=== PATIENT | female | born 2005 | race Caucasian/White ===

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

== ENCOUNTER 2024-09-04 08:59 | Emergency (ER) | payer OTHER, SELFPAY ==
--- NOTE | ~2024-09-04 | XR_ITS ---
EXAMINATION: XR chest 2V DATE: 09/04/2024 09:48 INDICATION: One week of fever, cough and congestion TECHNIQUE: PA and lateral views of the chest were obtained. COMPARISON: Chest radiograph dated 04/04/2023 FINDINGS: The lungs remain clear with no focal airspace opacities, pulmonary edema, pleural effusion or pneumot horax. The cardiomediastinal silhouette is normal. Chronic mild anterior wedging of a couple mid and lower thoracic vertebral bodies. IMPRESSION: 1. No acute cardiopulmonary disease. Reviewed, dictated and finalized at location B. ERN LAYOUT WORKER
[2024-09-04 09:24] VITALS: BP 126/83; PULSE 126; RESP 16; TEMP 38; O2SAT 99
--- NOTE | 2024-09-04 09:25 | ED_ITS ---
HPI - URI/Sore Throat General Chief Complaint: Upper Respiratory Infection Stated Complaint: fever, bodyaches, congestion, sorethroat Time Seen by Provider: 09/04/24 09:35 Source: patient, RN notes reviewed and old records reviewed Mode of arrival: ambulatory Limitations: no limitations History of Present Illness HPI Narrative: 19-year-old female who presents to [facility] with complaints of fever, body aches,sore throat, and congestion for approximately 2 weeks with reported fever of 102F this morning with increased symptoms since yesterday.. Patient reports that she was seen at another urgent care 10 days ago and given Amoxicillin which she took for only 3 days because it made her nauseated. Patient reports that she has loose cough of yellowish drainage. Shehas been taking Sudafed, and Advil cold and sinus for her symptoms. MD elicited complaint: fever, cough, sore throat, nasal congestion and other (body aches) Onset (ago): week(s) (2 weeks inital symptoms with increase for 2 days) Pain scale (0-10): 2 Able to tolerate fluids by mouth: Yes Exacerbating factors: swallowing Treatments prior to arrival: other (Advil cold and sinus, Sudafed) Related Data Home Medications Medication Instructions Recorded Confirmed etonogestrel 68 mg subdermal 1 implant subdermal ONCE 08/05/20 09/04/24 implant (Nexplanon) pramipexole 0.5 mg tablet 0.5 mg PO DAILY 08/05/20 09/04/24 armodafinil See Rx Instructions .Route .COMPLEX 09/04/24 09/04/24 Allergies Allergy/AdvReac Type Severity Reaction Status Date / Time No Known Allergies Allergy Verified 09/04/24 09:22 Review of Systems Review of Systems: CONSTITUTIONAL: Reports malaise, chills, sweats, or fever. EYES: Denies visual changes, redness, or discharge. ENT: Reports rhinorrhea, congestion, sinus pain,no otalgia and positive for sore throat. CARDIOVASCULAR: Denies chest pain, palpitations, or edema. RESPIRATORY: Reports productive cough.? Denies dyspnea. GASTROINTESTINAL: Denies abdominal pain, nausea, vomiting, diarrhea SKIN: Denies rash or itching. MUSCULOSKELETAL: reports myalgia. NEUROLOGIC: Denies headache. All systems reviewed & are unremarkable except as noted in HPI and below PMFSH Past Medical History Medical History (Updated 09/06/24 @ 06:17 by Betsey Leggett NP) Anxiety and depression Back pain GERD (gastroesophageal reflux disease) Hypersomnia Iron deficiency Restless leg syndrome Surgical History Surgical History (Updated 09/06/24 @ 06:12 by Betsey Leggett NP) History of tonsillectomy Social History Social History (Updated 09/06/24 @ 06:13 by Betsey Leggett NP) Smoking status: Never smoker Alcohol intake: unknown Substance use: unknown Gender identity (if verbalized by the patient): Female Comments At time of signature, agree with nursing past medical, surgical, social and family history. There is no relevant family history pertinent to the presenting complaint Exam Narrative: GENERAL: Well-appearing, well-nourished, and in no acute distress. HEAD: Normocephalic EYES: PERRLA, conjunctivae clear ENT: Nares clear, turbinates edematous and erythematous, yellow discharge, sinus pressure. Mucous membranes moist. TM pearly navarro with dull light reflex bilaterally; no tragal tenderness. Oropharynx erythematous without lesions. Tonsils not present and throat without exudate, no drooling, no hoarseness, no trismus, uvula midline.post nasal drainage noted. NECK: Supple. No lymphadenopathy CHEST: Clear to auscultation, breath sounds equal. No wheezing, rhonchi, rales, or stridor. No respiratory distress, speaks in full sentences.productive cough DGA110% on room air HEART: Regular rate and rhythm. No murmur heard. SKIN: Warm, dry, no rash. NEURO: Alert and oriented x3. PSYCH: Normal mood and affect Course Course Emergency Course: Patient is aware of diagnosis, understands and agrees to treatment plan.? Antici patory guidance given.? Patient agrees to follow-up as directed and is aware of reasons to seek care at the emergency department. Portions of this record may have been created with voice recognition software Level of Care: Express Care Visit Vital Signs Vital signs: Vital Signs Temperature 38.0 C H 09/04/24 09:24 Pulse Rate 126 H 09/04/24 09:24 Respiratory Rate 16 09/04/24 09:24 Blood Pressure 126/83 09/04/24 09:24 Pulse Oximetry 99 11/21/24 09:24 Temperature 38.0 C H 09/04/24 09:24 Pulse Rate 126 H 09/04/24 09:24 Respiratory Rate 16 09/04/24 09:24 Blood Pressure 126/83 09/04/24 09:24 Pulse Oximetry 99 09/04/24 09:24 Reviewed MDM - URI/Sore Throat MDM Narrative Medical decision making narrative: Differential diagnosis considered: Burnett virus, strep pharyngitis, allergic rhinitis, upper respiratory tract infection, sinusitis, rhinosinusitis, nasopharyngitis. viral pharyngitis, otitis media, otitis externa, pneumonia, bronchitis, viral cough syndrome, viral syndrome, and influenza.? Exam findings show no acute concerns or changes; patient is non-toxic appearing and is in no distress.? Patient is appropriate for outpatient treatment and follow-up. Differential Diagnosis Differential diagnosis: Likely upper respiratory infection, sinusitis, viral infection, bronchitis, influenza, pharyngitis and other (strep pharyngitis, pneumonia) Medical Records Attestation: I reviewed the patient's medical records. Lab Data Attestation: I reviewed the patient's lab results. Lab results narrative: strep screen negative, culture seen, Influenza A negative, Influenza B negative, COVID negative Labs: Lab Results 09/04/24 Range/Units 09:20 POC Influenza A Ag Negative (Negative) POC Influenza B Ag Negative (Negative) POC SARS CoV-2 Ag Negative (Negative) POC Grp A Strep Screen Negative (Negative) Imaging Data Attestation: I personally reviewed and interpreted this imaging study as follows: My impression: no acute cardiopulmonary disease Radiologist's impression: [address] [place] [address] XRay Report Signed Patient: Lucita Valle : 2005 MR#: [id number] Age: 19 Acct:[id number] Loc: [facility] ADM Date: 09/04/24Attending Dr: Ordering Physician: Betsey Leggett APRN Date of Service: 09/04/24 Procedure(s): XR chest 2V Accession Number(s): [id number] cc: Betsey Leggett APRN; Hunter, Kelly Amanda APRN~ EXAMINATION: XR chest 2V DATE: 09/04/2024 09:48 INDICATION: One week of fever, cough and congestion TECHNIQUE: PA and lateral views of the chest were obtained. COMPARISON: Chest radiograph dated 04/04/2023 FINDINGS: The lungs remain clear with no focal airspace opacities, pulmonary edema, pleural effusion or pneumothorax. The cardiomediastinal silhouette is normal. Chronic mild anterior wedging of a couple mid and lower thoracic vertebral bodies. IMPRESSION: 1. No acute cardiopulmonary disease. Reviewed, dictated and finalized at location B. MENT PROCESSING SPECIALIST Dictated By: Biju Sandoval MD 09/04/24 1007 Signed By: <Electronically signed by Biju Sandoval MD in OV> Critical Care Time Critical Care Time Critical Care Time: No Discharge Plan Discharge Clinical Impression: Sinusitis, Acute cough Patient Disposition: Home, Self-Care Condition: Stable Instructions: Antibiotic Form Additional Instructions: Increase fluids especially juices and water [id number] cough and cold medicine of your choice for your symptoms Zyrtec Claritin or Elayne daily continue to take plain Sudafed 1 in a.m. and 1 in early p.m. Steroids as directed--take with food heat to the face 20-30 minutes 4-6 times a day for pain Salt water gargles, throat lozenges or throat sprays as desired Antibiotic as directed--finished the medication If your symptoms persist, change or worsen significantly before you can contact your personal physician then please, without delay, go to the emergency department for further evaluation. Follow-up with PCP in 7-10 days or sooner if needed Follow up with PCP soon in regards to your blood pressure which is elevated above threshold for referral. Blood pressure above 120/80 may indicate pre- hypertension. 126/83 minimal elevation Tylenol or ibuprofen for any fever pain Prescriptions: New prednisone 20 mg tablet 20 mg PO BID Qty: 10 0RF Rx Instructions: a.m. and early p.m. take with food azithromycin 250 mg tablet See Rx Instructions .ROUTE .COMPLEX Qty: 6 0RF Rx Instructions: For 250 mg dose pack: take 500 mg today (day 1), then 250 mg for 4 days (days 2-5) recommend take with food No Action pramipexole 0.5 mg Tablet 0.5 mg PO DAILY Nexplanon 68 mg Implant 1 implant SUBDERMAL ONCE armodafinil See Rx Instructions .ROUTE .COMPLEX Rx Instructions: see RX instructions Follow-up/Referrals: Hunter,Kelly Amanda, EARLY CHILDHOOD TEACHER [Primary Care Provider] - Stand Alone Forms: Work/School Release IP Time of Disposition: 10:22 Quality [place] Coma Scale Eyes: Open Verbal: Oriented and Alert Motor: Follows Commands [place] Coma Total Score: 15
[2024-09-04 09:40] LABS: EDCOVIDSCREEN Negative (Negative); EDINFLUASCREEN Negative (Negative); EDINFLUBSCREEN Negative (Negative); EDSTREPNEGPOS1 Negative (Negative)
== END 2024-09-04 10:28 | disposition home or self-care (01) ==
PROVIDERS: Emergency Provider Registered Nurse
DX: J32.9 Chronic sinusitis, unspecified (principal); R05.1 Acute cough; Z20.822 Contact with and (suspected) exposure to COVID-19; K21.9 Gastro-esophageal reflux disease without esophagitis; G25.81 Restless legs syndrome
CPT/HCPCS: 71046; 87081; 87426; 87804; 87880; 99213; G0463

== ENCOUNTER 2024-11-27 13:56 | Emergency (ER) | payer OTHER, SELFPAY ==
--- NOTE | ~2024-11-27 | XR_ITS ---
EXAMINATION: XR chest 2V DATE: 11/27/2024 14:22 INDICATION: Chest pain. TECHNIQUE: Frontal and lateral views of the chest were obtained. COMPARISON: Chest 2 views 09/04/2024 FINDINGS: There is no pneumonia, pleural effusion, or pneumothorax. The heart size is normal. IMPRESSION: 1. No acute cardiopulmonary disease. Reviewed, dictated and finalized at location A. [facility]
--- NOTE | 2024-11-27 14:01 | ECG_ITS ---
Test Date: 2024-11-27 14:08:08 Measurements Intervals [place] Rate: 117 P: 37 CO: 116 QRS: 17 QRSD: 81 T: 7 QT: 313 QTc: 438 Interpretive Statements SINUS TACHYCARDIA WITH SHORT CO INTERVAL CONSIDER INFERIOR INFARCT, AGE INDETERMINATE BASELINE ARTIFACT- I, III, AVR, AVL, AVF ABNORMAL ECG No previous ECG available for comparison Electronically Signed On 11-27-2024 14:47:59 FURNACE MECHANIC by Luis Miguel Rock D.O.
--- OUTSIDE RECORDS SUMMARY | 2024-11-27 14:03 | XMS_ITS | Encounter Summary ---
Author Organization [facility] Address [address] [place] [address] Care Team Providers Care Dry Box Operator Name Role Phone Kavitha Barker MD Primary Care Provider [phone] Irlanda Del Real TOPOGRAPHIC COMPUTATOR-SPECIAL NEEDS BABYSITTER Primary Care Provider Kelly Harrison Primary Care Provider [phone] Reason for Visit * Reason Onset Date Comments MEDICATION REFILL 03/07/2023 Encounter Details Date Type Department Care Team (Late st Contact Info) Description 03/07/2023 Refill [facility] - Sleep [address] [place] [address] María Elena Overton, TOPOGRAPHIC COMPUTATOR-SPECIAL NEEDS BABYSITTER [address] [place] [address] MEDICATION REFILL Social History Tobacco Use Types Packs/Day Years Used Date Smoking Tobacco: Never Smokeless Tobacco: Never Alcohol Use Standard Drinks/Week Comments Never 0 (1 standard drink = 0.6 oz pur e alcohol) Education Answer Date Recorded What is the highest level of school you have completed or the highest degree you have received? Some college, no degree 03/06/2023 Sex and Gender Information Value Date Recorded Sex Assigned at Not on file Gender Identity Female 05/27/2022 3:36 PM CDT Sexual Orientation Not on file COVID-19 Exposure Response Date Recorded In the last 10 days, have yo u been in contact with someone who was confirmed or suspected to have Coronavirus/COVID-19? No / Unsure 03/05/2023 8:16 AM CDT documented as of this encounter Plan of Treatment Upcoming Encounters Date Type Department Care Team (Late st Contact Info) Description 12/12/2024 8:40 AM CRITICAL CARE NURSE PRACTITIONER Office Visit [facility] Pending sale to [facility] [place] [phone] Lashell Boswell, APNP-SPECIAL NEEDS BABYSITTER [address] DIV OF PULMONARY/[place] [address] 01/20/2025 11:20 AM CDT Office Visit [facility] Services [address] [place] [phone] Lashell Boswell, APNP-SPECIAL NEEDS BABYSITTER [address] DIV OF PULMONARY/[place] [address] documented as of this encounter Goals Goal Patient Goal Type Associated Problems Recent Progress Patient-Stated? Author Use safety retraint in car Lifestyle On track( 021 3:12 PM CRITICAL CARE NURSE PRACTITIONER) No Betsey Sneed RN documented as of this encounter Visit Diagnoses Not on filedocumented in this encounter Care Teams Dry Box Operator Relationship Specialty Start Date End Date Kavitha Barker MD PCP - General 06/02/22 03/14/23 Irlanda Del Real APRN-SPECIAL NEEDS BABYSITTER [address] [place] [phone] PCP - General Nurse Practitioner Family 03/15/23 Kelly Harrison [address] [place] [phone] PCP - General 11/07/24 documented as of this encounter
--- OUTSIDE RECORDS SUMMARY | 2024-11-27 14:03 | XMS_ITS | Encounter Summary ---
Author Organization [facility] Address [address] [place] [address] Care Team Providers Care Customer Service Trainer Name Role Phone Kelly Harrison Primary Care Provider Reason for Visit * Reason Onset Date Comments General 11/07/2024 Encounter Details Date Type Department Care Team (Late st Contact Info) Description 11/07/2024 Telephone [facility] [address] [place] [phone] Lashell Boswell, APNP-PRESIDING STEWARD [address] [facility] [address] DIV OF PULMONARY/[place] [address] General Social History Tobacco Use Types Packs/Day Years Used Date Smoking Tobacco: Never Smokeless Tobacco: Never Alcohol Use Standard Drinks/Week Comments Yes 0 (1 standard drink = 0.6 oz pur e alcohol) occ Education Answer Date Recorded What is the highest level of school you have completed or the highest degree you have received? Some college, no degree 03/06/2023 Sex and Gender Information Value Date Recorded Sex Assigned at Not on file Gender Identity Female 05/27/2022 3:36 PM CDT Sexual Orientation Not on file documented as of this encounter Miscellaneous Notes * Telephone Encounter - Vicenta Stewart - 11/07/2024 11:31 AM CST Reason for call: Patient expressed urgency with receiving a call back from the office regarding herher recent mychart message and armodafinil treatment Patient Call Back number: [phone] Y EQUIPMENT DIESEL MECHANIC documented in this encounter Plan of Treatment Upcoming Encounters Date Type Department Care Team (Late st Contact Info) Description 12/12/2024 8:40 AM HEAVY EQUIPMENT DIESEL MECHANIC Office Visit [facility] - [facility] Services [facility], [id number] [place] [address] Lashell Boswell, APNP-PRESIDING STEWARD [address] DIV OF PULMONARY/[place] [address] 01/20/2025 11:20 AM CDT Office Visit [facility] - Sleep Services [address] [place] [phone] Lashell Boswell, APNP-PRESIDING STEWARD [address] DIV OF PULMONARY/[place] [address] documented as of this encounter Goals Goal Patient Goal Type Associated Problems Recent Progress Patient-Stated? Author Use safety retraint in car Lifestyle On track( 021 3:12 PM HEAVY EQUIPMENT DIESEL MECHANIC) No Betsey Sneed RN documented as of this encounter Visit Diagnoses Not on filedocumented in this encounter Care Teams Customer Service Trainer Relationship Specialty Start Date End Date Kelly Harrison [address] [place] [phone] PCP - General 11/07/24 documented as of this encounter
--- OUTSIDE RECORDS SUMMARY | 2024-11-27 14:03 | XMS_ITS | Patient Health Summary ---
Author Organization [facility] Address [address] [place] [address] Care Team Providers Care Lockstitch Tunnel Elastic Operator Name Role Phone Kelly Harrison Primary Care Provider [phone] Note from [facility],non-owned Affiliates and Associated Physician Practices is amultiple site organization consisting of ambulatory clinics and hospital sitesin [place], [place], [place] and [place]. This disclosure is being madepursuant to the Care Everywhere program and may not contain all information available regarding this patient. Last updated 18.[facility] Allergies * Bupropion(Itching) Medications * Be aware that medications may not be up to date on this document. Alwaysverify current medications with the patient. * etonogestrel (NEXPLANON) 68 MG implant(Started 10/16/2019) 1 device by Implant route once Inplanted in left arm * armodafinil (Nuvigil) 150 MG tablet(Started 06/02/2024) Take 1 (one) tablet by mouth once daily. Take one tablet daily upon waking up in the morning. 5 refills by 11/29/2024 * famotidine (Pepcid) 40 MG tablet(Started 06/24/2024) Take 1 (one) tablet by mouth once daily as needed * levothyroxine (Synthroid) 25 MCG tablet(Started 06/11/2024) Take 1 (one) tablet by mouth once daily * omeprazole (PriLOSEC) 20 MG capsule(Started 06/24/2024) Take 1 (one) capsule by mouth daily before breakfast * vitamin D, ergocalciferol, (Drisdol) 1.25 MG (50026 UT) capsule Take 1 (one) capsule by mouth every 7 days Active Problems Problem Noted Date Diagnosed Date Gastroesophageal reflux disease without esophagi tis 06/24/2024 Hypothyroidism 06/11/2024 Sexually transmitted infection 06/10/2024 Vaginal odor 06/10/2024 Labial cyst 04/29/2024 Iron deficiency 07/04/2023 Central sleep apnea 07/04/2023 04/23/2023 Overweight (BMI 25.0-29.9) 03/06/2023 Nightmares 03/06/2023 Confusional arousals 03/06/2023 Sleep related rhythmic movement disorder 023 Sleep drunkenness 03/06/2023 Sleep talking 03/06/2023 Sleep paralysis 03/06/2023 Excessive daytime sleepiness 03/06/2023 Restless legs syndrome (RLS) 03/06/2023 Inadequate sleep hygiene 03/06/2023 Non-restorative sleep 03/06/2023 Night sweats 03/06/2023 Weight gain 03/06/2023 Numbness and tingling in both hands 03/06/2023 SOB (shortness of breath) on exertion 03/06/2023 H/O iron deficiency 03/06/2023 Myalgia 03/06/2023 Excessive sleepiness while driving 03/06/2023 Chronic pelvic pain in female 02/15/2023 Herpes labialis 06/29/2022 03/06/2023 Herpes simplex 05/31/2022 03/06/2023 Antinuclear factor positive 04/12/202202/13 Fatigue 04/07/2022 03/06/2023 Mixed anxiety and depressive disorder 04/07/2022 03/06/2023 Pelvic floor dysfunction 10/28/2020 Periodic limb movements of sleep 10/09/2016 OCD (obsessive compulsive disorder) 10/06/2016 Major depressive disorder wi th single episode, in full remission 05/19/2016 Allergic rhinitis 11/27/2011 Acne 11/16/2011 Immunizations * Covid Pfizer primary monovalent 12+ yr 0.3mL Purple cap(Given 11/22/2020, 11/01/2020) * DTaP VACCINE IM (6wk-6yrs)(Given 03/03/2009, 08/07/2005, 2004, 2004, 2004) * FLU VACCINE QUAD IIV4 SPLIT 0.25 ML IM(Given 08/08/2019) * HEP A PEDS 2 DOSE(Given 05/16/2007, 04/24/2006) * HEP B VACCINE, PED/ADOL(Given 05/11/2005, 2004, 2004) * HIB BOOSTER(Given 05/11/2005, 2004, 2004) * Human Papilloma Virus Quadrivalent Vaccine(Given 11/19/2015, 08/05/2015, 05/25/2015) * INFLUENZA VACCINE(Given 09/20/2021, 08/09/2017, 08/24/2008, 07/24/2007, 07/19/2006, 08/07/2005, 2004) * INFLUENZA VACCINE, QUADR. (FLUZONE; FLULAVAL; FLUARIX; AFLURIA QUADRIVALENT; 6MO+), 0.5 ML (IIV4)(Given 08/08/2022, 07/06/2018, 07/21/2016) * Influenza Nasal(Given 07/18/2012, 07/18/2011, 07/22/2010, 07/28/2009) * SREEDHAR VACCINE QUAD LAIV4 PF NASAL(Given 08/05/2015, 08/06/2014, 08/07/2013) * MENINGOCOCCAL CONJUGATE (MCV4P)(Given 12/21/2020, 05/13/2015) * MMR(Given 03/03/2009, 05/11/2005) * PNEUMOCOCCAL CONJ, PEDS(Given 05/11/2005, 2004, 2004, 2004) * POLIO IPV(Given 03/03/2009, 2004, 2004, 2004) * TDAP (7yrs+)(Given 05/13/2015) * VARICELLA(Given 03/03/2009, 08/07/2005) Social History Tobacco Use Types Packs/Day Years Used Date Smoking Tobacco: Never Smokeless Tobacco: Never Tobacco Cessation:Counseling Given: Not Answered Alcohol Use Standard Drinks/Week Comments Yes 0 [...] PM CDT Sexual Orientation Not on file Last Filed Vital Signs Vital Sign Reading Time Taken Comments Blood Pressure 97/73 05/12/2024 2:34 PM CDT Pulse 92 05/12/2024 2:34 PM CDT Temperature 36.7 C (98.1 F) 08/09/2023 10:09 AM CDT Respiratory Rate 13 08/09/2023 12:40 PM CDT Oxygen Saturation 97% 08/09/2023 12:40 PM CDT Inhaled Oxygen Concentration - - Weight 72.6 kg (160 lb) 09/16/2024 2:01 PM RIGGER Height 157.5 cm (5' 2 ) 09/16/2024 2:01 PM RIGGER Body Mass Index 29.26 09/16/2024 2:01 PM RIGGER Procedures * VITAMIN D 25-HYDROXY(Performed 11/21/2024) Performed for Vitamin D deficiency * IRON + TIBC + FERRITIN(Performed 05/22/2024) Performed for Iron deficiency * IRON + TIBC + FERRITIN(Performed 12/06/2023) Performed for Iron deficiency * VITAMIN D 25-HYDROXY(Performed 12/06/2023) * DRUG ABUSE PANEL 10 URINE W CONF(Performed 10/26/2023) * HI POLYSOM 6/>YRS CPAP 4/> PARM(Performed 09/25/2023) Performed for Central sleep apnea, Chronic fatigue, Sleep related hypoxia, Overweight (BMI 25.0-29.9) * HI MULTIPLE SLEEP LATENCY TEST(Performed 09/24/2023) Performed for Central sleep apnea, Chronic fatigue, Sleep related hypoxia, Overweight (BMI 25.0-29.9) * HI GI TRACT CAPSULE ENDOSCOPY(Performed 08/31/2023) Performed for Anemia, unspecified type * RETIC COUNT(Performed 08/27/2023) Performed for Iron deficiency * ECHO COMPLETE(Performed 08/22/2023) Performed for Central sleep apnea, Chronic fatigue, Iron deficiency, Sleep related hypoxia, Overweight (BMI 25.0-29.9) * COMPLETE PFT W/WO BRONCHODILATOR(Performed 08/20/2023) Performed for Excessive daytime sleepiness, Chronic fatigue, SOB (shortness of breath) on exertion * PATHOLOGY TISSUE EXAM (STL)(Performed 08/09/2023) Performed for Iron deficiency anemia, unspecified iron deficiency anemia type * ENDOSCOPY, COLON, SCREENING(Performed 08/09/2023) Performed for Iron deficiency * EGD(Performed 08/09/2023) Performed for Iron deficiency * HCG URINE QUAL POCT NOTIFICATION(Performed 08/09/2023) Performed for Preoperative examination * HI EGD FLEX TRANSORAL W BX SNGL OR MULT(Performed 08/09/2023) Performed for Iron deficiency anemia, unspecified iron deficiency anemia type * HI COLONOSCOPY, DIAGNOSTIC(Performed 08/09/2023) Performed for Iron deficiency anemia, unspecified iron deficiency anemia type * HI ED EGD FLEX TRANSORAL DX(Performed 08/09/2023) Performed for Iron deficiency anemia, unspecified iron deficiency anemia type * HCG URINE QUALITATIVE - POCT (IP) INTERFACED(Performed 08/09/2023) * HI POLYSOM 6/>YRS CPAP 4/> PARM(Performed 04/23/2023) Performed for Nightmares, Confusional arousals, Sleep drunkenness, Sleep related rhythmic movement disorder, Sleep talking, Sleep paralysis, Excessive daytime sleepiness, Chronic fatigue, Restless legs syndrome (RLS), Periodic limb movement disorder (PLMD), Non-restorative sleep, Night sweats, Weight gain, Numbness and tingling in both hands, Myalgia, Anxiety and depression, Mixed obsessional thoughts and acts, Overweight (BMI 25.0-29.9) * LAB RESULTS ORDER(Performed 04/04/2023) * LAB RESULTS ORDER(Performed 04/04/2023) * LAB RESULTS ORDER(Performed 04/04/2023) * VITAMIN B12(Performed 03/06/2023) Performed for Excessive daytime sleepiness, Chronic fatigue, Numbness and tingling in both hands * METHYLMALONIC ACID BLOOD(Performed 03/06/2023) Performed for Excessive daytime sleepiness, Chronic fatigue, Numbness and tingling in both hands * FOLATE(Performed 03/06/2023) Performed for Excessive daytime sleepiness, Chronic fatigue, Numbness and tingling in both hands * VITAMIN D 25-HYDROXY(Performed 03/06/2023) Performed for Excessive daytime sleepiness, Chronic fatigue, Myalgia * TSH(Performed 03/06/2023) Performed for Excessive daytime sleepiness, Chronic fatigue, Weight gain, Overweight (BMI 25.0-29.9) * IRON + TIBC + FERRITIN(Performed 03/06/2023) Performed for Nightmares, Excessive daytime sleepiness, Chronic fatigue, Restless legs syndrome (RLS), Periodic limb movement disorder (PLMD), H/O iron deficiency * HERPES SIMPLEX 1+2 PCR LESION(Performed 05/27/2022) * CHLAMYDIA + GC AMPLIFIED PROBE(Performed 05/27/2022) * SYPHILIS ANTIBODY CASCADING REFLEX(Performed 05/27/2022) * HIV-1 HIV-2 ANTIBODY + HIV P24 AG PANEL(Performed 05/27/2022) * HCG URINE QUALITATIVE(Performed 05/27/2022) * URINALYSIS W/MICROSCOPIC NO CULTURE(Performed 05/27/2022) * CULTURE URINE(Performed 05/27/2022) * UROFLOWMETRY(Performed 11/16/2021) * VITAMIN D 1,25 DIHYDROXY(Performed 09/21/2021) Performed for Sleep disturbance * FERRITIN(Performed 09/21/2021) Performed for Sleep disturbance * CBC W/O DIFFERENTIAL(Performed 09/21/2021) Performed for Sleep disturbance * COMPREHENSIVE METABOLIC PANEL(Performed 09/21/2021) Performed for Sleep disturbance * EMG ACC(Performed 09/21/2021) Performed for Pelvic floor dysfunction in female, Dysuria * UROFLOWMETRY ACC(Performed 09/21/2021) Performed for Pelvic floor dysfunction in female, Dysuria * US BLADDER RESIDUAL ACC(Performed 09/21/2021) Performed for Pelvic floor dysfunction in female, Dysuria * SARS-COV-2 (COVID-19) AG (AMB) POCT(Performed 08/09/2021) Performed for Cough * CALCIUM/CREAT RATIO URINE RANDOM PANEL(Performed 10/28/2020) Performed for Pelvic floor dysfunction in female * URINALYSIS W/MICROSCOPIC NO CULTURE(Performed 10/28/2020) Performed for Pelvic floor dysfunction in female * CULTURE URINE(Performed 10/28/2020) Performed for Pelvic floor dysfunction in female * US KIDNEYS W BLADDER(Performed 10/28/2020) Performed for Dysuria * CULTURE STREP GROUP A(Performed 08/26/2020) Performed for Sore throat, Malaise * COVID-19 SARS-COV-2 PCR QUAL ([facility])(Performed 08/26/2020) Performed for Sore throat, Malaise, Nasal congestion * STREP A SCREEN - POINT OF CARE (AMB)(Performed 08/26/2020) Performed for Sore throat, Malaise * XR SPINE ENTIRE 2 OR 3VW(Performed 08/09/2020) Performed for Compression fracture of T7 vertebra, initial encounter (HCC) * IMAGING/RADIOLOGY/XRAY RESULTS ORDER(Performed 08/05/2020) * IMAGING/RADIOLOGY/XRAY RESULTS ORDER(Performed 08/05/2020) * VITAMIN D 25-HYDROXY(Performed 10/16/2019) Performed for Restless legs syndrome (RLS) * FERRITIN(Performed 10/16/2019) Performed for Restless legs syndrome (RLS) * VITAMIN D 25-HYDROXY(Performed 04/08/2019) Performed for Restless legs syndrome (RLS) * FERRITIN(Performed 04/08/2019) Performed for Restless legs syndrome (RLS) * CULTURE URINE(Performed 01/06/2019) Performed for Urine frequency * URINALYSIS - POINT OF CARE(Performed 01/06/2019) Performed for Urine frequency * PEDIATRIC DIAGNOSTIC POLYSOMNOGRAM(Performed 12/15/2018) Performed for KYLEIGH (obstructive sleep apnea) * C-REACTIVE PROTEIN(Performed 11/27/2018) Performed for Decreased iron stores * IRON + TIBC PANEL(Performed 11/27/2018) Performed for Periodic limb movements of sleep * FERRITIN(Performed 11/27/2018) Performed for Periodic limb movements of sleep * FERRITIN(Performed 10/28/2018) Performed for Periodic limb movements of sleep * VITAMIN D 25-HYDROXY(Performed 10/24/2018) Performed for RLS (restless legs syndrome) * FERRITIN(Performed 10/24/2018) Performed for RLS (restless legs syndrome) * IRON + TRANSFERRIN PANEL(Performed 08/01/2018) Performed for Excessive sleepiness * VITAMIN D 25-HYDROXY(Performed 08/01/2018) Performed for Excessive sleepiness * FERRITIN(Performed 08/01/2018) Performed for Excessive sleepiness * LIPID PROFILE+GLUCOSE - POINT OF CARE (AMB)(Performed 05/16/2018) Performed for Screening cholesterol level * FERRITIN(Performed 04/30/2018) Performed for Restless legs syndrome (RLS) * REDUCED MULTIPLE SLEEP LATENCY TEST(Performed 04/07/2018) Performed for Daytime sleepiness * CULTURE STREP GROUP A(Performed 03/04/2018) * CT SINUS WO CONTRAST(Performed 10/17/2017) Performed for Chronic maxillary sinusitis * VITAMIN D 25-HYDROXY(Performed 10/10/2017) Performed for Restless legs syndrome (RLS) * HGB HCT PANEL(Performed 10/10/2017) Performed for Restless legs syndrome (RLS) * FERRITIN(Performed 10/10/2017) Performed for Restless legs syndrome (RLS) * FERRITIN(Performed 06/25/2017) Performed for Periodic limb movements of sleep * HGB HCT PANEL(Performed 06/25/2017) Performed for Periodic limb movements of sleep * FERRITIN(Performed 03/30/2017) Performed for Periodic limb movements of sleep * HGB HCT PANEL(Performed 03/30/2017) Performed for Periodic limb movements of sleep * XR KNEE LEFT 2VW OR LESS(Performed 01/28/2017) Performed for Animal bite * XR FOREARM RIGHT 2VW OR MORE(Performed 01/28/2017) Performed for Animal bite * XR TIBIA FIBULA RIGHT 2VW(Performed 01/28/2017) Performed for Animal bite * CBC W AUTO DIFFERENTIAL(Performed 01/03/2017) Performed for Tired * FERRITIN(Performed 01/03/2017) Performed for Tired * CBC W AUTO DIFFERENTIAL(Performed 10/10/2016) Performed for Other fatigue * IRON + TIBC + FERRITIN(Performed 10/10/2016) Performed for Other fatigue * VITAMIN D 25-HYDROXY(Performed 10/10/2016) Performed for Other fatigue * T4 FREE(Performed 10/10/2016) Performed for Other fatigue * TSH(Performed 10/10/2016) Performed for Other fatigue * PEDIATRIC DIAGNOSTIC POLYSOMNOGRAM(Performed 09/30/2016) Performed for Sleep disturbance * URINALYSIS - POINT OF CARE(Performed 12/10/2015) Performed for Urinary hesitancy * URINE MICROSCOPIC ONLY(Performed 11/07/2015) * URINALYSIS REFLEX TO MICROSCOPIC NO CULTURE(Performed 11/07/2015) * COMPREHENSIVE METABOLIC PANEL(Performed 11/07/2015) * CBC W AUTO DIFFERENTIAL(Performed 11/07/2015) * MONONUCLEOSIS SCREEN(Performed 11/07/2015) * CULTURE STREP GROUP A(Performed 11/07/2015) * STREP A SCREEN DIRECT W RFLX STREP A CULTURE(Performed 11/07/2015) * CULTURE AEROBIC(Performed 12/07/2014) Performed for Pharyngitis, acute * STREP A SCREEN - POINT OF CARE (AMB)(Performed 12/07/2014) Performed for Pharyngitis, acute * CULTURE URINE(Performed 10/24/2014) Performed for Dysuria * URINALYSIS - POINT OF CARE(Performed 10/24/2014) Performed for Dysuria * BORDETELLA PERTUSSIS/PARAPERTUSSIS PCR(Performed 04/12/2012) Performed for Cough * VIRAL CULTURE RESPIRATORY(Performed 04/12/2012) Performed for Cough * PATHOLOGY/CYTOLOGY REPORT ORDER(Performed 04/04/2012) * ESOPHAGOGASTRODUODENOSCOPY (EGD) BIOPSY(Performed 04/02/2012) * EGD(Performed 04/02/2012) * PATHOLOGY TISSUE EXAM (STL)(Performed 04/02/2012) Performed for Vomiting alone * HELICOBACTER PYLORI UREASE(Performed 04/02/2012) * CBC W AUTO DIFFERENTIAL(Performed 04/01/2012) Performed for Vomiting alone, Precocious puberty, Acne, Allergic rhinitis * TISSUE TRANSGLUTAMINASE AB IGG(Performed 04/01/2012) Performed for Vomiting alone, Precocious puberty, Acne, Allergic rhinitis * TISSUE TRANSGLUTAMINASE AB IGA(Performed 04/01/2012) Performed for Vomiting alone, Precocious puberty, Acne, Allergic rhinitis * IGA BLOOD(Performed 04/01/2012) Performed for Emesis * XR ABD OBSTRUCTION SERIES 2VW(Performed 03/27/2012) Performed for Vomiting alone * COMPREHENSIVE METABOLIC PANEL(Performed 03/27/2012) Performed for Vomiting * CBC W AUTO DIFFERENTIAL(Performed 03/27/2012) Performed for Vomiting * XR ABDOMEN KUB(Performed 03/26/2012) Performed for Constipation * XR CHEST 2VW(Performed 03/25/2012) Performed for Cough * US ABDOMEN PRECOCIOUS PUBERTY(Performed 01/15/2012) Performed for Precocious sexual development and puberty, not elsewhere classified * XR BONE AGE STUDY(Performed 11/16/2011) Performed for Premature thelarche * HYDROXYPROGESTERONE 17-(Performed 11/09/2011) Performed for Premature thelarche * ESTRADIOL(Performed 11/09/2011) Performed for Premature thelarche * FSH + LH PANEL(Performed 11/09/2011) Performed for Premature thelarche * TSH+FREE T4(Performed 11/09/2011) Performed for Premature thelarche * TESTOSTERONE TOTAL(Performed 11/09/2011) Performed for Premature thelarche * GROSS EXAM PATHOLOGY(Performed 12/14/2008) * GROSS EXAM PATHOLOGY(Performed 12/14/2008) Results * VITAMIN D 25-HYDROXY (11/21/2024 2:17 PM RIGGER) Only the most recent of9 resultswithin the time period is included. Vitamin D, 25 Hydroxy 32.0 30.0 - 100.0 ng/mL [facility] INSURANCE BILL Comment: Vitamin D deficiency has been defined by the [place] of Medicine and an Endocrine Society practice guideline as a level of serum 25-OH vitamin D less than 20 ng/mL (1,2). The Endocrine Society went on to further define vitamin D insufficiency as a level between 21 and 29 ng/mL (2). 1. IOM ([place] of Medicine). 2010. Dietary reference intakes for calcium and D. [place]: The National Academies Press. 2. Kita MF, Paul KAISER, Raven APODACA, et al. Evaluation, treatment, and prevention of vitamin D deficiency: an Endocrine Society clinical practice guideline. JCEM. 2010; 96(7):1911-30. Blood BLOOD SPECIMEN / Unknown 11/21/2024 2:17 PM RIGGER 11/21/2024 Narrative [facility] INSURANCE BILL - 11/22/2024 7:08 AM RIGGER Performed at: [address] [id number] Physical Therapy Professor: Danyel Mcmillan PhD, Phone: [phone] [facility] - CH EMISTRY ORDERABLES [facility] INSURANCE BILL [address] [place] [address] * (ABNORMAL) IRON + TIBC + FERRITIN (05/22/2024 9:37 AM CDT) Only the most recent of4 resultswithin the time period is included. TIBC 255 250 - 450 ug/dL [facility] INSURANCE BILL UIBC 171 131 - 425 ug/dL [facility] INSURANCE BILL Iron 84 27 - 159 ug/dL [facility] INSURANCE BILL Iron Saturation 33 15 - 55 % [facility] INSURANCE BILL Ferritin 564(H) 15 - 150 ng/mL [facility] INSURANCE BILL Comment:FASTING Blood BLOOD SPECIMEN / Unknown 05/22/2024 9:37 AM CDT 05/22/2024 Narrative Resulting Agency Comment Lab Testing performed at: [facility] [place] [address] [facility] [id number] [facility] - CH EMISTRY ORDERABLES Performing Organization Address City/State/[facility] Co de Phone Number [facility] INSURANCE BILL [address] [place] [address] * DRUG ABUSE PANEL 10 URINE W CONF (10/26/2023 1:32 PM RIGGER) Amphetamines Screen Urine Negative Cutoff=10 00 ng/mL [facility] INSURANCE BILL Comment:Amphetamine test inc ludes Amphetamine and Methamphetamine. Barbituates Screen Urine Negative Cutoff=20 0 ng/mL [facility] INSURANCE BILL Benzodiazepines Screen Urine Negative Cutoff=20 0 ng/mL [facility] INSURANCE BILL Cannabinoids Screen Urine Negative Cutoff=50 ng/mL [facility] INSURANCE BILL Cocaine Screen Urine Negative Cutoff=30 0 ng/mL [facility] INSURANCE BILL Methaqualone Negative Cutoff=30 0 ng/mL [facility] INSURANCE BILL Opiates Urine Negative Cutoff=20 00 ng/mL [facility] INSURANCE BILL Comment:Opiate test includes Codeine and Morphine only. Phencyclidine Screen Urine Negative Cutoff=25 ng/mL [facility] INSURANCE BILL Methadone Screen Urine Negative Cutoff=30 0 ng/mL [facility] INSURANCE BILL Propoxyphene Screen Urine Negative Cutoff=30 0 ng/mL [facility] INSURANCE BILL 10/26/2023 1:32 PM RIGGER 10/26/2023 Narrative Resulting Agency Comment Lab Testing performed at: [facility] [address] [place] [id number] Gordy Streeter MD LAB - URINE [employer] RY ORDERABLES [facility] INSURANCE BILL [address] [place] [address] * HI POLYSOM 6/>YRS CPAP 4/> PARM (09/25/2023 1:15 PM RIGGER) Gordy Weaver MD - 09/25/2023 1:15 PM RIGGER Gordy Streeter MD 09/27/2023 12:22 PM [facility] Accredited by the [place] [employer] [facility], First Floor [address] [place] [address] Telephone : [phone] Medical Records Patient Name: Lucita Valle : 2005 Date of Study: 09/18/2023 Referring Physician: [facility] Boswell Type of Montage: Respiratory Scoring System: [facility] FULL NIGHT THERAPEUTIC POLYSOMNOGRAM INTERPRETATION (09/18/2023) Procedure: The polysomnogram was performed with a medical technologist chemistry in attendance. Frontal, central, and temporal EEG, EOG, submentalis EMG, oronasal thermistor airflow, nasal pressure transducer airflow, CPAP airflow, thoracic and abdominal respiratory effort by respiratory inductive plethysmography, anterior tibialis EMG, snore sensor, and pulse oximetry were monitored. Sleep stages, periodic limb movements, and EEG arousals were scored in 30-second epochs according to the AASM Scoring Manual. Apnea-hypopnea index was calculated using the recommended definition of hypopnea for scoring events. Data acquisition, collection, and scoring have been validated and clinically correlated. Sleep History: Mr. Lucita Valle, a 18 year [id number] female, was referred to the Sleep Disorders Clinic by [facility] Frias for the evaluation of obstructive sleep apnea (KYLEIGH). Current Outpatient Medications: ascorbic acid (Vitamin C) 500 MG tablet, Take 1 (one) tablet by mouth once daily, Disp: , Rfl: ergocalciferol (Drisdol) 1.25 MG (04292 UT) capsule, Take 1 (one) capsule by mouth every 7 days, Disp: 13 capsule, Rfl: 2 etonogestrel (NEXPLANON) 68 MG implant, 1 device by Implant route once Inplanted in left arm, Disp: , Rfl: THERAPEUTIC STUDY Sleep Architecture: During this therapeutic study, the patient slept the patient was monitored from 10:35 am to 6:07 am. The patient slept for 430.5 minutes and had increased sleep efficiency of 95%. The patient's initial sleep latency was reduced at 5 minutes. The initial REM latency was prolonged at 282.5 minutes. The sleep architecture was as follows: stage N1: 1.3%; stage N2: 67.2%; stage N3: 29%; stage REM: 2.4%. Respiratory Analysis, Oximetry Data, and Snoring Profile: Bilevel positive airway pressure autoServoventilation (BPAP AutoSV) was titrated from a minimum setting of EPAP of 7 cmH2O and PS range of 0-10 cmH2O to a maximum setting of EPAP of 7 cmH2O and PS range of 0-18 cmH2O. BPAP AutoSV at the maximal level of EPAP of 7 cmH2O and PS range of 0-18 cmH2O was associated with a sleep time of 393.5 minutes, a normal overall apnea-hypopnea index (AHI) of 0.3 per hour, and a mildly increased respiratory-related arousal index of 7.2 per hour. BPAP AutoSV at the minimal level of EPAP of 7 cmH2O and PS range of 0-10 cmH2O was associated with a sleep time of 37 minutes, a normal overall apnea-hypopnea index (AHI) of 0 per hour and an increased respiratory-related arousal index of 24.3 per hour. No snoring was detected on the higher BPAP AutoSV settings. The patient had a normal minimum oxygen saturation of 95% during REM sleep and a normal minimum oxygen saturation of 93% during non-REM sleep. The time spent with oxygen saturation less than 90% was 0 minute of the total therapeutic sleep time. Periodic Limb Movement Profile: The patient's periodic limb movement index was within normal limits at 1.8 per hour. EEG Profile: The patient's total arousal index at the maximal BPAP AutoSV setting of EPAP of 7 cmH2O and PS range of 0-18 cmH2O was within normal limits at 14.9 per hour. There was no evidence of epileptiform activity during sleep. Cardiac Profile: EKG showed normal sinus rhythm. No clinically significant arrhythmia was noted. Parasomnia Profile: No parasomnia was noted during this therapeutic study. IMPRESSION: BPAP AutoSV at the maximum setting of EPAP of 7 cmH2O and PS range of 0-18 cmH2O was effective in ameliorating apneas and hypopneas but was associated with persistence of a few respiratory effort-related arousals (RERA). Gordy Streeter MD, [facility], [place], [facility], [facility] Ct Scan Special Procedures Technologist, [facility] Sleep Disorders [place] Professor of Internal Medicine Adjunct Emt B of Neurology Division of Pulmonary, Critical Care, and Sleep Medicine [facility] This note was electronically signed on 09/25/2023. CC: [place] [facility] [address] [place] [address] TOM Perkins [facility] BARTHOLOMEW PROCEDUR E/MINOR SURGICAL ORDERABLES * HI MULTIPLE SLEEP LATENCY TEST (09/24/2023 1:09 PM RIGGER) Narrative Gordy Streeter MD - 09/24/2023 1:09 PM RIGGER Gordy Streeter MD 09/27/2023 12:21 PM [facility] [place] Accredited by the [employer] [employer] [facility], First Floor [address] [facility] [place] [address] Telephone : [phone] Medical Records Patient Name: Lucita Valle : 2005 Date of Study: 09/18/2023 Referring Physician: FLORIDA Barcenas [address] [place] [address] Type of Montage: MSLT MULTIPLE SLEEP LATENCY TEST (MSLT) INTERPRETATION (09/18/2023) The sleep diary from 09/04/2023-09/17/2023 showed bedtimes ranging from 10 pm - 6 am and wake times ranging from 9 am to 4 pm. Evening naps occurred during most days, lasting for 3-6 hours in duration. The patient underwent a urine drug screen prior to the first nap. The urine drug screen was not performed since patient was unable to urinate all day. The patient's initial sleep latencies for the naps were as follows: Nap 1: 17 minutes Nap 2: 1 minutes Nap 3: 2.5 minutes Nap 4: 4.5 minutes Nap 5: 8.5 minutes The patient's mean sleep latency was decreased at 6.7 minutes which is consistent with mild hypersomnolence. There was sleep-onset REM period (SOREMP) in any of the naps. IMPRESSION 1. Mild objective hypersomnolence with no sleep-onset REM period (SOREMP). 2. 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 3. Urine drug screen was not performed during this MSLT. RECOMMENDATIONS Evaluate for other causes of hypersomnolence (e.g., insufficient sleep, medication, substance, medical disorders, central disorders of hypersomnia, circadian rhythm disorder, etc.). Gordy Streeter MD, [facility], [place], [facility], [facility] Ct Scan Special Procedures Technologist, [facility] Professor of Internal Medicine Adjunct Emt B of Neurology Division of Pulmonary, Critical Care, and Sleep Medicine [facility] Lashell A Dettenmeier APNP-PROFESSIONAL FEE CODER PROCEDUR E/MINOR SURGICAL ORDERABLES * RETIC COUNT (08/27/2023 1:54 PM RIGGER) Pathologist [facility] Reticulocyte Count 1.3 0.6 - 2.6 % [facility] [place] INSURANCE BILL Blood BLOOD SPECIMEN / Unknown 08/27/2023 1:54 PM RIGGER 08/27/2023 Narrative Resulting Agency Comment Lab Testing performed at: [facility] [address] [facility] [id number] Lashell A Dettenmeier APNP-PROFESSIONAL FEE CODER LAB - HE MATOLOGY ORDERABLES [facility] INSURANCE BILL [address] [place] [address] * ECHO COMPLETE (08/22/2023 8:28 AM RIGGER) Pathologist [facility] BSA 1.1177000 [id number] m2 SSM CV FUJI PACS LVOT stroke vol 57.24 mL SSM CV FUJI PACS LVOT stroke vol index 32.24 mL/m2 [facility]SM CV FUJI PACS LV stroke vol 2D teich 61.094 ml SSM CV FUJI PACS LV Stroke Index 2D Teich 34.41 mL/m2 SSM CV FUJI PACS LVIDd 4.42 3.8 - 5.2 cm SSM CV FUJI PACS LVIDs 2.73 2.2 - 3.5 cm SSM CV FUJI PACS IVSd 2D 0.732 0.6 - 0.9 cm SSM CV FUJI PACS IVSs 1.14 cm SSM CV FUJ I PACS LVPWd 1.02 0.6 - 0.9 cm SSM CV FUJI PACS LVPWs 1.43 cm SSM CV FUJ I PACS Fractional Shortening 2D 38 28 - 44 % SSM CV FUJI PACS LV ESV 2D 27.664 14 - 42 mL SSM CV FUJI PACS LV ESV index 2D 15.58 8 - 24 mL/m2 SSM CV FUJI PACS LV EDV 2D 88.759 46 - 106 mL SSM CV FUJI PACS LV EDV index 2D 50.00 29 - 61 mL/m2 SSM CV FUJI PACS LVOT diam 1.8 cm SSM CV FUJ I PACS LVOT area 2.55 cm2 SSM CV FUJ I PACS LV RWT 0.461 SSM CV FUJ I PACS IVS/LVPW 0.718 SSM CV FUJ I PACS LV mass 2D 115.6646 66 - 150 g SSM CV FUJI PACS LV mass index 2D 65.15 44 - 88 g/m2 SSM CV FUJI PACS MV E pk harvey 107.377 cm/s SSM CV F UJI PACS MV avg E/e' ratio 6.73 SS M CV FUJI PACS MV A pk harvey 55.535 cm/s SSM CV F UJI PACS MV E A ratio 1.93 SSM CV FUJI PACS MV E' lateral harvey 18.457 cm/s SS M CV FUJI PACS MV E' septal harvey 14.057 cm/s SSM CV FUJI PACS MV E/e' septal 7.639 SSM C V FUJI PACS MV E/e' lateral 5.818 SSM CV FUJI PACS TR pk harvey 275.9 cm/s SSM CV FUJ I PACS P vein S/D ratio 0.88 SSM CV FUJI PACS LVOT pk harvey 1.15 m/s SSM CV F UJI PACS LVOT mn harvey 0.71 m/s SSM CV F UJI PACS LVOT mn grad 2.4 mmHg SSM CV FUJI PACS LVOT Cardiac Output 3.488 l/min SSM CV FUJI PACS LVOT Cardiac Index 1.96 l/min/m2 SSM CV FUJI PACS LA size 3.248 2.7 - 3.8 cm SSM CV FUJI PACS RVIDd 2.7 cm SSM CV [facility] I PACS RVOT VTI 20.375 cm SSM CV [facility] I PACS TV S' harvey 12.909 cm/s SSM CV [facility] I PACS RVOT pk harvey 0.96 m/s SSM CV F UJI PACS AV mn grad 4 mmHg SSM CV FU JI PACS AV pk grad 7 mmHg SSM CV FU JI PACS AV mn harvey 0.91 m/s SSM CV [facility] I PACS AV pk harvey 1.32 m/s SSM CV [facility] I PACS AV VTI 26.621 cm SSM CV [facility] I PACS LVOT pk grad 5.246 mmHg [facility] LVOT VTI 22.418 cm SSM CV [facility] I PACS AV area cont VTI 2.2 cm2 [facility] AV area pk harvey 2.2 cm2 SSM C V [facility] PACS AV Doppler harvey index pk harvey 0.87 [facility] Dimensionless Index 0.842 SSM CV FUJI PACS TR VTI 65.3 cm SSM CV [facility] I PACS TR pk grad 30 mmHg SSM CV FU JI PACS RVOT mn grad 2 mmHg SSM CV FUJI PACS RVOT pk grad 3 mmHg SSM CV FUJI PACS PV mn grad 2 mmHg SSM CV FU JI PACS PV pk harvey 109.534 cm/s SSM CV [facility] I PACS PV pk grad 3 mmHg SSM CV FU JI PACS PV VTI 23.004 cm SSM CV [facility] I PACS PV mn harevy 64.093 cm/s SSM CV [facility] I PACS LVIDs index 1.54 1.3 - 2.1 cm/m2 SSM CV FUJI PACS LV LVIDd index 2.49 2.3 - 3.1 cm/m2 SSM CV FUJI PACS LV est EF 65 % SSM CV FUJ I PACS Anatomical Region Laterality Modality Ultrasound Narrative 08/22/2023 8:47 AM RIGGER Left Ventricle: Left ventricle size is normal. Normal wall thickness. Ventricular mass is normal. Normal systolic function with a visually estimated EF of 65%. Normal wall motion. Normal diastolic function. Left Ventricle Left ventricle size is normal. Normal wall thickness. Ventricular mass is normal. Normal systolic function with a visually estimated EF of 65%. Normal wall motion. Normal diastolic function. Right Ventricle Right ventricle size is normal. Normal systolic function. Left Atrium Left atrium size is normal. Right Atrium Right atrium size is normal. IVC/SVC IVC diameter is less than or equal to 21 mm and decreases greater than 50% during inspiration; therefore the estimated right atrial pressure is normal (~3 mmHg). Mitral Valve Valve structure is normal. Trace regurgitation. No stenosis. Tricuspid Valve Valve structure is normal. Mild regurgitation. The pulmonary artery systolic pressure is normal (under 35 mmHg). No stenosis. Aortic Valve Valve structure is trileaflet. No regurgitation. No stenosis. Pulmonic Valve Valve structure is normal. No regurgitation. No stenosis. Ascending Aorta Normal sized sinus of Valsalva (aortic root) and ascending aorta. Pericardium No pericardial effusion. Study Details Study quality was good. A complete 2D, color Doppler, spectral Doppler and M- mode echocardiogram was performed. The apical, parasternal, subcostal and suprasternal views were obtained. Definity ultrasound enhancing agent used. Procedure Note Lucy Mcclelland MD - 08/22/2023 Left Ventricle: Left ventricle size is normal. Normal wall thickness.Ventricular mass is normal. Normal systolic function with a visuallyestimated EF of 65%. Normal wall motion. Normal diastolic function. Lashell Boswell APNP-PROFESSIONAL FEE CODER ECHO CUP ID * COMPLETE PFT W/WO BRONCHODILATOR (08/20/2023 4:53 PM RIGGER) Impressions [facility] - 08/20/2023 4:53 PM RIGGER [facility] DEPARTMENT OF PULMONARY, CRITICAL CARE, AND SLEEP MEDICINE PULMONARY FUNCTION TEST Please see technologist's comments mentioned in the report. INTERPRETATION: SPIROMETRY: FVC: normal. FEV1: normal. FEV1/FVC ratio is normal. BRONCHODILATOR RESPONSE: There is no significant response to bronchodilator therapy, however this does not mean the patient would not benefit from bronchodilator therapy. FLOW-VOLUME LOOPS: Inspection of the flow-volume loops shows normal flow-volume loops. LUNG VOLUMES: Lung volumes by body plethysmography are normal. DIFFUSION CAPACITY DLCO: Unadjusted for Hb and COHb is normal. AIRWAY RESISTANCE The airway resistance is normal and the specific conductance is normal. ARTERIAL BLOOD GAS ANALYSIS: Not performed. IMPRESSION: 1. Normal PFTs. 2. No significant bronchodilator response, however this does not preclude the use of bronchodilators. 3. There is no previous study available for comparison. Da Barnett DO Pulmonary & Critical Care Fellow Division of Pulmonary, Critical Care, and Sleep Medicine [facility] ATTENDING PHYSICIAN ATTESTATION/NILA PEARSON M.D.: I have personally reviewed and interpreted the above test and I have made the necessary changes if needed to the above interpretation. Narrative [facility] - 08/20/2023 4:53 PM RIGGER Da Barnett DO 08/21/2023 10:42 AM Lashell A Andreia APNP-PROFESSIONAL FEE CODER RESPIRAT ORY THERAPY ORDERABLES Performing Organization Address City/State/[facility] Co de Phone Number [facility] [address] [place] [address], [facility] [[email or web address]] * PATHOLOGY TISSUE EXAM (STL) (08/09/2023 12:10 PM CDT) Only the most recent of2 resultswithin the time period is included. Case Report Surgical Pathology Report Case: [id number] Authorizing Provider: Michele Rivera MD Collected: 08/09/2023 12:10 PM Ordering Location: [facility] Received: 08/09/2023 01:55 PM Pathologist: Kavitha Amaro MD Specimen: Small Bowel Biopsy 08/10/2023 1:30 PM CDT [facility] Final Diagnosis Small intestine, biopsy - Duodenal mucosa with no histopathologic abnormality (preserved villous architecture, no increase in intraepithelial lymphocytes) 08/10/2023 1:30 PM CDT [facility] Clinical History The patient is a 18-year-old woman with anemia. Endoscopic procedure/findings: normal examined duodenum, biopsied. 08/10/2023 1:30 PM [facility] Gross Description The specimen is identified with patient's name and date of . Received in formalin, specimen A , small bowel biopsy are 2 pink-richardson mucosal tissues, 0.2 x 0.2 x 0.2 cm and 0.3 x 0.2 x 0.2 cm. Entirely submitted in cassette A1. LJ 08/10/2023 1:30 PM [facility] Microscopic Description Microscopic examination substantiates the above diagnosis. Histologic sections show a focus in the lamina propria of disrupted cells. Immunostains (controls adequate) show scattered CD68+ histiocytes in the lamina propria, not forming aggregates. A pankeratin stain shows no infiltrative cells. The morphologic and immunophenotypic features support the diagnosis. 08/10/2023 1:30 PM [facility] Pathologist Location at [facility] 08/10/2023 1:30 PM [facility] Disclaimer All histochemical and/or immunohistochemical results are interpreted with controls that demonstrate appropriate staining reactions before reporting results. Note on use of immunocytochemistry reagents: This test was developed and its performance characteristic determined by [facility], Department of Laboratory Medicine. It has not been cleared or approved by the U.S. Food and Drug Administration (FDA). The FDA has determined that such clearance or approval is not necessary. The test is used for clinical purpose. It should not be regarded as investigational or for research. This laboratory is certified to perform high complexity testing. The performance characteristics of the IHC/JESUS assays have been validated on formalin-fixed paraffin embedded tissues only. The assays have not been validated on decalcified tissues. Results should be interpreted with caution. 08/10/2023 1:30 PM [facility] Embedded Images 08/10/2023 1:30 PM [facility] Pathology/Cytology ENTEROTOMY OF SMALL BOWEL FOR BIOPSY / Unknown 08/09/2023 12:10 PM CDT 08/09/2023 1:55 PM CDT Comment:Pre-op diagnosis: Iron deficiency anemia, unspecified iron deficiency anemia type [D50.9] Michele Rivera MD LAB - PATHOLOGY/CYTO LOGY ORDERABLES [facility] [address] [place] [address] * ENDOSCOPY, COLON, SCREENING (08/09/2023 11:44 AM CDT) Report Endoscopy POC _ Patient Name: Lucita Valle Procedure Date: 08/09/2023 11:44 AM Date of : 2005 Admit Type: Outpatient Age: 18 Gender: Female Ethnicity: Not or Race: White Attending MD: Michele Rivera MD, [id number] _ Procedure: Colonoscopy Indications: Iron deficiency anemia Providers: Michele Rivera MD (Doctor), Chano Acuna RN Patient Profile: 18F presents for eval of iron def. no prior exams Referring MD: Irlanda Del Real (Referring MD) Medicines: Monitored Anesthesia Care Complications: No immediate complications. _ Estimated Blood Loss: Estimated blood loss: none. Procedure: Pre-Anesthesia Assessment: - Prior to the procedure, a History and Physical was performed, and patient medications and allergies were reviewed. The patient's tolerance of previous anesthesia was also reviewed. The risks and benefits of the procedure and the sedation options and risks were discussed with the patient. All questions were answered, and informed consent was obtained. Prior Anticoagulants: The patient has taken no anticoagulant or antiplatelet agents. ASA Grade Assessment: II - A patient with mild systemic disease. After reviewing the risks and benefits, the patient was deemed in satisfactory condition to undergo the procedure. - Prior to the procedure, a History and Physical was performed, and patient medications and allergies were reviewed. The patient's tolerance of previous anesthesia was also reviewed. The risks and benefits of the procedure and the sedation options and risks were discussed with the patient. All questions were answered, and informed consent was obtained. Prior Anticoagulants: The patient has taken no anticoagulant or antiplatelet agents. ASA Grade Assessment: II - A patient with mild systemic disease. After reviewing the risks and benefits, the patient was deemed in satisfactory condition to undergo the procedure. After I obtained informed consent, the scope was passed under direct vision. Throughout the procedure, the patient's blood pressure, pulse, and oxygen saturations were monitored continuously. The Colonoscope was introduced through the anus and advanced to the cecum, identified by appendiceal orifice and ileocecal valve. The colonoscopy was performed without difficulty. The patient tolerated the procedure well. The quality of the bowel preparation was fair. The ileocecal valve, appendiceal orifice, and rectum were photographed. Impression: - Preparation of the colon was fair. - The entire examined colon is normal on direct and retroflexion views. - No specimens collected. Findings: The perianal and digital rectal examinations were normal. The entire examined colon appeared normal on direct and retroflexion views. _ Recommendation: - Patient has a contact number available for emergencies. The signs and symptoms of potential delayed complications were discussed with the patient. Return to normal activities tomorrow. Written discharge instructions were provided to the patient. - Resume previous diet. - Repeat colonoscopy at age 44 for screening purposes. - SB capsule and f/u Procedure Code(s): --- Professional --- 76118, Colonoscopy, flexible; diagnostic, including collection of specimen(s) by brushing or washing, when performed (separate procedure) --- Technical --- 18014, Colonoscopy, flexible; diagnostic, including collection of specimen(s) by brushing or washing, when performed (separate procedure) Diagnosis Code(s): --- Professional --- D50.9, Iron deficiency anemia, unspecified --- Technical --- D50.9, Iron deficiency anemia, unspecified CPT copyright 2020 [employer]. All rights reserved. The codes documented in this report are preliminary and upon senior care provider review may be revised to meet current compliance requirements. Michele Rivera MD 08/09/2023 12:25:15 PM This report has been signed electronically. Number of Addenda: 0 Note Initiated On: 08/09/2023 11:44 AM [facility] 08/09/2023 11:4 4 AM CDT Narrative Procedure Note Michele Rivera MD - 08/09/2023 12:26 PM CDT Normal colon sb capsule and OV D/w lucita Michele Rivera MD GI PROCEDURE ORDERAB LES [facility] * EGD (08/09/2023 11:43 AM CDT) Report Endoscopy POC _ Patient Name: Lucita Colindreswin Procedure Date: 08/09/2023 11:43 AM Date of : 2005 Admit Type: Outpatient Age: 18 Gender: Female Ethnicity: Not or Race: White Attending MD: Michele Rivera MD, [id number] _ Procedure: Upper GI endoscopy Indications: Iron deficiency anemia Providers: Michele Rivera MD (Doctor), Chano Acuna RN Patient Profile: 18F presents for eval of iron def Referring MD: Irlanda Del Real (Referring MD) Medicines: Monitored Anesthesia Care Complications: No immediate complications. _ Estimated Blood Loss: Estimated blood loss was minimal. Procedure: Pre-Anesthesia Assessment: - Prior to the procedure, a History and Physical was performed, and patient medications and allergies were reviewed. The patient's tolerance of previous anesthesia was also reviewed. The risks and benefits of the procedure and the sedation options and risks were discussed with the patient. All questions were answered, and informed consent was obtained. Prior Anticoagulants: The patient has taken no anticoagulant or antiplatelet agents. ASA Grade Assessment: II - A patient with mild systemic disease. After reviewing the risks and benefits, the patient was deemed in satisfactory condition to undergo the procedure. After obtaining informed consent, the endoscope was passed under direct vision. Throughout the procedure, the patient's blood pressure, pulse, and oxygen saturations were monitored continuously. The was introduced through the mouth, and advanced to the second part of duodenum. The upper GI endoscopy was accomplished without difficulty. The patient tolerated the procedure well. Impression: - Normal esophagus. - Normal stomach. - Normal examined duodenum. Biopsied. Findings: The examined esophagus was normal. The entire examined stomach was normal. The examined duodenum was normal. Biopsies were taken with a cold forceps for histology. _ Recommendation: - Patient has a contact number available for emergencies. The signs and symptoms of potential delayed complications were discussed with the patient. Return to normal activities tomorrow. Written discharge instructions were provided to the patient. - Resume previous diet. - Await pathology results. - proceed to colonoscopy Procedure Code(s): --- Professional --- 19931, Esophagogastroduo denoscopy, flexible, transoral; with biopsy, single or multiple --- Technical --- 35900, Esophagogastroduo denoscopy, flexible, transoral; with biopsy, single or multiple Diagnosis Code(s): --- Professional --- D50.9, Iron deficiency anemia, unspecified --- Technical --- D50.9, Iron deficiency anemia, unspecified CPT copyright 2020 [employer]. All rights reserved. The codes documented in this report are preliminary and upon senior care provider review may be revised to meet current compliance requirements. Michele Rivera MD 08/09/2023 12:08:29 PM This report has been signed electronically. Number of Addenda: 0 Note Initiated On: 08/09/2023 11:43 AM [facility] 08/09/2023 11:4 3 AM CDT Narrative Procedure Note Michele Rivera MD - 08/09/2023 12:09 PM CDT Normal EGD s/p duodenal bx Await path Proceed to colon Michele Rivera MD GI PROCEDURE ORDERAB LES [facility] * HCG URINE QUAL POCT NOTIFICATION (08/09/2023 11:01 AM CDT) Comment Notification Label Only - See Separate Report 08/09/2023 11:01 AM CDT [facility] Urine URINE / Unknown 9:58 AM CDT Michele Rivera MD LAB - URINALYSIS ORD ERABLES Performing Organization Address [facility] Co de Phone Number [facility] [address] [place] [address] * HCG URINE QUALITATIVE - POCT (IP) INTERFACED (08/09/2023 10:00 AM CDT) HCG Qual Urine Negative Negative 08/09/2023 10:11 AM CDT [facility] Urine URINE / Unknown 08/09/2023 1 0:00 AM CDT 08/09/2023 10:11 AM CDT Michele Rivera MD LAB - POINT OF CARE ORDERABLES Performing Organization Address City/[facility] Co de Phone Number [facility] [address] [place] [id number] * HI POLYSOM 6/>YRS CPAP 4/> PARM (04/23/2023 4:56 PM CDT) Narrative Gordy Streeter MD - 04/23/2023 4:56 PM CDT Gordy Streeter MD 04/23/2023 4:59 PM [facility] Accredited by the [employer] [employer] [facility], First Floor [address] [place] [address] Telephone : [phone] Medical Records Patient Name: Lucita Valle : 2005 Date of Study: 04/19/2023 Referring Physician: TOM Perkins Type of Montage: Respiratory Scoring System: [facility] SPLIT NIGHT POLYSOMNOGRAM INTERPRETATION 04/19/2023 Procedure: The polysomnogram was performed with a medical technologist chemistry in attendance. Frontal, central, and temporal EEG, EOG, submentalis EMG, oronasal thermistor airflow, nasal pressure transducer airflow, CPAP airflow, thoracic and abdominal respiratory effort by respiratory inductive plethysmography, anterior tibialis EMG, snore sensor, and pulse oximetry were monitored. Sleep stages, periodic limb movements, and EEG arousals were scored in 30-second epochs according to the AASM Scoring Manual. Apnea-hypopnea index was calculated using the recommended definition of hypopnea for scoring events. Data acquisition, collection, and scoring have been validated and clinically correlated. Sleep History: Ms. Lucita Valle, a 17 year old female, was referred to the Sleep Disorders Clinic by TOM Perkins for the evaluation of suspected obstructive sleep apnea (KYLEIGH). Current Outpatient Medications: amoxicillin (Amoxil) 500 MG tablet, Take 1 tablet every 8 hours by oral route for 7 days., Disp: , Rfl: ascorbic acid (Vitamin C) 500 MG tablet, Take 1 (one) tablet by mouth once daily With iron, Disp: 90 tablet, Rfl: 3 cephalexin (Keflex) 500 MG capsule, Take 1 (one) capsule by mouth every 12 hours, Disp: , Rfl: Cholecalciferol 50 MCG (2000 UT), Take 1 (one) tablet by mouth, Disp: , Rfl: ergocalciferol (Drisdol) 1.25 MG (31220 UT) capsule, Take 1 (one) capsule by mouth every 7 days, Disp: 13 capsule, Rfl: 3 etonogestrel (NEXPLANON) 68 MG implant, 1 device by Implant route once, Disp: , Rfl: ferrous sulfate 325 (65 FE) MG tablet, Take 1 (one) tablet by mouth once daily With vitamin c 500 mg, Disp: 90 tablet, Rfl: 3 fluconazole (Diflucan) 150 MG tablet, Take 1 tablet every day by oral route for 1 day., Disp: , Rfl: FLUoxetine (PROZAC) 40 MG capsule, Take 1 (one) capsule by mouth once daily, Disp: 90 capsule, Rfl: 3 pramipexole (MIRAPEX) 0.5 MG tablet, Take 1 (one) tablet by mouth at bedtime, Disp: 30 tablet, Rfl: 5 DIAGNOSTIC STUDY Sleep Architecture: During this sleep study, the patient was monitored from 11:43 pm to 6:43 am. During the diagnostic portion, patient slept for 116.5 minutes and had decreased sleep efficiency of 75.6%. The patient's initial sleep latency was within normal limits at 23.5 minutes. The initial REM latency was within normal limits at 95 minutes. The sleep architecture was as follows: stage N1: 5.6%; stage N2: 22.7%; stage N3: 55.8%; stage REM: 15.9%. Respiratory Analysis: The patient's overall apnea-hypopnea index (AHI) was increased at 23.2 per hour while the respiratory effort-related arousal index was increased at 20.1 per hour. The overall respiratory disturbance index (RDI) was 43.3 per hour. The patient slept entirely in the lateral position during the diagnostic study. The REM AHI was 32.4 per hour while the REM RERA index was 22.7 per hour. There were 2 obstructive apneas, 14 central apneas, 5 mixed apneas, 24 hypopneas, and 39 respiratory effort-related arousals (RERA). There was no evidence of periodic breathing. Oximetry Data: The minimum oxygen saturation was decreased at 88% during REM sleep and decreased at 80% during non-REM sleep. The time spent with oxygen saturation less than 90% was 7 minutes of the total diagnostic sleep time. Snoring Profile: Rare snoring was detected during this study. Periodic Limb Movements: The patient's periodic limb movement index was within normal limits at 0 per hour. EEG Profile: The patient's total arousal index was elevated at 43.8 per hour. Virtually all of the arousals were due to respiratory events. There was no epileptiform activity during sleep. Cardiac Profile: EKG showed normal sinus rhythm. No clinically significant arrhythmia was noted. Parasomnias: No parasomnia was noted during this diagnostic study. IMPRESSION: Severe obstructive sleep apnea based on the respiratory disturbance index THERAPEUTIC PORTION OF STUDY Sleep Architecture: During the therapeutic portion, patient slept for 240 minutes and had normal sleep efficiency of 90.2%. The patient's initial sleep latency was 3 minutes. The initial REM latency was 56.5 minutes. The sleep architecture on a CPAP therapy was as follows: stage N1: 2.3%; stage N2: 55.6%; stage N3: 21.9%; stage REM: 20.2%. Respiratory Analysis, Oximetry Data, and Snoring Profile: Continuous positive airway pressure (CPAP) was titrated from a minimum setting of 4 cmH2O to a maximum setting of 8 cmH2O. No optimal CPAP setting was achieved during this therapeutic trial. CPAP at the maximal level of 8 cmH2O was associated with an increased overall apnea-hypopnea index of 74.1 per hour and an increased respiratory-related arousal index of 14.1 per hour. The patient was then shifted to bilevel positive airway pressure (BPAP) which was titrated from a minimum setting of EPAP 7 cmH2O and IPAP of 11 cmH2O to a maximum setting of EPAP 10 cmH2O and IPAP of 18 cmH2O. BPAP at the optimal level of EPAP of 7 cmH2O and IPAP of 13 cmH2O was associated with a mildly increased overall hypopnea-apnea index of 7.1 per hour and a mildly increased respiratory-related arousal index of 5.7 per hour. During the therapeutic CPAP and BPAP portion of the study, there were 25 obstructive apneas, 85 central apneas, and 130 hypopneas. The patient had a decreased minimum oxygen saturation of 87% during REM sleep and a decreased minimum oxygen saturation of 85% during non-REM sleep. The time spent with oxygen saturation less than 90% was 12.5 minutes of the therapeutic sleep time. EEG Profile: The patient's total arousal index at optimal BPAP setting of EPAP of 7 cmH2O and IPAP of 13 cmH2O was within normal limits at 12.8 per hour. There was no epileptiform activity during sleep. Cardiac profile: EKG showed normal sinus rhythm. No clinically significant arrhythmia was noted. Parasomnia Profile: No parasomnia was noted during this therapeutic study. IMPRESSION: 1. No optimal CPAP level was achieved during this therapeutic CPAP trial due to emergence of central apneas. CPAP at the maximal setting of 8 cmH2O was not effective in ameliorating obstructive sleep apnea. 2. BPAP set at an EPAP of 7 cmH2O and IPAP of 13 cmH2O was reasonably effective in ameliorating obstructive sleep apnea. RECOMMENDATIONS: 1. Evaluate for causes of central apneas (e.g., CHF, chronic kidney disease, neurological disorders, chronic long-acting opioid medications, etc.) 2. If BPAP is not effective in ameliorating central sleep apneas, consider adaptive support Servoventilation. Gordy Streeter MD, [facility], [place], [facility], [facility] Ct Scan Special Procedures Technologist, [facility] Physician [facility] Professor of Internal Medicine Adjunct Emt B of Neurology Division of Pulmonary, Critical Care, and Sleep Medicine [facility] This note was electronically signed on 04/23/2023. Lashell CANSECO-PROFESSIONAL FEE CODER PROCEDUR E/MINOR SURGICAL ORDERABLES * LAB RESULTS ORDER (04/04/2023) Only the most recent of3 resultswithin the time period is included. 04/04/2023 Narrative 04/04/2023 Ordered by an unspecified provider. Scanned Document LAB - THERAPEUTIC DR UG MONITORING ORDERABLES * METHYLMALONIC ACID BLOOD (03/06/2023 4:00 PM CDT) Methylmalonic Acid 136 0 - 378 nmol/L [employer] INSURANCE BILL Blood BLOOD SPECIMEN / Unknown 03/06/2023 4:00 PM CDT 08/27/2023 N[facility]ative [facility] - 09/01/2023 12:09 PM RIGGER Test(s) 543271-[id number] Acid, Serum was developed and its performance characteristics determined by [employer]. It has not been cleared or approved by the Food and Drug Administration. Resulting Agency Comment Lab Testing performed [facility]: [facility] [address] [facility] [phone] Lashell CANSECO-PROFESSIONAL FEE CODER LAB - CH EMISTRY ORDERABLES [facility] INSURANCE BILL [address] [place] [address] * FOLATE (03/06/2023 4:00 PM CDT) Folate 12.2 >3.0 ng/mL [facility] INSURANCE BILL Comment: A serum folate concentration of less than 3.1 ng/mL is considered to represent clinical deficiency. Blood BLOOD SPECIMEN / Unknown 03/06/2023 4:00 PM CDT 08/27/2023 Narrative Resulting Agency Comment Lab Testing performed [facility]: [facility] [address] [facility] [id number] Lashell A Dettenmeier APNP-PROFESSIONAL FEE CODER LAB - CH EMISTRY ORDERABLES [facility] INSURANCE BILL [address] [place] [address] * VITAMIN B12 (03/06/2023 4:00 PM CDT) Pathologist [facility] Vitamin B12 349 232 - 1,245 pg/mL [facility] INSURANCE BILL Blood BLOOD SPECIMEN / Unknown 03/06/2023 4:00 PM CDT 08/27/2023 Narrative Resulting Agency Comment Lab Testing performed at: [address] [phone] Lashell A Dettenmeier APNP-PROFESSIONAL FEE CODER LAB - CH EMISTRY ORDERABLES Performing Organization Address [facility] Co de Phone Number [facility] INS[facility] B[facility] [address] [place] [address] * TSH (03/06/2023 4:00 PM CDT) Only the most recent of2 resultswithin the time period is included. Pathologist [facility] TSH 1.580 0.450 - 4.500 uIU/mL [facility] INSURANCE BILL Blood BLOOD SPECIMEN / Unknown 03/06/2023 4:00 PM CDT 08/27/2023 Narrative Resulting Agency Comment Lab Testing performed at: [address] [id number] Lashell A Dettenmeier AP-PROFESSIONAL FEE CODER LAB - CH EMISTRY ORDERABLES Performing Organization Address City/[facility]/ZIP Co de Phone Number [facility] INSURANCE BILL [address] [place] [address] * (ABNORMAL) HERPES SIMPLEX 1+2 PCR LESION (05/27/2022 4:22 PM CDT) Pathologist [facility] Herpes Simplex Virus 1 PCR Lesion Detected(A) Not detected 05/28/2022 8:02 AM CDT [facility] Herpes Simplex Virus 2 PCR Lesion Not detected Not detected 05/28/2022 8:02 AM CDT [facility] Microbiology TISSUE SPECIMEN FROM GENITAL SYSTEM / Unknown Collection / Unknown 05/27/2022 4:22 PM CDT 05/27/2022 4:27 PM CDT Tori Treadwell MD LAB - MICROBIOLOGY O PRIYA Performing Organization Address [facility]/ZIP Co de Phone Number [facility] [address] [place] [address], [facility] [[email or web address]] [phone] * CHLAMYDIA + GC AMPLIFIED PROBE (STL) (05/27/2022 4:08 PM CDT) Pathologist [facility] Chlamydia Amplified Probe Negative Negative 05/28/2022 6:05 AM CDT [facility] GC Amplified Probe Negative Negative 05/28/2022 6:05 AM CDT [facility] Microbiology URINE / Unknown Collection / Unknown 05/27/2022 4:08 PM CDT 05/27/2022 4:08 PM CDT Narrative [facility] - 05/28/2022 6:05 AM CDT Results based on detection/no detection of ribosomal RNA by amplified method. Tori Treadwell MD LAB - MICROBIOLOGY O PRIYA Performing Organization Address [facility] Co de Phone Number [facility] [address] [place] [address], [facility] [[email or web address]] [phone] * SYPHILIS ANTIBODY CASCADING REFLEX (05/27/2022 4:02 PM CDT) Pathologist [facility] Treponema pallidum Antibody Non-react anju Non-react anju 05/27/2022 4:55 PM CDT [facility] Comment: No Laboratory evidence of syphilis infection. Note: Circulating antibodies may be low or undetectable in early infection. If recent exposure is suspected, re-draw sample in 2-4 weeks and repeat testing. Blood BLOOD SPECIMEN / Unknown Venipuncture / Unknown 05/27/2022 4:02 PM CDT 05/27/2022 4:08 PM CDT Tori Treadwell MD LAB - SEROLOGY ORDER KRISTOPHER [facility] [address] [place] [address], [facility] [[email or web address]] [phone] * HIV-1 HIV-2 ANTIBODY + HIV P24 AG PANEL (05/27/2022 4:02 PM CDT) HIV Antigen/Antibod y 1 & 2 Non-reacti ve Non-react anju 05/27/2022 4:55 PM CDT [facility] Comment:No Laboratory eviden ce of HIV infection. Blood BLOOD SPECIMEN / Unknown Venipuncture / Unknown 05/27/2022 4:02 PM CDT 05/27/2022 4:08 PM CDT Tori Treadwell MD LAB - CHEMISTRY ORDE SANTIAGO Performing Organization Address [facility]/ZIP Co de Phone Number [address] [address], [facility] [[email or web address]] [phone] * (ABNORMAL) URINALYSIS W/MICROSCOPIC NO CULTURE (05/27/2022 3:55 PM CDT) Only the most recent of2 resultswithin the time period is included. Color UA Yellow Straw, Yellow 05/27/2022 7:12 PM CDT [facility] Clarity UA Cloudy(A) Clear 05/27/2022 7:12 PM CDT [facility] Specific [place] UA 1.017 1.005 - 1.030 05/27/2022 7:12 PM CDT [facility] pH UA 7.0 5.0 - 8.0 pH 05/27/2022 7:12 PM CDT [facility] Protein UA 1+(A) Negative 05/27/2022 7:12 PM CDT [facility] Glucose UA Negative Negative 05/27/2022 7:12 PM CDT [facility] Ketone UA Negative Negative 05/27/2022 7:12 PM CDT [facility] Bilirubin UA Negative Negative 05/27/2022 7:12 PM CDT [facility] Blood UA 3+(A) Negative 05/27/2022 7:12 PM CDT [facility] Nitrite UA Negative Negative 05/27/2022 7:12 PM CDT [facility] Leukocyte Esterase 3+(A) Negative 05/27/2022 7:12 PM CDT [facility] Urobilinogen UA Negative Negative mg/dL 05/27/2022 7:12 PM CDT [facility] RBC UA 11-20(A) None Seen, 0-2, 3-5 /HPF 05/27/2022 7:12 PM CDT [facility] WBC UA >100(A) None Seen, 0-5 /HPF 05/27/2022 7:12 PM CDT [facility] WBC Clumps Many(A) None /HPF 05/27/2022 7:12 PM CDT [facility] Bacteria UA Trace(A) None /HPF 05/27/2022 7:12 PM T [facility] Squamous Epithelial Cells UA >20(A) None Seen, 0-2, 3-5 /HPF 05/27/2022 7:12 PM CDT [facility] Mucus UA 2+ /LPF 05/27/2022 7:12 PM CDT [facility] Urine URINE SPECIMEN OBTAINED BY CLEAN CATCH PROCEDURE / Unknown Collection / Unknown 05/27/2022 3:55 PM CDT 05/27/2022 7:05 PM CDT Narrative [facility] - 05/27/2022 7:12 PM CDT Tori Treadwell MD LAB - URINALYSIS ORD ERABLES [address] [address], [facility] [[email or web address]] [phone] * HCG URINE QUALITATIVE (05/27/2022 3:55 PM CDT) Test Urine Negative Negative 05/27/2022 4:28 PM CDT [facility] Urine URINE / Unknown Collection / Unknown 05/27/2022 3:55 PM CDT 05/27/2022 4:08 PM CDT Tori Treadwell MD LAB - URINALYSIS ORD ERABLES [address] [place] [address], [facility] [[email or web address]] [phone] * CULTURE URINE (05/27/2022 3:55 PM CDT) Only the most recent of4 resultswithin the time period is included. Culture Urine >100,000 CFU/mL urogenital paul 05/29/2022 10:01 AM CDT [facility] Urine URINE SPECIMEN OBTAINED BY CLEAN CATCH PROCEDURE / Unknown Collection / Unknown 05/27/2022 3:55 PM CDT 05/27/2022 4:08 PM CDT Tori Treadwell MD LAB - MICROBIOLOGY O RDERABLES Performing Organization Address City/[facility]/ZIP Co de Phone Number [facility] [address] [place] [address], [facility] [[email or web address]] [phone] * UROFLOWMETRY (11/16/2021 1:36 AM RIGGER) Narrative 11/16/2021 1:36 AM RIGGER Ordered by an unspecified provider. Scanned Document PROCEDURE ORDERAB LES * VITAMIN D 1,25 DIHYDROXY (09/21/2021 3:37 PM RIGGER) Vitamin D, 1,25 Dihydroxy 55.2 19.9 - 79.3 pg/mL 09/25/2021 1:16 AM RIGGER [facility] ([facility]) Comment: INTERPRETIVE INFORMATION: Vitamin D, 1,25-Dihydroxy This test is primarily indicated during patient evaluation for hypercalcemia and renal failure. A normal result does not rule out Vitamin D deficiency. The recommended test for diagnosing Vitamin D deficiency is Vitamin D 25-hydroxy. Performed By: [facility] [address] [place] [address] Striker Off: Victoria Haley MD Blood BLOOD SPECIMEN / Unknown Lab Venipuncture / Unknown 09/21/2021 3:37 PM RIGGER 09/21/2021 4:27 PM RIGGER Lorna Haley ASSURANCE SENIOR MANAGER-PROFESSIONAL FEE CODER LAB - CHEMISTR Y ORDERABLES Performing Organization Address City/[facility]/ZIP Co de Phone Number [facility] ([facility]) [address] [place] [address], [facility] [[email or web address] * CBC W/O DIFFERENTIAL (09/21/2021 3:37 PM RIGGER) WBC 5.8 4.5 - 11.0 10 3/uL 09/21/2021 4:35 PM [facility] RBC 4.54 4.10 - 5.10 10 6/uL 09/21/2021 4:35 PM [facility] Hemoglobin 12.2 12.0 - 16.0 g/dL 09/21/2021 4:35 PM [facility] Hematocrit 38.8 36.0 - 47.0 % 09/21/2021 4:35 PM [facility] MCV 85.5 78.0 - 98.0 fL 09/21/2021 4:35 PM [facility] MCH 26.9 25.0 - 35.0 pg 09/21/2021 4:35 PM [facility] MCHC 31.4 31.0 - 37.0 g/dL 09/21/2021 4:35 PM [facility] Platelet Count 295 100 - 400 10 3/uL 09/21/2021 4:35 PM [facility] RDW-SD 41.9 36.0 - 50.0 fL 09/21/2021 4:35 PM [facility] RDW-CV 13.3 11.5 - 14.0 % 09/21/2021 4:35 PM [facility] MPV 9.4 6.0 - 9.5 fL 09/21/2021 4:35 PM [facility] nRBC Absolute 0.00 0 10 3/uL 09/21/2021 4:35 PM [facility] nRBC Auto 0.0 0 /100 WBC 09/21/2021 4:35 PM [facility] Blood BLOOD SPECIMEN / Unknown Lab Venipuncture / Unknown 09/21/2021 3:37 PM RIGGER 09/21/2021 4:28 PM RIGGER Lorna Haley ASSURANCE SENIOR MANAGER-PROFESSIONAL FEE CODER LAB - HEMATOLO GY ORDERABLES Performing Organization Address City/State/[facility] Co de Phone Number [facility] [address] [place] [address] [phone] * (ABNORMAL) COMPREHENSIVE METABOLIC PANEL (09/21/2021 3:37 PM RIGGER) Only the most recent of3 resultswithin the time period is included. BUN 6 5 - 19 mg/dL 09/21/2021 4:54 PM [facility] Creatinine 0.54(L) 0.56 - 0.96 mg/dL 09/21/2021 4:54 PM [facility] Sodium 137 136 - 145 mmol/L 09/21/2021 4:54 PM [facility] Potassium 3.1(L) 3.5 - 5.1 mmol/L 09/21/2021 4:54 PM [facility] Chloride 105 98 - 107 mmol/L 09/21/2021 4:54 PM [facility] CO2 26 20 - 28 mmol/L 09/21/2021 4:54 PM [facility] Glucose 77 70 - 115 mg/dL 09/21/2021 4:54 PM [facility] Calcium 9.0 8.4 - 10.2 mg/dL 09/21/2021 4:54 PM [facility] Protein Total 7.0 6.0 - 8.3 g/dL 09/21/2021 4:54 PM [facility] Albumin 3.9 3.4 - 5.0 g/dL 09/21/2021 4:54 PM [facility] Bilirubin Total 0.5 0.3 - 1.2 mg/dL 09/21/2021 4:54 PM [facility] Alkaline Phosphatase 73(L) 100 - 390 U/L 09/21/2021 4:54 PM [facility] ALT 16 5 - 55 U/L 09/21/2021 4:54 PM [facility] AST 16 3 - 35 U/L 09/21/2021 4:54 PM [facility] Anion Gap 9 8 - 18 09/21/2021 4:54 PM [facility] BUN/Creatinine Ratio 11 7 - 23 09/21/2021 4:54 PM [facility] Osmolality Calculated 280 270 - 300 mOsm/kg 09/21/2021 4:54 PM [facility] Blood BLOOD SPECIMEN / Unknown Lab Venipuncture / Unknown 09/21/2021 3:37 PM RIGGER 09/21/2021 4:28 PM RIGGER Lorna SANTOS LAB - CHEMISTR Y ORDERABLES Performing Organization Address City/[facility]/ZIP Co de Phone Number [address] [address], [facility] [[email or web address]] [phone] * FERRITIN (09/21/2021 3:37 PM RIGGER) Only the most recent of12 resultswithin the time period is included. Ferritin 17 13 - 204 ng/mL 09/21/2021 5:08 PM RIGGER [facility] Blood BLOOD SPECIMEN / Unknown Lab Venipuncture / Unknown 09/21/2021 3:37 PM RIGGER 09/21/2021 4:27 PM RIGGER Lorna SANTOS LAB - CHEMISTR Y ORDERABLES Performing Organization Address City/[facility]/ZIP Co de Phone Number [address] [address], [place] [phone] * EMG ACC (09/21/2021 1:35 PM RIGGER) Narrative Too Cary MD - 09/21/2021 1:35 PM RIGGER Delisa Flynn RN 09/22/2021 9:22 AM History: Dysuria frequency, cystitis, pelvic alejandrina. Has done a few sessions of PFT. Has been seen by FIRE CONTROL OFFICER. Symptoms persist. EMG patches placed: 1 on either side of rectum in the 3 & 10 o'clock positions, 1 on hip (ground). Uroflow with EMG Voided volume (ml) = 401 PVR per bladderscan (ml) = 34 Max flow rate (ml/s) = 33 Avg flow rate (ml/s) = 20 Flow time (s) = 28 EMG activity (pelvic floor) = active through void Summary: Ragged appearing uroflow curve, active EMG throughout void; emptied adequately. RECOMMENDATIONS: OV with Fernandez Haley APRN, CNP, recommended - Refer to PFT & start Flomax daily - call in 2 weeks with an update Lorna A Sudha HARRIS-PROFESSIONAL FEE CODER PROCEDURE O RDERABLES * UROFLOWMETRY ACC (09/21/2021 1:35 PM RIGGER) Narrative Too Cary MD - 09/21/2021 1:35 PM RIGGER Delisa Flynn RN 09/22/2021 9:22 AM History: Dysuria frequency, cystitis, pelvic alejandrina. Has done a few sessions of PFT. Has been seen by FIRE CONTROL OFFICER. Symptoms persist. EMG patches placed: 1 on either side of rectum in the 3 & 10 o'clock positions, 1 on hip (ground). Uroflow with EMG Voided volume (ml) = 401 PVR per bladderscan (ml) = 34 Max flow rate (ml/s) = 33 Avg flow rate (ml/s) = 20 Flow time (s) = 28 EMG activity (pelvic floor) = active through void Summary: Ragged appearing uroflow curve, active EMG throughout void; emptied adequately. RECOMMENDATIONS: OV with Fernandez Haley APRN, CNP, recommended - Refer to PFT & start Flomax daily - call in 2 weeks with an update Lorna A Sudha ACEVEDON-PROFESSIONAL FEE CODER PROCEDURE O RDERABLES * US BLADDER RESIDUAL ACC (09/21/2021 1:35 PM RIGGER) Narrative Too Cary MD - 09/21/2021 1:35 PM RIGGER Delisa Flynn RN 09/22/2021 9:22 AM History: Dysuria frequency, cystitis, pelvic alejandrina. Has done a few sessions of PFT. Has been seen by FIRE CONTROL OFFICER. Symptoms persist. EMG patches placed: 1 on either side of rectum in the 3 & 10 o'clock positions, 1 on hip (ground). Uroflow with EMG Voided volume (ml) = 401 PVR per bladderscan (ml) = 34 Max flow rate (ml/s) = 33 Avg flow rate (ml/s) = 20 Flow time (s) = 28 EMG activity (pelvic floor) = active through void Summary: Ragged appearing uroflow curve, active EMG throughout void; emptied adequately. RECOMMENDATIONS: OV with Fernandez Haley APRN, CNP, recommended - Refer to PFT & start Flomax daily - call in 2 weeks with an update Lorna Radha Sudha ACEVEDON-PROFESSIONAL FEE CODER PROCEDURE O RDERABLES * SARS-COV-2 (COVID-19) AG (AMB) POCT (08/09/2021 11:59 AM CDT) SARS-CoV-2 Ag Negative Negative [employer] Lot # [id number] [employer] Expiration Date 12/20/22 [place] [facility] Instrument Serial Number [id number] [facility] MELINA GILBERT COVID Internal Control Acceptable Acceptable [facility] MELINA GILBERT Microbiology SPECIMEN FROM NASAL FOSSAE / Unknown 08/09/2021 11:59 AM CDT Narrative [place] - 08/09/2021 11:59 AM CDT Negative results should be treated as presumptive and confirmation with a molecular assay, if necessary, for patient management, may be performed. Negative results do not rule out COVID-19 and should not be used as the sole basis for treatment or patient management decisions, including infection control decisions. Negative results should be considered in the context of a patient's recent exposures, history and the presence of clinical signs and symptoms consistent with COVID-19. SARS-CoV-2 antigen testing is authorized for use with nasal (Veritor, BinaxNOW, or Chasidy) or nasopharyngeal (Chasidy) swabs collected from individuals who are suspected of COVID-19 infection by their healthcare provider within the first five days of onset of symptoms. False-positive SARS-CoV-2 test results are more likely to occur when disease prevalence is low (less than 1%). False-negative SARS-CoV-2 test results are more likely to occur when disease prevalence is high (greater than 10%). This test has been authorized by the Food and Drug administration (FDA)under an Emergency Use Authorization (EUA). This test is only authorized for the duration of time the declaration that circumstances exist justifying the authorization of emergency use of in vitro diagnostic tests for detection of SARS-CoV-2 virus and/or diagnosis of COVID-19 infection under section 564(b)(1) of the Act, 21 U.S.C 360bbb-3 (b)(1), unless the authorization is terminated or revoked sooner. Fact Sheets for this EUA assay are available upon request. Kavitha Barker MD LAB - POINT OF CARE ORDERABLES [facility] [address] [place] [address] [phone] * CALCIUM/CREAT RATIO URINE RANDOM PANEL (10/28/2020 9:48 AM RIGGER) Calcium Urine 4.89 mg/dL 10/28/2020 11:10 AM RIGGER [facility] Creatinine Urine 288.82 mg/dL 10/28/2020 11:10 AM RIGGER [facility] Calcium/Creatin ine Ratio Urine 0.02 10/28/2020 11:[address] [facility] Urine URINE SPECIMEN OBTAINED BY CLEAN CATCH PROCEDURE / Unknown Collection / Unknown 10/28/2020 9:48 AM RIGGER 10/28/2020 10:26 AM RIGGER Narrative [facility] - 10/28/2020 11:10 AM RIGGER Normal <0.16 Borderline 0.16-0.20 Abnormal >0.20 Lorna Haley ASSURANCE SENIOR MANAGER-PROFESSIONAL FEE CODER LAB - URINE CH EMISTRY ORDERABLES Performing Organization Address City/[facility]/ZIP Co de Phone Number [facility] [address] [phone] * US KIDNEYS W BLADDER (10/28/2020 8:39 AM RIGGER) Anatomical Region Laterality Modality Abdomen Ultrasound 10/28/2020 8:02 AM RIGGER Impressions 10/28/2020 9:19 AM RIGGER Normal renal ultrasound. Reading Radiologist: Jeff Abreu on 10/28/2020 at 9:19 AM Narrative 10/28/2020 9:19 AM RIGGER INDICATION: Dysuria ORDERING PROVIDER: LORNA HALEY COMPARISON: None available. TECHNIQUE: Huitron scale and color Doppler ultrasound imaging of the kidneys and urinary bladder per department protocol. FINDINGS: Right kidney: 9.6 cm in length. The cortical echotexture and thickness are normal. No urinary tract dilation is present. There is no shadowing calculus. The perinephric soft tissues are normal. No focal alteration of cortical echogenicity or perfusion deficit. Left kidney: 9.5 cm in length. The cortical echotexture and thickness are normal. No urinary tract dilation is present. There is no shadowing calculus. The perinephric soft tissues are normal. No focal alteration of cortical echogenicity or perfusion deficit appreciated. Urinary bladder: Volume 15 mL (underfilled). Allowing for this, no wall thickening, trabeculation. No distal hydroureter. No perivesicular ascites. Procedure Note Jeff Abreu MD - 10/28/2020 INDICATION: Dysuria ORDERING PROVIDER: LORNA HALEY COMPARISON: None available. TECHNIQUE: Huitron scale and color Doppler ultrasound imaging of the kidneysand urinary bladder per department protocol. FINDINGS: Right kidney: 9.6 cm in length. The cortical echotexture and thickness are normal. No urinary tractdilation is present. There is no shadowing calculus. The perinephric soft tissuesare normal. No focal alteration of cortical echogenicity or perfusiondeficit. Left kidney: 9.5 cm in length. The cortical echotexture and thickness are normal. No urinary tractdilation is present. There is no shadowing calculus. The perinephric soft tissuesare normal. No focal alteration of cortical echogenicity or perfusiondeficit appreciated. Urinary bladder: Volume 15 mL (underfilled). Allowing for this, no wall thickening, trabeculation. No distal hydroureter. No perivesicularascites. IMPRESSION Normal renal ultrasound. Reading Radiologist: Jeff Abreu on 10/28/2020 at 9:19 AM Lorna Haley ASSURANCE SENIOR MANAGER-PROFESSIONAL FEE CODER US ORDERABLES * CULTURE STREP GROUP A (08/26/2020 3:41 PM RIGGER) Only the most recent of3 resultswithin the time period is included. Beta-Strep Culture, Group A Only Negative [facility] ACCOUNT BILL Microbiology ENTIRE THROAT (SURFACE REGION OF NECK) / Unknown 08/26/2020 3:41 PM RIGGER 08/26/2020 Narrative Resulting Agency Comment Lab Testing performed at: [address] [id number] Kavitha Barker MD LAB - MICROBIOLOGY O PRIYA [facility] ACCOUNT BILL [address] [place] [phone] * COVID-19 SARS-COV-2 PCR QUAL [facility] (08/26/2020 3:40 PM RIGGER) [facility] SARS-CoV-2 FLOR Not Detected Not Detected [facility] ACCOUNT BILL Comment: This nucleic acid amplification test was developed and its performance characteristics determined by [employer]. Nucleic acid amplification tests include PCR and TMA. This test has not been FDA cleared or approved. This test has been authorized by FDA under an Emergency Use Authorization (EUA). This test is only authorized for the duration of time the declaration that circumstances exist justifying the authorization of the emergency use of in vitro diagnostic tests for detection of SARS-CoV-2 virus and/or diagnosis of COVID-19 infection under section 564(b)(1) of the Act, 21 U.S.C. 360bbb-3(b) (1), unless the authorization is terminated or revoked sooner. When diagnostic testing is negative, the possibility of a false negative result should be considered in the context of a patient's recent exposures and the presence of clinical signs and symptoms consistent with COVID-19. An individual without symptoms of COVID-19 and who is not shedding SARS-CoV-2 virus would expect to have a negative (not detected) result in this assay. Microbiology SPECIMEN FROM NASOPHARYNGEAL STRUCTURE / Unknown 08/26/2020 3:40 PM RIGGER 08/26/2020 Narrative Resulting Agency Comment [facility]: [facility] [address] RTP [place] [id number] Kavitha Barker MD LAB - MICROBIOLOGY O PRIYA Performing Organization Address City/[facility]/ZIP Co de Phone Number [facility] ACCOUNT BILL [address] [place] [phone] * STREP A SCREEN - POINT OF CARE (AMB) (08/26/2020 3:20 PM RIGGER) Only the most recent of2 resultswithin the time period is included. Pathologist [facility] Strep A Rapid POCT Negative Negative [facility] Strep A Internal Control Present [facility] Other ENTIRE THROAT (SURFACE REGION OF NECK) / Unknown 08/26/2020 3:20 PM RIGGER Kavitha Barker MD LAB - POINT OF CARE ORDERABLES [facility] [address] [phone] * XR SPINE ENTIRE 2 OR 3VW (08/09/2020 1:54 PM CDT) Anatomical Region Laterality Modality Spine Radiographic Elena ging 08/09/2020 1:37 PM CDT Impressions 08/09/2020 2:48 PM CDT Question of anterior compression deformity involving T7, T8, and T11 vertebral bodies. Levoconvex curvature of the thoracolumbar spine with right superior pelvic tilt. Reading Radiologist: Iman Blackburn on 08/09/2020 at 2:48 PM Narrative 08/09/2020 2:48 PM CDT INDICATION: Compression fracture COMPARISON: None available. TECHNIQUE: Upright frontal and lateral view(s) of the spine. FINDINGS: Question of loss of height involving the T7, T8, and T11 vertebral bodies. There is a subtle levoconvex curvature of the thoracolumbar spine. No fracture is seen. There is right superior pelvic tilt. The hips are not dislocated. The heart is normal in size. The lungs are clear. There is no bowel obstruction or findings to suggest free intraperitoneal gas. Procedure Note Iman Blackburn DO - 08/09/2020 INDICATION: Compression fracture COMPARISON: None available. TECHNIQUE: Upright frontal and lateral view(s) of the spine. FINDINGS: Question of loss of height involving the T7, T8, and T11 vertebral bodies.There is a subtle levoconvex curvature of the thoracolumbar spine. No fracture is seen. There is right superior pelvic tilt. The hips are not dislocated. The heart is normal in size. The lungs are clear. There is no bowelobstruction or findings to suggest free intraperitoneal gas. IMPRESSION Question of anterior compression deformity involving T7, T8, and M76xyysmnion bodies. Levoconvex curvature of the thoracolumbar spine with right superior pelvictilt. Reading Radiologist: Iman Blackburn on 08/09/2020 at 2:48 PM Paloma Bello MD DIAGNOSTIC IMAG ING ORDERABLES * IMAGING RADIOLOGY XRAY RESULTS ORDER (08/05/2020) Only the most recent of2 resultswithin the time period is included. Anatomical Region Laterality Modality Other Scanned Document IMAGING * (ABNORMAL) URINALYSIS - POINT OF CARE (01/06/2019 3:07 PM CDT) Only the most recent of3 resultswithin the time period is included. Clarity UA POCT cloudy Color UA POCT yellow Leukocyte UA 3+ Negative Nitrite UA POCT neg Negative Urobilinogen UA 0.1 0.1 - 1.0 Protein UA POCT neg Negative pH UA 6.0 5.0 - 8.0 pH units Blood UA neg Negative Specific [place] UA POCT 1.015 1.002 - 1.030 Ketone UA neg Negative Bilirubin UA POCT neg Negative Glucose UA neg Negative Urine URINE / Unknown 01/06/2019 3 :07 PM CDT Kavitha Barker MD LAB - POINT OF CARE ORDERABLES * PEDIATRIC DIAGNOSTIC POLYSOMNOGRAM (12/15/2018) Pathologist [facility] Linked Results See Linked Results SLEEP CENTER 12/15/2018 María Elena Overton APRN-PROFESSIONAL FEE CODER [facility] O RDERABLES [facility] * CRP (INFLAMMATORY) (11/27/2018 4:33 PM RIGGER) Pathologist [facility] C-Reactive Protein <0.20 <=0.50 mg/dL 11/27/2018 5:32 PM RIGGER [facility] Blood BLOOD SPECIMEN / Unknown Lab Venipuncture / Unknown 11/27/2018 4:33 PM RIGGER 11/27/2018 4:58 PM RIGGER María Elena Marie Tian ACEVEDON-PROFESSIONAL FEE CODER LAB - CHEMISTR Y ORDERABLES [facility] [place] [address] * (ABNORMAL) IRON + TIBC PANEL (11/27/2018 4:33 PM RIGGER) TIBC 434 250 - 450 ug/dL 11/29/2018 6:18 AM RIGGER [facility] ([facility]) UIBC 377 131 - 425 ug/dL 11/29/2018 6:18 AM RIGGER [facility] ([facility]) Iron 57 26 - 169 ug/dL 11/29/2018 6:18 AM RIGGER [facility] ([facility]) Iron Saturation 13(L) 15 - 55 % 9 6:18 AM RIGGER [facility] ([facility]) Blood BLOOD SPECIMEN / Unknown Lab Venipuncture / Unknown 11/27/2018 4:33 PM RIGGER 11/27/2018 4:58 PM RIGGER Narrative [facility] ([facility]) - 11/29/2018 6:18 AM RIGGER Performed at: 01 - [facility] [id number] Physical Therapy Professor: Danyel Mcmillan PhD, Phone: [phone] María Elena Marie Tian ACEVEDON-PROFESSIONAL FEE CODER LAB - CHEMISTR Y ORDERABLES Performing Organization Address City/[facility]/ZIP Co de Phone Number [facility] ([facility]) [address] [place] [address] * (ABNORMAL) IRON + TRANSFERRIN + TIBC PANEL (08/01/2018 3:02 PM CDT) Iron 58 25 - 156 ug/dL 08/01/2018 4:02 PM CDT [facility] Transferrin 325 180 - 382 mg/dL 08/01/2018 4:02 PM CDT [facility] TIBC Calculated 406(H) 250 - 400 mg/dL 08/01/2018 4:02 PM CDT [facility] Iron Saturation % 14(L) 20 - 50 % 08/01/2018 4:02 PM CDT [facility] Blood BLOOD SPECIMEN / Unknown Lab Venipuncture / Unknown 08/01/2018 3:02 PM CDT 08/01/2018 3:30 PM CDT [facility] - CHEMISTR Y ORDERABLES Performing Organization Address City/[facility]/ZIP Co de Phone Number [facility] [address] [place] [address] * (ABNORMAL) LIPID PROFILE+GLUCOSE - POINT OF CARE (AMB) (05/16/2018 1:42 PM CDT) QC Verified Yes Yes Cholesterol POCT 150 200 mg/dl HDL POCT 46 mg/dL Triglycerides POCT 142(A) 130 mg/dL LDL 77 130 mg/dl Non HDL Cholesterol POCT 105 145 mg/dL Total Cholesterol/HDL Ratio POCT 3.3 6.0 Glucose 90 70 - 126 mg/dL Blood BLOOD SPECIMEN / Unknown 05/16/2018 1:42 PM CDT Kavitha Barker MD LAB - POINT OF CARE ORDERABLES * POLYSOMNOGRAM W/MULTIPLE SLEEP LATENCY TEST (04/07/2018) Pathologist [facility] Linked Results See Linked Results SLEEP CENTER 04/07/2018 [facility]ía [facility] O RDERABLES Performing Organization Address [facility]/ZIP Co de Phone Number SLEEP CENTER * CT SINUS NON IV CONTRAST (10/17/2017 12:46 PM RIGGER) Anatomical Region Laterality Modality Head Computed Tomogra phy 10/17/2017 1:00 PM RIGGER Impressions 10/17/2017 1:15 PM RIGGER 1. Moderate mucosal thickening of the left maxillary sinus with opacification of the left ostiomeatal unit and partial opacification of an adjacent left ethmoid air cell. There is mild osseous irregularity of the left uncinate process which is mildly thickened with small areas of focal dehiscence suggesting chronicity of this process. No intraorbital or intracranial extension identified on this non-contrast examination. Narrative 10/17/2017 1:15 PM RIGGER EXAMINATION: CT of the maxillofacial bones, orbits, and paranasal sinuses without contrast HISTORY: Chronic maxillary sinusitis. TECHNIQUE: CT of the maxillofacial bones, orbits, and paranasal sinuses was performed without contrast according to standard protocol. FINDINGS: No prior study is available for comparison. There is moderate mucosal thickening in the left maxillary sinus with opacification of the left ostiomeatal unit. The left maxillary sinus is mildly diminutive when compared with the right. There is mild osseous irregularity of the left uncinate process which is mildly thickened with small areas of focal dehiscence (series 604 image 84 and series 4 image 71). No intraorbital or intracranial extension is noted on this noncontrast examination. Minimal mucosal thickening in the left ethmoid air cell. The remainder the paranasal sinuses are clear. The mastoid air cells are clear. Visualized portions of the brain appear normal. The orbits appear normal. No soft tissue abnormality is identified. Procedure Note Roger Jones MD - 10/17/2017 EXAMINATION: CT of the maxillofacial bones, orbits, and paranasal sinuses without contrast HISTORY: Chronic maxillary sinusitis. TECHNIQUE: CT of the maxillofacial bones, orbits, and paranasal sinuses was performed without contrast according to standard protocol. FINDINGS: No prior study is available for comparison. There is moderate mucosal thickening in the left maxillary sinus with opacification of the left ostiomeatal unit. The left maxillary sinus is mildly diminutive when compared with the right. There is mild osseous irregularity of the left uncinate process which is mildly thickened with small areas of focal dehiscence (series 604 image 84 and series 4 image 71). No intraorbital or intracranial extension is noted on this noncontrast examination. Minimal mucosal thickening in the left ethmoid air cell. The remainder the paranasal sinuses are clear. The mastoid air cells are clear. Visualized portions of the brain appear normal. The orbits appear normal. No soft tissue abnormality is identified. IMPRESSION 1. Moderate mucosal thickening of the left maxillary sinus with opacification of the left ostiomeatal unit and partial opacification of an adjacent left ethmoid air cell. There is mild osseous irregularity of the left uncinate process which is mildly thickened with small areas of focal dehiscence suggesting chronicity of this process. No intraorbital or intracranial extension identified on this non-contrast examination. Gigi Bar DO CT ORDERABLES * HGB HCT PANEL (10/10/2017 1:33 PM RIGGER) Only the most recent of3 resultswithin the time period is included. Hemoglobin 14.3 11.1 - 15.9 g/dL [facility] INSURANCE BILL Hematocrit 42.3 34.0 - 46.6 % [facility] INSURANCE BILL Blood BLOOD SPECIMEN / Unknown 10/10/2017 1:33 PM RIGGER 10/10/2017 Narrative Resulting Agency Comment [facility] [address] [facility] [phone] Kavitha Barker MD LAB - HEMATOLOGY ORD ERABLES [facility] INSURANCE BILL [address] [place] [address] * XR KNEE 1 OR 2 VW LEFT (01/28/2017 3:28 PM CDT) Anatomical Region Laterality Modality Lower Extremity Radiographic Elena ging 01/29/2017 7:12 AM CDT Impressions 01/29/2017 7:59 AM CDT No acute fracture or dislocation. Dictated by Boston Soler MD (vice president of sales) I, Brenna Greene, have personally reviewed the images and I agree with this report. Narrative 01/29/2017 7:59 AM CDT EXAMINATION: 1. Right forearm, 2 view 2. Left knee, 2 view 3. Right tibia/fibula, 2 view. HISTORY: 11-year-old female with right arm and bilateral lower extremity pain. COMPARISON: No prior study is available for comparison. FINDINGS: Right forearm, 2 view: The osseous structures are intact and well aligned. No focal soft tissue swelling or demineralization is seen. No joint effusion is seen. No retained radiopaque foreign body is seen. Left knee, 2 views: The osseous structures are intact and well aligned. No focal soft tissue swelling or demineralization is seen. No joint effusion is seen. No retained radiopaque foreign body is seen. Right tibia/tibia, 2 view: The osseous structures are intact and well aligned. No focal soft tissue swelling or demineralization is seen. No joint effusion is seen. No retained radiopaque foreign body is seen. Procedure Note Brenna Greene MD - 01/29/2017 EXAMINATION: 1. Right forearm, 2 view 2. Left knee, 2 view 3. Right tibia/fibula, 2 view. HISTORY: 11-year-old female with right arm and bilateral lower extremity pain. COMPARISON: No prior study is available for comparison. FINDINGS: Right forearm, 2 view: The osseous structures are intact and well aligned. No focal soft tissue swelling or demineralization is seen. No joint effusion is seen. No retained radiopaque foreign body is seen. Left knee, 2 views: The osseous structures are intact and well aligned. No focal soft tissue swelling or demineralization is seen. No joint effusion is seen. No retained radiopaque foreign body is seen. Right tibia/tibia, 2 view: The osseous structures are intact and well aligned. No focal soft tissue swelling or demineralization is seen. No joint effusion is seen. No retained radiopaque foreign body is seen. IMPRESSION No acute fracture or dislocation. Dictated by Boston Soler MD (vice president of sales) Brenna Sndyer, have personally reviewed the images and I agree with this report. Sandra Armijo MD DIAGNOSTIC IMAGING O RDERABLES * XR FOREARM 2 VW RIGHT (01/28/2017 3:27 PM CDT) Anatomical Region Laterality Modality Upper Extremity Radiographic Elena ging 01/29/2017 7:12 AM CDT Impressions 01/29/2017 7:59 AM CDT No acute fracture or dislocation. Dictated by Botson Soler MD (vice president of sales) Brenna Snyder, have personally reviewed the images and I agree with this report. Narrative 01/29/2017 7:59 AM CDT EXAMINATION: 1. Right forearm, 2 view 2. Left knee, 2 view 3. Right tibia/fibula, 2 view. HISTORY: 11-year-old female with right arm and bilateral lower extremity pain. COMPARISON: No prior study is available for comparison. FINDINGS: Right forearm, 2 view: The osseous structures are intact and well aligned. No focal soft tissue swelling or demineralization is seen. No joint effusion is seen. No retained radiopaque foreign body is seen. Left knee, 2 views: The osseous structures are intact and well aligned. No focal soft tissue swelling or demineralization is seen. No joint effusion is seen. No retained radiopaque foreign body is seen. Right tibia/tibia, 2 view: The osseous structures are intact and well aligned. No focal soft tissue swelling or demineralization is seen. No joint effusion is seen. No retained radiopaque foreign body is seen. Procedure Note Brenna Greene MD - 01/29/2017 EXAMINATION: 1. Right forearm, 2 view 2. Left knee, 2 view 3. Right tibia/fibula, 2 view. HISTORY: 11-year-old female with right arm and bilateral lower extremity pain. COMPARISON: No prior study is available for comparison. FINDINGS: Right forearm, 2 view: The osseous structures are intact and well aligned. No focal soft tissue swelling or demineralization is seen. No joint effusion is seen. No retained radiopaque foreign body is seen. Left knee, 2 views: The osseous structures are intact and well aligned. No focal soft tissue swelling or demineralization is seen. No joint effusion is seen. No retained radiopaque foreign body is seen. Right tibia/tibia, 2 view: The osseous structures are intact and well aligned. No focal soft tissue swelling or demineralization is seen. No joint effusion is seen. No retained radiopaque foreign body is seen. IMPRESSION No acute fracture or dislocation. Dictated by Boston Soler MD (vice president of sales) Brenna Snyder, have personally reviewed the images and I agree with this report. Sandra Armijo MD DIAGNOSTIC IMAGING O RDERABLES * XR TIBIA FIBULA RIGHT 2VW (01/28/2017 3:27 PM CDT) Anatomical Region Laterality Modality Lower Extremity Radiographic Elena ging 01/29/2017 7:12 AM CDT Impressions 01/29/2017 7:59 AM CDT No acute fracture or dislocation. Dictated by Boston Soler MD (vice president of sales) Brenna Snyder, have personally reviewed the images and I agree with this report. Narrative 01/29/2017 7:59 AM CDT EXAMINATION: 1. Right forearm, 2 view 2. Left knee, 2 view 3. Right tibia/fibula, 2 view. HISTORY: 11-year-old female with right arm and bilateral lower extremity pain. COMPARISON: No prior study is available for comparison. FINDINGS: Right forearm, 2 view: The osseous structures are intact and well aligned. No focal soft tissue swelling or demineralization is seen. No joint effusion is seen. No retained radiopaque foreign body is seen. Left knee, 2 views: The osseous structures are intact and well aligned. No focal soft tissue swelling or demineralization is seen. No joint effusion is seen. No retained radiopaque foreign body is seen. Right tibia/tibia, 2 view: The osseous structures are intact and well aligned. No focal soft tissue swelling or demineralization is seen. No joint effusion is seen. No retained radiopaque foreign body is seen. Procedure Note Brenna Greene MD - 01/29/2017 EXAMINATION: 1. Right forearm, 2 view 2. Left knee, 2 view 3. Right tibia/fibula, 2 view. HISTORY: 11-year-old female with right arm and bilateral lower extremity pain. COMPARISON: No prior study is available for comparison. FINDINGS: Right forearm, 2 view: The osseous structures are intact and well aligned. No focal soft tissue swelling or demineralization is seen. No joint effusion is seen. No retained radiopaque foreign body is seen. Left knee, 2 views: The osseous structures are intact and well aligned. No focal soft tissue swelling or demineralization is seen. No joint effusion is seen. No retained radiopaque foreign body is seen. Right tibia/tibia, 2 view: The osseous structures are intact and well aligned. No focal soft tissue swelling or demineralization is seen. No joint effusion is seen. No retained radiopaque foreign body is seen. IMPRESSION No acute fracture or dislocation. Dictated by Boston Solre MD (vice president of sales) I, Brenna Greene, have personally reviewed the images and I agree with this report. Sandra Armijo MD DIAGNOSTIC IMAGING O RDERABLES * CBC W AUTO DIFFERENTIAL (01/03/2017 3:42 PM CDT) Only the most recent of5 resultswithin the time period is included. WBC 6.3 3.7 - 10.5 x10E3/uL [facility] INSURANCE BILL RBC 4.95 3.91 - 5.45 x10E6/uL [facility] INSURANCE BILL Hemoglobin 13.7 11.7 - 15.7 g/dL [facility] INSURANCE BILL Hematocrit 42.5 34.8 - 45.8 % [facility] INSURANCE BILL MCV 86 77 - 91 fL [facility] INSURANCE BILL MCH 27.7 25.7 - 31.5 pg [facility] INSURANCE BILL MCHC 32.2 31.7 - 36.0 g/dL [facility] INSURANCE BILL RDW 13.3 12.3 - 15.1 % [facility] INSURANCE BILL Platelet Count 316 176 - 407 x10E3/uL [facility] INSURANCE BILL Granulocytes % 39 % [facility] INSURANCE BILL Lymphocytes % 53 % [facility] INSURANCE B[facility] Monocytes % 6 % [facility] INSURANCE BILL Eosinophils % 2 % [facility] INSURANCE BILL Basophils % 0 % [facility] INSURANCE BILL Immature Cells NOT NEEDED [facility] INSURANCE BILL Comment:Ancillary determined the test is not needed Granulocytes Absolute 2.5 1.2 - 6.0 x10E3/uL [facility] INSURANCE BILL Lymphocytes Absolute 3.3 1.3 - 3.7 x10E3/uL [facility] INSURANCE BILL Monocytes Absolute 0.4 0.1 - 0.8 x10E3/uL [facility] INSURANCE BILL Eosinophils Absolute 0.1 0.0 - 0.4 x10E3/uL [facility] INSURANCE BILL Basophils Absolute 0.0 0.0 - 0.3 x10E3/uL [facility] INSURANCE BILL Immature Granulocytes 0 % [facility] INSURANCE BILL Immature Granulocytes Absolute 0.0 0.0 - 0.1 x10E3/uL [facility] INSURANCE BILL nRBC NOT NEEDED [facility] INSURANCE BILL Comment:Ancillary determined the test is not needed Comment Hematology NOT NEEDED [facility] INSURANCE BILL Comment:Ancillary determined the test is not needed Blood BLOOD SPECIMEN / Unknown 01/03/2017 3:42 PM CDT 01/03/2017 Narrative Resulting Agency Comment [facility] [address] [facility] [phone] Gigi Bar DO LAB - HEMATOLOG Y ORDERABLES [facility] INSURANCE BILL [address] [place] [address] * T4 FREE (10/10/2016 3:35 PM RIGGER) T4 Free 1.21 0.93 - 1.60 ng/dL [facility] INSURANCE BILL Blood BLOOD SPECIMEN / Unknown 10/10/2016 3:35 PM RIGGER 10/10/2016 Narrative Resulting Agency Comment [facility] [address] [facility] [phone] Gigi Bar DO LAB - CHEMISTRY ORDERABLES [facility] INSURANCE BILL [address] [place] [address] * PEDIATRIC DIAGNOSTIC POLYSOMNOGRAM (09/30/2016) Linked Results See Linked Results SLEEP CENTER 09/30/2016 Gigi Bar DO SLEEP CENTER OR DERABLES SLEEP CENTER * URINALYSIS ROUTINE AUTO (11/07/2015 8:02 PM RIGGER) Color UA Yellow Straw, Yellow, Dark Yellow 11/07/2015 8:[address] [facility] Clarity UA Clear 11/07/2015 8:[address] [facility] Specific [place] UA <=1.005 1.005 - 1.030 11/07/2015 8:[address] [facility] pH UA 6.0 5.0 - 8.0 pH 11/07/2015 8:[address] [facility] Protein UA Negative Negative 11/07/2015 8:[address] [facility] Blood UA Negative Negative 11/07/2015 8:[address] [facility] Leukocyte UA Negative Negative 11/07/2015 8:[address] [facility] Nitrite UA Negative Negative 11/07/2015 8:[address] [facility] LABORATORY Glucose UA Negative Negative 11/07/2015 8:[address] [facility] Ketone UA Negative Negative 11/07/2015 8:[address] [facility] Bilirubin UA Negative Negative 11/07/2015 8:[address] [facility] Urobilinogen UA 0.2 0.1 - 1.0 EU/dL 11/07/2015 8:[address] [facility] Reducing Substances UA Negative Negative 11/07/2015 8:[address] [facility] Urine URINE SPECIMEN OBTAINED BY CLEAN CATCH PROCEDURE / Unknown 11/07/2015 8:02 PM RIGGER 11/07/2015 8:11 PM RIGGER José Miguel Guevara MD LAB - URINALYSIS ORD ERABLES Performing Organization Address City/[facility] Co de Phone Number [facility] [address] [place] [address] * URINALYSIS MICROSCOPIC ONLY (11/07/2015 8:02 PM RIGGER) RBC UA 0-2 0-2, 2-5 # /hpf 11/07/2015 9:[address] [facility] WBC UA 0-2 0-2, 2-5 # /hpf 11/07/2015 9:[address] [facility] Bacteria UA None Seen None Seen, Trace 11/07/2015 9:[address] [facility] Epithelial Cell UA 0-2 0-2, 2-5 # /hpf 11/07/2015 9:[address] [facility] Urine URINE SPECIMEN OBTAINED BY CLEAN CATCH PROCEDURE / Unknown 11/07/2015 8:02 PM RIGGER 11/07/2015 8:11 PM RIGGER José Miguel Guevara MD LAB - URINALYSIS ORD ERABLES Performing Organization Address City/[facility] Co de Phone Number [facility] [address] [place] [phone] * MONONUCLEOSIS SCREEN (11/07/2015 7:59 PM RIGGER) Mononucleosis Screen Negative Negative 11/07/2015 8:[address] [facility] Blood BLOOD SPECIMEN / Unknown 11/07/2015 7:59 PM RIGGER 11/07/2015 8:11 PM RIGGER José Miguel Guevara MD LAB - CHEMISTRY YAMILETH HENDERSON Performing Organization Address [facility] Co de Phone Number [facility] [place] [address] * STREP A SCREEN DIRECT W RFLX STREP A CULTURE (11/07/2015 6:16 PM RIGGER) Strep A Rapid Negative Negative 11/07/2015 6:33 PM RIGGER [facility] Microbiology ENTIRE THROAT (SURFACE REGION OF NECK) / Unknown 11/07/2015 6:16 PM RIGGER 11/07/2015 6:25 PM RIGGER Narrative [facility] - 11/07/2015 6:33 PM RIGGER Test has reflexed to a Strep A culture. José Miguel Guevara MD LAB - MICROBIOLOGY O PRIYA Performing Organization Address [facility] Co de Phone Number [facility] [address] [place] [address] * CULTURE AEROBIC (12/07/2014 1:01 PM RIGGER) Culture [facility] Comment: CULTURE, AEROBIC BACTERIA MICRO NUMBER: [id number] TEST STATUS: FINAL SPECIMEN SOURCE: TONSIL SPECIMEN QUALITY: ADEQUATE RESULT: No oropharyngeal pathogens recovered. Test Performed at: [facility] [id number] ANABELA DOWNING MD Miscellaneous samples (specimen) SPECIMEN FROM TONSIL / Unknown 12/07/2014 1:01 PM RIGGER 12/08/2014 4:12 AM RIGGER Kavitha Barker MD LAB - MICROBIOLOGY O PRIYA Performing Organization Address [facility]/ZIP Co de Phone Number [address] [address] * BORDETELLA PERTUSSIS/PARAPERTUSIS PCR (04/12/2012) Other (qualifier value) NASOPHARYNGEAL SWAB / Unknown Rani Alba MD LAB - MICROBIOLOGY O PRIYA Performing Organization Address City/[facility]/ZIP Co de Phone Number NON[facility]M RESULT SCAN * VIRAL CULTURE RESPIRATORY (04/12/2012) Miscellaneous samples (specimen) NASOPHARYNGEAL SWAB / Unknown Rani Alba MD LAB - MICROBIOLOGY O RDERABLES Performing Organization Address [facility] Co de Phone Number NONSSM RESULT SCAN * PATHOLOGY/CYTOLOGY REPORT ORDER (04/04/2012 12:26 PM CDT) Narrative Transcriptions Document, Scanned - 04/04/2012 12:26 PM CDT Scanned Document LAB - PATHOLOGY/CYTO LOGY ORDERABLES * EGD (04/02/2012 12:39 PM CDT) Narrative Transcriptions Fly Palmer MD - 04/02/2012 9:36 AM CDT Fly Palmer MD - 04/02/2012 9:29 AM CDT Fly Palmer MD GI PROCEDURE ORDERAB LES Performing Organization Address [facility] de Phone Number [facility] [place] [address] * HELICOBACTER PYLORI UREASE (04/02/2012 9:19 AM CDT) Helicobacter pylori Urease Initial Negative Negative 04/03/2012 3:12 PM CDT [facility] Helicobacter pylori Urease Final Negative Negative 04/03/2012 3:12 PM CDT [facility] Comment:This is an appended report. These results have been appended to a previously preliminary verified report. Miscellaneous samples (specimen) GASTRIC ANTRAL BIOPSY SPECIMEN / Unknown 04/02/2012 9:19 AM CDT 04/02/2012 10:05 AM CDT Fly Palmer MD LAB - MICROBIOLOGY O RDERABLES Performing Organization Address [facility] Co de Phone Number [facility] [address] [place] [address] * TISSUE TRANSGLUTAMINASE AB IGG (04/01/2012 5:30 PM CDT) Tissue Transglutaminase Ab, IgG 3 0 - 19 EU 04/03/2012 2:56 PM CDT [facility] [employer] Comment: INTERPRETIVE INFORMATION: Tissue Transglutaminase Ab, IgG Less than 20 EU ......... None Detected 20 - 30 EU .............. Weakly Positive Greater than 30 EU ...... Positive The tTG IgG assay may aid in the diagnosis of gluten-sensitivity enteropathy (i.e., celiac disease, dermatitis herpetiformis) in tTG IgA negative patients with confirmed IgA deficiency. A negative tTG IgG test alone does not rule out gluten-sensitive enteropathy. Blood specimen (specimen) BLOOD SPECIMEN / Unknown 04/01/2012 5:30 PM CDT 04/01/2012 5:46 PM CDT Diana Fraser MD LAB - CHEMISTRY YAMILETH HENDERSON [facility] Organization Address City/State/ZIP Co de Phone Number [facility] [address] [place] [address] * TISSUE TRANSGLUTAMINASE AB IGA (04/01/2012 5:30 PM CDT) Tissue Transglutaminase (tTG) Ab, IgA 4 0 - 19 Units 04/03/2012 12:52 PM CDT [facility] [employer] Comment: INTERPRETIVE INFORMATION: Tissue Transglutaminase (tTG) Antibody, IgA 19 Units or less: Negative 20-30 Units: Weak Positive 31 Units or greater: Moderate to Strong Positive Presence of the tissue transglutaminase (tTG) IgA antibody is associated with gluten-sensitive enteropathies such as celiac disease and dermatitis herpetiformis. tTG IgA antibody concentrations greater than or equal to 100 Units usually correlate with results of duodenal biopsies consistent with a diagnosis of celiac disease. For antibody concentrations greater than 20 Units but less than 100 Units, additional testing for endomysial (JOLENE) IgA concentrations may improve the positive predictive value for disease. Blood specimen (specimen) BLOOD SPECIMEN / Unknown 04/01/2012 5:30 PM CDT 04/01/2012 5:45 PM CDT Diana Fraser MD LAB - SEROLOGY ORDER [facility] [address] [place] [address] * IGA BLOOD (04/01/2012 5:30 PM CDT) IgA 77 21 - 282 mg/dL 04/01/2012 7:01 PM CDT [facility] Blood specimen (specimen) BLOOD SPECIMEN / Unknown 04/01/2012 5:30 PM CDT 04/01/2012 5:45 PM CDT Kavitha Woodruff MD LAB - CHEMISTRY O RDERABLES [facility] [address] [place] [address] * XR ABD OBSTR SERIES (03/27/2012 3:39 PM CDT) Anatomical Region Laterality Modality Abdomen Radiographic Elena ging 03/27/2012 3:46 PM CDT Impressions 03/27/2012 3:47 PM CDT Air-fluid levels in the right colon, recommend clinical correlation to exclude appendicitis. Narrative 03/27/2012 3:47 PM CDT Abdominal obstructive series AP supine and upright views. Findings: There is a large amount of stool throughout the colon. There is no evidence of obstruction. There is multiple air-fluid levels within the right colon. There is no evidence of free air. Procedure Note Rajiv Mendes MD - 03/27/2012 Abdominal obstructive series AP supine and upright views. Findings: There is a large amount of stool throughout the colon. There is no evidence of obstruction. There is multiple air-fluid levels within the right colon. There is no evidence of free air. IMPRESSION Air-fluid levels in the right colon, recommend clinical correlation to exclude appendicitis. Kimberley Shi DO DIAGNOSTIC IMAGING O RDERABLES * XR ABDOMEN 1 VW (03/26/2012) Anatomical Region Laterality Modality Abdomen Other Rani Alba MD DIAGNOSTIC IMAGING O RDERABLES * XR CHEST PA AND LATERAL (03/25/2012) Anatomical Region Laterality Modality Chest Other Rani Alba MD DIAGNOSTIC IMAGING O RDERABLES * US ABD PRECOCIOUS PUBERTY (01/15/2012 9:51 AM CDT) Anatomical Region Laterality Modality Ultrasound 01/15/2012 10:4 0 AM CDT Impressions 01/15/2012 10:40 AM CDT The uterus has a postpubertal configuration in that the uterine fundus has a greater AP diameter than the uterine cervix. There is no evidence of suprarenal mass. The ovaries are sonographically normal in appearance with ovarian volumes as above. Narrative 01/15/2012 10:40 AM CDT Pelvic ultrasound performed January 15, 2012. History: Precocious puberty. Longitudinal and transverse images were obtained transabdominally. No prior studies are available for comparison. The uterus measures 2.8 cm in length x 0.9 cm in AP dimension x 1.8 cm in transverse dimension. The AP diameter the uterine fundus is greater than that of the uterine cervix. There is no evidence of fluid in the endometrial canal or in the cul-de-sac. The right ovary measures 1.9 x 2.3 x 1.4 cm in size for a calculated volume of 1.7 cc. The left ovary measures 2.3 x 1.4 x 1.4 cm in size for a calculated volume of 2.4 cc. Both ovaries contain multiple tiny follicles and are unremarkable in appearance. There is no evidence of suprarenal mass. The bladder is distended with urine but otherwise unremarkable. No distal ureteral dilatation is seen. Procedure Note Flaca Gudino MD - 01/15/2012 Pelvic ultrasound performed January 15, 2012. History: Precocious puberty. Longitudinal and transverse images were obtained transabdominally. No prior studies are available for comparison. The uterus measures 2.8 cm in length x 0.9 cm in AP dimension x 1.8 cm in transverse dimension. The AP diameter the uterine fundus is greater than that of the uterine cervix. There is no evidence of fluid in the endometrial canal or in the cul-de-sac. The right ovary measures 1.9 x 2.3 x 1.4 cm in size for a calculated volume of 1.7 cc. The left ovary measures 2.3 x 1.4 x 1.4 cm in size for a calculated volume of 2.4 cc. Both ovaries contain multiple tiny follicles and are unremarkable in appearance. There is no evidence of suprarenal mass. The bladder is distended with urine but otherwise unremarkable. No distal ureteral dilatation is seen. IMPRESSION The uterus has a postpubertal configuration in that the uterine fundus has a greater AP diameter than the uterine cervix. There is no evidence of suprarenal mass. The ovaries are sonographically normal in appearance with ovarian volumes as above. Laura Knowles MD US ORDERABLES * XR BONE AGE HAND AND WRIST (11/16/2011 5:53 PM RIGGER) Anatomical Region Laterality Modality Upper Extremity, Wrist / Hand Ra diographic Imaging 11/17/2011 8:13 AM RIGGER Narrative 11/17/2011 8:13 AM RIGGER Bone age: [age] years 10 months Method: Greulich and Noah Chronologic age: [age] years 6 months Standard deviation: 8.8 months Skeletal maturation: Normal Procedure Note Betsey Preston MD - 11/17/2011 Bone age: [age] years 10 months Method: Greulich and Noah Chronologic age: [age] years 6 months Standard deviation: 8.8 months Skeletal maturation: Normal Rani Alba MD DIAGNOSTIC IMAGING O RDERABLES * TSH+FREE T4 (PO REF LAB) (11/09/2011 4:18 PM RIGGER) TSH 3.780 0.600 - 4.840 uIU/mL [facility] ACCOUNT BILL T4 Free 1.31 0.90 - 1.67 ng/dL [facility] ACCOUNT BILL BLOOD SPECIMEN / Unknown 11/09/2011 4:18 PM RIGGER 11/09/2011 6:31 PM RIGGER Narrative Resulting Agency Comment [facility] [address] [id number] Rani Alba MD LAB - CHEMISTRY YAMILETH HENDERSON [facility] Organization Address City/State/ZIP Co de Phone Number [facility] ACCOUNT BILL * HYDROXYPROGESTERONE 17- (11/09/2011 4:18 PM RIGGER) 17-Hydroxyproge sterone LCMS 15 0 - 90 ng/dL [facility] ACCOUNT BILL Blood specimen (specimen) BLOOD SPECIMEN / Unknown 11/09/2011 4:18 PM RIGGER 11/09/2011 6:31 PM RIGGER Narrative Resulting Agency Comment [facility] [address] [id number] Rani Alba MD LAB - CHEMISTRY YAMILETH HENDERSON [facility] ACCOUNT BILL * ESTRADIOL (11/09/2011 4:18 PM RIGGER) Estradiol <5.1 pg/mL [facility] ACCOUNT BILL Comment: Adult Female: Follicular phase 12.5 - 166.0 Ovulation phase 85.8 - 498.0 Luteal phase 43.8 - 211.0 Postmenopausal <6.0 - 54.7 1st trimester 215.0 - >4300.0 Girls (1-10 years) 6.0 - 27.0 Ariel ECLIA methodology Blood specimen (specimen) BLOOD SPECIMEN / Unknown 11/09/2011 4:18 PM RIGGER 11/09/2011 6:31 PM RIGGER Narrative Resulting Agency Comment [facility] [address] [id number] Rani Alab MD LAB - CHEMISTRY YAMILETH HENDERSON [facility] ACCOUNT BILL * FSH + LH PANEL (11/09/2011 4:18 PM RIGGER) LH 0.5 mIU/mL [facility] ACCOUNT BILL Comment: <24 hours <0.2 - 1.0 1 day <0.2 - 0.8 2 days <0.2 - 0.6 3 days <0.2 - 2.7 4 days <0.2 - 1.7 5 days <0.2 - 3.1 6 days 0.4 - 6.4 7 days <0.2 - 5.6 8 - 30 days <0.2 - 7.8 1 - 12 month <0.2 - 0.4 1 - 4 years <0.2 - 0.5 5 - 9 years <0.2 - 3.1 10 - 12 years <0.2 - 11.9 13 - 16 years 0.5 - 41.7 . Adult Female: Follicular phase 2.4 - 12.6 Ovulation phase 14.0 - 95.6 Luteal phase 1.0 - 11.4 FSH 2.2 mIU/mL [facility] ACCOUNT BILL Comment: <24 hours <0.2 - 0.8 1 day <0.2 - 0.8 2 days <0.2 - 0.8 3 days <0.2 - 2.4 4 days <0.2 - 2.3 5 days <0.2 - 3.4 6 days <0.2 - 4.5 7 days 0.2 - 21.4 8 - 30 days <0.2 - 22.2 1 - 12 months Not Estab. 1 - 4 years 0.2 - 11.1 5 - 9 years 0.3 - 11.1 10 - 12 years 2.1 - 11.1 13 - 16 years 1.6 - 17.0 . Adult Female: Follicular phase 3.5 - 12.5 Ovulation phase 4.7 - 21.5 Luteal phase 1.7 - 7.7 Blood specimen (specimen) BLOOD SPECIMEN / Unknown 11/09/2011 4:18 PM RIGGER 11/09/2011 6:31 PM RIGGER Narrative Resulting Agency [facility] [address] [facility] [id number] Rani Alba MD LAB - CHEMISTRY YAMILETH HENDERSON [facility] Organization Address City/State/ZIP Co de Phone Number [facility] ACCOUNT BILL * TESTOSTERONE TOTAL (11/09/2011 4:17 PM RIGGER) Testosterone 3 ng/dL [facility] ACCOUNT BILL Comment: FEMALE DEYVI STAGE 1 <3 - 6 2 <3 - 10 3 <3 - 24 4 <3 - 27 5 5 - 38 Blood specimen (specimen) BLOOD SPECIMEN / Unknown 11/09/2011 4:17 PM RIGGER 11/09/2011 6:31 PM RIGGER Narrative Resulting Agency Comment [facility] [place] [address] [facility] [id number] Rani Alba MD LAB - CHEMISTRY YAMILETH HENDERSON [facility] ACCOUNT BILL * GROSS EXAM PATHOLOGY (12/14/2008 9:26 AM RIGGER) Only the most recent of2 resultswithin the time period is included. Result CASE NUMBER [id number] [facility] PATH REPORT Comment: ORDERING PHYSICIAN RA COLÓN SPECIMEN TYPE Tonsils CLINICAL HISTORY The patient is a 3-year-old girl with adenotonsillar hypertrophy. GROSS DESCRIPTION The specimen labeled with the patient's name, Lucita Valle, and tonsils is received fresh for gross examination only and consists of two egg-shaped, pink-richardson palatine tonsils measuring 2.5 x 1.6 x 1.2 cm and 2.6 x 2 x 1.2 cm, weighing approximately 8 grams combined. On cut surface, the tonsils have a cerebriform, yellow-richardson appearance. No sections are taken. (CT/nab) GROSS DIAGNOSIS GROSS DIAGNOSIS PALATINE TONSILS. This case has been personally reviewed and interpreted by the attending (teaching) pathologist. [employer] ANEUDY ONTIVEROS PATHOLOGIST Clotilde Chen M.D. ELECTRONICALLY PARAG CLOTILDE CHEN MISCELLANEOUS SAMPLES / Unknown 12/14/2008 9:26 AM RIGGER 12/14/2008 10:08 AM RIGGER Historical Provider LAB - PATHOLOGY/C YTOLOGY ORDERABLES [facility] PATH REPORT Care Teams Lockstitch Tunnel Elastic Operator Relationship Specialty Start Date End Date Kelly Harrison [address] [place] [phone] PCP - General 11/07/24
--- OUTSIDE RECORDS SUMMARY | 2024-11-27 14:03 | XMS_ITS | Encounter Summary ---
Author Organization [facility] Address [address] [place] [address] Phone Care Team Providers Care Senior Staff Consultant Name Role Phone Irlanda Del Real X RAY EXAMINER OF AIRCRAFT Primary Care Provider + Reason for Visit * Reason Onset Date Comments lab order 05/11/2023 Encounter Details Date Type Department Care Team (Late st Contact Info) Description 05/11/2023 Telephone [facility] Pediatric Rheumatology and Immunology [facility] 2nd [place] [address] [place] [address] Maria Del Carmen Chung lab order Social History Tobacco Use Types Packs/Day Years Used Date Smoking Tobacco: Never Comments No Sex and Gender Information Value Date Recorded Sex Assigned at Not on file Legal Sex Female 12:43 PM BAKER HEAD Gender Identity Female 05/01/2018 12:47 PM CDT Sexual Orientation Not on file documented as of this encounter Plan of Treatment Not on file documented as of this encounter Visit Diagnoses Not on filedocumented in this encounter Care Teams Senior Staff Consultant Relationship Specialty Start Date End Date Irlanda Del Real NP Irena [facility] [place] [address] PCP - General Nurse Practitioner 05/10/22 documented as of this encounter
--- OUTSIDE RECORDS SUMMARY | 2024-11-27 14:03 | XMS_ITS | Referral Summary ---
Author Organization [facility] Address [address] [place] [address] Care Team Providers Care Driver Merchandiser Name Role Phone Irlanda Del Real MATTE CUTTER Primary Care Provider + Allergies Active Allergy Reactions Criticality Noted Date Comments Bupropion Itching Low 04/30/2018 Medications norgestrel-ethi nyl estradioL (LOW-OGESTREL,C RYSELLE) 0.3-30 mg-mcg per tablet TAKE 1 TAB BY MOUTH ONCE nightly 8 Active azelastine-flut icasone 137-50 mcg/spray spray,non-aeros ol two sprays BID to each nostril 8 Active ferrous sulfate 325 mg (65 mg of elemental iron) tabletIndicatio ns:Iron Deficiency Anemia nightly. 8 Active FLUoxetine (PROzac) 40 mg capsule Take 2 capsules (80 mg total) by mouth nightly 8 Active montelukast (SINGULAIR) 5 mg chewable tablet Take 5 mg by mouth nightly. 8 Active rOPINIRole (REQUIP) 0.5 mg tablet Take 0.5 mg by mouth nightly. 8 Active FLUoxetine (PROzac) 20 mg tablet Take 20 mg by mouth nightly. Active cholecalciferol (VITAMIN D-3) 2,000 unit tablet Take 2,000 Units by mouth nightly. Active oxyCODONE (ROXICODONE) solution 5 mg/5 mLIndications:P ain Take 2.6 mL (2.6 mg total) by mouth every 4 (four) hours as needed for pain. 45 mL 8 Active Additional Information Patient not taking.Reported on 05/10/2022 tamsulosin (FLOMAX) 0.4 mg extended release capsule Take 0.4 mg by mouth daily 1 Active pramipexole (MIRAPEX) 0.5 mg tablet Take 1 tablet (0.5 mg total) by mouth nightly 2 Active etonogestreL (Nexplanon) 68 mg implant 1 each (68 mg total) once 0 Active norethindrone-e .estradioL-iron (LO LOESTRIN FE) 1 mg-10 mcg (24)/10 mcg (2) tablet per tablet Take 1 tablet by mouth daily Active valACYclovir (Valtrex) 1 gram tablet Take by mouth Acti ve Active Problems Problem Noted Date Diagnosed Date KYLEIGH (obstructive sleep apnea) 04/16/2018 Overview (05/02/2018): Overview: Mild KYLEIGH with mildly elevated PLM index. Repeat diag psg 04/07/18 S/p tonsillectomy OAHI 3.1 AHI: 3.2 RDI: 3.2 Min 02 sat 95% PLM index 13.6 Nasal obstruction 03/06/2018 Eczema 05/21/2017 Recurrent sinusitis 01/22/2017 Fatigue 11/13/2016 Periodic limb movements of sleep 10/09/2016 Overview (05/02/2018): Overview: Mild KYLEIGH with mildly elevated PLM index Repeat diag psg 04/07/18 S/p tonsillectomy OAHI 3.1 AHI: 3.2 RDI: 3.2 Min 02 sat 95% PLM index 13.6 Mild elevated PLM index with primary snoring diag psg 09/30/16 SUMMARY: RDI 1.0 AHI 0.8 OAHI 0.8 Min 02 sat 93% Plm index: 8.9 OCD (obsessive compulsive disorder) 10/06/2016 BMI (body mass index), pedia tric, 85% to less than 95% for age 0805/19/2016 Major depressive disorder wi th single episode, in full remission 05/19/2016 Allergic rhinitis 11/27/2011 Acne 11/16/2011 Resolved Problems Problem Noted Date Diagnosed Date Resolved Date Obstructive sleep apnea 05/02/201803/2018 Overview (05/02/2018): Added automatically from request for surgery [id number] Sinusitis 01/22/2017 09/19/2018 Social History Tobacco Use Types Packs/Day Years Used Date Smoking Tobacco: Never Comments No Sex and Gender Information Value Date Recorded Sex Assigned at Not on file Legal Sex Female 12:43 PM HIGH CLIMBER Gender Identity Female 05/01/2018 12:47 PM CDT Sexual Orientation Not on file Last Filed Vital Signs Vital Sign Reading Time Taken Comments Blood Pressure 118/84 05/09/2023 11:16 AM CDT Pulse 75 05/09/2023 11:16 AM CDT Temperature 36.6 C (97.9 F) 05/09/2023 11:16 AM CDT Respiratory Rate 18 05/10/2022 8:10 AM CDT Oxygen Saturation 100% 05/09/2023 11:16 AM CDT Inhaled Oxygen Concentration - - Weight 68 kg (149 lb 14.6 oz) 05/09/2023 11:16 A M CDT Height 158.2 cm (5' 2.28 ) 05/09/2023 11:16 AM C DT Body Mass Index 27.17 05/09/2023 11:16 AM CDT Plan of Treatment Not on file Insurance [place] [address] [employer] [facility] MEDICAID [facility] [place] [address] [facility] MEDICAID Advance Directives For more information, please contact: [phone] * Full Code (Latest Code Status on File) Date Activated Date Inactivated Comments 10/02/2018 4:21 PM 10/03/2018 4:25 PM Care Teams Driver Merchandiser Relationship Specialty Start Date End Date Irlanda Del Real NP [address] [facility] [place] [address] PCP - General Nurse Practitioner 05/10/22
--- OUTSIDE RECORDS SUMMARY | 2024-11-27 14:03 | XMS_ITS | Clinical Summary ---
Author Organization [facility] Address [address] [place]: Epic Prelude ADT [place] [address] Care Team Providers Care Economic Consultant Name Role Phone Unavailable Primary Care Provider Unavailabl e Allergies Active Allergy Reactions Criticality Noted Date Comments Bupropion Hcl Itching Low 04/29/2024 Medications drospirenone-e stetrol (Nextstellis) 3 mg- 14.2 mg (28) Tablet Take 1 Tablet by mouth daily. 84 Tablet 04/12/2022 11:18 AM CDT 2 Active FLUoxetine (PROzac) 40 mg capsule Take 2 Capsules (80 mg) by mouth daily. 180 Capsule 1 10/03/2022 9:48 AM CANVASSING MANAGER 2 Active acyclovir (ZOVIRAX) 400 mg tablet Take 1 Tablet (400 mg) by mouth 2 times daily. 180 Tablet 3 01/24/2023 2:13 PM CDT 2 Active drospirenone-e stetrol (Nextstellis) 3 mg- 14.2 mg (28) Tablet Take 1 Tablet by mouth daily. 84 Tablet 3 2 Active amoxicillin (AMOXIL) 500 mg capsule Take 1 Capsule (500 mg) by mouth 3 times daily until gone 21 Capsule 09/14/2022 12:17 PM CANVASSING MANAGER 2 Active HYDROcodone-ac etaminophen (NORCO) 5-325 mg tablet Take one or two tablets by mouth every 6 hours as needed for pain 20 Tablet 09/14/2022 12:17 PM CANVASSING MANAGER 2 Active pramipexole (Mirapex) 0.5 mg tablet Take 1 Tablet (0.5 mg) by mouth daily. 30 Tablet 3 01/24/2023 2:13 PM CDT 2 Active pramipexole (Mirapex) 0.5 mg tablet Take 1 Tablet (0.5 mg) by mouth daily. 30 Tablet 3 2 Active ascorbic acid, vitamin C, (VITAMIN C) 500 mg tablet Take 1 Tablet (500 mg) by mouth daily with iron. 90 Tablet 3 03/13/2023 1:15 PM CDT 3 Active ergocalciferol (VITAMIN D2) 50,000 unit capsule Take 1 (one) capsule by mouth every 7 days 13 Capsule 3 03/13/2023 1:15 PM CDT 3 Active ferrous sulfate 325 mg (65 mg iron) tablet Take 1 Tablet (325 mg) by mouth daily with vitamin C. 90 Tablet 3 03/13/2023 1:15 PM CDT 3 Active tamsulosin (Flomax) 0.4 mg capsule Take 1 Capsule (0.4 mg) by mouth daily. 90 Capsule 1 03/13/2023 1:15 PM CDT 3 Active pramipexole (Mirapex) 0.5 mg tablet Take 1 Tablet (0.5 mg) by mouth daily. 90 Tablet 1 03/13/2023 1:15 PM CDT 3 Active valACYclovir (VALTREX) 1 gram tablet Take 1 Tablet by mouth every 12 hours for 2 days as needed. 30 Tablet 1 05/27/2023 12:41 PM CDT 3 Active predniSONE (DELTASONE) 20 mg tablet Take 2 tablets by mouth daily for 4 days, then take 1 tablet daily for 2 days. 10 Tablet 06/06/2023 3:10 PM CDT 3 Active bisacodyL (DULCOLAX) 5 mg Delayed Release tablet Take 4 (four) tablets by mouth pre-Procedur e once for 1 dose. Take all 4 tablets one hour before prep solution. Make sure to drink plenty of water with these tablets. 4 Tablet 07/31/2023 10:56 AM CDT 3 Active polyethylene glycol 3350 (MIRALAX) 17 gram/dose Powder Take 238 grams by mouth pre-Procedur e once for 1 dose. Mix entire 238 gram bottle with 64 oz of clear liquid. Drink 8 oz glass every 30 to 40 minutes until gone. 238 Gram 07/31/2023 10:56 AM CDT 3 Active ergocalciferol (VITAMIN D2) 50,000 unit capsule Take 1 (one) capsule by mouth every 7 days 13 Capsule 2 09/04/2023 5:20 PM CANVASSING MANAGER 3 Active armodafiniL (NUVIGIL) 150 mg tablet Take 1 (one) tablet by mouth once daily. Take one tablet daily upon waking up in the morning. 30 Tablet 5 02/11/2024 2:07 PM CDT 3 Active melatonin 5 mg Tablet Take 1 (one) tablet by mouth every evening 90 Tablet 3 09/28/2023 2:24 PM CANVASSING MANAGER 3 Active armodafiniL (NUVIGIL) 150 mg tablet Take 1 Tablet (150 mg) by mouth daily upon waking up in the morning. 30 Tablet 5 10/28/2024 9:25 AM CANVASSING MANAGER 4 Active armodafiniL (NUVIGIL) 150 mg tablet Take one tablet daily upon waking up in the morning. 30 Tablet 5 08/25/2024 1:27 PM CANVASSING MANAGER 4 Active levothyroxine 25 mcg tablet Take 1 Tablet (25 mcg) by mouth ONCE daily BEFORE A MEAL. 90 Tablet 1 06/17/2024 11:44 AM CDT 4 Active famotidine (PEPCID) 40 mg tablet Take 1 tablet by mouth daily as needed 30 Tablet 3 08/22/2024 10:23 AM CANVASSING MANAGER 4 Active omeprazole (PriLOSEC) 20 mg Capsule, Delayed Release(E.C.) Take 1 capsule by mouth twice daily before meal(s) 60 Capsule 3 08/22/2024 10:23 AM CANVASSING MANAGER 4 Active amoxicillin (AMOXIL) 875 mg tablet Take 1 tablet ORAL route every 12 hours for 10 days 20 Tablet 08/27/2024 11:07 AM CANVASSING MANAGER 4 Active azithromycin (ZITHROMAX) 250 mg tablet Take 2 tablets by mouth on day 1, then take 1 tablet by mouth daily for 4 days. Take with food. 6 Tablet 09/04/2024 10:48 AM CANVASSING MANAGER 4 Active predniSONE (DELTASONE) 20 mg tablet Take 1 Tablet (20 mg) by mouth 2 times daily in the morning and early evening. Take with food. 10 Tablet 09/04/2024 10:48 AM CANVASSING MANAGER 4 Active QUEtiapine (SeroqueL) 50 mg tablet Take 1 Tablet (50 mg) by mouth daily at bedtime. 30 Tablet 11/20/2024 2:01 PM CANVASSING MANAGER 5 Active nitrofurantoin (Macrobid) 100 mg capsule Take 1 Capsule (100 mg) by mouth every 12 hours for 7 days. 14 Capsule 11/25/2024 5:31 PM CANVASSING MANAGER 5 025 Active fluconazole (Diflucan) 150 mg tablet Take 1 Tablet (150 mg) by mouth now, repeat dose in 72 hours. 2 Tablet 08/27/2024 11:07 AM CANVASSING MANAGER 4 025 Discontinued nitrofurantoin (Macrobid) 100 mg capsule Take 1 Capsule (100 mg) by mouth every 12 hours for 7 days. 14 Capsule 08/27/2024 11:07 AM CANVASSING MANAGER 4 025 Discontinued Immunizations Immunization Administration Dates Next Due INFLUENZA VACCINE QUADRIVALENT 6 MOS UP PF IM ,08/08/2022 INFLUENZA VACCINE TRIVALENT SPLIT VIRUS, (6 MOS UP), 0.5ML (PF), IM 08/21/2024 Social History Tobacco Use Types Packs/Day Years Used Date Smoking Tobacco: Never Assessed Adolescent Education Answer Date Record ed Getting School Help Needed Not on file 05/11 Comments Unknown Sex and Gender Information Value Date Recorded Sex Assigned at Female 08/21/2024 5:38 PM CANVASSING MANAGER Legal Sex Female 10:09 PM CDT Gender Identity Female 08/21/2024 5:38 PM CANVASSING MANAGER Sexual Orientation Not on file Plan of Treatment Health Maintenance Due Date Last Done Comments CHLAMYDIA SCREENING (ANNUAL) 11-24 YEARS 2015 HPV VACCINES (1 - 3-dose series) 2019 DTAP/TDAP/TD VACCINES (1 - Tdap) 2023 HEPATITIS B VACCINES (1 of 3 - 19+ 3-dose series) 2023 INFLUENZA VACCINE Completed 08/21/2024, , 08/08/2022 Insurance RX [employer] RX Member Subscriber Plan / Payer (Ef fective for All Dates) Name:Lucita Valle Relation to Subscriber:Self Name:Lucita Valle Payer ID:Not on file Group ID:Not on file Type:RX Commercial Address: [place], [place] RX [employer] Medicaid RX [employer] (INTERNAL) [facility]
--- OUTSIDE RECORDS SUMMARY | 2024-11-27 14:03 | XMS_ITS | Encounter Summary ---
Author Organization [facility] Address [address] [place] [address] Phone Care Team Providers Care Biometrics Head Name Role Phone Irlanda Del Real AGENCY SALES DIRECTOR Primary Care Provider + Encounter Details Date Type Department Care Team (Late st Contact Info) Description 05/15/2022 Telephone [facility] Pediatric Rheumatology and Immunology [facility] 2[address] [place] [address] [place] [id number] Victoria Larsen Social History Tobacco Use Types Packs/Day Years Used Date Smoking Tobacco: Never Comments No Sex and Gender Information Value Date Recorded Sex Assigned at Not on file Legal Sex Female 12:43 PM WRECKING MECHANIC Gender Identity Female 05/01/2018 12:47 PM CDT Sexual Orientation Not on file documented as of this encounter Plan of Treatment Not on file documented as of this encounter Visit Diagnoses Not on filedocumented in this encounter Care Teams Biometrics Head Relationship Specialty Start Date End Date Irlanda Del Real, LUIS ANGEL [address] [facility] [place] [address] PCP - General Nurse Practitioner 05/10/22 documented as of this encounter
--- OUTSIDE RECORDS SUMMARY | 2024-11-27 14:03 | XMS_ITS | Encounter Summary ---
Author Organization [facility] Address [address] [place] [address] Care Team Providers Care Skin Toggler Name Role Phone Kavitha Barker MD Primary Care Provider [phone] Irlanda Del Real APRN-OUTSOLE BEVELER Primary Care Provider Kelly Harrison Primary Care Provider [phone] Reason for Visit * Reason Onset Date Comments MEDICATION REFILL 03/07/2023 Encounter Details Date Type Department Care Team (Late st Contact Info) Description 03/07/2023 Refill [facility] Pediatrics - Urology [address] [place] [id number] Lorna Haley PATIENT SCHEDULER-OUTSOLE BEVELER [address] [place] [phone] MEDICATION REFILL Social History Tobacco Use Types [...] st Contact Info) Description 12/12/2024 8:40 AM MINING CONSULTANT Office Visit [facility] [address] [place] [address] Lashell Boswell, APNP-OUTSOLE BEVELER [address] DIV OF PULMONARY[facility] [address] 01/20/2025 11:20 AM CDT Office Visit [facility] - [facility] [address] [place] [phone] Lashell Boswell, APNP-OUTSOLE BEVELER [address] DIV OF PULMONARY[facility] [address] documented as of this encounter Goals Goal Patient Goal Type Associated Problems Recent Progress Patient-Stated? Author Use safety retraint in car Lifestyle On track( 021 3:12 PM MINING CONSULTANT) No Betsey Sneed RN documented as of this encounter Visit Diagnoses Diagnosis Pelvic floor dysfunction in female documented in this encounter Care Teams Skin Toggler Relationship Specialty Start Date End Date Kavitha Barker MD PCP - General 06/02/22 03/14/23 Irlanda Del Real APRN-OUTSOLE BEVELER [address] [place] [phone] PCP - General Nurse Practitioner Family 03/15/23 Kelly Harrison [address] [place] [phone] PCP - General 11/07/24 documented as of this encounter
--- OUTSIDE RECORDS SUMMARY | 2024-11-27 14:03 | XMS_ITS | Clinical Summary ---
Author Organization [facility] Address [address] [place] [address] Phone Care Team Providers Care System Manager Name Role Phone Irlanda Del Real APRN, OFFENDER JOB RETENTION SPECIALIST Primary Care Pro vider Eleno Miller MD Unavailable Medications ascorbic acid 500 MG Tablet Take 500 mg by mouth. 3 Active FLUoxetine (PROZAC) 40 MG Capsule Take 80 mg by mouth. 8 Active pramipexole (MIRAPEX) 0.5 MG Tablet Take 0.5 mg by mouth. 2 Active ferrous sulfate 325 (65 Fe) MG Tablet Take 325 mg by mouth. 8 Active valACYclovir HCl (VALTREX PO) Take by mouth. Activ e Cholecalciferol 50 mcg Tablet Take 2,000 Units by mouth. Active etonogestrel (Nexplanon) 68 MG Implant Inject by subcutaneous route. 2 Active Active Problems Problem Noted Date Diagnosed Date Iron deficiency anemia, unspecified 03/28/2023 Myalgia 03/06/2023 Sleep related rhythmic movement disorder 023 Restless legs syndrome (RLS) 03/06/2023 H/O iron deficiency 03/06/2023 Antinuclear factor positive 04/12/2022 Mixed anxiety and depressive disorder 04/07/2022 OCD (obsessive compulsive disorder) 10/06/2016 Immunizations Immunization Administration Dates Next Due Covid-19, Mrna, Lnp-s, Pf, 3 0 Mcg/0.3 Ml Dose (Pfizer) 11/22/2020,11/01/2020 DTAP VACCINE 03/03/2009, 5,2004,09/12,2004 Hepatitis A Vaccine, Pediatric/adolescent, 2 Dose Schedule 05/16/2007,04/24/2006 Hepatitis B Vaccine, Pediatric/adolescent 05/11/2005,2004,2004 Hib (PRP-D) 05/11/2005,2004,2004 Human Papillomavirus Vaccine (HPV), quadrivalent 11/19/2015,08/05/2015,05/25/2015 Inactivated Polio Vaccine 03/03/2009,,2004,07/08 Influenza Vaccine Nasal 07/18/2012 Influenza Vaccine Quadrivalent Nasal 08/05/2015, 08/06/2014,08/07/2013 Influenza Vaccine, MDCK,quad rivalent, pres free 08/09/2017 Influenza Vaccine, Quadrivalent, PF 08/08/2022,0 07/06/2018,07/21/2016 Influenza Vaccine,unspecifie d Formulation 09/20/2021,08/24/2008,07/24/2007,07/19,08/07/2005,2004 Influenza, Injectable, Quadrivalent 08/08/2019 MMR Vaccine 03/03/2009,05/11/2005 Meningococcal Vaccine 12/21/2020,05/13/2015 TDAP Vaccine 05/13/2015 Varicella Vaccine Live 03/03/2009,08/07/2005 Family History Medical History Relation Name Comments Autoimmune Disease Mother Obstructive Sleep Apnea Mother Relation Name Status Comments Brother Alive Father Alive Mother Alive Social History Tobacco Use Types Packs/Day Years Used Date Smoking Tobacco: Never Smokeless Tobacco: Never Alcohol Use Standard Drinks/Week Comments Never 0 (1 standard drink = 0.6 oz pur e alcohol) Comments Unknown Sex and Gender Information Value Date Recorded Sex Assigned at Not on file Legal Sex Female 2:04 PM CDT Gender Identity Not on file Sexual Orientation Not on file Last Filed Vital Signs Vital Sign Reading Time Taken Comments Blood Pressure 102/64 06/05/2023 8:37 AM CDT Pulse 93 06/05/2023 8:37 AM CDT Temperature 36.9 C (98.4 F) 06/05/2023 8:37 AM CDT Respiratory Rate 18 06/05/2023 8:37 AM CDT Oxygen Saturation 93% 06/05/2023 8:37 AM CDT Inhaled Oxygen Concentration - - Weight 66.6 kg (146 lb 14.4 oz) 06/05/2023 8:37 AM CDT Height 157.5 cm (5' 2 ) 06/05/2023 8:37 AM CDT Body Mass Index 26.87 06/05/2023 8:37 AM CDT Plan of Treatment Health Maintenance Due Date Last Done Comments Hepatitis C Virus (HCV) Screening 2004 Meningococcal B Immunization (1 of 2 - Standard) 2020 Influenza Immunization (#1) 06/15/202407/16, 09/20/2021, 08/08/2019, Additional history exists SARS-COV-2 Immunization (3 - season) 2024 11/22/2020, 11/01/2020 DTaP/Tdap/Td Immunization (7 - Td or Tdap) 05/13/2025 05/13/2015, 03/03/2009, 08/07/2005, Additional history exists Respiratory Syncytial Virus (RSV) Immunization (Adult) (1 - 1-dose 75+ series) 2079 Hepatitis B Immunization Completed 005, 2004, 2004 Hepatitis A Immunization Discontinued 05/16/2007, 04/14 Measles Mumps Rubella (MMR) Immunization Discontinued 03/03/2009, 05/11/2005 Polio (IPV) Immunization Discontinued 009, 2004, 2004, Additional history exists Varicella Immunization Discontinued 03/03/2009, 2004 Human Papillomavirus (HPV) Immunization Completed 11/19/2015, 08/05/2015, 05/25/2015 Meningococcal Immunization (ACWY) Completed 12/21/2020, 05/13/2015 Pneumococcal Immunization Combined Aged Out No longer eligible based on patient's age to complete this topic Rotavirus Immunization Aged Out No lo nger eligible based on patient's age to complete this topic Insurance MEDICAID [place] Care Teams System Manager Relationship Specialty Start Date End Date Irlanda Del Real APRN, OFFENDER JOB RETENTION SPECIALIST [address] [place] [address] PCP - General Certified Nurse Practitioner 03/22/23 Eleno Miller MD [address] [place] [phone] Consulting Physician Oncology 04/03/23
--- OUTSIDE RECORDS SUMMARY | 2024-11-27 14:03 | XMS_ITS | Referral Summary ---
Author Organization [facility] Address [address] [place] [address] Care Team Providers Care Industrial Health And Safety Professor Name Role Phone Kelly Harrison Primary Care Provider [phone] Source Comments [facility],non-owned Affiliates and Associated Physician Practices is amultiple site organization consisting of ambulatory clinics and hospital sitesin [place], [place], [place] and [place]. This disclosure is being madepursuant to the Care Everywhere program and may not contain all information available regarding this patient. Last updated 18.[facility] Encounters Date Type Department Care Team Description 11/07/2024 Telephone [facility] [address] [place] [phone] Lashell Boswell APNP-CNP General 09/16/2024 2:00 PM NETWORKING ADMINISTRATOR Video Visit [facility] [address] [place] [phone] Lashell Boswell APNP-CNP Central sleep apnea ; Insufficient treatment with nasal CPAP; Chronic fatigue; Vitamin D insufficiency; Inadequate sleep hygiene; Hypersomnia due to medical condition; CPAP use counseling; Overweight (BMI 25.0-29.9); Pelvic floor dysfunction 09/15/2024 Travel from Last 3 Months Allergies Active Allergy Reactions Criticality Noted Date Comments Bupropion Itching 04/30/2018 Medications * Be aware that medications may not be up to date on this document. Alwaysverify current medications with the patient. Medication Sig Dispensed Refills Start Date End Date Status etonogestrel (NEXPLANON) 68 MG implant 1 device by Implant route once Inplanted in left arm 10/16/2019 Active armodafinil (Nuvigil) 150 MG tabletIndications:OS A (obstructive sleep apnea),Hypersomnia due to medical condition Take 1 (one) tablet by mouth once daily. Take one tablet daily upon waking up in the morning. 30 tablet 5 06/02/2024 Active famotidine (Pepcid) 40 MG tablet Take 1 (one) tablet by mouth once daily as needed 06/24/2024 Active levothyroxine (Synthroid) 25 MCG tablet Take 1 (one) tablet by mouth once daily 06/11/2024 Active omeprazole (PriLOSEC) 20 MG capsule Take 1 (one) capsule by mouth daily before breakfast 06/24/2024 Active vitamin D, ergocalciferol, (Drisdol) 1.25 MG (34503 UT) capsule Take 1 (one) capsule by mouth every 7 days Active Active Problems Problem Noted Date Diagnosed [...] Herpes simplex 05/31/2022 03/06/2023 Antinuclear factor positive 04/12/2022 05/2 12/2022 Fatigue 04/07/2022 03/06/2023 Mixed anxiety and depressive disorder 04/07/2022 03/06/2023 Pelvic floor dysfunction 10/28/2020 Assessment & Plan (09/22/2021 4:54 PM NETWORKING ADMINISTRATOR): A&P - bladder and bowel dysfunction and primary symptom(s) of dysuria, urgency, frequency and straining with urination. Harry has continued to experience various urinary symptoms. She has continued pelvic pain that worsens while she is on her menstrual cycles and post coital. Uroflow completed today shows that Harry exhibits significant pelvic floor activity while she is attempting to void. Exam is grossly baseline today. To reinitiate PFT as well as Flomax. To consider a referral to UroGyn pending continued symptoms for further workup towards a possible diagnosis of interstitial cystis. Plan: Timed voiding, Urinary recommendations including: voiding posture and relaxation techniques, bladder dietary and fluid intake recommendations, hygiene recommendations, Bowel health recommendations, Pharmaceutical management: Flomax and Pelvic Floor therapy Assessment & Plan (10/28/2020 4:22 PM NETWORKING ADMINISTRATOR): A&P - bladder dysfunction and pelvic floor dysfunction vs interstitial cystitis. Harry has a history of urinary several urinary concerns. She has a history of s/s of UTIs without having a positive culture but more recently she has been experiencing more severe symptoms and pelvic pain. Interstitial cystitis symptoms evaluation survey completed and appears to demonstrate a score consistent with interstitial cystitis. Exam was grossly normal today. RBUS shows normal kidneys and bladder. Further testing to be completed pending response to pelvic floor therapy and TENS unit therapy as well as some additional behavioral modifications. Continued follow up recommended. Plan: Timed voiding, Urinary recommendations including: voiding posture and relaxation techniques, bladder dietary and fluid intake recommendations, hygiene recommendations, Bowel health recommendations, Pelvic Floor therapy, TENS unit and encourage diet modification r/t IC Consider Uroflow with EMG Consider discussion with Dr. Barrow or Dr. Cary re: cystoscopy Periodic limb movements of sleep 10/09/2016 Overview (04/16/2018): Mild KYLEIGH with mildly elevated PLM index Repeat diag psg 04/07/18 S/p tonsillectomy OAHI 3.1 AHI: 3.2 RDI: 3.2 Min 02 sat 95% PLM index 13.6 Mild elevated PLM index with primary snoring diag psg 09/30/16 SUMMARY: RDI 1.0 AHI 0.8 OAHI 0.8 Min 02 sat 93% Plm index: 8.9 OCD (obsessive compulsive disorder) 10/06/2016 Major depressive disorder wi th single episode, in full remission 05/19/2016 Allergic rhinitis 11/27/2011 Acne 11/16/2011 Immunizations Name Administration Dates Next Due [employer] primary monoval ent 12+ yr 0.3mL Purple cap 11/22/2020,11/01/2020 DTaP VACCINE IM (6wk-6yrs) 03/03/2009,,2004,09/12,2004 FLU VACCINE QUAD IIV4 SPLIT 0.25 ML IM 9 HEP A PEDS 2 DOSE 05/16/2007,04/24/2006 HEP B VACCINE, PED/ADOL 05/11/2005,2004, HIB BOOSTER 05/11/2005,2004,2004 Human Papilloma Virus Sugar valent Vaccine 11/19/2015,08/05/2015,05/25/2015 INFLUENZA VACCINE 09/20/2021, 7,08/24/2008,07/24,07/19/2006,08/07/2005,2004 INFLUENZA VACCINE, QUADR. (F LUZONE; FLULAVAL; FLUARIX; AFLURIA QUADRIVALENT; 6MO+), 0.5 ML (IIV4) 08/08/2022,07/06/2018,07/21/2016 Influenza Nasal 07/18/2012, 1,07/22/2010,07/28 SREEDHAR VACCINE QUAD LAIV4 PF NASAL 08/05/2015,2013,08/07/2013 MENINGOCOCCAL CONJUGATE (MCV4P) 12/21/2020,05/13 MMR 03/03/2009,05/11/2005 PNEUMOCOCCAL CONJ, PEDS 05/11/2005,11/08,2004,07/08 POLIO IPV 03/03/2009, 5,2004,07/08 TDAP (7yrs+) 05/13/2015 VARICELLA 03/03/2009,08/07/2005 Social History Tobacco Use Types Packs/Day Years [...] 72.6 kg (160 lb) 09/16/2024 2:01 PM NETWORKING ADMINISTRATOR Height 157.5 cm (5' 2 ) 09/16/2024 2:01 PM NETWORKING ADMINISTRATOR Body Mass Index 29.26 09/16/2024 2:01 PM NETWORKING ADMINISTRATOR Plan of Treatment Upcoming Encounters Date Type Department Care Team (Late st Contact Info) Description 12/12/2024 8:40 AM NETWORKING ADMINISTRATOR Office Visit [facility] [address] [place] [phone] Lashell Boswell APNP-SUPERVISOR [employer] [address] OF PULMONARY/[place] [address] 01/20/2025 11:20 AM CDT Office Visit [facility] [address] [place] [phone] Lashell Boswell, HARLEEN-SUPERVISOR [employer] [address] DIV OF PULMONARY/[place] [address] Goals Goal Patient Goal Type Associated Problems Recent Progress Patient-Stated? Author Use safety retraint in car Lifestyle On track( 021 3:12 PM NETWORKING ADMINISTRATOR) Betsey Suarez RN Procedures Procedure Name Priority Date/Time Associated Diagnosis Comments VITAMIN D 25-HYDROXY Routine 11/21/2024 2:17 PM NETWORKING ADMINISTRATOR Vitamin D deficiency CHLAMYDIA + GC AMPLIFIED PROBE STAT 05/27/2022 4:08 PM CDT HIV-1 HIV-2 ANTIBODY + HIV P24 AG PANEL STAT 05/27/2022 4:02 PM CDT from Last 3 Months or Most Recently Relevant to Health Maintenance Results * VITAMIN D 25-HYDROXY (11/21/2024 2:17 PM NETWORKING ADMINISTRATOR) Vitamin D, 25 Hydroxy 32.0 30.0 - 100.0 ng/mL [facility] INSURANCE BILL Comment: Vitamin D deficiency has been defined by the [place] of Medicine and an Endocrine Society practice guideline as a level of serum 25-OH vitamin D less than 20 ng/mL (1,2). The Endocrine Society went on to further define vitamin D insufficiency as a level between 21 and 29 ng/mL (2). 1. IOM ([place] of Medicine). 2010. Dietary reference intakes for calcium and D. [place]: The National Academies Press. 2. Kita MF, [place], Raven APODACA, et al. Evaluation, treatment, and prevention of vitamin D deficiency: an Endocrine Society clinical practice guideline. JCEM. 2010; 96(7):1911-30. Blood BLOOD SPECIMEN / Unknown 11/21/2024 2:17 PM NETWORKING ADMINISTRATOR 11/21/2024 Narrative [facility] INSURANCE BILL - 11/22/2024 7:08 AM NETWORKING ADMINISTRATOR Performed at: - [facility] [address] [place], [place] [id number] Starter Mechanic: Danyel Mcmillan PhD, Phone: [phone] [facility] ORDER[facility] INSURANCE BILL [address] [place] [address] * CHLAMYDIA + GC AMPLIFIED PROBE (STL) (05/27/2022 4:08 PM CDT) Pathologist [facility] Chlamydia Amplified Probe Negative Negative 05/28/2022 6:05 AM CDT [facility] GC Amplified Probe Negative Negative 05/28/2022 6:05 AM CDT [facility] Microbiology URINE / Unknown Collection / Unknown 05/27/2022 4:08 PM CDT 05/27/2022 4:08 PM CDT Narrative [facility] - 05/28/2022 6:05 AM CDT Results based on detection/no detection of ribosomal RNA by amplified method. Tori Treadwell MD LAB - MICROBIOLOGY O RDERABLES [facility] [address] [place], [place] [id number] [place] [address] * HIV-1 HIV-2 ANTIBODY + HIV P24 AG PANEL (05/27/2022 4:02 PM CDT) Pathologist [facility] HIV Antigen/Antibod y 1 & 2 Non-reacti ve Non-react anju 05/27/2022 4:55 PM CDT [facility] Comment:No Laboratory eviden ce of HIV infection. Blood BLOOD SPECIMEN / Unknown Venipuncture / Unknown 05/27/2022 4:02 PM CDT 05/27/2022 4:08 PM CDT Tori Treadwell MD LAB - CHEMISTRY [place] Organization Address City/State/ZIP Co de Phone Number [facility] [address] [place] [address], [facility] [phone] from Last 3 Months or Most Recently Relevant to Health Maintenance Care Teams [employer] Safety Professor Relationship Specialty Start Date End Date Kelly Harrison [address] [place] [address] PCP - General 11/07/24
--- OUTSIDE RECORDS SUMMARY | 2024-11-27 14:03 | XMS_ITS | Data Portability ---
Author Organization [facility] [place] Address [address] [place] [address] [place] [address] Assessment No assessment recorded. Plan of Treatment Reminders Order Date Submit Date Provider Last Modified By Organization Details Last Modified Time Details Appointments None recorded. Lab culture, urine 2024 025 [facility] (Lab), [address], [place], [address], 5 22:39:28 urinalysis, dipstick 2024 025 [email or web address] [facility], [address], [place], [address], 5 17:52:53 unlisted lab - [facility] swab, FLOR 2023 024 [facility] (Lab), [address], [place], [address], 4 01:21:23 urinalysis, dipstick 2023 024 [email or web address] [facility], [address], [place], [address], 4 11:40:32 culture, urine 2023 024 [facility] (Lab), [address], [place], [address], 4 01:21:23 test, urine 2023 024 [email or web address] [facility], [place], [address], 4 11:40:31 test, urine 2021 022 [email or web address] [address], [place], [address], 2 10:37:57 Referral pelvic floor therapy referral 2024 [facility], [address] [place] [address], [place], [address], 5 13:14:18 Procedures None recorded. Surgeries None recorded. Imaging None recorded. Medication Orders Macrobid 100 mg capsule 2024 025 [facility], [address], [place], [place], [id number], 5 17:51:47 Diflucan 150 mg tablet 2023 025 [facility], [address], [place], [place], [id number], 5 17:41:52 Macrobid 100 mg capsule 2023 025 [facility], [address], [place], [place], [id number], 5 17:41:57 Diflucan 200 mg tablet 2023 024 [facility], [address], [place], [place], [id number], 4 11:16:30 Valtrex 1 gram tablet 2023 024 [facility] [address], [address] [facility] , [place], [place], [id number], 4 11:16:37 Nexplanon 68 mg subdermal implant 2021 022 [email or web address] Not available 2 11:15:16 Nextstellis 3 mg-14.2 mg (28) tablet 2021 022 [facility], [address] [facility] , [place], [place], [id number], 4 18:41:26 Patient TargetsNo targets recorded. Patient InstructionsNo instructions recorded. Reason for Referral Pelvic Floor Therapy Referra l for Pain in pelvis Referring Physician: Jaylin Kelly, Gynecology, Encounter Date: 11/25/2024 Results Created Date Observation Date Name Description Value Unit Range Abnormal Flag Note LastModifiedBy Organization Detail LastModifiedTime 12/12/19 22 12/12/2021 CT/GC AND TRICH OMONA S VAGIN TITO (RRNA ), SWAB chlamydia trachomatis, PCR Negati ve negati ve Not Available [facility] (Lab) [address], [place], [address], 12/13/2021 13:58:02 12/12/19 22 12/12/2021 CT/GC AND TRICH OMONA S VAGIN TITO (RRNA ), SWAB neisseria gonorrhoeae, PCR Negati ve negati ve Not Available [facility] (Lab) [address], [place], [address], 12/13/2021 13:58:02 12/12/19 22 12/12/2021 CT/GC AND TRICH OMONA S VAGIN TITO (RRNA ), SWAB trichomonas vaginalis ribosomal RNA (rrna) Negati ve negati ve Not Available [facility] (Lab) [address], [place], [address], 12/13/2021 13:58:02 10/03/20 22 10/03/2022 pregn zack test, urine HCG negati ve Not Available [facility] [place] [facility] [address], [place], [address], 10/03/2022 10:23:37 11/23/19 24 11/23/2023 CT/GC AND TRICH OMONA S VAGIN TITO (RRNA ), SWAB chlamydia trachomatis, PCR Negati ve negati ve Not Available [facility] (Lab) [address] [facility], [place], [address], 11/24/2023 16:05:50 11/23/19 24 11/23/2023 CT/GC AND TRICH OMONA S VAGIN TITO (RRNA ), SWAB neisseria gonorrhoeae, PCR Negati ve negati ve Not Available [facility] (Lab) [address] [facility], [place], [address], 11/24/2023 16:05:50 11/23/19 24 11/23/2023 CT/GC AND TRICH OMONA S VAGIN TITO (RRNA ), SWAB trichomonas vaginalis ribosomal RNA (rrna) Negati ve negati ve Not Available [facility] (Lab) [address] [facility], [place], [address], 11/24/2023 16:05:50 08/27/20 24 08/27/2024 [facility], FLOR bacterial vaginosis (bv), tma Negati ve negati ve This test detec ts ribos omal RNA from bacte rashad assoc iated with bacte rial vagin osis (BV), inclu ding Lacto bacil munira (L. gasse ri, L. crisp atus and L. jense sylvie), Gardn erell a vagin tito, and Atopo bium vagin ae by Trans cript ion-M ediat ed Ampli ficat ion (TMA) . A singl e quali tativ e resul t is repor andreas based on instr ument softw are to deter mine BV posit anju or negat anju statu s. Not Available [facility] (Lab) [address] [facility], [place], [address], 08/29/2024 01:21:22 08/27/20 24 08/27/2024 [facility] SWAB, FLOR ade species, tma Negati ve negati ve Not Available [facility] (Lab) [address] [facility], [place], [address], 08/29/2024 01:21:22 08/27/20 24 08/27/2024 [facility] SWAB, FLOR ade glabrata, tma Negati ve negati ve Not Available [facility] (Lab) [address] [facility], [place], [address], 08/29/2024 01:21:22 08/27/20 24 08/27/2024 [facility] SWAB, FLOR trichomonas vaginalis, tma Negati ve negati ve This assay tests for and diffe renti ates betwe en Rossy da glabr gary, the Rossy da speci es group (C. albic ans, C. tropi calis , C. parap mary ellen is, C. dubli niens is), and Trich omona s vagin tito by Trans cript ion-M ediat ed Ampli ficat ion (TMA) . Not Available [facility] (Lab) [address] [facility], [place], [address], 08/29/2024 01:21:22 08/27/20 24 08/27/2024 CULTU RE: URINE result report SEE RESULT S BELOW Test: Cultu re: Urine Speci men Sourc e: Urine - Clean Catch Speci men Type: Urine Speci men Date: 08/27 1055 Resul t Date: 08/29 0017 Resul t Statu s: Final resul t Abnor mal: No Resul ting Lab: [facility] [address] [facility] [address] Tel: CULTU RE ----- ----- ----- --- Organ ism(s ) consi stent with uroge nital or skin paul . Repea t cultu re if sympt oms indic ate. Not Available [facility] (Lab) [address], [place], [address], 08/29/2024 01:21:23 08/27/20 24 08/27/2024 pregn zack test, urine HCG negati ve Not Available [facility] [place] [facility] [address], [place], [address], 08/27/2024 11:25:00 08/27/20 24 08/27/2024 urina lysis , dipst ick Leukocytes - Not Available [facility] [address], [place], [address], 08/27/2024 11:23:48 08/27/20 24 08/27/2024 urina lysis , dipst ick Nitrite - Not Available [facility] [address], [place], [address], 08/27/2024 11:23:48 08/27/20 24 08/27/2024 urina lysis , dipst ick Urobilinogen - Not Available [facility] [address], [place], [address], 08/27/2024 11:23:48 08/27/20 24 08/27/2024 urina lysis , dipst ick Protein Trace Not Available [facility] [place] [facility] [address], [place], [address], 08/27/2024 11:23:48 08/27/20 24 08/27/2024 urina lysis , dipst ick pH 5 Not Available [facility] [address], [place], [address], 08/27/2024 11:23:48 08/27/20 24 08/27/2024 urina lysis , dipst ick Specific [place] 1.020 Not Available [facility] [address], [place], [address], 08/27/2024 11:23:48 08/27/20 24 08/27/2024 urina lysis , dipst ick Ketone - Not Available [place] [address], [place], [address], 08/27/2024 11:23:48 08/27/20 24 08/27/2024 urina lysis , dipst ick Bilirubin - Not Available [facility] [address], [place], [address], 08/27/2024 11:23:48 08/27/20 24 08/27/2024 urina lysis , dipst ick Glucose - Not Available [place] [facility] [place] [facility] [address], [place], [address], 08/27/2024 11:23:48 08/27/20 24 08/27/2024 urina lysis , dipst ick Appearance clear Not Available [facility] [address], [place], [address], 08/27/2024 11:23:48 08/27/20 24 08/27/2024 urina lysis , dipst ick Color dark yellow Not Available [facility] [place] [facility] [address], [place], [address], 08/27/2024 11:23:48 11/25/19 25 11/25/2024 CULTU RE: URINE result report SEE RESULT S BELOW Test: Cultu re: Urine Speci men Sourc e: Urine - Clean Catch Speci men Type: Urine Speci men Date: 2024 Resul t Date: 2024 Resul t Statu s: Final resul t Abnor mal: No Resul ting Lab: [facility] [address] [facility] [address] Tel: CULTU RE ----- ----- ----- --- No growt h in 1 day (dete ction level of 10,00 0 colon ies / ml.) Not Available [facility] (Lab) [address], [place], [address], 11/26/2024 22:39:28 11/25/19 25 11/25/2024 urina lysis , dipst ick Leukocytes - Not Available [facility] [address], [place], [address], 11/25/2024 17:50:49 11/25/19 25 11/25/2024 urina lysis , dipst ick Nitrite - Not Available [facility] [place] [facility] [address], [place], [address], 11/25/2024 17:50:49 11/25/19 25 11/25/2024 urina lysis , dipst ick Urobilinogen - Not Available [facility] [address], [place], [address], 11/25/2024 17:50:49 11/25/19 25 11/25/2024 urina lysis , dipst ick Protein trace Not Available [facility] [address], [place], [address], 11/25/2024 17:50:49 11/25/19 25 11/25/2024 urina lysis , dipst ick pH 5 Not Available [facility] [address], [place], [address], 11/25/2024 17:50:49 11/25/19 25 11/25/2024 urina lysis , dipst ick Specific [place] 1.015 Not Available [facility] [address], [place], [address], 11/25/2024 17:50:49 11/25/19 25 11/25/2024 urina lysis , dipst ick Ketone - Not Available [facility] [address], [place], [address], 11/25/2024 17:50:49 11/25/19 25 11/25/2024 urina lysis , dipst ick Bilirubin - Not Available [facility] [address], [place], [address], 11/25/2024 17:50:49 11/25/19 25 11/25/2024 urina lysis , dipst ick Glucose - Not Available [facility] [address], [place], [address], 11/25/2024 17:50:49 11/25/19 25 11/25/2024 urina lysis , dipst ick Appearance clear Not Available [facility] [address], [place], [address], 11/25/2024 17:50:49 11/25/19 25 11/25/2024 urina lysis , dipst ick Color yellow Not Available [facility] [address], [place], [address], 11/25/2024 17:50:49 12/22/19 22 12/21/2021 US, trans vagin al No observ ation record ed. [email or web address] [place] [facility] [address], [place], [address], 12/21/2021 13:12:35 12/22/19 22 12/21/2021 US, trans vagin al No observ ation record ed. MATTY Camille [address], [place], [address], 12/22/2021 15:20:33 Result Notes None recorded. Problems Name Problem SNOMED Code Status Onset Date Resolution Date Notes Provider Name and Address Organization Details Recorded Time Contrace ptive sheath status 643201959 Completed 201810/18/2020 Encounte r for initial prescrip tion of other contrace ptives;R ecorded Elsewher e: No Locat ion: Reinanegar cheo [facility] S ource: EHR Income Tax Manager cheri: N Practi ce ID: [id number] Mark lable Time: 01:15:00 PM Jacqueline Haile MD [address], [place], [address], [facility] 17:14:[address] Concept Completed 201810/18/2020 Encntr for routine child health exam w/o abnormal findings ;Recorde d Elsewher e: No Locat ion: [facility] S ource: EHR Income Tax Manager cheri: N Practi ce ID: [id number] Mark lable Time: 02:00:00 PM Jacqueline Haile MD [address], [place], [address], [facility] 17:14:[address] Concept Completed 201810/18/2020 Encounte r for surveill ance of other contrace ptives;R ecorded Elsewher e: No Locat ion: [facility] S ource: EHR Income Tax Manager cheri: N Practi ce ID: [id number] Mark lable Time: 01:15:00 PM Jacqueline Haile MD [address], [place], [address], [facility] 17:14:28 Educatio n Completed 201810/18/2020 Encounte r for other general counseli ng and advice on contrace ption;Re corded Elsewher e: No Locat ion: [facility] S ource: EHR Income Tax Manager cheri: N Practi ce ID: [id number] Mark lable Time: 02:00:00 PM Jacqueline Haile MD [address], [place], [address], [facility] 17:14:[address] Concept Completed 201910/18/2020 Encounte r for other contrace ptive manageme nt;Recor ded Elsewher e: No Locat ion: Kim grider [facility] S ource: EHR Income Tax Manager cheri: N Bari ce ID: [id number] Mark willa Time: 03:00:00 PM Jacqueline Haile MD [address], [place], [address], [facility] 17:14:30 Surveill ance of subcutan eous contrace ptive implant Completed 201812/08/2020 Fidelina Gold[facility], [facility] 1 17:24:33 Sleep apnea [id number] Active 2020 Fidelina Doran [facility] 17:25:24 Problem Notes None recorded. Procedures Surgical History Date Name Laterality Status Provider Name and Address Organization Details Recorded Time 2 Control Implant [facility] [address], [place], [address], [facility] 10/03/2022 10:37:40 2 Nexplanon Removal completed [facility] [address], [place], [address], [facility] 10/03/2022 10:37:20 tonsilectomy/ adenoids completed Tia Rosales [facility] 09/20/2020 16:39:06 Imaging Results Imaging Date Name Status LastModified by Organization Details LastModified Time 12/21/2021 US, transvaginal completed [email or web address] Kim grider [address], [place], [address], 12/21/2021 13:12:35 12/21/2021 US, transvaginal completed MATTY Camille [address], [place], [address], 12/22/2021 15:20:33 Procedure Notes None recorded. Medical Equipment None Reported. Allergies No known drug allergies Medications Name Sig Start Date Stop Date Status Note LastModified by Organization Details LastModified Time fluoxetin e 40 mg capsule Take 80 mg every day by oral route. 11/22 completed Not Available Not Available Not Available Pyridium 200 mg tablet Take 1 tablet twice a day by oral route. 12/09 completed Not Available Not Available Not Available Diflucan 150 mg tablet Take 150 mg PO once now, repeat in 72 hours 11/25 completed Not Available Not Available Not Available Mirapex 0.5 mg tablet Take 1 tablet 3 times a day by oral route. 11/22 completed Not Available Not Available Not Available Flomax 0.4 mg capsule,e xtended release Take 1 capsule every day by oral route. 11/22 completed Not Available Not Available Not Available Macrobid 100 mg capsule Take 1 capsule every 12 hours by oral route as directed for 7 days. 2024 active Not Available Not Available Not Avai lable Metrogel Vaginal 0.75 % (37.5 mg/5 gram) Insert 1 applicat orful every day by vaginal route at bedtime for 5 days. 08/22 completed Not Available Not Available Not Available cephalexi n 500 mg capsule TAKE 1 CAPSULE BY MOUTH EVERY 12 HOURS 11/22 completed Not Available Not Available Not Available fluoxetin e 20 mg capsule TAKE 1 CAPSULE BY MOUTH EVERY DAY 10/02 completed Not Available Not Available Not Available Cryselle (28) 0.3 mg-30 mcg tablet take 1 tablet by oral route every day 12/23 completed Prescrib ed Elsew e: No Locat ion: [facility] M odify By: emily matute DateTime : 09/10/20 02:00:00 PM Not Available Not Available Not Available iron 325 mg (65 mg iron) tablet Take 1 tablet every day by oral route. 10/02 completed Not Available Not Available Not Available Seroquel 50 mg tablet Take 1 tablet twice a day by oral route. active Not Available Not Available No t Available armodafin il 150 mg tablet Take 1 tablet every day by oral route. active Not Available Not Available No t Available levothyro xine 25 mcg capsule Take 1 capsule every day by oral route. active Not Available Not Available No t Available Suboxone 8 mg-[address] mg [address] l film Place 1 film every day by sublingu al route. active Not Available Not Available No t Available Lo Loestrin Fe 1 mg-10 mcg (24)/10 mcg (2) tablet Take 1 tablet every day by oral route for 60 days. 11/22 completed Not Available Not Available Not Available Nexplanon 68 mg subdermal implant One device taken out & new one placed 2021 active Not Available Not Available Not Avai lable Nextstell is 3 mg-14.2 mg (28) tablet Take 1 tablet every day by oral route for 60 days. 11/22 completed Not Available Not Available Not Available Vitals Date Recorded Body height Body mass index (BMI) Body mass index (BMI) Percentile per age and sex Body weight Systolic blood pressure Diastolic blood pressure Provider Name and Address Organization Details Last Updated DateTime 2 157.48 cm 25.1 kg/m2 83 % 66017.1 5 g 106 mm[Hg] 72 mm[Hg] Siena Ventura [facility] 2 12:37:17 Date Recorded Body height Body mass index (BMI) Body mass index (BMI) Percentile per age and sex Body weight Systolic blood pressure Diastolic blood pressure Provider Name and Address Organization Details Last Updated DateTime 2 157.48 cm 25.1 kg/m2 82 % 98066.1 5 g 108 mm[Hg] 64 mm[Hg] Myla woody [facility] 2 10:19:57 Date Recorded Body height Body mass index (BMI) Body mass index (BMI) Percentile per age and sex Body weight Systolic blood pressure Diastolic blood pressure Provider Name and Address Organization Details Last Updated DateTime 4 157.48 cm 25.1 kg/m2 80 % 95418.1 5 g 108 mm[Hg] 64 mm[Hg] Taylor Lynch [facility] 4 18:41:02 Date Recorded Body height Body mass index (BMI) Percentile per age and sex Body mass index (BMI) Body weight Systolic blood pressure Diastolic blood pressure Provider Name and Address Organization Details Last Updated DateTime 4 157.48 cm 94 % 30.9 kg/m2 76366.1 1 g 125 mm[Hg] 85 mm[Hg] Tiffany [facility] 4 11:16:13 Date Recorded Body height Body mass index (BMI) Body mass index (BMI) Percentile per age and sex Body weight Systolic blood pressure Diastolic blood pressure Provider Name and Address Organization Details Last Updated DateTime 5 157.48 cm 30.4 kg/m2 93 % 68060.7 7 g 129 mm[Hg] 86 mm[Hg] Tiffany [facility] 5 17:41:40 Social History Question Answer Notes LastModified by Organizat ion Details LastModified Time Tobacco Smoking Status Never Smoker [facility] 12/08/2020 17:22:25 Do You Have An Advance Directive? No [email or web address] Information not available 08/27/2024 What Is Your Level Of Alcohol Consumption? Occasional [email or web address] Information not available 08/27/2024 Are You Blind Or Do You Have Difficulty Seeing? No [email or web address] Information not available 08/27/2024 In The 14 Days Before Symptom Onset, Have You Had Close Contact With A Laboratory-confir med COVID-19 While That Case Was Ill? No Information not available 11/22/2023 In The 14 Days Before Symptom Onset, Have You Had Close Contact With A Person Who Is Under Investigation For COVID-19 While That Person Was Ill? No Information not available 11/22/2023 Have You Been To An Area Known To Be High Risk For COVID-19? No Information not available 11/22/2023 Are You Deaf Or Do You Have Serious Difficulty Hearing? No [email or web address] Information not available 08/27/2024 What Is The Highest Grade Or Level Of School You Have Completed Or The Highest Degree You Have Received? 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 No [email or web address] Information not available 08/27/2024 Do You Use Protection During Sex? No [email or web address] Information not available 08/27/2024 Do You Use Your Seat Belt Or Car Seat Routinely? Yes [email or web address] Information not available 08/27/2024 Do You Have Smoke And Carbon Monoxide Detectors In Your Home? Yes [email or web address] Information not available 08/27/2024 How Much Tobacco Do You Smoke? No Information not available 08/27/2024 Do You Feel Stressed (tense, Restless, Nervous, Or Anxious, Or Unable To Sleep At Night)? [id number] [email or web address] Information not available 08/27/2024 Do You Use Any Illicit Or Recreational Drugs? No Information not available 08/27/2024 Do You Use Sunscreen Routinely? Yes [email or web address] Information not available 08/27/2024 Have You Used IV Drugs? No [email or web address] Information not available 08/27/2024 Sex: Female Functional Status Question Answer Note LastModified by Organizat ion Details LastModified Time What is your exercise level? Occasional [email or web address] Information not available 08/27/2024 Mental Status None recorded. Family History Relationship Description Onset Age of this Age Resolved Age Notes LastModified by Organization Details LastModified Time Father No current problems or disability [email or web address] Not available 12/08 17:24:57 Mother No current problems or disability [email or web address] Not available 12/08 17:24:57 Medical History Condition Response Allergies (Food, seasonal, environmental ) N Other N Breast Cancer N Drug/Latex Allergies/Reactions N Blood Transfusion N Dermatologic Disorders N Lung Disease N Defects or Inherited Disease N Breast Problem N Gestational Diabetes N Hematologic disorders N Anesthesia Complications N History of STI N Deep Vein Thrombosis N Polycystic ovary syndrome N Anxiety Disorder N Autoimmune disease N Arthritis N Infertility N Polyps N Acid Reflux (GERD) N History of abnormal pap N Cancer N Stroke N Varicosities N Neurologic/Epilepsy N Endometriosis N High Cholesterol N Headaches N Fibromyalgia N Kidney Disease N Heart Problems N Kidney or Bladder Problems N Thyroid Problems N GI Problems N Eating Disorder N Anemia N Art (IVF or FET) N Psychiatric Illness N Ovarian Cancer N Diabetes N Pulmonary (TB, Asthma) N Hepatitis/Liver Disease N Eczema N Urinary Tract Infection N Abuse/Domestic Violence N Asthma N Trauma/Violence N Depression/ depression N Heart Disease N Pre-Eclampsia N Hypertension N Osteoporosis N Thrombophilias N Gynecological History Statement/Question Response Abnormal Pap N Flow Heavy Date of LMP 11/10/2024 HPV Vaccine Y Duration of Flow (days) 10 Current Control Method Implant Date of control 10/03/2022 Sexually Active? Y Menses Monthly N Age of first menstrual cycle 11 Date of Last Pap Smear Sexual Problems? Y LMP Definite Obstetrics History GPAL:G 0 P 0 0 0 0 Past Encounters Encounter ID Performer Location Encounter Start Date Encounter Closed Date Diagnosis/Indication Diagnosis SNOMED-CT Code Diagnosis ICD10 Code Diagnosis Note [id number] Jacqueline Haile MD [facility] [address],[place] [address] 09/20/2020 16:29:24 09/20/2020 17:09:52 Urgent desire to urinate 34058688 R39.15 Venereal d isease screening 030274045 Z11.3 Urinary incontinence 165 237874 R32 [id number] [facility] [address],[place] [address] 10/06/2020 12:00:32 10/10/2020 14:53:15 Urinary tract infectious disease 66074490 N39.0 After much discussion we agreed to referral to urology. We discussed the possibilit y of acidic foods/drin ks irritating bladder. We discussed that a thorough pelvic exam would be ideal specifical ly checking pelvic floor muscle which if tone is high can contribute to urinary incontinen ce. In addition, recommende d voiding q2-4hrs instead of holding her bladder for 6-8hrs before using the restroom which is another factor we discussed that could contribute to bladder irritation /incontine nce issues. May use Pyridium BID sparingly. Lots of water vs soda. Most common acidic foods/drin ks that irritate bladder were reviewed: spicy food, tomato sauce, carbonated drinks, caffeine, coffee, black tea, onions. Decrease intake one at a time to see if these have affect on bladder sx's neg/positi ve. Scheduled voiding HIGHLY recommende d!!! F/U with Dr. Haile if have vag itching sx's or if urine culture comes back neg may want to consider vaginitis swab to ensure no BV/Yeast since WBC's were in UA & might not be completely related to bladder since specimen is clean catch vs sterile cath'd spec. Referral to peds urology ordered. Time spent in visit is a total of 28 mins with at least 50% of visit consisting of counseling and review of plan of care. [id number] Jacqueline Haile MD [facility] [address],[place] [address] 10/18/2020 16:34:08 10/19/2020 17:14:46 Surveillance of subcutaneous contraceptive implant [id number] Z30.46 Increased frequency of urination 875704022 R35.0 Gynecologi c examination 09469390 Z01.419 48043 Whitney Ventura [facility] [address],[place] [address] 10/27/2020 14:09:42 10/27/2020 15:22:34 Pain in pelvis 57109647 R10.2 67350 [facility] [address],[place] [address] 12/09/2020 15:18:03 12/10/2020 15:40:54 Contraception care management 077675140 Z30.9 Discussed all control options and pt would like kyleena IUD. I have discussed in detail all risks and benefits including risk of infection and perforatio n. Pt has already abstained for 8 days. She will return on Sunday [place] . [address] Fidelina Triston [facility] [address],[place] [address] 06/16/2021 14:45:20 06/16/2021 16:26:26 Urinary tract infectious disease 70111148 N39.0 Dysuria 69789886 R30.9 49428 Debbie Maurice [facility] [address],[place] [address] 07/28/2021 15:10:07 07/29/2021 14:06:05 Dysuria 16977975 R30.9 Increased frequency of urination 899370407 R35.0 Pt has seen urologist in the past but no actual testing was done. I would like for her to return for visit d/t persistant hematuria and frequency. Urine sent for culture. Pt feels antibiotic s did not help last time. Would like to wait for culture results. Vaginitis 08313347 N76.0 Discussed use of mild soap like dove or ivory, cotton underwear w/out dye, hypoallerg enic detergent, wipe from front to back, avoid tub baths, keep perineum clean and dry, d/c use of baby wipes. Encouraged daily intake of yogurt or womens health probiotic. Internal and external affirm collected and urine sent for STD screen. 41617 Debbie Josafat [facility] [address],[place] [address] 08/22/2021 15:32:45 08/23/2021 12:43:46 Pain in pelvis 74950902 R10.2 Discussed possible causes of pelvic pain. Will start with u/s and determine follow up from there. It is also possible that this is urinary. Urine was sent for culture. Irregular periods 513256 07 N92.6 62843 Whitney Ventura [facility] [address],[place] [address] 08/23/2021 13:54:26 08/23/2021 14:37:39 Pain in pelvis 30261915 R10.2 48436 Fortunato Cruz MD [facility] [address],[place] [address] 09/06/2021 14:00:21 09/06/2021 14:44:08 Pain in pelvis 26807595 R10.2 Urinary symptoms 8408199 08 R39.9 Cyst of ovary 54614309 N 83.209 this patient is a 16-year-ol d female presents for pelvic pain and ultrasound follow-up. The patient continues to have some sharp pelvic pain. We reviewed her ultrasound results together. We looked at the images together. She has a 3.3 cm ovarian cyst. We discussed the etiology, natural history, resolution of ovarian cyst. We discussed evaluation and treatment. We discussed interstiti al cystitis. We discussed her urinary symptoms. She has evaluation with Urology in 1 week. Will follow-up on ovarian cyst in 8 weeks with ultrasound and discussion of the findings. We spent over 25 minutes face-to-fa ce. We discussed two complex topics. 28133 Whitney Ventura [facility] [address],[place] [address] 10/31/2021 14:36:43 10/31/2021 15:12:19 Cyst of left ovary [id number] 8065908 N83.292 27035 Linnette N[address] [facility] [address],[place] [address] 12/12/2021 11:49:47 12/12/2021 13:30:02 Pain in pelvis 27245764 R10.2 STD screen sentNexpla non-we added Lo loestrin FE to more fully suppress ovulation as a trial.Upda ting TVUS for further evaluation & will f/u to discuss results. Tylenol/ib uprofen added to her heat regimen prn Patient is to contact office or go to nearest ED/Urgent care if fever >/= 100.1, pain, excessive bleeding, unusual drainage or swelling in area of concern; or experienci ng worsening sx's or new onset of concerning sx's. Understand ing verbalized . All questions answered to patient satisfacti on. Time spent in visit is a total of 26 mins with at least 50% of visit consisting of counseling and review of plan of care. Additional precaution erika measures were taken to minimize potential exposure to the Covid-19 virus during this patient s visit, including available hand epic interface analyst upon arrive, temperatur e check and being asked a series of screening questions. All staff wore face coverings during this encounter, as well as provided additional cleaning and sanitizing of all surfaces, including countertop s, pens, chairs, door handles, light switches, etc, prior to and following the patient s visit. 11377 Cathi Neal [facility] [address],[place] [address] 12/21/2021 12:33:07 12/21/2021 13:18:53 Pain in pelvis 19497956 R10.2 03297 Linnette Nails [facility] [address],[place] [address] 12/30/2021 12:16:06 12/30/2021 14:21:18 Cyst of ovary 21530146 N83.209 Complex cyst of ovary seen on US.Reviewe d this finding.Qu mukesh Ugalde e has decided she would like to continue OCP until her upcoming r/p US in 8wks-for reassuranc e that this issue has resolved.S he will decide at that visit if she would like to switch to a OCP or remain on Nexplanon which she feels she gets more ovarian cysts with. Time spent in visit is a total of 15 mins with at least 50% of visit consisting of counseling and review of plan of care.Addit ional precaution erika measures were taken to minimize potential exposure to the Covid-19 virus during this patient s visit, including available hand epic interface analyst upon arrive, temperatur e check and being asked a series of screening questions. All staff wore face coverings during this encounter, as well as provided additional cleaning and sanitizing of all surfaces, including countertop s, pens, chairs, door handles, light switches, etc, prior to and following the patient s visit. [id number] Linnette Nails [facility] [address],[place] [address] 10/03/2022 09:56:03 10/03/2022 11:34:28 Removal of subcutaneous contraceptive [id number] Z30.46 Removal site was cleansed with betadine and 3cc of lidocaine used for anesthesia . Device was removed in normal fashion without difficulty . Steri stips and pressure bandage placed. Insertion of subcutaneous contraceptive [id number] Z30.9 Patient is here currently on her menses. She was given all the r/b/a of placement of the Nexplanon device and has signed the consent. She is fully aware of all possible side effects of the device and has decided to move forward with placement. Insertion site was cleansed with betadine and 3cc lidocaine used for anesthesia . Device was placed in the left arm per usual fashion w/o complicati on and patient instructed to f/u in one month or earlier if there are any si/sx of infection or hypersensi tivity at the insertion site Screening procedure 2013 5006 Z13.9 [id number] CHYNA Arroyo-[facility] [address],[place] [address] 11/22/2023 18:34:19 11/28/2023 16:41:21 Vaginitis 52654882 N76.0 Suspect yeast on examRx sentSTD sent due to new partnerIf sx's persist and neg std screen consider BV treatment; but exam today appears more consistent with yeast. Counseled on VCG'sCouns eled on medication R/B's, Most common side effects, & use. All questions were answered to patient satisfacti on. Time spent in visit is a total of 22 mins with at least 50% of visit consisting of counseling and review of plan of care. Genital he rpes simplex 47682177 A60.9 RF sent for prn use for outbreaks [id number] [facility] [address],[place] [address] 08/27/2024 11:07:40 08/27/2024 12:17:15 Urinary symptoms 143937114 R39.9 Patient presents with symptoms of UTI. Results of dipstick were {{positive negative* }} for UTI. Urine culture sent. Advised to drink clear fluids, Tylenol for pain and take prescribed medication s as instructed . Patient encouraged to follow up within 1 week if not improving. Pain in pelvis 64512286 R10.2 Encouraged that patient repeat pelvic floor therapy, especially if UTI and vaginitis panel negative. Vaginal discharge 206904 006 N89.8 Discussed empirical treatment with fluconazol e for suspected yeast infection based on reported symptoms and physical exam findings.D iscussed vulvar care guidelines in addition to laundry/sk in irritants to avoid. [id number] [facility] [address],[place] [address] 11/25/2024 17:31:19 11/25/2024 17:55:10 Urinary symptoms 763901941 R39.9 Patient presents with symptoms of UTI. Results of dipstick were {{positive negative* }} for UTI. Urine culture sent. Advised to drink clear fluids, Tylenol for pain and take prescribed medication s as instructed . Patient encouraged to follow up within 1 week if not improving. Pain in pelvis 15296822 R10.2 Encouraged that patient repeat pelvic floor therapy, especially if UTI panel negative.P atient states that she went to PFT in [place] in the past, and it helped with her urinary urgency symptoms, pelvic pain during intercours e, and weakened pelvic floor. Health Concerns Section Related Observation LastModified by Organization Detai ls LastModified Time None Recorded Concern Status LastModified by Organization Details LastModified Time None Recorded Advance Directives Directive N: Payers Encounter Date Sequence Insurance Name Policy Number Policy Chaidez Covered Member ID Chaidez Member ID Guarantor Name 12/30/2021 1 () Mary Valle [id number] Lucita E Valle 12/30/2021 2 [place] [facility] Lucitayudy Valle [id number] Lucita E Valle 10/03/2022 1 () Mary Valle [id number] Lucita E Valle 10/03/2022 2 [place] [facility] Lucitailana Valle [id number] Lucita E Valle 11/22/2023 1 () Mary Valle [id number] Lucita E Valle 08/27/2024 1 () Mary Valle [id number] Lucita E Valle 11/25/2024 1 () Mary Valle [id number] Lucita E Valle Notes Date Note Type Note Provider Name and Address Organization Details Recorded Time 12/30/2021 text/html Here for review of TVUS. CHYNA Arroyo- [address], [place], [address], [facility] 12/30/2021 14:03:15 10/03/2022 text/html Here today for removal/reinsertio n of nexplanon. CHYNA Arroyo-[facility] [address], [place], [address], [place] [facility] 10/03/2022 10:40:51 11/22/2023 text/html Here today for possible yeast infectionSx's include d/c, itching, irritation Neg pain of abd/pelvis/flankNe g urinary sx'sNeg GI sx'sNeg N/V/F/C/DNeg Vag odor Linnette Nails, [facility]- [address], [place], [address], [facility] 11/28/2023 10:22:08 08/27/2024 text/html Patient reports urinary urgency, hesitancy, frequency x one month intermittently.Pat stephon reports dyspareunia due to pelvic pressure. Patient states that she was referred to pelvic floor therapy by her urologist in the past due to pelvic pain/suspected vaginismus. Patient states that interstitial cystitis was ruled out.Patient also reports white vaginal discharge. Denies new partner, pt had STI testing 2 months ago, which was negative. Tiffany sanches [facility] 08/27/2024 15:12:51 11/25/2024 text/html Patient here wit h urinary urgency, hesitancy, and frequency x 5 days.Patient states that she does have a weakened pelvic floor and has been to PFT in the past for persistent urgency, but she feels like these symptoms are much worse than usual and she has been leaking urine if she does not make it to the bathroom in time.Denies dysuria or vaginal concerns. Tiffany sanches [facility] 11/25/2024 18:00:07 OBGyn Episode No OBEpisode recorded.
--- OUTSIDE RECORDS SUMMARY | 2024-11-27 14:03 | XMS_ITS | Encounter Summary ---
Author Organization [facility] Address [address] [place] [address] Care Team Providers Care Production Tester Name Role Phone Kavitha Barker MD Primary Care Provider [phone] Irlanda Del Real APRN-PROCUREMENT PROFESSIONAL Primary Care Provider Kelly Harrison Primary Care Provider [phone] Reason for Visit * Reason Onset Date Comments MEDICATION REFILL 03/07/2023 Encounter Details Date Type Department Care Team (Late st Contact Info) Description 03/07/2023 Refill [facility] - Urology [address] [place] [id number] Lorna Haley PASTEURISER OPERATOR-PROCUREMENT PROFESSIONAL [address] [place] [phone] MEDICATION REFILL Social History Tobacco Use Types [...] st Contact Info) Description 12/12/2024 8:40 AM WEBMASTER Office Visit [facility] - Sleep Services [address] [place] [address] Lashell Boswell, APNP-PROCUREMENT PROFESSIONAL [address] 2L DIV OF PULMONARY/[place] [address] 01/20/2025 11:20 AM CDT Office Visit [facility] - Sleep Services [address] [place] [phone] Lashell Boswell, APNP-PROCUREMENT PROFESSIONAL [address] DIV OF PULMONARY/[place] [address] documented as of this encounter Goals Goal Patient Goal Type Associated Problems Recent Progress Patient-Stated? Author Use safety retraint in car Lifestyle On track( 021 3:12 PM WEBMASTER) No Betsey Sneed RN documented as of this encounter Visit Diagnoses Diagnosis Pelvic floor dysfunction in female documented in this encounter Care Teams Production Tester Relationship Specialty Start Date End Date Kavitha Barker MD PCP - General 06/02/22 03/14/23 Irlanda Del Real APRN-PROCUREMENT PROFESSIONAL [address] [place] [phone] PCP - General Nurse Practitioner Family 03/15/23 Kelly Harrison [address] [place] [phone] PCP - General 11/07/24 documented as of this encounter
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
--- OUTSIDE RECORDS SUMMARY | 2024-11-27 14:03 | XMS_ITS | Clinical Summary ---
Author Organization [facility] Address [address] [place] [address] Care Team Providers Care Deputy Controller Name Role Phone Irlanda Del Real SUPERVISOR ELECTRONICS PROCESSING Primary Care Provider + Allergies Active Allergy [...] Diagnosed Date Resolved Date Obstructive sleep apnea 05/02/2018 1203/2018 Overview (05/02/2018): Added automatically from request for surgery [id number] Sinusitis 01/22/2017 09/19/2018 Surgical History Surgery Date Site/Laterality Comments [place] TONSILLECTOMY PRIMARY/SECONDARY <AGE 11 2008 Medical History Medical History Date Comments Recurrent sinusitis Lingual tonsil hypertrophy Sleep apnea OAHI 3.1, lowest desat 95%, reports daytime somnolence, waking at night gasping Social History Tobacco Use Types Packs/Day Years Used Date Smoking Tobacco: Never Comments No Sex and Gender Information Value Date Recorded Sex Assigned at Not on file Legal Sex Female 12:43 PM HOSIERY MENDER Gender Identity Female 05/01/2018 12:47 PM CDT Sexual Orientation Not on file Obstetrics History Last Filed Vital Signs Vital Sign Reading [...] 05/09/2023 11:16 AM CDT Plan of Treatment Health Maintenance Due Date Last Done Comments Depression Screening 2004 Hepatitis C Screening 2004 Meningococcal B Vaccine (1 of 2 - Patient Seeks Protection) 2020 Regular Well Visit/Exam 18-64 2022 Covid-19 Vaccine (3 - 2023- season) 2024 11/22/2020, 11/01/2020 Influenza Vaccine (#1) 2024 2, 09/20/2021, 08/08/2019, Additional history exists DTaP/Tdap/Td Vaccine (7 - Td or Tdap) 05/13/2025 05/13/2015, 03/03/2009, 08/07/2005, Additional history exists Hepatitis B Screening Completed 05/11/2005 , 2004, 2004 Varicella Vaccines Completed 03/03/2009, 08/07/2005 HPV Vaccines Completed 11/19/2015, 07/16, 05/25/2015 Meningococcal Vaccine Completed 12/21/2020, 015 Pneumococcal vaccine <65 Aged Out No longer eligible based on patient's age to complete this topic Insurance [facility] [place] [address] [place] [address] [facility] [place] MEDICAID [facility] [place] [address] [facility] MEDICAID Advance Directives For more information, please contact: [phone] * Full Code (Latest Code Status on File) Date Activated Date Inactivated Comments 10/02/2018 4:21 PM 10/03/2018 4:25 PM Care Teams Deputy Controller Relationship Specialty Start Date End Date Irlanda Del Real NP Irena [facility] [id number] PCP - General Nurse Practitioner 05/10/22
--- OUTSIDE RECORDS SUMMARY | 2024-11-27 14:03 | XMS_ITS | Encounter Summary ---
Author Organization [facility] Address [address] [place] [address] Care Team Providers Care Process Supervisor Name Role Phone Irlanda Del Real APRN-ANIMAL NUTRITION CONSULTANT Primary Care Provider Kelly Harrison Primary Care Provider [phone] Encounter Details Date Type Department Care Team (Late st Contact Info) Description 03/15/2023 Telephone [facility]ology [address] [facility], [place] [phone] Lashell Boswell APNP-ANIMAL NUTRITION CONSULTANT [address] [place] [address] 2L DIV OF PULMONARY/[place] [address] Social History Tobacco Use Types Packs/Day Years [...] AM CDT documented as of this encounter Miscellaneous Notes * Telephone Encounter - Betsey Bhandari - 03/15/2023 3:26 PM CDT Current Provider name: Lashell Boswell Reason for call: Lucita Valle's mother called stating the IRON PILLS aren't agreeing with her stomach. Mom Mary Valle says her stomach hurts terribly. What is another solutrion? Please call momwith alternative. Patient Call Back number: [phone] documented in this encounter Plan of Treatment Upcoming Encounters Date Type Department Care Team (Late st Contact Info) Description 12/12/2024 8:40 AM BODY DESIGNER Office Visit [facility] [place] [address] Lashell Boswell APNP-ANIMAL NUTRITION CONSULTANT [address] DIV OF PULMONARY/[place] [address] 01/20/2025 11:20 AM CDT Office Visit [facility] - [facility] Services [address] [place] [phone] Lashell Boswell APNP-ANIMAL NUTRITION CONSULTANT [address] DIV OF PULMONARY/[place] [address] documented as of this encounter Goals Goal Patient Goal Type Associated Problems Recent Progress Patient-Stated? Author Use safety retraint in car Lifestyle On track( 021 3:12 PM BODY DESIGNER) No Betsey Sneed, JORGE documented as of this encounter Visit Diagnoses Not on filedocumented in this encounter Care Teams Process Supervisor Relationship Specialty Start Date End Date Irlanda Del Real, STACKER OPERATOR-ANIMAL NUTRITION CONSULTANT [address] [place] [phone] PCP - General Nurse Practitioner Family 03/15/23 Kelly Harrison [address] [place] [phone] PCP - General 11/07/24 documented as of this encounter
--- OUTSIDE RECORDS SUMMARY | 2024-11-27 14:03 | XMS_ITS | Data Portability ---
Author Organization [place] [facility], Main Office Address [address] [place] [address] Assessment Encounter Date Assessment Date Assessment LastModified by Organization Details LastModified Time 06/06/2023 06/06/2023June with sleep study. On ASV machine. BiPap did not help. Sleep specialist Dr. Gordy Streeter at [facility]. [email or web address] Not available 06/06/2023 15:10:58 Plan of Treatment Reminders Order Date Submit Date Provider Last Modified By Organization Details Last Modified Time Details Appointments Follow Up 15 2024 03:45P Garcia Harrison, INSPECTOR MATERIALS AND PROCESSES Not available Not available Not available Lab iron + TIBC + ferritin, serum 2024 025 [facility], [address], [place], [address], 11/27/2024 10:13:19 CBC w/ auto diff 2024 025 [facility], [address], [place], [address], 11/25/2024 16:54:44 vitamin D, 25-hydrox y, total, serum 2024 025 [facility], [address], [place], [address], 11/25/2024 16:54:44 glycohemo globin, total, blood 2023 024 [facility] (Lab), [address] [place], [address], 06/10/2024 22:07:38 TSH, serum or plasma [address] (Lab), [address] [place], [address], 06/17/2024 08:11:58 lipid panel, serum [address] (Lab), [address] [place], [address], 06/17/2024 08:11:58 bacterial vaginosis + vaginitis panel, vaginal 2023 024 [facility] (Lab), [address] [place], [address], 06/12/2024 06:26:07 chlamydia , RNA, urine 2023 024 [facility] (Lab), [address] [place], [address], 06/10/2024 18:32:56 trichomon as vaginalis RNA, urine [address] (Lab), [address] [place], [address], 06/17/2024 08:11:58 Referral rheumatol ogist referral 2024 025 [email or web address] Not available 11/25/2024 17:02:54 Procedures None recorded. Surgeries None recorded. Imaging None recorded. Medication Orders Wegovy 0.25 mg/0.5 mL subcutane ous pen injector [address] [facility] [place], [address], [place], [place], [id number], 11/25/2024 16:29:29 Zepbound 2.5 mg/0.5 mL subcutane ous pen injector 2023 024 [email or web address] [facility], [address] [facility] , [place], [place], [id number], 11/25/2024 16:29:33 tuberculi n PPD 5 tub. unit/0.1 mL intraderm al injection solution 2023 024 Not available 04/15/2024 14:16:25 doxycycli ne hyclate 100 mg tablet 2022 023 [email or web address], [address] [facility] , [place], [place], [id number], 04/03/2024 10:11:51 prednison e 20 mg tablet [address], [address] [facility] , [place], [place], [id number], 04/03/2024 10:11:54 Patient TargetsNo targets recorded. Patient Instructions Encounter Date Encounter Id Patient Instructions Last Modified By Organization Details Last Modified Time 04/03/2024 [id number] Well Visit, Ages 18 to 65: Care Instructions gina Not available 04/03/2024 10:51:22 Reason for Referral Traffic Investigator Referral for Anti-nuclear factor detected Referring Physician: Kelly Harrison, Family Medicine, Encounter Date: 11/25/2024 Results Created Date Observation Date Name Description Value Unit Range Abnormal Flag Note LastModifiedBy Organization Detail LastModifiedTime 07/07/2007/07/2024 US, thyro id No observ ation record ed. [facility] [address] [place], [address], 07/07/2024 12:53:08 09/04/20 24 09/04/2024 XR, chest , 2 view No observ ation record ed. gina Hawthorne [address] , [place], [address], 09/04/2024 12:37:12 Result Notes None recorded. Problems Name Problem SNOMED Code Status Onset Date Resolution Date Notes Provider Name and Address Organization Details Recorded Time Herpes labialis 6700287 Active 2021 Not Available [facility] 3 01:04:36 Anti-nucle ar factor detected 217216250 Active 2021 Not Available [facility] 3 01:04:36 Obsessive- compulsive disorder 211051312 Active 2021 Not Available [facility] 3 01:04:37 Mixed anxiety and depressive disorder 336671027 Active 2021 Not Available [facility] 3 01:04:37 Depressive disorder 45682981 Active 2021 Not Available [facility] 3 01:04:37 Easy bruising 637968528 Active 2021 Not Available [facility] 3 01:04:37 Anxiety 88114202 Active 2021 Not Available [facility] 3 01:04:37 Fatigue 31480164 Active 2021 Not Available [facility] 3 01:04:37 Herpes simplex 41173822 Active 2021 type I positive at ER Not Available [facility] 3 01:04:37 Anxiety disorder 005074379 Active 2022 Tyler Vizcarra MD [address], [address], [place], [address] , [employer] 3 16:14:44 Chronic pelvic pain of female 312137439 Active 2022 Tyler Vizcarra MD [address], [address], [place], [address] , [facility] 3 16:15:16 Iron deficiency anemia 53998335 Active 2022 Irlanda Del Real NP [address], [address], [place], [address] , [facility] 3 12:55:42 Restless legs 08623141 Active 2022 Irlanda Del Real NP [address], [address], [place], [address] , [place] [facility] 3 13:07:42 Hypersomni a 57653444 Active 2022 Irlanda Del Real NP [address], [address], [place], [address] , [place] [facility] 3 13:11:08 Recurrent urinary tract infection 530256588 Active 2022 Irlanda Del Real NP [address], [address], [place], [address] , [place] [facility] 3 13:12:32 Acute sinusitis 49350349 Active 2022 Irlanda Del Real NP [address], [address], [place], [address] , [place] [facility] 3 07:59:39 Pneumonia 207889729 Active 2022 Irlanda Del Real NP [address], [address], [place], [address] , [place] [facility] 3 14:56:39 Labial cyst 504685924 Active 2023 KARYN Wolff [address], [address], [place], [address] , [place] [facility] 4 08:21:05 Obesity 364325710 Active 2023 KARYN Wolff [address], [address], [place], [address] , [place] [facility] 4 09:16:04 Sexually transmitte d infectious disease 7747908 Active 2023 KARYN Wolff [address], [address], [place], [address] , [place] [facility] 4 09:28:42 Vaginal odor 330320540 Active 2023 KARYN Wolff [address], [address], [place], [address] , [facility] 4 09:46:33 Hypothyroi dism 14864736 Active 2023 KARYN Wolff [address], [address], [place], [address] , [facility] 4 08:42:14 Gastroesop hageal reflux disease without esophagiti s 150199611 Active 2023 KARYN Wolff [address], [address], [place], [address] , [facility] 4 08:20:21 Tachycardi a 8130215 Active 2024 KARYN Wolff [address] [facility], [address], [place], [address] , [facility] 5 16:48:05 Anemia 065971128 Active 2024 KARYN Wolff [address], [address], [place], [address] , [facility] 5 16:48:30 History of drug abuse 204241737 Active 2024 KARYN Wolff [address], [address], [place], [address] , [facility] 5 16:57:11 Chest pain 19935335 Active 2024 KARYN Wolff [address] [facility], [address], [place], [address] , [employer] 5 09:17:54 Problem Notes None recorded. Procedures Surgical History Date Name Laterality Status Provider Name and Address Organization Details Recorded Time operation on tonsils completed Not Available [facility] 12/14/2022 01:04:19 Imaging Results Imaging Date Name Status LastModified by Organiz ation Details LastModified Time 07/07/2024 US, thyroid completed [facility] [address] [facility], [place], [address], 07/07/2024 12:53:08 09/04/2024 XR, chest, 2 view completed [facility] [address] [facility], [place], [address], 09/04/2024 12:37:12 Procedure Notes None recorded. Medical Equipment None Reported. Allergies Allergen ID Allergen Name Allergen Category Reaction Reaction Severity Criticality Documentation Date Start Date Code Code System Note Provider Name and Address Organization Details Recorded Time 91855 Wellbutri n medicatio n itching Not available Not available 12/14/2022 90859 RxNorm Not Available [facility] 01:05:03 39756 amoxicill in medicatio n Not available Not available Not available 11/25/2024 723 RxNorm Irlanda Sahu RN null, [place] [facility] 16:28:50 Medications Name Sig Start Date Stop Date Status Note LastModified by Organization Details LastModified Time fluoxetine 40 mg capsule Take 2 Capsules (80 mg) by mouth daily. active Not Available Not Available No t Available Flomax 0.4 mg capsule Take 1 capsule every day by oral route. 06/06 completed Not Available Not Available Not Available tuberculin PPD 5 tub. unit/0.1 mL intradermal injection solution Inject 0.1 mL every day by intraderm al route for 1 day. 04/03 completed Not Available Not Available Not Available valacyclovi r 1 gram tablet Take 1 tablet every 12 hours by oral route as needed for 2 days. 06/06 completed Not Available Not Available Not Available famotidine 40 mg tablet Take 1 tablet every day by oral route as needed for 30 days. 11/25 completed Not Available Not Available Not Available prednisone 20 mg tablet 2 tabs po daily for 4 days, then 1 tab po daily for 2 days 04/03 completed Not Available Not Available Not Available Diflucan 150 mg tablet Take 1 tablet every day by oral route for 1 day. 06/06 completed Not Available Not Available Not Available Mirapex 0.5 mg tablet Take 1 tablet every day by oral route. 06/06 completed prami pexol e. for RLS Not Available Not Available Not Available acyclovir 400 mg tablet Take 1 tablet twice a day by oral route. 03/13 completed Not Available Not Available Not Available amoxicillin 500 mg tablet Take 1 tablet every 8 hours by oral route for 7 days. 06/06 completed Not Available Not Available Not Available levothyroxi ne 25 mcg tablet Take 1 tablet every day by oral route before meal(s) for 90 days. 2023 active Not Available Not Available Not Avai lable cephalexin 500 mg capsule TAKE 1 CAPSULE BY MOUTH EVERY 12 HOURS 06/06 completed Not Available Not Available Not Available omeprazole 20 mg capsule,del ayed release Take 1 capsule twice a day by oral route before meal(s) for 30 days. 11/25 completed Not Available Not Available Not Available fluoxetine 20 mg capsule TAKE 1 CAPSULE BY MOUTH EVERY DAY 05/03 completed with 40 mg Not Available Not Available Not Available doxycycline hyclate 100 mg tablet Take 1 tablet twice a day by oral route for 10 days. 04/03 completed Not Available Not Available Not Available Bactrim DS 800 mg-160 mg tablet Take 1 tablet every 12 hours by oral route for 7 days. 06/10 completed Not Available Not Available Not Available Vitamin D 5000mg weekly 11/25 completed Not Available Not Available Not Available Seroquel 50 mg tablet Take 1 tablet every day by oral route at dinner. active Not Available Not Available No t Available armodafinil 150 mg tablet Take 1 tablet every day by oral route. active Not Available Not Available No t Available Suboxone 8 mg-[address] 1 film twice a day by sublingua l route. active Not Available Not Available No t Available Nexplanon 68 mg subdermal implant Inject by subcutane ous route. 2021 active due to get it out in dece samuel. Not Available Not Available Not Available Nextstellis 3 mg-14.2 mg (28) tablet Take 1 tablet every day by oral route. 02/153 completed Not Available Not Available Not Available Wegovy 0.25 mg/0.5 mL subcutaneou s pen injector Inject 0.25 mg every week by subcutane ous route as directed for 28 days. 11/25 completed Not Available Not Available Not Available Zepbound 2.5 mg/0.5 mL subcutaneou s pen injector Inject 2.5 mg every week by subcutane ous route as directed for 28 days. 11/25 completed Not Available Not Available Not Available Vitals Date Recorded Body height Body mass index (BMI) Percentile per age and sex Body mass index (BMI) Body weight Body temperature Heart rate Respiratory rate Oxygen saturation Oxygen saturation in Arterial blood by Pulse oximetry Pain severity - 0-10 verbal numeric rating [Score] - Reported Systolic blood pressure Diastolic blood pressure Provider Name and Address Organization Details Last Updated DateTime 3 158.75 cm 85 % 26.2 kg/m2 45353.0 4 g 96.4 [degF] 108 /min 20 /min 94 % 94 % 5 110 mm[Hg] 62 mm[Hg] Irlanda Sahu RN [facility] 3 14:47:51 Date Recorded Body height Provider Name an d Address Organization Details Last Updated DateTime 04/01/2024 158.75 cm Irlanda Sahu RN [facility] 04/01/2024 15:24:20 Date Recorded Body height Body mass index (BMI) Body mass index (BMI) Percentile per age and sex Body weight Body temperature Heart rate Oxygen saturation Oxygen saturation in Arterial blood by Pulse oximetry Pain severity - 0-10 verbal numeric rating [Score] - Reported Respiratory rate Systolic blood pressure Diastolic blood pressure Provider Name and Address Organization Details Last Updated DateTime 4 158.75 cm 30.5 kg/m2 94 % 74290.5 1 g 97.9 [degF] 93 /min 98 % 98 % 0 20 /min 130 mm[Hg] 88 mm[Hg] Irlanda Sahu RN [facility] 4 10:16:25 Date Recorded Body height Body mass index (BMI) Body mass index (BMI) Percentile per age and sex Body weight Body temperature Heart rate Respiratory rate Oxygen saturation Oxygen saturation in Arterial blood by Pulse oximetry Pain severity - 0-10 verbal numeric rating [Score] - Reported Systolic blood pressure Diastolic blood pressure Provider Name and Address Organization Details Last Updated DateTime 4 158.75 cm 31.2 kg/m2 94 % 12891.1 8 g 97.3 [degF] 92 /min 20 /min 98 % 98 % 0 110 mm[Hg] 72 mm[Hg] Irlanda Sahu RN [facility] [employer] [facility] 4 09:10:06 Date Recorded Body height Body mass index (BMI) Percentile per age and sex Body mass index (BMI) Body weight Body temperature Heart rate Respiratory rate Oxygen saturation Oxygen saturation in Arterial blood by Pulse oximetry Pain severity - 0-10 verbal numeric rating [Score] - Reported Provider Name and Address Organization Details Last Updated DateTime 5 158.75 cm 92 % 29.8 kg/m2 97571.4 9 g 97.8 [degF] 106 /min 20 /min 99 % 99 % 0 Irlanda Sahu RN [facility] [facility] 5 16:33:13 Date Recorded Systolic blood pressure Diastolic blood pressure Provider Name and Address Organization Details Last Updated DateTime 11/25/2024 122 mm[Hg] 89 mm[Hg] Kelly Harrison, [facility] [address] [facility], [facility] [address], [place], [address], [facility] 11/25/2024 17:01:44 Social History Question Answer Notes LastModified by Organization Details LastModified Time Tobacco Smoking Status Never Smoker Not Available [facility] 12/14/2022 01:04:05 Do You Have An Advance Directive? No Information not available 03/13/2023 What Is Your Level Of Alcohol Consumption? Occasional Socially Information not available 11/25/2024 Do You Wear A Helmet When Biking? No [id number] Information not available 12/14/2022 Is Blood Transfusion Acceptable In An Emergency? Yes Information not available 03/13/2023 Are You Or Have You Been Involved With Bullying? Yes Past MIGRATION.0301 [id number] Information not available 12/14/2022 What Is Your Level Of Caffeine Consumption? Occasional Energy Drinks Information not available 03/13/2023 What Is Your Code Status? Full Code Information not available 03/13/2023 In The 14 Days Before Symptom Onset, Have You Had Close Contact With A Laboratory-conf irmed COVID-19 While That Case Was Ill? No MIGRATION.0301 [id number] Information not available 12/14/2022 In The 14 Days Before Symptom Onset, Have You Had Close Contact With A Person Who Is Under Investigation For COVID-19 While That Person Was Ill? No MIGRATION.0301 [id number] Information not available 12/14/2022 Are You Currently Employed? Yes Information not available 03/13/2023 What Type Of Diet Are You Following? REGULAR MIGRATION.0301 [id number] Information not available 12/14/2022 What Is The Highest Grade Or Level Of School You Have Completed Or The Highest Degree You Have Received? 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 No MIGRATION.0301 [id number] Information not available 12/14/2022 Are There Any Guns Present In Your Home? No MIGRATION.0301 [id number] Information not available 12/14/2022 What Is Your Home Situation? Both Parents MIGRATION.0301 [id number] Information not available 12/14/2022 Do You Use Insect Repellent Routinely? Yes MIGRATION.0301 [id number] Information not available 12/14/2022 [facility] M[facility].03[facility] 167903 Information not available 12/14/2022 Do You Have A Medical Power Of Expediter Clerk? No Information not available 03/13/2023 What Is Your Parents' Marital Status? MIGRATION.0301 [id number] Information not available 12/14/2022 Do You Have Any Pets? Yes MIGRATION.0301 [id number] Information not available 12/14/2022 Do You Use Protection During Sex? No Information not available 06/10/2024 What Is Your Relationship Status? Single MIGRATION.0301 [id number] Information not available 12/14/2022 What Is The Name Of Your School? [employer] MIGRATION.0301 236771 Information not available 12/14/2022 Do You Use Your Seat Belt Or Car Seat Routinely? Yes MIGRATION.030 035326 Information not available 12/14/2022 Are You Sexually Active? Yes Information not available 06/10/2024 Do You Have Any Siblings? 1 Younger Brother MIGRATION.030 056295 Information not available 12/14/2022 Do You Have Smoke And Carbon Monoxide Detectors In Your Home? Yes MIGRATION.030 039019 Information not available 12/14/2022 Are You Passively Exposed To Smoke? No MIGRATION.030 325249 Information not available 12/14/2022 Are There Any Smokers In Your House? No MIGRATION.030 429303 Information not available 12/14/2022 Do You Participate In Social Media? Yes MIGRATION.030 158996 Information not available 12/14/2022 What Types Of Sporting Activities Do You Participate In? NA MIGRATION.030 653627 Information not available 12/14/2022 Do You Feel Stressed (tense, Restless, Nervous, Or Anxious, Or Unable To Sleep At Night)? [id number] MIGRATION.030 695594 Information not available 12/14/2022 Do You Use Any Illicit Or Recreational Drugs? Yes Marijuana MIGRATION.030 661190 Information not available 12/14/2022 Do You Use Sunscreen Routinely? Yes MIGRATION.030 682704 Information not available 12/14/2022 Have You Recently Traveled Abroad? No MIGRATION.030 172396 Information not available 12/14/2022 Are You Currently In School? Yes MIGRATION.030 369991 Information not available 12/14/2022 Do You Have Any Dietary Restrictions? No MIGRATION.030 015879 Information not available 12/14/2022 Sex: Female Functional Status Question Answer Note LastModified by Organizat ion Details LastModified Time What is your exercise level? Moderate [id number] Information not available 12/14/2022 Mental Status None recorded. Family History Relationship Description Onset Age of this Age Resolved Age Notes LastModified by Organization Details LastModified Time Father No current problems or disability MIGRATION.177 [id number] Not available 12/14/2022 01:04:20 Mother No current problems or disability MIGRATION.613 [id number] Not available 12/14/2022 01:04:20 Medical History Condition Response BLINDNESS N RHEUMATIC FEVER N KIDNEY STONES N BLADDER PROBLEMS N MRSA N OTHER # 1 N POLIO N LUNG DISEASE/DISORDER N HISTORY OF DRUG ABUSE N RADIATION / CHEMOTHERAPY N COPD N Other # 2 N BLOOD DISEASES N SURGERY N EAR OR HEARING PROBLEMS N MUMPS N SHINGLES N BOWEL PROBLEMS N FEMALE PROBLEMS / INFECTIONS N DEPRESSION (INCLUDING POST ) N STROKE/TIA N THYROID DISEASE N ULCERS N BENIGN PROSTATIC HYPERPLASIA N MEASLES N CERVICALGIA N HYPOTENSION N TB SKIN TEST N MYOCARDIAL INFARCTION N PARAPELGIA N OBESITY N GERD/NAUSEA N ANEURYSM N URINARY/BLADDER/KIDNEY PROBLEMS N CORONARY ARTERY DISEASE (CAD) N MENIERE'S DISEASE N ADDICTION CONCERNS Y ENDOMETRIOSIS N USE OF BLOOD THINNERS N SKIN PROBLEMS N EMPHYSEMA N GASTROINTESTINAL DISORDER N MUSCLE,JOINT OR BONE PROBLEMS N GASTROINTESTINAL BLEEDING N BLOOD CLOTS N ASTHMA N CATARACTS N ERECTILE DYSFUNCTION N GI PROBLEMS N CHF N Low Testosterone N NEUROPATHY N INFERTILITY N AIDS/HIV N FRACTURES N CHEMOTHERAPY / RADIATION N VISION/EYE PROBLEMS N LIVER DISEASE N MALE HYPOGONADISM N HYPERTENSION N TOURETTE'S N ANXIETY DISORDER Y BLOOD TRANSFUSION N ANEMIA/BLOOD DISORDER Y CHRONIC EAR INFECTIONS N BRONCHITIS N TUBERCULOSIS N GLAUCOMA N FOOT PROBLEM N DIVERTICULITIS N CHICKENPOX N SLEEP APNEA N ALLERGIES/HAYFEVER N INFECTIOUS DISEASE N HEART ARRHYTHMIA N PROSTATE N INSOMNIA N HIGH CHOLESTEROL / HYPERLIPIDEMIA N HYPERTHYROIDISM N EYE PROBLEMS N EATING DISORDER N EDEMA N CHRONIC PAIN SYNDROME N CONSTIPATION N CAROTID BLOCKAGE N BACK / NECK PROBLEMS N HAVE YOU BEEN HOSPITALIZED OR SEEN IN [facility] IN THE PAST YEAR ? N ATHEROSCLEROSIS N BREAST PROBLEMS N DIALYSIS N ECZEMA N FIBROMYALGIA N OSTEOPOROSIS N ARTHRITIS N NO SIGNIFICANT PAST MEDICAL HISTORY N APPENDICITIS N DIABETES, TYPE N BAD TEETH N HEARTBURN / REFLUX N ADD/ADHD N AUTISM SPECTRUM DISORDER (ASD) N HEPATITIS / LIVER DISEASE N PULMONARY DISEASE N GOUT N SLEEP DISORDER N ALZHEIMER'S DISEASE N PAIN N HERPES N DEMENTIA N HEADACHES/MIGRAINES N SEIZURES/EPILEPSY N VASCULAR DISEASE N PACEMAKER N DIZZINESS N HEART DISEASE/HEART PROBLEMS N KIDNEY DISEASE N DEVELOPMENTAL OR BEHAVIORAL DISORDERS N MULTIPLE SCLEROSIS N SCARLET FEVER N MENTAL DISORDER/ILLNESS N CARDIAC ARRHYTHMIA N CANCER: SPECIFY N PNEUMONIA N ATRIAL FIBRILLATION N Gall Stones N PULMONARY EMBOLISM N AUTOIMMUNE DISEASE N Gynecological History Statement/Question Response Date of LMP Sexually Active? Y Dislike of Light during Menstrual Headac he N Menses Monthly N STIs/STDs Y Current Control Method IUD Breast Problems no Discharge no Obstetrics History GPAL:G 0 P 0 0 0 0 Past Encounters Encounter ID Performer Location Encounter Start Date Encounter Closed Date Diagnosis/Indication Diagnosis SNOMED-CT Code Diagnosis ICD10 Code Diagnosis Note [id number] [facility] [address] [place] [address] 04/07/2022 00:00:00 04/07/2022 18:38:45 [id number] [facility] [address] [place] [address] 05/03/2022 00:00:00 05/03/2022 16:26:36 [id number] [facility] [address] [place] [address] 05/26/2022 00:00:00 05/26/2022 17:06:11 [id number] [facility] [address] [place] [address] 05/31/2022 00:00:00 05/31/2022 12:04:05 [id number] [facility] [address] [place] [address] 09/27/2022 00:00:00 09/29/2022 09:15:15 [id number] [facility] [address] [place] [address] 02/15/2023 16:00:43 02/15/2023 16:40:43 History and physical examination, pre-employment 743881633 Z02.1 Depressive disorder 3548 9007 F32.A Anxiety disorder 2296682 06 F41.9 Chronic pe lvic pain of female 464951216 R10.2 [id number] Irlanda Del Real NP [facility] [address] [place] [address] 02/20/2023 13:58:01 02/20/2023 18:38:59 Tuberculosis screening 832501091 Z11.1 [id number] Irlanda Del Real NP [facility] [address] [place] [address] 03/13/2023 12:29:20 03/13/2023 13:51:29 Iron deficiency anemia 75232003 D50.9 Had labs at [facility]. Referring to Hematology for possible iron infusion. Has been on iron tablets > 1 year ago and had stomach pains and nausea along with constipati on. Obsessive- compulsive disorder 367023533 F42.9 Fluoxetine 80 mg po daily. Mixed anxi ety and depressive disorder [id number] F41.8 fluoxetine 80 mg po daily. Restless legs [id number] G 25.81 Mirapex 0.5 mg po nightly Hypersomnia 63402858 G47 .10 home sleep study ordered. Recurrent urinary tract infection [id number] N39.0 flomax 0.4 mg po daily [id number] Irlanda Del Real NP [place] [id number] 06/06/2023 14:35:34 06/06/2023 15:21:36 Pneumonia [id number] J18.9 Kenalog inj 60 mg IM declined- needle phobia.dox ycycline 100 mg po bid for 10 days.Predn isone 40 mg po daily for 4 days, then 20 mg po daily for 2 days. [id number] KARYN Wolff [place] [id number] 1 04/01/2024 15:06:22 04/01/2024 15:46:38 Tuberculosis screening [id number] Z11.1 [id number] KARYN Wolff [place] [id number] 1 04/03/2024 10:03:02 04/03/2024 10:54:21 Adult health examination 943012580 Z00.00 Anti-nucle ar factor detected 977304972 R76.8 Patient has seen dheeraj jewell in the past, interested in visiting again. Mother sees good rheumatjessica gist, she is going to call in with name of dheeraj lynch when she know who it is [id number] KARYN Wolff [place] [id number] 1 06/10/2024 09:02:59 06/10/2024 09:42:00 Obesity 092948975 E66.9 BMI is 31.2. She is dieting with decreased carbs, fats, and sugars. Trying to increase protein. Lives an active lifestyle and exercises 3x weekly. She cannot take phentermin e due to stimulant use for narcolepsy . Allergic reaction to Wellbutrin . Venereal d isease screening [id number] Z11.3 Chlamydia exposure in April, treatment offered, pt would like to wait until tests result Vaginal odor 833510034 N 89.8 [id number] KARYN Wolff [facility] [place] [address] [place] [address] 11/25/2024 16:24:03 11/25/2024 17:02:53 Tachycardia 3052376 R00.0 Currently going through with withdrawal , will follow-up closely.fabio rolon for narcolepsy Echo in 2023 was normalTSH normal 11/18/24Went to ER when these symptoms began, cardiac exam benignAdvi sed to seek care in the ER for tachycardi a over 150 or symptomati c tachycardi a or chest pain Anti-nucle ar factor detected [id number] R76.8 Patient has seen dheeraj jewell in the past, interested in visiting again. Mother sees good dheeraj lynch, she is going to call in with name of dheeraj lynch when she know who it is History of drug abuse 37 [id number] F19.11 Released from detox on 11/05/24. Following with substance abuse Dr and outpatient therapy. Taking Suboxone Health Concerns Section Related Observation LastModified by Organization Detai ls LastModified Time None Recorded Concern Status LastModified by Organization Details LastModified Time None Recorded Advance Directives Directive N: Payers Encounter Date Sequence Insurance Name Policy Number Policy Chaidez Covered Member ID Chaidez Member ID Guarantor Name 06/06/2023 1 JAILYN () Mary Valle [id number] Lucita Valle 06/06/2023 1 [place] Lucita Valle [id number] Lucita Valle 04/01/2024 1 JAILYN () Mary Valle [id number] Lucita Valle 04/01/2024 1 [place] [facility] Lucita Valle [id number] Lucita Valle 04/03/2024 1 JAILYN () Mary Valle [id number] Lucita Valle 04/03/2024 1 [place] [facility] Lucita Valle [id number] Lucita Valle 06/10/2024 1 JAILYN () Mary Valle [id number] Lucita Valle 06/10/2024 1 [place] [facility] Lucita Valle [id number] Lucita Valle 11/25/2024 1 JAILYN ( - INDEMNITY) Lucita Colindreswin [id number] Lucita Valle Notes Date Note Type Note Provider Name and Address Organization Details Recorded Time 06/06/2023 text/html Here for cold symptoms. Mother Mary here too. Had thick yellow mucus with cough. last week.Sinus congestion.Ear pressure and full.Coughing.Headac he from coughing.Hot and cold.+sore throat.Advil cold and sinus. Sudafed.No allergy meds tried.No one else at home sick. Covid test negative yesterday. Has been off antidepressant. Feeling ok. Still tired and trying to work with sleep specialist to get apnea fixed.Iron levels back in good range per patient. Had 3 iron infusions. Irlanda Del Real NP [address], [place], [address], [employer] 06/06/2023 15:15:07 04/03/2024 text/html Lucita Valle is a 18 year old female patient here today for a physical. She is overall healthy. She has a history of narcolepsy. She is managed well with armodafinil 150 mg PO daily. She is starting work at the [employer]. KARYN Wolff [address], [address], [place], [address], [employer] 04/03/2024 10:51:48 06/10/2024 text/html Lucita Valle is a 19 year old female She is struggling with her weight. Current BMI is 31.2. She is dieting with decreased carbs, fats, and sugars. Trying to increase protein. Lives an active lifestyle and exercises 3x weekly. She cannot take phentermine due to stimulant use for narcolepsy. Allergic reaction to Wellbutrin. KARYN Wolff [address], [address], [place], [address], [employer] 06/10/2024 10:56:26 11/25/2024 text/html Lucita Valle is a 19 year old female patient here today for a medication FU She was recently discharged (11/05/24) from a rehabilitation facility for drug use. She is now taking suboxone 8 mg BIDShe was in detox for 4 days. She was using fentanyl for 3 years She has had elevated heart rate and BP since detoxing. States she has been having chest pains as well. Did go the ER for this the first night of detox We started levothyroxine 25 mcg KARYN Wolff [address], [address], [place], [address], [employer] 11/25/2024 17:02:38 OBGyn Episode No OBEpisode recorded.
--- OUTSIDE RECORDS SUMMARY | 2024-11-27 14:03 | XMS_ITS | Clinical Summary ---
Author Organization [facility] Address [address] [place] [place] [address] Care Team Providers Care Activities Director Name Role Phone Kelly Harrison Primary Care Provider [phone] [facility],non-owned Affiliates and Associated Physician Practices is amultiple site organization consisting of ambulatory clinics and hospital sitesin [place], [place]. This disclosure is being madepursuant to the Care Everywhere program and may not contain all information available regarding this patient. Last updated 18.[facility] [employer] Allergies Active Allergy Reactions Criticality Noted Date [...] Active vitamin D, ergocalciferol, (Drisdol) 1.25 MG (27088 UT) capsule Take 1 (one) capsule by [...] 10/28/2020 Assessment & Plan (09/22/2021 4:54 PM SEWER HAND): A&P - bladder and bowel dysfunction and [...] therapy Assessment & Plan (10/28/2020 4:22 PM SEWER HAND): A&P - bladder dysfunction and pelvic floor [...] remission 05/19/2016 Allergic rhinitis 11/27/2011 Acne 11/16/2011 Encounters Date Type Department Care Team Description 11/07/2024 Telephone [facility] [address] [place] [phone] Lashell Boswell APNP-CNP General 09/16/2024 2:00 PM SEWER HAND Video Visit [facility] [address] [place] [phone] Lashell Boswell APNP-DOG POUND ATTENDANT Central sleep apnea ; Insufficient treatment with nasal CPAP; Chronic fatigue; Vitamin D insufficiency; Inadequate sleep hygiene; Hypersomnia due to medical condition; CPAP use counseling; Overweight (BMI 25.0-29.9); Pelvic floor dysfunction 09/15/2024 Travel from Last 3 Months Immunizations Name Administration Dates Next Due [employer] primary monoval ent 12+ yr 0.3mL Purple [...] 03/03/2009, 5,2004,07/08 TDAP (7yrs+) 05/13/2015 VARICELLA 03/03/2009,08/07/2005 Family History Medical History Relation Name Comments ADD/ADHD Brother Anxiety Disorder Brother Depression Brother Nocturnal enuresis Brother Anxiety Disorder Father Depression Father Renal Disease Father only 1 kidney Anxiety Disorder Mother Depression Mother Lupus Mother bischett's oral or vaginal ulcers Renal Disease Mother only 1 kidney Sleep Disorder - Sleep apnea Mother cpap Relation Name Status Comments Brother Alive Father [...] 72.6 kg (160 lb) 09/16/2024 2:01 PM SEWER HAND Height 157.5 cm (5' 2 ) 09/16/2024 2:01 PM SEWER HAND Body Mass Index 29.26 09/16/2024 2:01 PM SEWER HAND Plan of Treatment Upcoming Encounters Date Type Department Care Team (Late st Contact Info) Description 12/12/2024 8:40 AM SEWER HAND Office Visit [facility] [address] [place] [phone] Lashell Boswell APLUIS ANGEL-DOG POUND ATTENDANT [address] OF PULMONARY/[place] [address] 01/20/2025 11:20 AM CDT Office Visit [facility] [address] [place] [phone] Lashell Boswell APNP-DOG POUND ATTENDANT [address] DIV OF PULMONARY/[place] [address] Health Maintenance Due Date Last Done Comments MENINGOCOCCAL (Group B) VACC INE (1 of 2 - Standard) 2020 HEPATITIS C SCREENING 05/02/2022 CHLAMYDIA/GONORRHEA SCREENING 05/27/2023 05/27/2022 COVID-19 VACCINE (3 2023-2 5 season) 2024 11/22/2020, 11/01/2020 DEPRESSION SCREENING 10/15/2024 DTAP/TDAP/TD VACCINES (7 - T d or Tdap) 05/13/2025 05/13/2015, 03/03/2009, 08/07/2005, Additional history exists ZOSTER VACCINE (1 of 2) 2054 HEPATITIS B VACCINE Completed 05/11/2005, 2004, 2004 HIB VACCINE Completed 05/11/2005, 08/16, 2004 PNEUMOCOCCAL VACCINE Completed 05/11/2005, 2004, 2004, Additional history exists HPV VACCINE Completed 11/19/2015, 07/16, 05/25/2015 MENINGOCOCCAL VACCINE Completed 12/21/2020, 015 HIV SCREENING Completed 05/27/2022 INFLUENZA VACCINE Completed 08/21/2024, , 08/08/2022, Additional history exists Goals Goal Patient Goal Type Associated Problems Recent Progress Patient-Stated? Author Use safety retraint in car Lifestyle On track( 021 3:12 PM SEWER HAND) No Betsey Sneed RN Procedures Procedure Name Priority Date/Time Associated Diagnosis Comments VITAMIN D 25-HYDROXY Routine 11/21/2024 2:17 PM SEWER HAND Vitamin D deficiency CHLAMYDIA + GC AMPLIFIED PROBE STAT 05/27/2022 4:08 PM CDT HIV-1 HIV-2 ANTIBODY + HIV P24 AG PANEL STAT 05/27/2022 4:02 PM CDT from Last 3 Months or Most Recently Relevant to Health Maintenance Results * VITAMIN D 25-HYDROXY (11/21/2024 2:17 PM SEWER HAND) Vitamin D, 25 Hydroxy 32.0 30.0 - 100.0 ng/mL [facility] INSURANCE BILL Comment: Vitamin D deficiency has been defined by the [employer] of Medicine and an Endocrine Society practice guideline as a level of serum 25-OH vitamin D less than 20 ng/mL (1,2). The Endocrine Society went on to further define vitamin D insufficiency as a level between 21 and 29 ng/mL (2). 1. IOM ([place] of Medicine). 2010. Dietary reference intakes for calcium and D. [place]: The National Academies Press. 2. Kita MF, Paul [place], Raven APODACA, et al. Evaluation, treatment, and prevention of vitamin D deficiency: an Endocrine Society clinical practice guideline. JCEM. 2010; 96(7):1911-30. Blood BLOOD SPECIMEN / Unknown 11/21/2024 2:17 PM SEWER HAND 11/21/2024 Narrative [facility] INSURANCE BILL - 11/22/2024 7:08 AM SEWER HAND Performed at: - Lab[address] [id number] Managing Editor: Danyel Mcmillan PhD, Phone: [phone] Lashell A Dettenmeier APNP-DOG POUND ATTENDANT LAB - CH EMISTRY ORDERABLES [facility] INSURANCE BILL [address] [place] [address] * CHLAMYDIA + GC AMPLIFIED PROBE (STL) (05/27/2022 4:08 PM CDT) Chlamydia Amplified Probe Negative Negative 05/28/2022 6:05 AM CDT [facility] GC Amplified Probe Negative Negative 05/28/2022 6:05 AM CDT [facility] Microbiology URINE / Unknown Collection / Unknown 05/27/2022 4:08 PM CDT 05/27/2022 4:08 PM CDT Narrative [facility] - 05/28/2022 6:05 AM CDT Results based on detection/no detection of ribosomal RNA by amplified method. Tori Treadwell MD LAB - MICROBIOLOGY O RDERABLES Performing Organization Address City/[facility]/ZIP Co de Phone Number [facility] [address] [place] [address], [facility] [phone] * HIV-1 HIV-2 ANTIBODY + HIV P24 AG PANEL (05/27/2022 4:02 PM CDT) Pathologist [facility] HIV Antigen/Antibod y 1 & 2 Non-reacti ve Non-react anju 05/27/2022 4:55 PM CDT [facility] Comment:No Laboratory eviden ce of HIV infection. Blood BLOOD SPECIMEN / Unknown Venipuncture / Unknown 05/27/2022 4:02 PM CDT 05/27/2022 4:08 PM CDT Tori Treadwell MD LAB - CHEMISTRY ORDPatel [facility] [address] [place] [address], [place] [phone] from Last 3 Months or Most Recently Relevant to Health Maintenance Care Teams Activities Director Relationship Specialty Start Date End Date Kelly Harrison [address] [place] [phone] PCP - General 11/07/24
--- OUTSIDE RECORDS SUMMARY | 2024-11-27 14:03 | XMS_ITS | Clinical Summary ---
Author Organization [facility] Address [address] [place] [address] Care Team Providers Care Tin Pourer Name Role Phone None, Provider MD Primary Care Provider Unavaila ble Social History Tobacco Use Types Packs/Day Years Used Date Smoking Tobacco: Never Assessed Comments Unknown Sex and Gender Information Value Date Recorded Sex Assigned at Not on file Legal Sex Female 12:20 PM CDT Gender Identity Not on file Sexual Orientation Not on file Plan of Treatment Health Maintenance Due Date Last Done Comments Annual Physical 2007 HPV Vaccines (1 - 3-dose series) 2019 Meningococcal B Vaccine (1 o f 2 - Standard) 2020 Hepatitis C 2022 DTaP, Tdap and Td Vaccines ( 1 - Tdap) 2023 Hepatitis B Vaccines (1 of 3 - 19+ 3-dose series) 2023 COVID-19 Vaccine (1 - 2023-2 5 season) 2024 Influenza Adult (#1) 2024 Meningococcal Vaccine Aged Out No caio benja eligible based on patient's age to complete this topic Pneumococcal Vaccine: Pediat rics (0 to 5 Years) and At-Risk Patients (6 to 64 Years) Aged Out No longer eligible b ased on patient's age to complete this topic RSV Immunizations Under 20 Months Aged Out No longer eligible based on patient's age to complete this topic Insurance MEDICAID Care Teams Tin Pourer Relationship Specialty Start Date End Date None, Provider, PCP - General UNKNOWN PHYSICIAN SPECIALTY 04/03/23
[2024-11-27 14:06] VITALS: BP 139/83; PULSE 120; RESP 16; TEMP 36.6; O2SAT 100
[2024-11-27 15:10] LABS: Basophils Percent Auto 0.5 % (0.2-1.2); Eosinophils Percent Auto 0.7 % (0-4.4); Hematocrit 41.2 % (37.0-47.0); Hemoglobin 13.5 g/dL (12.0-15.0); Immature Granulocyte Absolute 0.01 K/mm3 (0.00-0.031); Immature Granulocyte Percent A 0.2 % (0-0.5); Lymphocytes Absolute Auto 2.32 K/mm3 (0.9-3.2); Lymphocytes Percent Auto 39.1 % (18.3-44.2); Mean Corpuscular HGB Conc 32.8 g/dl (32-36); Mean Corpuscular Hemoglobin 28.2 pg (26-34); Mean Platelet Volume 8.8 fl (7.4-10.4); Monocytes Absolute Auto 0.2 K/mm3 (0.1-0.6); Neutrophils Absolute Auto 3.3 K/mm3 (1.3-6.7); Neutrophils Percent Auto 55.5 % (45.5-73.1); Platelet Count Result 367 k/mm3 (150-375); Red Blood Count 4.79 M/mm3 (4.2-5.4); Red Cell Distribution Width 12.6 % (11.5-14.5); White Blood Count 5.9 K/mm3 (4.5-10.0)
--- NOTE | 2024-11-27 15:11 | ED.GENADULT ---
HPI - General Adult General Chief complaint: Arrhythmia/Palpitations <Carley Sorenson February, GROOVER AND STRIPER OPERATOR - Last Filed: 11/27/24 15:16> Stated complaint: chest pain, palpitations <Carley Sorenson February, GROOVER AND STRIPER OPERATOR - Last Filed: 11/27/24 15:16> Time Seen by Provider: 11/27/24 15:11 <Carley Sorenson February, GROOVER AND STRIPER OPERATOR - Last Filed: 11/27/24 15:16> Focused HPI: Lucita Valle is a 19 y/o female who presents with reports of going to Detox November 02 and while she was there her heart rate went up to 170 - sent her to the hospital and then was d/c back detox she was there for 4 days left on Nov 05. She states that ever since her heart rate has been running high and now shes having chest pain off and on for two days. Denies SOB, describes pain as tightness and stabbing pains She states that the detox was for fentanyl. She saw her PCP two days ago and was told that if it got worse to go to the ER. GENERAL: Well-appearing, well-nourished, and in no acute distress. HEAD: Normocephalic, atraumatic. CHEST: Clear to auscultation. ?No respiratory distress. HEART: Regular rate and rhythm.? NEURO: ?Alert and oriented x3. Patient screened in triage and initial orders placed.? ?Additional care and disposition to be based upon?diagnostic testing and treatment. <Carley Sorenson February, GROOVER AND STRIPER OPERATOR - Last Filed: 11/27/24 15:16> History of Present Illness HPI narrative: Agree with HPI. Has some mild chest pain 2 days, sharp and intermittent. She does take his stimulant. <Christiano Ludwig MD - Last Filed: 11/27/24 18:23> Related Data Home medications: Home Medications ?Medication ?Instructions ?Recorded ?Confirmed ?Last Taken ?Type etonogestrel 68 mg subdermal 1 implant subdermal ONCE 08/05/20 09/04/24 Unknown History implant (Nexplanon) pramipexole 0.5 mg tablet 0.5 mg PO DAILY 08/05/20 09/04/24 Unknown History armodafinil See Rx Instructions .Route .COMPLEX 09/04/24 09/04/24 Unknown History <Carley Cheatham, GROOVER AND STRIPER OPERATOR - Last Filed: 11/27/24 15:16> Allergies/adverse reactions: Allergies Allergy/AdvReac Type Severity Reaction Status Date / Time amoxicillin Allergy Intermediate Nausea and Verified 11/27/24 17:21 Vomiting bupropion (From Wellbutrin) Allergy Intermediate Unknown Verified 11/27/24 17:21 <Carley Cheatham GROOVER AND STRIPER OPERATOR - Last Filed: 11/27/24 15:16> Review of Systems Review of Systems: All systems reviewed & are unremarkable except as noted in HPI and below <Christiano Ludwig MD - Last Filed: 11/27/24 18:23> Constitutional: Constitutional: Reports no additional constitutional complaints <Christiano Ludwig MD - Last Filed: 11/27/24 18:23> ENT: Reports system reviewed and no additional complaints, except as documented <Christiaon Ludwig MD - Last Filed: 11/27/24 18:23> Cardiovascular: Cardiovascular: Reports no additional cardiovascular complaints <Christiano Ludwig MD - Last Filed: 11/27/24 18:23> Respiratory: Respiratory: Reports no additional respiratory complaints <Christiano Ludwig MD - Last Filed: 11/27/24 18:23> Gastrointestinal: Gastrointestinal: Reports no additional gastrointestinal complaints <Christiano Ludwig MD - Last Filed: 11/27/24 18:23> FOR[facility]LY [facility] Past Medical History Medical History: Medical History (Updated 11/27/24 @ 18:22 by Christiano Ludwig MD) Back pain Restless leg syndrome GERD (gastroesophageal reflux disease) Hypersomnia Anxiety and depression Iron deficiency <Carley Cheatham GROOVER AND STRIPER OPERATOR - Last Filed: 11/27/24 15:16> Surgical History Surgical History: Surgical History (Updated 09/06/24 @ 06:12 by Betsey Leggett NP) History of tonsillectomy <Carley Sorenson February, - Last Filed: 11/27/24 15:16> Social History Social History: Social History (Updated 09/06/24 @ 06:13 by Betsey Leggett NP) Smoking status: Never smoker Alcohol intake: unknown Substance use: unknown Gender identity (if verbalized by the patient): Female <Carley Cheatham GROOVER AND STRIPER OPERATOR - Last Filed: 11/27/24 15:16> Exam Narrative: GENERAL: Well-appearing, well-nourished, and in no acute distress. HEAD: Normocephalic, atraumatic. ENT: Mucous membranes moist. NECK: Supple. CHEST: Clear to auscultation. No respiratory distress. HEART: Regular rate and rhythm. Normal peripheral pulses. ABDOMEN: Soft, nontender, nondistended. EXTREMITIES: Normal range of motion. No edema. SKIN: Warm, dry, no rash. NEURO: Alert and oriented x3. PSYCH: Normal mood and affect. <Christiano Ludwig MD - Last Filed: 11/27/24 18:23> Course Course Emergency Course: No tachycardia while on the monitor in the room. Blood pressure normal. No dyspnea. Labs and imaging reassuring as was the EKG. Appropriate for discharge. <Christiano Ludwig MD - Last Filed: 11/27/24 18:23> Vital Signs Vital signs: Vital Signs Temperature 97.9 F 11/27/24 14:06 Pulse Rate 120 H 11/27/24 14:06 Respiratory Rate 16 11/27/24 14:06 Blood Pressure 139/83 11/27/24 14:06 Pulse Oximetry 100 11/27/24 14:06 Oxygen Delivery Room Air 11/27/24 14:06 Temperature 97.9 F 11/27/24 14:06 Pulse Rate 93 11/27/24 17:20 Respiratory Rate 13 11/27/24 17:20 Blood Pressure 152/86 H 11/27/24 17:20 Pulse Oximetry 100 11/27/24 17:20 Oxygen Delivery Room Air 11/27/24 14:06 <Carley Cheatham APRN - Last Filed: 11/27/24 15:16> Vital Signs Temperature 97.9 F 11/27/24 14:06 Pulse Rate 120 H 11/27/24 14:06 Respiratory Rate 16 11/27/24 14:06 Blood Pressure 139/83 11/27/24 14:06 Pulse Oximetry 100 11/27/24 14:06 Oxygen Delivery Room Air 11/27/24 14:06 Temperature 97.9 F 11/27/24 14:06 Pulse Rate 93 11/27/24 17:20 Respiratory Rate 13 11/27/24 17:20 Blood Pressure 152/86 H 11/27/24 17:20 Pulse Oximetry 100 02/13/25 17:20 Oxygen Delivery Room Air 11/27/24 14:06 <Christiano Ludwig MD - Last Filed: 11/27/24 18:23> Medical Decision Making Vital Signs Vital Signs: Vital Signs Temperature 97.9 F 11/27/24 14:06 Pulse Rate 120 H 11/27/24 14:06 Respiratory Rate 16 11/27/24 14:06 Blood Pressure 139/83 11/27/24 14:06 Pulse Oximetry 100 11/27/24 14:06 Oxygen Delivery Room Air 11/27/24 14:06 Temperature 97.9 F 11/27/24 14:06 Pulse Rate 93 11/27/24 17:20 Respiratory Rate 13 11/27/24 17:20 Blood Pressure 152/86 H 11/27/24 17:20 Pulse Oximetry 100 11/27/24 17:20 Oxygen Delivery Room Air 11/27/24 14:06 <Carley Cheatham, GROOVER AND STRIPER OPERATOR - Last Filed: 11/27/24 15:16> Vital Signs Temperature 97.9 F 11/27/24 14:06 Pulse Rate 120 H 11/27/24 14:06 Respiratory Rate 16 11/27/24 14:06 Blood Pressure 139/83 11/27/24 14:06 Pulse Oximetry 100 11/27/24 14:06 Oxygen Delivery Room Air 11/27/24 14:06 Temperature 97.9 F 11/27/24 14:06 Pulse Rate 93 11/27/24 17:20 Respiratory Rate 13 11/27/24 17:20 Blood Pressure 152/86 H 11/27/24 17:20 Pulse Oximetry 100 11/27/24 17:20 Oxygen Delivery Room Air 11/27/24 14:06 <Christiano Ludwig MD - Last Filed: 11/27/24 18:23> Lab Data Result diagrams: 11/27/24 14:55 11/27/24 14:55 <Carley Cheatham, GROOVER AND STRIPER OPERATOR - Last Filed: 11/27/24 15:16> Labs: Lab Results 11/27/24 11/27/24 11/27/24 Range/Units 14:54 14:55 17:44 WBC 5.9 (4.5-10.0) K/mm3 RBC 4.79 (4.2-5.4) M/mm3 Hgb 13.5 (12.0-15.0) g/dL Hct 41.2 (37.0-47.0) % MCV 86.0 (80-100) fl MCH 28.2 (26-34) pg MCHC 32.8 (32-36) g/dl RDW 12.6 (11.5-14.5) % Plt Count 367 (150-375) k/mm3 MPV 8.8 (7.4-10.4) fl Immature Gran % (Auto) 0.2 (0-0.5) % Neut % (Auto) 55.5 (45.5-73.1) % Lymph % (Auto) 39.1 (18.3-44.2) % Bowie % (Auto) 4.0 (2.6-8.5) % Eos % (Auto) 0.7 (0-4.4) % Baso % (Auto) 0.5 (0.2-1.2) % Lymph # (Auto) 2.32 (0.9-3.2) K/mm3 Bowie # (Auto) 0.2 (0.1-0.6) K/mm3 Eos # (Auto) 0.0 (0-0.3) K/mm3 Baso # (Auto) 0.0 (0.0-0.1) K/mm3 Abs Immat Gran (auto) 0.01 (0.00-0.031) K/mm3 Absolute Neuts (auto) 3.3 (1.3-6.7) K/mm3 Absolute Nucleated RBC 0.000 (0.0-0.012) K/mm3 Nucleated RBC % 0.0 (0.0-0.2) % PT 13.6 (11.1-14.7) Seconds INR 1.0 APTT 33.3 (22.3-36.8) Seconds D-Dimer < 0.27 (<0.48) ug/mL Sodium 139 (137-145) mmol/L Potassium 3.6 (3.4-5.0) mmol/L Chloride 104 (98-107) mmol/L Carbon Dioxide 24 (22-30) mmol/L Anion Gap 11 (4-12) mmol/L BUN 6 L (7-17) mg/dL Creatinine 0.49 L (0.7-1.0) mg/dL Estim Creat Clear Calc 140 ml/min Estimated GFR > 60 (59 - ) Glucose 98 (65-110) mg/dL Calcium 9.8 (8.4-10.2) mg/dL Total Bilirubin 0.5 (0.2-1.3) mg/dL AST 22 (14-36) U/L ALT 24 (6-35) U/L Alkaline Phosphatase 82 (38-126) U/L Troponin I < 0.012 < 0.012 (0.000-0.034) ng/mL Total Protein 8.0 (6.3-8.2) g/dL Albumin 4.7 (3.5-5.1) g/dL Lipase 34 (23-300) U/L <Carley Cheatham, GROOVER AND STRIPER OPERATOR - Last Filed: 11/27/24 15:16> Lab Results 11/27/24 11/27/24 11/27/24 Range/Units 14:54 14:55 17:44 WBC 5.9 (4.5-10.0) K/mm3 RBC 4.79 (4.2-5.4) M/mm3 Hgb 13.5 (12.0-15.0) g/dL Hct 41.2 (37.0-47.0) % MCV 86.0 (80-100) fl MCH 28.2 (26-34) pg MCHC 32.8 (32-36) g/dl RDW 12.6 (11.5-14.5) % Plt Count 367 (150-375) k/mm3 MPV 8.8 (7.4-10.4) fl Immature Gran % (Auto) 0.2 (0-0.5) % Neut % (Auto) 55.5 (45.5-73.1) % Lymph % (Auto) 39.1 (18.3-44.2) % Bowie % (Auto) 4.0 (2.6-8.5) % Eos % (Auto) 0.7 (0-4.4) % Baso % (Auto) 0.5 (0.2-1.2) % Lymph # (Auto) 2.32 (0.9-3.2) K/mm3 Bowie # (Auto) 0.2 (0.1-0.6) K/mm3 Eos # (Auto) 0.0 (0-0.3) K/mm3 Baso # (Auto) 0.0 (0.0-0.1) K/mm3 Abs Immat Gran (auto) 0.01 (0.00-0.031) K/mm3 Absolute Neuts (auto) 3.3 (1.3-6.7) K/mm3 Absolute Nucleated RBC 0.000 (0.0-0.012) K/mm3 Nucleated RBC % 0.0 (0.0-0.2) % PT 13.6 (11.1-14.7) Seconds INR 1.0 APTT 33.3 (22.3-36.8) Seconds D-Dimer < 0.27 (<0.48) ug/mL Sodium 139 (137-145) mmol/L Potassium 3.6 (3.4-5.0) mmol/L Chloride 104 (98-107) mmol/L Carbon Dioxide 24 (22-30) mmol/L Anion Gap 11 (4-12) mmol/L BUN 6 L (7-17) mg/dL Creatinine 0.49 L (0.7-1.0) mg/dL Estim Creat Clear Calc 140 ml/min Estimated GFR > 60 (59 - ) Glucose 98 (65-110) mg/dL Calcium 9.8 (8.4-10.2) mg/dL Total Bilirubin 0.5 (0.2-1.3) mg/dL AST 22 (14-36) U/L ALT 24 (6-35) U/L Alkaline Phosphatase 82 (38-126) U/L Troponin I < 0.012 < 0.012 (0.000-0.034) ng/mL Total Protein 8.0 (6.3-8.2) g/dL Albumin 4.7 (3.5-5.1) g/dL Lipase 34 (23-300) U/L <Christiano Ludwig MD - Last Filed: 11/27/24 18:23> Imaging Data Radiologist's impression: ITS Impressions Chest X-Ray 11/27/24 14:23 IMPRESSION: 1. No acute cardiopulmonary disease. <Christiano Ludwig MD - Last Filed: 11/27/24 18:23> ECG Data EKG #1: ECG completion date: 11/27/24 <Christiano Ludwig MD - Last Filed: 11/27/24 18:23> ECG completion time: 01:17 <Christiano Ludwig MD - Last Filed: 11/27/24 18:23> EKG Interpretation: tachycardia (117), sinus rhythm, non-specific ST changes, normal QRS, normal QT and NL axis <Christiano Ludwig MD - Last Filed: 11/27/24 18:23> Discharge Plan Discharge Clinical Impression: Heart palpitations <Carley Sorenson February, GROOVER AND STRIPER OPERATOR - Last Filed: 11/27/24 15:16> Patient Disposition: Home, Self-Care <Carley Sorenson February, GROOVER AND STRIPER OPERATOR - Last Filed: 11/27/24 15:16> Condition: Stable <Carley Sorenson February, GROOVER AND STRIPER OPERATOR - Last Filed: 11/27/24 15:16> Instructions: Heart Palpitations (ED) <Carley Sorenson February, GROOVER AND STRIPER OPERATOR - Last Filed: 11/27/24 15:16> Additional Instructions: Your heart rate appears normal while in the ER. You may need to stop your stimulant medication to help with her symptoms. Return to the ER if you cannot breathe, you cannot keep down food water, have additional concerns. <Carley Sorenson February, GROOVER AND STRIPER OPERATOR - Last Filed: 11/27/24 15:16> Patient Language: Vietnamese <Carley Sorenson February,N - Last Filed: 11/27/24 15:16> Prescriptions: No Action pramipexole 0.5 mg Tablet 0.5 mg PO DAILY Nexplanon 68 mg Implant 1 implant SUBDERMAL ONCE armodafinil See Rx Instructions .ROUTE .COMPLEX Rx Instructions: see RX instructions prednisone 20 mg tablet 20 mg PO BID Qty: 10 0RF Rx Instructions: a.m. and early p.m. take with food azithromycin 250 mg tablet See Rx Instructions .ROUTE .COMPLEX Qty: 6 0RF Rx Instructions: For 250 mg dose pack: take 500 mg today (day 1), then 250 mg for 4 days (days 2-5) recommend take with food <Carley Sorenson February, GROOVER AND STRIPER OPERATOR - Last Filed: 11/27/24 15:16> Follow-up/Referrals: Hunter,Kelly Amanda, GROOVER AND STRIPER OPERATOR [Primary Care Provider] - 1 Week <Carley Sorenson February, GROOVER AND STRIPER OPERATOR - Last Filed: 11/27/24 15:16>
[2024-11-27 15:12] LABS: Prothrombin Time 13.6 Seconds (11.1-14.7)
[2024-11-27 15:13] LABS: Partial Thromboplastin Time 33.3 Seconds (22.3-36.8)
[2024-11-27 15:15] LABS: Alanine Aminotransferase 24 U/L (6-35); Albumin Level 4.7 g/dL (3.5-5.1); Alkaline Phosphatase 82 U/L (38-126); Anion Gap 11 mmol/L (4-12); Aspartate Amino Transferase 22 U/L (14-36); Bilirubin,Total 0.5 mg/dL (0.2-1.3); Blood Urea Nitrogen 6 mg/dL (7-17); Calcium 9.8 mg/dL (8.4-10.2); Carbon Dioxide 24 mmol/L (22-30); Chloride 104 mmol/L (98-107); Estimated CRCL calculation 140 ml/min; Estimated Glomerular Filt Rate > 60; Glucose 98 mg/dL (65-110); Lipase 34 U/L (23-300); Potassium 3.6 mmol/L (3.4-5.0); Sodium 139 mmol/L (137-145)
--- OUTSIDE RECORDS SUMMARY | 2024-11-27 15:21 | XMS_ITS | Clinical Summary ---
Author Organization [facility] Address [address] [place] [id number] Care Team Providers Care Rail Signal Designer Name Role Phone None, Provider MD Primary [...] complete this topic Insurance MEDICAID Care Teams Rail Signal Designer Relationship Specialty Start Date End Date None, Provider, PCP - General UNKNOWN PHYSICIAN SPECIALTY 04/03/23
--- OUTSIDE RECORDS SUMMARY | 2024-11-27 15:22 | XMS_ITS | Patient Health Summary ---
Author Organization [facility] Address [address] [place] [address] Care Team Providers Care Head Automatic Sawyer Name Role Phone Kelly Harrison Primary Care Provider [phone] Note from [facility],non-owned Affiliates and Associated Physician Practices is amultiple site organization consisting of ambulatory clinics and hospital sitesin [place], [place], [place] and [place]. This disclosure is being madepursuant to the Care Everywhere program and may not contain all information available regarding this patient. Last updated 18.[facility] Allergies * Bupropion(Itching) Medications * Be aware [...] * vitamin D, ergocalciferol, (Drisdol) 1.25 MG (24523 UT) capsule Take 1 (one) capsule by [...] 72.6 kg (160 lb) 09/16/2024 2:01 PM COMPLAINT INVESTIGATIONS OFFICER Height 157.5 cm (5' 2 ) 09/16/2024 2:01 PM COMPLAINT INVESTIGATIONS OFFICER Body Mass Index 29.26 09/16/2024 2:01 PM COMPLAINT INVESTIGATIONS OFFICER Procedures * VITAMIN D 25-HYDROXY(Performed 11/21/2024) Performed for Vitamin D deficiency * IRON + TIBC + FERRITIN(Performed 05/22/2024) Performed for Iron deficiency * IRON + TIBC + FERRITIN(Performed 12/06/2023) Performed for Iron deficiency * VITAMIN D 25-HYDROXY(Performed 12/06/2023) * DRUG ABUSE PANEL 10 URINE W CONF(Performed 10/26/2023) * DE POLYSOM 6/>YRS CPAP 4/> PARM(Performed 09/25/2023) Performed for Central sleep apnea, Chronic fatigue, Sleep related hypoxia, Overweight (BMI 25.0-29.9) * DE MULTIPLE SLEEP LATENCY TEST(Performed 09/24/2023) Performed for Central sleep apnea, Chronic fatigue, Sleep related hypoxia, Overweight (BMI 25.0-29.9) * DE GI TRACT CAPSULE ENDOSCOPY(Performed 08/31/2023) Performed for [...] NOTIFICATION(Performed 08/09/2023) Performed for Preoperative examination * DE EGD FLEX TRANSORAL W BX SNGL OR MULT(Performed 08/09/2023) Performed for Iron deficiency anemia, unspecified iron deficiency anemia type * DE COLONOSCOPY, DIAGNOSTIC(Performed 08/09/2023) Performed for Iron deficiency anemia, unspecified iron deficiency anemia type * DE ED EGD FLEX TRANSORAL DX(Performed 08/09/2023) Performed for Iron deficiency anemia, unspecified iron deficiency anemia type * HCG URINE QUALITATIVE - POCT (IP) INTERFACED(Performed 08/09/2023) * DE POLYSOM 6/>YRS CPAP 4/> PARM(Performed 04/23/2023) Performed [...] * VITAMIN D 25-HYDROXY (11/21/2024 2:17 PM COMPLAINT INVESTIGATIONS OFFICER) Only the most recent of9 resultswithin the time period is included. Vitamin D, 25 Hydroxy 32.0 30.0 - 100.0 ng/mL [facility] INSURANCE BILL Comment: Vitamin D deficiency has been defined by the Brewer of Medicine and an Endocrine Society practice guideline as a level of serum 25-OH vitamin D less than 20 ng/mL (1,2). The Endocrine Society went on to further define vitamin D insufficiency as a level between 21 and 29 ng/mL (2). 1. IOM (Brewer of Medicine). 2010. Dietary reference intakes for calcium and D. [place]: The National Academies Press. 2. Kita MF, Paul KAISER, Raven APODACA, et al. Evaluation, treatment, and prevention of vitamin D deficiency: an Endocrine Society clinical practice guideline. JCEM. 2010; 96(7):1911-30. Blood BLOOD SPECIMEN / Unknown 11/21/2024 2:17 PM COMPLAINT INVESTIGATIONS OFFICER 11/21/2024 Narrative [facility] INSURANCE BILL - 11/22/2024 7:08 AM COMPLAINT INVESTIGATIONS OFFICER Performed at: [address] - [address] [phone] Lube Attendant: Danyel Mcmillan PhD, Phone: [phone] Lashell CANSECO-WATCH TECHNICIAN LAB - CH EMISTRY ORDERABLES [facility] INSURANCE BILL [address] [place] [address] * (ABNORMAL) IRON + TIBC + FERRITIN [...] Resulting Agency Comment Lab Testing performed at: [facility] [place] [address] [facility] [phone] Lashell BARTHOLOMEW LAB - CH EMISTRY ORDERABLES Performing Organization Address City/State/[facility] Co de Phone Number [facility] INSURANCE BILL [address] [place] [address] * DRUG ABUSE PANEL 10 URINE W CONF (10/26/2023 1:32 PM COMPLAINT INVESTIGATIONS OFFICER) Amphetamines Screen Urine Negative Cutoff=10 00 ng/mL [...] ng/mL [facility] INSURANCE BILL 10/26/2023 1:32 PM COMPLAINT INVESTIGATIONS OFFICER 10/26/2023 Narrative Resulting Agency Comment Lab Testing performed at: [facility] [place] [address] [place] [phone] Gordy Streeter MD LAB - UR[place] [facility] R[place] ORDERABLES [facility] INSURANCE BILL [address] [place] [address] * DE POLYSOM 6/>YRS CPAP 4/> PARM (09/25/2023 1:15 PM COMPLAINT INVESTIGATIONS OFFICER) Gordy Weaver MD - 09/25/2023 1:15 PM COMPLAINT INVESTIGATIONS OFFICER Gordy Streeter MD 09/27/2023 12:22 PM [facility] Accredited by the [place] Academy of Sleep Medicine [facility], First Floor [address] [place] [address] Telephone : [phone] Medical Records Patient Name: Lucita Valle : 2005 Date of Study: 09/18/2023 Referring Physician: Lahsell Boswell Type of Montage: Respiratory Scoring System: [facility] FULL NIGHT THERAPEUTIC POLYSOMNOGRAM INTERPRETATION (09/18/2023) Procedure: The polysomnogram was performed with a sterile processing technologist in attendance. Frontal, central, and temporal EEG, [...] History: Mr. Lucita Valle, a 18 year oldyie-yhuj-gax female, was referred to the [facility] by Lashell Frias for the evaluation of obstructive sleep apnea (KYLEIGH). Current Outpatient Medications: ascorbic acid (Vitamin C) 500 MG tablet, Take 1 (one) tablet by mouth once daily, Disp: , Rfl: ergocalciferol (Drisdol) 1.25 MG (92349 UT) capsule, Take 1 (one) capsule by [...] respiratory effort-related arousals (RERA). Gordy Streeter MD, [facility], [facility], [facility] Information Security Analyst, [facility] [place] Professor of Internal Medicine Adjunct Field Technical Support Consultant of Neurology Division of Pulmonary, Critical Care, and Sleep Medicine [facility] This note was electronically signed on 09/25/2023. CC: [place]OR[place] Barcenas [address] [place] [address] TOM Perkins Lashell BARTHOLOMEW PROCEDUR E/MINOR SURGICAL ORDERABLES * DE MULTIPLE SLEEP LATENCY TEST (09/24/2023 1:09 PM COMPLAINT INVESTIGATIONS OFFICER) Narrative Gordy Streeter MD - 09/24/2023 1:09 PM COMPLAINT INVESTIGATIONS OFFICER Gordy Streeter MD 09/27/2023 12:21 PM [facility] [place] Accredited by the [place] Academy of Sleep Medicine [facility], First Floor [address] [facility] [place] [address] Telephone : [phone] Medical Records Patient Name: Lucita Valle : 2005 Date of Study: 09/18/2023 Referring Physician: [place] Barcenas [address] [place] [address] Type of Montage: MSLT MULTIPLE SLEEP LATENCY [...] circadian rhythm disorder, etc.). Gordy Streeter MD, [facility], [facility], [facility] Information Security Analyst, [facility] Professor of Internal Medicine Adjunct Field Technical Support Consultant of Neurology Division of Pulmonary, Critical Care, and Sleep Medicine [facility] Lashell A Dettenmeier APNP-WATCH TECHNICIAN PROCEDUR E/MINOR SURGICAL ORDERABLES * RETIC COUNT (08/27/2023 1:54 PM COMPLAINT INVESTIGATIONS OFFICER) Pathologist [facility] Reticulocyte Count 1.3 0.6 - 2.6 % [facility] INSURANCE BILL Blood BLOOD SPECIMEN / Unknown 08/27/2023 1:54 PM COMPLAINT INVESTIGATIONS OFFICER 08/27/2023 Narrative Resulting Agency Comment Lab Testing performed at: [facility] [address] [facility] [phone] Lashell A Dettenmeier APNP-WATCH TECHNICIAN LAB - HE MATOLOGY ORDERABLES [facility] INSURANCE BILL [address] [place] [address] * ECHO COMPLETE (08/22/2023 8:28 AM COMPLAINT INVESTIGATIONS OFFICER) Pathologist [facility] BSA 1.2759527 [id number] m2 [facility] CV FUJI PACS LVOT stroke [...] FUJI PACS RVIDd 2.7 cm [facility] CV [facility] I PACS RVOT VTI 20.375 cm [facility] CV [facility] I PACS TV S' harvey 12.909 cm/s [facility] CV [facility] I PACS RVOT pk harvey 0.96 m/s SSM CV F UJI PACS AV mn grad 4 mmHg SSM CV FU JI PACS AV pk grad 7 mmHg SSM CV FU JI PACS AV mn harvey 0.91 m/s [facility] CV [facility] I PACS AV pk harvey 1.32 m/s [facility] CV [facility] I PACS AV VTI 26.621 cm [facility] CV [facility] I PACS LVOT pk grad 5.246 mmHg [facility] LVOT VTI 22.418 cm [facility] CV [facility] I PACS AV area cont VTI 2.2 cm2 [facility] AV area pk harvey 2.2 cm2 [facility] C [facility] PACS AV Doppler harvey index pk harvey 0.87 [facility] Dimensionless Index 0.842 SSM CV FUJI PACS TR VTI 65.3 cm SSM CV [facility] I PACS TR pk grad 30 mmHg SSM CV FU JI PACS RVOT mn grad 2 mmHg SSM CV FUJI PACS RVOT pk grad 3 mmHg SSM CV FUJI PACS PV mn grad 2 mmHg SSM CV FU JI PACS PV pk harvey 109.534 cm/s SSM CV [facility] I PACS PV pk grad 3 mmHg SSM CV FU JI PACS PV VTI 23.004 cm SSM CV [facility] I PACS PV mn harvey 64.093 cm/s SSM CV [facility] I PACS LVIDs index 1.54 1.3 - 2.1 cm/m2 SSM CV FUJI PACS LV LVIDd index 2.49 2.3 - 3.1 cm/m2 SSM CV FUJI PACS LV est EF 65 % SSM CV FUJ I PACS Anatomical Region Laterality Modality Ultrasound Narrative 08/22/2023 8:47 AM COMPLAINT INVESTIGATIONS OFFICER Left Ventricle: Left ventricle size is normal. [...] ultrasound enhancing agent used. Procedure Note Lucy Mcclellnad MD - 08/22/2023 Left Ventricle: Left ventricle size is normal. Normal wall thickness.Ventricular mass is normal. Normal systolic function with a visuallyestimated EF of 65%. Normal wall motion. Normal diastolic function. Lashell Boswell APNP-WATCH TECHNICIAN ECHO CUP ID * COMPLETE PFT W/WO BRONCHODILATOR (08/20/2023 4:53 PM COMPLAINT INVESTIGATIONS OFFICER) Impressions [facility] - 08/20/2023 4:53 PM COMPLAINT INVESTIGATIONS OFFICER [facility] DEPARTMENT OF PULMONARY, CRITICAL CARE, AND [...] Pulmonary, Critical Care, and Sleep Medicine [facility] ATTENDING PHYSICIAN ATTESTATION/NILA PEARSON M.D.: I have personally reviewed and interpreted the above test and I have made the necessary changes if needed to the above interpretation. Narrative [facility] - 08/20/2023 4:53 PM COMPLAINT INVESTIGATIONS OFFICER Da Barnett DO 08/21/2023 10:42 AM Lashell A Andreia APNP-WATCH TECHNICIAN RESPIRAT ORY THERAPY ORDERABLES Performing Organization Address City/State/[facility] Co de Phone Number [facility] [address] [place] [address], [facility] * PATHOLOGY TISSUE EXAM (STL) (08/09/2023 12:10 PM CDT) Only the most recent of2 resultswithin the time period is included. Case Report Surgical Pathology Report Case: [id number] Authorizing Provider: Michele Rivera MD Collected: 08/09/2023 12:10 PM Ordering Location: [facility] Received: 08/09/2023 01:55 PM Pathologist: Kavitha Amaro MD Specimen: Small Bowel Biopsy 08/10/2023 1:30 PM CDT [facility] Final Diagnosis Small intestine, biopsy - Duodenal mucosa with no histopathologic abnormality (preserved villous architecture, no increase in intraepithelial lymphocytes) 08/10/2023 1:30 PM CDT [facility] Clinical History The patient is a 18-year-old woman with anemia. Endoscopic procedure/findings: normal examined duodenum, biopsied. 08/10/2023 1:30 PM [facility] Gross Description The specimen is identified with patient's name and date of . Received in formalin, specimen A , small bowel biopsy are 2 pink-richardson mucosal tissues, 0.2 x 0.2 x 0.2 cm and 0.3 x 0.2 x 0.2 cm. Entirely submitted in cassette A1. LJ 08/10/2023 1:30 PM [facility] Microscopic Description Microscopic examination substantiates the above diagnosis. Histologic sections show a focus in the lamina propria of disrupted cells. Immunostains (controls adequate) show scattered CD68+ histiocytes in the lamina propria, not forming aggregates. A pankeratin stain shows no infiltrative cells. The morphologic and immunophenotypic features support the diagnosis. 08/10/2023 1:30 PM [facility] Pathologist Location at [facility] 08/10/2023 1:30 PM [facility] Disclaimer All histochemical and/or immunohistochemical results are interpreted with controls that demonstrate appropriate staining reactions before reporting results. Note on use of immunocytochemistry reagents: This test was developed and its performance characteristic determined by [facility], Department of Laboratory Medicine. It has not [...] be interpreted with caution. 08/10/2023 1:30 PM [facility] Embedded Images 08/10/2023 1:30 PM [facility] Pathology/Cytology ENTEROTOMY OF SMALL BOWEL FOR BIOPSY / Unknown 08/09/2023 12:10 PM CDT 08/09/2023 1:55 PM CDT Comment:Pre-op diagnosis: Iron deficiency anemia, unspecified iron deficiency anemia type [D50.9] Michele Rivera MD LAB - PATHOLOGY/CYTO LOGY ORDERABLES [facility] [address] [place] [address] * ENDOSCOPY, COLON, SCREENING (08/09/2023 11:44 AM CDT) Report Endoscopy POC _ Patient Name: Lucita Valle Procedure Date: 08/09/2023 11:44 AM Date of : 2005 Admit Type: Outpatient Age: 18 Gender: Female Ethnicity: Not or Race: White Attending MD: Michele Rivera MD, [id number] _ Procedure: Colonoscopy Indications: Iron deficiency anemia [...] and f/u Procedure Code(s): --- Professional --- 80501, Colonoscopy, flexible; diagnostic, including collection of specimen(s) by brushing or washing, when performed (separate procedure) --- Technical --- 46749, Colonoscopy, flexible; diagnostic, including collection of specimen(s) by brushing or washing, when performed (separate procedure) Diagnosis Code(s): --- Professional --- D50.9, Iron deficiency anemia, unspecified --- Technical --- D50.9, Iron deficiency anemia, unspecified CPT copyright 2020 [employer]. All rights reserved. The codes documented in this report are preliminary and upon nuclear weapons custodian review may be revised to meet current compliance requirements. Michele Rivera MD 08/09/2023 12:25:15 PM This report has been signed electronically. Number of Addenda: 0 Note Initiated On: 08/09/2023 11:44 AM [facility] 08/09/2023 11:4 4 AM CDT Narrative Procedure Note Michele Rivera MD - 08/09/2023 12:26 PM CDT Normal colon sb capsule and OV D/w lucita Michele Rivera MD GI PROCEDURE ORDERAB LES [facility] * EGD (08/09/2023 11:43 AM CDT) Report Endoscopy POC _ Patient Name: Lucita Colindreswin Procedure Date: 08/09/2023 11:43 AM Date of : 2005 Admit Type: Outpatient Age: 18 Gender: Female Ethnicity: Not or Race: White Attending MD: Michele Rivera MD, [id number] _ Procedure: Upper GI endoscopy Indications: Iron [...] to colonoscopy Procedure Code(s): --- Professional --- 68782, Esophagogastroduo denoscopy, flexible, transoral; with biopsy, single or multiple --- Technical --- 04939, Esophagogastroduo denoscopy, flexible, transoral; with biopsy, single or multiple Diagnosis Code(s): --- Professional --- D50.9, Iron deficiency anemia, unspecified --- Technical --- D50.9, Iron deficiency anemia, unspecified CPT copyright 2020 [employer]. All rights reserved. The codes documented in this report are preliminary and upon nuclear weapons custodian review may be revised to meet current compliance requirements. Michele Rivera MD 08/09/2023 12:08:29 PM This report has been signed electronically. Number of Addenda: 0 Note Initiated On: 08/09/2023 11:43 AM [facility] 08/09/2023 11:4 3 AM CDT Narrative Procedure Note Michele Rivera MD - 08/09/2023 12:09 PM CDT Normal EGD s/p duodenal bx Await path Proceed to colon Michele Rivera MD GI PROCEDURE ORDERAB LES [facility] * HCG URINE QUAL POCT NOTIFICATION (08/09/2023 11:01 AM CDT) Comment Notification Label Only - See Separate Report 08/09/2023 11:01 AM CDT [facility] Urine URINE / Unknown 9:58 AM CDT Michele Rivera MD LAB - URINALYSIS ORD ERABLES Performing Organization Address [facility] Co de Phone Number [facility] [address] [place] [address] * HCG URINE QUALITATIVE - POCT (IP) INTERFACED (08/09/2023 10:00 AM CDT) HCG Qual Urine Negative Negative 08/09/2023 10:11 AM CDT [facility] Urine URINE / Unknown 08/09/2023 1 0:00 AM CDT 08/09/2023 10:11 AM CDT Michele Rivera MD LAB - POINT OF CARE ORDERABLES Performing Organization Address City/[facility] Co de Phone Number [facility] [address] [place] [address] * DE POLYSOM 6/>YRS CPAP 4/> PARM (04/23/2023 4:56 PM CDT) Narrative Gordy Streeter MD - 04/23/2023 4:56 PM CDT Gordy Streeter MD 04/23/2023 4:59 PM [facility] Accredited by the [employer] Sleep Medicine [facility], First Floor [address] [place] [address] Telephone : [phone] Medical Records Patient Name: Lucita Valle : 2005 Date of Study: 04/19/2023 Referring Physician: TOM Perkins Type of Montage: Respiratory Scoring System: [facility] SPLIT NIGHT POLYSOMNOGRAM INTERPRETATION 04/19/2023 Procedure: The polysomnogram was performed with a sterile processing technologist in attendance. Frontal, central, and temporal EEG, [...] Disp: , Rfl: ergocalciferol (Drisdol) 1.25 MG (00003 UT) capsule, Take 1 (one) capsule by [...] consider adaptive support Servoventilation. Gordy Streeter MD, [facility], [facility], [facility] Information Security Analyst, [facility] Physician [facility] Professor of Internal Medicine Adjunct Field Technical Support Consultant of Neurology Division of Pulmonary, Critical Care, and Sleep Medicine [facility] This note was electronically signed on 04/23/2023. Lashell CANSECO-WATCH TECHNICIAN PROCEDUR E/MINOR SURGICAL ORDERABLES * LAB RESULTS ORDER (04/04/2023) Only the most recent of3 resultswithin the time period is included. 04/04/2023 Narrative 04/04/2023 Ordered by an unspecified provider. Scanned Document LAB - THERAPEUTIC DR UG MONITORING ORDERABLES * METHYLMALONIC ACID BLOOD (03/06/2023 4:00 PM CDT) Methylmalonic Acid 136 0 - 378 nmol/L [facility] INSURANCE BILL Blood BLOOD SPECIMEN / Unknown 03/06/2023 4:00 PM CDT 08/27/2023 Narrative [facility] - 09/01/2023 12:09 PM COMPLAINT INVESTIGATIONS OFFICER Test(s) 325786-Zbrqsqwezhczg Acid, Serum was developed and its performance characteristics determined by [employer]. It has not been cleared or approved by the Food and Drug Administration. Resulting Agency Comment Lab Testing performed at: [facility] [address] [phone] Lashell CANSECO-WATCH TECHNICIAN LAB - CH EMISTRY ORDERABLES [facility] INSURANCE BILL [address] [place] [address] * FOLATE (03/06/2023 4:00 PM CDT) Folate 12.2 >3.0 ng/mL [facility] INSURANCE BILL Comment: A serum folate concentration of less than 3.1 ng/mL is considered to represent clinical deficiency. Blood BLOOD SPECIMEN / Unknown 03/06/2023 4:00 PM CDT 08/27/2023 Narrative Resulting Agency Comment Lab Testing performed at: [facility] [address] [facility] [phone] Lashell A Dettenmeier APNP-WATCH TECHNICIAN LAB - CH EMISTRY ORDERABLES [facility] INSURANCE BILL [address] [place] [address] * VITAMIN B12 (03/06/2023 4:00 PM CDT) Pathologist [facility] Vitamin B12 349 232 - 1,245 pg/mL [facility] INSURANCE BILL Blood BLOOD SPECIMEN / Unknown 03/06/2023 4:00 PM CDT 08/27/2023 Narrative Resulting Agency Comment Lab Testing performed at: [address] [phone] Lashell A Dettenmeier APNP-WATCH TECHNICIAN LAB - CH EMISTRY ORDERABLES Performing Organization Address [facility] Co de Phone Number [facility] INSURANCE BILL [address] [place] [address] * TSH (03/06/2023 4:00 PM CDT) Only the most recent of2 resultswithin the time period is included. Pathologist [facility] TSH 1.580 0.450 - 4.500 uIU/mL [facility] INSURANCE BILL Blood BLOOD SPECIMEN / Unknown 03/06/2023 4:00 PM CDT 08/27/2023 Narrative Resulting Agency Comment Lab Testing performed at: [address] [phone] Lashell A Dettenmeier AP-WATCH TECHNICIAN LAB - CH EMISTRY ORDERABLES Performing Organization Address City/[facility]/ZIP Co de Phone Number [facility] INSURANCE BILL [address] [place] [address] * (ABNORMAL) HERPES SIMPLEX 1+2 PCR LESION (05/27/2022 4:22 PM CDT) Pathologist [facility] Herpes Simplex Virus 1 PCR Lesion Detected(A) Not detected 05/28/2022 8:02 AM CDT [facility] Herpes Simplex Virus 2 PCR Lesion Not detected Not detected 05/28/2022 8:02 AM CDT [facility] Microbiology TISSUE SPECIMEN FROM GENITAL SYSTEM / Unknown Collection / Unknown 05/27/2022 4:22 PM CDT 05/27/2022 4:27 PM CDT Tori Treadwell MD LAB - MICROBIOLOGY O PRIYA Performing Organization Address [facility]/ZIP Co de Phone Number [facility] [address] [place] [address], [facility] [phone] * CHLAMYDIA + GC AMPLIFIED PROBE (STL) (05/27/2022 4:08 PM CDT) Pathologist [facility] Chlamydia Amplified Probe Negative Negative 05/28/2022 6:05 AM CDT [facility] GC Amplified Probe Negative Negative 05/28/2022 6:05 AM CDT [facility] URINE / Unknown Collection / Unknown 05/27/2022 4:08 PM CDT 05/27/2022 4:08 PM CDT Narrative [facility] - 05/28/2022 6:05 AM CDT Results based on detection/no detection of ribosomal RNA by amplified method. Tori Treadwell MD LAB - MICROBIOLOGY O PRIYA Performing Organization Address [facility] Co de Phone Number [facility] [address] [place] [address], [facility] [phone] * SYPHILIS ANTIBODY CASCADING REFLEX (05/27/2022 4:02 PM CDT) Pathologist [facility] Treponema pallidum Antibody Non-react anju Non-react anju 05/27/2022 4:55 PM CDT [facility] Comment: No Laboratory evidence of syphilis infection. Note: Circulating antibodies may be low or undetectable in early infection. If recent exposure is suspected, re-draw sample in 2-4 weeks and repeat testing. Blood BLOOD SPECIMEN / Unknown Venipuncture / Unknown 05/27/2022 4:02 PM CDT 05/27/2022 4:08 PM CDT Tori Treadwell MD LAB - SEROLOGY ORDER [facility] [address] [place] [address], [facility] [phone] * HIV-1 HIV-2 ANTIBODY + HIV P24 AG PANEL (05/27/2022 4:02 PM CDT) HIV Antigen/Antibod y 1 & 2 Non-reacti ve Non-react anju 05/27/2022 4:55 PM CDT [facility] Comment:No Laboratory eviden ce of HIV infection. Blood BLOOD SPECIMEN / Unknown Venipuncture / Unknown 05/27/2022 4:02 PM CDT 05/27/2022 4:08 PM CDT Tori Treadwell MD LAB - CHEMISTRY ORDE SANTIAGO Performing Organization Address [facility]/ZIP Co de Phone Number [address] [address], [facility] [phone] * (ABNORMAL) URINALYSIS W/MICROSCOPIC NO CULTURE (05/27/2022 3:55 PM CDT) Only the most recent of2 resultswithin the time period is included. Color UA Yellow Straw, Yellow 05/27/2022 7:12 PM CDT [facility] Clarity UA Cloudy(A) Clear 05/27/2022 7:12 PM CDT [facility] Specific [place] UA 1.017 1.005 - 1.030 05/27/2022 7:12 PM CDT [facility] pH UA 7.0 5.0 - 8.0 pH 05/27/2022 7:12 PM CDT [facility] Protein UA 1+(A) Negative 05/27/2022 7:12 PM CDT [facility] Glucose UA Negative Negative 05/27/2022 7:12 PM CDT [facility] Ketone UA Negative Negative 05/27/2022 7:12 PM CDT [facility] Bilirubin UA Negative Negative 05/27/2022 7:12 PM CDT [facility] Blood UA 3+(A) Negative 05/27/2022 7:12 PM CDT [facility] Nitrite UA Negative Negative 05/27/2022 7:12 PM CDT [facility] Leukocyte Esterase 3+(A) Negative 05/27/2022 7:12 PM CDT [facility] Urobilinogen UA Negative Negative mg/dL 05/27/2022 7:12 PM CDT [facility] RBC UA 11-20(A) None Seen, 0-2, 3-5 /HPF 05/27/2022 7:12 PM CDT [facility] WBC UA >100(A) None Seen, 0-5 /HPF 05/27/2022 7:12 PM CDT [facility] WBC Clumps Many(A) None /HPF 05/27/2022 7:12 PM CDT [facility] Bacteria UA Trace(A) None /HPF 05/27/2022 7:12 PM T [facility] Squamous Epithelial Cells UA >20(A) None Seen, 0-2, 3-5 /HPF 05/27/2022 7:12 PM CDT [facility] Mucus UA 2+ /LPF 05/27/2022 7:12 PM CDT [facility] Urine URINE SPECIMEN OBTAINED BY CLEAN CATCH PROCEDURE / Unknown Collection / Unknown 05/27/2022 3:55 PM CDT 05/27/2022 7:05 PM CDT Narrative [facility] - 05/27/2022 7:12 PM CDT Tori Treadwell MD LAB - URINALYSIS ORD ERABLES [address] [address], [facility] [phone] * HCG URINE QUALITATIVE (05/27/2022 3:55 PM CDT) Test Urine Negative Negative 05/27/2022 4:28 PM CDT [facility] Urine URINE / Unknown Collection / Unknown 05/27/2022 3:55 PM CDT 05/27/2022 4:08 PM CDT Tori Treadwell MD LAB - URINALYSIS ORD ERABLES [address] [place] [address], [facility] [phone] * CULTURE URINE (05/27/2022 3:55 PM CDT) Only the most recent of4 resultswithin the time period is included. Culture Urine >100,000 CFU/mL urogenital paul 05/29/2022 10:01 AM CDT [facility] Urine URINE SPECIMEN OBTAINED BY CLEAN CATCH PROCEDURE / Unknown Collection / Unknown 05/27/2022 3:55 PM CDT 05/27/2022 4:08 PM CDT Tori Treadwell MD LAB - MICROBIOLOGY O RDERABLES Performing Organization Address City/[facility]/ZIP Co de Phone Number [facility] [address] [place] [address], [facility] [phone] * UROFLOWMETRY (11/16/2021 1:36 AM COMPLAINT INVESTIGATIONS OFFICER) Narrative 11/16/2021 1:36 AM COMPLAINT INVESTIGATIONS OFFICER Ordered by an unspecified provider. Scanned Document PROCEDURE ORDERAB LES * VITAMIN D 1,25 DIHYDROXY (09/21/2021 3:37 PM COMPLAINT INVESTIGATIONS OFFICER) Vitamin D, 1,25 Dihydroxy 55.2 19.9 - 79.3 pg/mL 09/25/2021 1:16 AM COMPLAINT INVESTIGATIONS OFFICER [facility] ([facility]) Comment: INTERPRETIVE INFORMATION: Vitamin D, 1,25-Dihydroxy This test is primarily indicated during patient evaluation for hypercalcemia and renal failure. A normal result does not rule out Vitamin D deficiency. The recommended test for diagnosing Vitamin D deficiency is Vitamin D 25-hydroxy. Performed By: [facility] [address] [place] [address] Order Entry: Victoria Haley MD Blood BLOOD SPECIMEN / Unknown Lab Venipuncture / Unknown 09/21/2021 3:37 PM COMPLAINT INVESTIGATIONS OFFICER 09/21/2021 4:27 PM COMPLAINT INVESTIGATIONS OFFICER Lorna Haley SUPERINTENDENT LOCAL-WATCH TECHNICIAN LAB - CHEMISTR Y ORDERABLES Performing Organization Address City/[facility]/ZIP Co de Phone Number [facility] ([facility]) [address] [place] [address], [facility] * CBC W/O DIFFERENTIAL (09/21/2021 3:37 PM COMPLAINT INVESTIGATIONS OFFICER) WBC 5.8 4.5 - 11.0 10 3/uL 09/21/2021 4:35 PM [facility] RBC 4.54 4.10 - 5.10 10 6/uL 09/21/2021 4:35 PM [facility] Hemoglobin 12.2 12.0 - 16.0 g/dL 09/21/2021 4:35 PM [facility] Hematocrit 38.8 36.0 - 47.0 % 09/21/2021 4:35 PM [facility] MCV 85.5 78.0 - 98.0 fL 09/21/2021 4:35 PM [facility] MCH 26.9 25.0 - 35.0 pg 09/21/2021 4:35 PM [facility] MCHC 31.4 31.0 - 37.0 g/dL 09/21/2021 4:35 PM [facility] Platelet Count 295 100 - 400 10 3/uL 09/21/2021 4:35 PM [facility] RDW-SD 41.9 36.0 - 50.0 fL 09/21/2021 4:35 PM [facility] RDW-CV 13.3 11.5 - 14.0 % 09/21/2021 4:35 PM [facility] MPV 9.4 6.0 - 9.5 fL 09/21/2021 4:35 PM [facility] nRBC Absolute 0.00 0 10 3/uL 09/21/2021 4:35 PM [facility] nRBC Auto 0.0 0 /100 WBC 09/21/2021 4:35 PM [facility] Blood BLOOD SPECIMEN / Unknown Lab Venipuncture / Unknown 09/21/2021 3:37 PM COMPLAINT INVESTIGATIONS OFFICER 09/21/2021 4:28 PM COMPLAINT INVESTIGATIONS OFFICER Lorna Haley SUPERINTENDENT LOCAL-WATCH TECHNICIAN LAB - HEMATOLO GY ORDERABLES Performing Organization Address City/State/[facility] Co de Phone Number [facility] [address] [place] [phone] [phone] * (ABNORMAL) COMPREHENSIVE METABOLIC PANEL (09/21/2021 3:37 PM COMPLAINT INVESTIGATIONS OFFICER) Only the most recent of3 resultswithin the time period is included. BUN 6 5 - 19 mg/dL 09/21/2021 4:54 PM [facility] Creatinine 0.54(L) 0.56 - 0.96 mg/dL 09/21/2021 4:54 PM [facility] Sodium 137 136 - 145 mmol/L 09/21/2021 4:54 PM [facility] Potassium 3.1(L) 3.5 - 5.1 mmol/L 09/21/2021 4:54 PM [facility] Chloride 105 98 - 107 mmol/L 09/21/2021 4:54 PM [facility] CO2 26 20 - 28 mmol/L 09/21/2021 4:54 PM [facility] Glucose 77 70 - 115 mg/dL 09/21/2021 4:54 PM [facility] Calcium 9.0 8.4 - 10.2 mg/dL 09/21/2021 4:54 PM [facility] Protein Total 7.0 6.0 - 8.3 g/dL 09/21/2021 4:54 PM [facility] Albumin 3.9 3.4 - 5.0 g/dL 09/21/2021 4:54 PM [facility] Bilirubin Total 0.5 0.3 - 1.2 mg/dL 09/21/2021 4:54 PM [facility] Alkaline Phosphatase 73(L) 100 - 390 U/L 09/21/2021 4:54 PM [facility] ALT 16 5 - 55 U/L 09/21/2021 4:54 PM [facility] AST 16 3 - 35 U/L 09/21/2021 4:54 PM [facility] Anion Gap 9 8 - 18 09/21/2021 4:54 PM [facility] BUN/Creatinine Ratio 11 7 - 23 09/21/2021 4:54 PM [facility] Osmolality Calculated 280 270 - 300 mOsm/kg 09/21/2021 4:54 PM [facility] Blood BLOOD SPECIMEN / Unknown Lab Venipuncture / Unknown 09/21/2021 3:37 PM COMPLAINT INVESTIGATIONS OFFICER 09/21/2021 4:28 PM COMPLAINT INVESTIGATIONS OFFICER Lorna SANTOS LAB - CHEMISTR Y ORDERABLES Performing Organization Address City/[facility]/ZIP Co de Phone Number [address] [address], [facility] [phone] * FERRITIN (09/21/2021 3:37 PM COMPLAINT INVESTIGATIONS OFFICER) Only the most recent of12 resultswithin the time period is included. Ferritin 17 13 - 204 ng/mL 09/21/2021 5:08 PM COMPLAINT INVESTIGATIONS OFFICER [facility] Blood BLOOD SPECIMEN / Unknown Lab Venipuncture / Unknown 09/21/2021 3:37 PM COMPLAINT INVESTIGATIONS OFFICER 09/21/2021 4:27 PM COMPLAINT INVESTIGATIONS OFFICER Lorna SANTOS LAB - CHEMISTR Y ORDERABLES Performing Organization Address City/[facility]/ZIP Co de Phone Number [address] [address], [place] [phone] * EMG ACC (09/21/2021 1:35 PM COMPLAINT INVESTIGATIONS OFFICER) Narrative Too Cary MD - 09/21/2021 1:35 PM COMPLAINT INVESTIGATIONS OFFICER Delisa Flynn RN 09/22/2021 9:22 AM History: Dysuria frequency, cystitis, pelvic alejandrina. Has done a few sessions of PFT. Has been seen by MARKETING SYSTEMS ANALYST. Symptoms persist. EMG patches placed: 1 on [...] weeks with an update Lorna A Sudha HARRIS-WATCH TECHNICIAN PROCEDURE O RDERABLES * UROFLOWMETRY ACC (09/21/2021 1:35 PM COMPLAINT INVESTIGATIONS OFFICER) Narrative Too Cary MD - 09/21/2021 1:35 PM COMPLAINT INVESTIGATIONS OFFICER Delisa Flynn RN 09/22/2021 9:22 AM History: Dysuria frequency, cystitis, pelvic alejandrina. Has done a few sessions of PFT. Has been seen by MARKETING SYSTEMS ANALYST. Symptoms persist. EMG patches placed: 1 on [...] weeks with an update Lorna A Sudha ACEVEDON-WATCH TECHNICIAN PROCEDURE O RDERABLES * US BLADDER RESIDUAL ACC (09/21/2021 1:35 PM COMPLAINT INVESTIGATIONS OFFICER) Narrative Too Cary MD - 09/21/2021 1:35 PM COMPLAINT INVESTIGATIONS OFFICER Delisa Flynn RN 09/22/2021 9:22 AM History: Dysuria frequency, cystitis, pelvic alejandrina. Has done a few sessions of PFT. Has been seen by MARKETING SYSTEMS ANALYST. Symptoms persist. EMG patches placed: 1 on [...] weeks with an update Lorna Radha Sudha ACEVEDON-WATCH TECHNICIAN PROCEDURE O RDERABLES * SARS-COV-2 (COVID-19) AG (AMB) POCT (08/09/2021 11:59 AM CDT) SARS-CoV-2 Ag Negative Negative [employer] Lot # [id number] [employer] Expiration Date 12/20/22 [place] GILB[place] Instrument Serial Number [id number] [facility] MELINA GILBERT COVID Internal Control Acceptable Acceptable [facility] MELINA GILBERT Microbiology SPECIMEN FROM NASAL FOSSAE [...] LAB - POINT OF CARE ORDERABLES [facility] [address] [place] [address] [phone] * CALCIUM/CREAT RATIO URINE RANDOM PANEL (10/28/2020 9:48 AM COMPLAINT INVESTIGATIONS OFFICER) Calcium Urine 4.89 mg/dL 10/28/2020 11:10 AM COMPLAINT INVESTIGATIONS OFFICER [facility] Creatinine Urine 288.82 mg/dL 10/28/2020 11:10 AM COMPLAINT INVESTIGATIONS OFFICER [facility] Calcium/Creatin ine Ratio Urine 0.02 10/28/2020 11:10 AM [facility] Urine URINE SPECIMEN OBTAINED BY CLEAN CATCH PROCEDURE / Unknown Collection / Unknown 10/28/2020 9:48 AM COMPLAINT INVESTIGATIONS OFFICER 10/28/2020 10:26 AM COMPLAINT INVESTIGATIONS OFFICER Narrative [facility] - 10/28/2020 11:10 AM COMPLAINT INVESTIGATIONS OFFICER Normal <0.16 Borderline 0.16-0.20 Abnormal >0.20 Lorna Haley SUPERINTENDENT LOCAL-WATCH TECHNICIAN LAB - URINE CH EMISTRY ORDERABLES Performing Organization Address City/[facility]/ZIP Co de Phone Number [facility] [address] [phone] * US KIDNEYS W BLADDER (10/28/2020 8:39 AM COMPLAINT INVESTIGATIONS OFFICER) Anatomical Region Laterality Modality Abdomen Ultrasound 10/28/2020 8:02 AM COMPLAINT INVESTIGATIONS OFFICER Impressions 10/28/2020 9:19 AM COMPLAINT INVESTIGATIONS OFFICER Normal renal ultrasound. Reading Radiologist: Jeff Abreu on 10/28/2020 at 9:19 AM Narrative 10/28/2020 9:19 AM COMPLAINT INVESTIGATIONS OFFICER INDICATION: Dysuria ORDERING PROVIDER: LORNA HALEY COMPARISON: [...] on 10/28/2020 at 9:19 AM Lorna Haley SUPERINTENDENT LOCAL-WATCH TECHNICIAN US ORDERABLES * CULTURE STREP GROUP A (08/26/2020 3:41 PM COMPLAINT INVESTIGATIONS OFFICER) Only the most recent of3 resultswithin the time period is included. Beta-Strep Culture, Group A Only Negative [facility] ACCOUNT BILL Microbiology ENTIRE THROAT (SURFACE REGION OF NECK) / Unknown 08/26/2020 3:41 PM COMPLAINT INVESTIGATIONS OFFICER 08/26/2020 Narrative Resulting Agency Comment Lab Testing performed at: Lab[address] [phone] Kavitha Barker MD LAB - MICROBIOLOGY O PRIYA [facility] ACCOUNT BILL [address] [place] [address] * COVID-19 SARS-COV-2 PCR QUAL ([facility] (08/26/2020 3:40 PM COMPLAINT INVESTIGATIONS OFFICER) [facility] SARS-CoV-2 FLOR Not Detected Not Detected [facility] ACCOUNT BILL Comment: This nucleic acid amplification test was developed and its performance characteristics determined by [employer]. Nucleic acid amplification tests include PCR and [...] NASOPHARYNGEAL STRUCTURE / Unknown 08/26/2020 3:40 PM COMPLAINT INVESTIGATIONS OFFICER 08/26/2020 Narrative Resulting Agency Comment [facility] [address] [place] [id number] Kavitha Barker MD LAB - MICROBIOLOGY O PRIYA Performing Organization Address City/[facility]/ZIP Co de Phone Number [facility] ACCOUNT BILL [address] [place] [address] * STREP A SCREEN - POINT OF CARE (AMB) (08/26/2020 3:20 PM COMPLAINT INVESTIGATIONS OFFICER) Only the most recent of2 resultswithin the time period is included. Pathologist [facility] Strep A Rapid POCT Negative Negative [facility] Strep A Internal Control Present [facility] Other ENTIRE THROAT (SURFACE REGION OF NECK) / Unknown 08/26/2020 3:20 PM COMPLAINT INVESTIGATIONS OFFICER Kavitha Barker MD LAB - POINT OF CARE ORDERABLES [facility] [address] [phone] * XR SPINE ENTIRE 2 OR 3VW [...] anterior compression deformity involving T7, T8, and [id number] bodies. Levoconvex curvature of the thoracolumbar spine [...] pH units Blood UA neg Negative Specific [place] UA POCT 1.015 1.002 - 1.030 Ketone UA neg Negative Bilirubin UA POCT neg Negative Glucose UA neg Negative Urine URINE / Unknown 01/06/2019 3 :07 PM CDT Kavitha Barker MD LAB - POINT OF CARE ORDERABLES * PEDIATRIC DIAGNOSTIC POLYSOMNOGRAM (12/15/2018) Pathologist [facility] Linked Results See Linked Results [facility] 12/15/2018 María Elena Overton APRN-WATCH TECHNICIAN SLEEP CENTER O RDERABLES [facility] * CRP (INFLAMMATORY) (11/27/2018 4:33 PM COMPLAINT INVESTIGATIONS OFFICER) Pathologist [facility] C-Reactive Protein <0.20 <=0.50 mg/dL 11/27/2018 5:32 PM COMPLAINT INVESTIGATIONS OFFICER [facility] Blood BLOOD SPECIMEN / Unknown Lab Venipuncture / Unknown 11/27/2018 4:33 PM COMPLAINT INVESTIGATIONS OFFICER 11/27/2018 4:58 PM COMPLAINT INVESTIGATIONS OFFICER María Elena Marie Tian ACEVEDON-WATCH TECHNICIAN LAB - CHEMISTR Y ORDERABLES [facility] [place] [address] * (ABNORMAL) IRON + TIBC PANEL (11/27/2018 4:33 PM COMPLAINT INVESTIGATIONS OFFICER) TIBC 434 250 - 450 ug/dL 11/29/2018 6:18 AM COMPLAINT INVESTIGATIONS OFFICER [facility] ([facility]) UIBC 377 131 - 425 ug/dL 11/29/2018 6:18 AM COMPLAINT INVESTIGATIONS OFFICER [facility] ([facility]) Iron 57 26 - 169 ug/dL 11/29/2018 6:18 AM COMPLAINT INVESTIGATIONS OFFICER [facility] ([facility]) Iron Saturation 13(L) 15 - 55 % 9 6:18 AM COMPLAINT INVESTIGATIONS OFFICER [facility] ([facility]) Blood BLOOD SPECIMEN / Unknown Lab Venipuncture / Unknown 11/27/2018 4:33 PM COMPLAINT INVESTIGATIONS OFFICER 11/27/2018 4:58 PM COMPLAINT INVESTIGATIONS OFFICER Narrative [facility] ([facility]) - 11/29/2018 6:18 AM COMPLAINT INVESTIGATIONS OFFICER Performed at: 01 - [facility] [id number] Lube Attendant: Danyel Mcmillan PhD, Phone: [phone] María Elena Marie Tian ACEVEDON-WATCH TECHNICIAN LAB - CHEMISTR Y ORDERABLES Performing Organization Address City/[facility]/ZIP Co de Phone Number [facility] ([facility]) [address] [place] [address] * (ABNORMAL) IRON + TRANSFERRIN + TIBC PANEL (08/01/2018 3:02 PM CDT) Iron 58 25 - 156 ug/dL 08/01/2018 4:02 PM CDT [facility] Transferrin 325 180 - 382 mg/dL 08/01/2018 4:02 PM CDT [facility] TIBC Calculated 406(H) 250 - 400 mg/dL 08/01/2018 4:02 PM CDT [facility] Iron Saturation % 14(L) 20 - 50 % 08/01/2018 4:02 PM CDT [facility] Blood BLOOD SPECIMEN / Unknown Lab Venipuncture / Unknown 08/01/2018 3:02 PM CDT 08/01/2018 3:30 PM CDT María Elena Overton [facility] LAB - CHEMISTR Y ORDERABLES Performing Organization Address City/[facility]/ZIP Co de Phone Number [facility] [address] [place] [address] * (ABNORMAL) LIPID PROFILE+GLUCOSE - POINT OF [...] POLYSOMNOGRAM W/MULTIPLE SLEEP LATENCY TEST (04/07/2018) Pathologist [facility] Linked Results See Linked Results SLEEP CENTER 04/07/2018 María Elena Overton [facility] O RDERABLES Performing Organization Address [facility]/ZIP Co de Phone Number [facility]ENTER * CT SINUS NON IV CONTRAST (10/17/2017 12:46 PM COMPLAINT INVESTIGATIONS OFFICER) Anatomical Region Laterality Modality Head Computed Tomogra phy 10/17/2017 1:00 PM COMPLAINT INVESTIGATIONS OFFICER Impressions 10/17/2017 1:15 PM COMPLAINT INVESTIGATIONS OFFICER 1. Moderate mucosal thickening of the left [...] this non-contrast examination. Narrative 10/17/2017 1:15 PM COMPLAINT INVESTIGATIONS OFFICER EXAMINATION: CT of the maxillofacial bones, orbits, [...] * HGB HCT PANEL (10/10/2017 1:33 PM COMPLAINT INVESTIGATIONS OFFICER) Only the most recent of3 resultswithin the time period is included. Hemoglobin 14.3 11.1 - 15.9 g/dL [facility] INSURANCE BILL Hematocrit 42.3 34.0 - 46.6 % [facility] INSURANCE BILL Blood BLOOD SPECIMEN / Unknown 10/10/2017 1:33 PM COMPLAINT INVESTIGATIONS OFFICER 10/10/2017 Narrative Resulting Agency Comment [facility] [address] [facility] [phone] Kavitha Barker MD LAB - HEMATOLOGY ORD ERABLES [facility] INSURANCE BILL [address] [place] [address] * XR KNEE 1 OR 2 VW LEFT (01/28/2017 3:28 PM CDT) Anatomical Region Laterality Modality Lower Extremity Radiographic Elena ging 01/29/2017 7:12 AM CDT Impressions 01/29/2017 7:59 AM CDT No acute fracture or dislocation. Dictated by Boston Soler MD (vice president underwriting) I, Brenna Greene, have personally reviewed the [...] Dictated by Boston Soler MD (vice president underwriting) Brenna Snyder, have personally reviewed the images and I agree with this report. Sandra Armijo MD DIAGNOSTIC IMAGING O RDERABLES * XR FOREARM 2 VW RIGHT (01/28/2017 3:27 PM CDT) Anatomical Region Laterality Modality Upper Extremity Radiographic Elena ging 01/29/2017 7:12 AM CDT Impressions 01/29/2017 7:59 AM CDT No acute fracture or dislocation. Dictated by Boston Soler MD (vice president underwriting) Brenna Snyder, have personally reviewed the images [...] Dictated by Boston Soler MD (vice president underwriting) Brenna Snyder, have personally reviewed the images and I agree with this report. Sandra Armijo MD DIAGNOSTIC IMAGING O RDERABLES * XR TIBIA FIBULA RIGHT 2VW (01/28/2017 3:27 PM CDT) Anatomical Region Laterality Modality Lower Extremity Radiographic Elena ging 01/29/2017 7:12 AM CDT Impressions 01/29/2017 7:59 AM CDT No acute fracture or dislocation. Dictated by Boston Soler MD (vice president underwriting) Brenna Snyder, have personally reviewed the images [...] Dictated by Boston Soler MD (vice president underwriting) I, Brenna Greene, have personally reviewed the [...] CDT 01/03/2017 Narrative Resulting Agency Comment [facility] [address] [facility] [phone] Gigi Bar DO LAB - HEMATOLOG Y ORDERABLES [facility] INSURANCE BILL [address] [place] [place] [address] * T4 FREE (10/10/2016 3:35 PM COMPLAINT INVESTIGATIONS OFFICER) T4 Free 1.21 0.93 - 1.60 ng/dL [facility] INSURANCE BILL Blood BLOOD SPECIMEN / Unknown 10/10/2016 3:35 PM COMPLAINT INVESTIGATIONS OFFICER 10/10/2016 Narrative Resulting Agency Comment [facility] [address] [facility] [phone] Gigi Bar DO LAB - CHEMISTRY ORDERABLES [facility] INSURANCE BILL [address] [place] [address] * PEDIATRIC DIAGNOSTIC POLYSOMNOGRAM (09/30/2016) Linked Results See Linked Results SLEEP CENTER 09/30/2016 Gigi Bar DO SLEEP CENTER OR DERABLES [facility] * URINALYSIS ROUTINE AUTO (11/07/2015 8:02 PM COMPLAINT INVESTIGATIONS OFFICER) Color UA Yellow Straw, Yellow, Dark Yellow 11/07/2015 8:21 PM [facility] Clarity UA Clear 11/07/2015 8:21 PM [facility] Specific [place] UA <=1.005 1.005 - 1.030 11/07/2015 8:21 PM [facility] pH UA 6.0 5.0 - 8.0 pH 11/07/2015 8:21 PM [facility] Protein UA Negative Negative 11/07/2015 8:21 PM [facility] Blood UA Negative Negative 11/07/2015 8:21 PM [facility] Leukocyte UA Negative Negative 11/07/2015 8:21 PM [facility] Nitrite UA Negative Negative 11/07/2015 8:21 PM [facility] Glucose UA Negative Negative 11/07/2015 8:21 PM [facility] Ketone UA Negative Negative 11/07/2015 8:21 PM [facility] Bilirubin UA Negative Negative 11/07/2015 8:21 PM [facility] Urobilinogen UA 0.2 0.1 - 1.0 EU/dL 11/07/2015 8:21 PM [facility] Reducing Substances UA Negative Negative 11/07/2015 8:21 PM [facility] Urine URINE SPECIMEN OBTAINED BY CLEAN CATCH PROCEDURE / Unknown 11/07/2015 8:02 PM COMPLAINT INVESTIGATIONS OFFICER 11/07/2015 8:11 PM COMPLAINT INVESTIGATIONS OFFICER José Miguel Guevara MD LAB - URINALYSIS ORD ERABLES Performing Organization Address City/[facility] Co de Phone Number [facility] [address] [place] [address] * URINALYSIS MICROSCOPIC ONLY (11/07/2015 8:02 PM COMPLAINT INVESTIGATIONS OFFICER) RBC UA 0-2 0-2, 2-5 # /hpf 11/07/2015 9:08 PM [facility] WBC UA 0-2 0-2, 2-5 # /hpf 11/07/2015 9:08 PM [facility] Bacteria UA None Seen None Seen, Trace 11/07/2015 9:08 PM [facility] Epithelial Cell UA 0-2 0-2, 2-5 # /hpf 11/07/2015 9:08 PM [facility] Urine URINE SPECIMEN OBTAINED BY CLEAN CATCH PROCEDURE / Unknown 11/07/2015 8:02 PM COMPLAINT INVESTIGATIONS OFFICER 11/07/2015 8:11 PM COMPLAINT INVESTIGATIONS OFFICER José Miguel Guevara MD LAB - URINALYSIS ORD ERABLES Performing Organization Address City/[facility] Co de Phone Number [facility] [address] [place] [id number] * MONONUCLEOSIS SCREEN (11/07/2015 7:59 PM COMPLAINT INVESTIGATIONS OFFICER) Mononucleosis Screen Negative Negative 11/07/2015 8:30 PM [facility] [facility] Blood BLOOD SPECIMEN / Unknown 11/07/2015 7:59 PM COMPLAINT INVESTIGATIONS OFFICER 11/07/2015 8:11 PM COMPLAINT INVESTIGATIONS OFFICER José Miguel Guevara MD LAB - CHEMISTRY YAMILETH HENDERSON Performing Organization Address [facility] Co de Phone Number [facility] [place] [address] * STREP A SCREEN DIRECT W RFLX STREP A CULTURE (11/07/2015 6:16 PM COMPLAINT INVESTIGATIONS OFFICER) Strep A Rapid Negative Negative 11/07/2015 6:33 PM COMPLAINT INVESTIGATIONS OFFICER [facility] Microbiology ENTIRE THROAT (SURFACE REGION OF NECK) / Unknown 11/07/2015 6:16 PM COMPLAINT INVESTIGATIONS OFFICER 11/07/2015 6:25 PM COMPLAINT INVESTIGATIONS OFFICER Narrative [facility] - 11/07/2015 6:33 PM COMPLAINT INVESTIGATIONS OFFICER Test has reflexed to a Strep A culture. José Miguel Guevara MD LAB - MICROBIOLOGY O PRIYA Performing Organization Address [facility] Co de Phone Number [facility] [address] [place] [phone] * CULTURE AEROBIC (12/07/2014 1:01 PM COMPLAINT INVESTIGATIONS OFFICER) Culture [facility] Comment: CULTURE, AEROBIC BACTERIA MICRO NUMBER: [id number] TEST STATUS: FINAL SPECIMEN SOURCE: TONSIL SPECIMEN QUALITY: ADEQUATE RESULT: No oropharyngeal pathogens recovered. Test Performed at: [facility] [id number] ANABELA DOWNING MD Miscellaneous samples (specimen) SPECIMEN FROM TONSIL / Unknown 12/07/2014 1:01 PM COMPLAINT INVESTIGATIONS OFFICER 12/08/2014 4:12 AM COMPLAINT INVESTIGATIONS OFFICER Kavitha Barker MD LAB - MICROBIOLOGY O PRIYA Performing Organization Address [facility]/ZIP Co de Phone Number [address] [address] * BORDETELLA PERTUSSIS/PARAPERTUSIS PCR (04/12/2012) Other (qualifier value) NASOPHARYNGEAL SWAB / Unknown Rani Alba MD LAB - MICROBIOLOGY O PRIYA Performing Organization Address City/[facility]/ZIP Co de Phone Number NONSSM RESULT SCAN * VIRAL CULTURE RESPIRATORY (04/12/2012) Miscellaneous samples (specimen) NASOPHARYNGEAL SWAB / Unknown Rani Alba MD LAB - MICROBIOLOGY O RDERABLES Performing Organization Address [facility] Co de Phone Number NONSSM RESULT [...] GI PROCEDURE ORDERAB LES Performing Organization Address [facility] de Phone Number [facility] [place] [address] * HELICOBACTER PYLORI UREASE (04/02/2012 9:19 AM CDT) Helicobacter pylori Urease Initial Negative Negative 04/03/2012 3:12 PM CDT [facility] Helicobacter pylori Urease Final Negative Negative 04/03/2012 3:12 PM CDT [facility] Comment:This is an appended report. These results have been appended to a previously preliminary verified report. Miscellaneous samples (specimen) GASTRIC ANTRAL BIOPSY SPECIMEN / Unknown 04/02/2012 9:19 AM CDT 04/02/2012 10:05 AM CDT Fly Palmer MD LAB - MICROBIOLOGY O RDERABLES Performing Organization Address [facility] Co de Phone Number [facility] [address] [place] [address] * TISSUE TRANSGLUTAMINASE AB IGG (04/01/2012 5:30 PM CDT) Tissue Transglutaminase Ab, IgG 3 0 - 19 EU 04/03/2012 2:56 PM CDT [facility] [employer] Comment: INTERPRETIVE INFORMATION: Tissue Transglutaminase Ab, IgG [...] Fraser MD LAB - CHEMISTRY YAMILETH HENDERSON [facility] Organization Address City/State/ZIP Co de Phone Number [facility] [address] [place] [address] * TISSUE TRANSGLUTAMINASE AB IGA (04/01/2012 5:30 PM CDT) Tissue Transglutaminase (tTG) Ab, IgA 4 0 - 19 Units 04/03/2012 12:52 PM CDT [facility] [employer] Comment: INTERPRETIVE INFORMATION: Tissue Transglutaminase (tTG) Antibody, [...] Fraser MD LAB - SEROLOGY ORDER [facility] [address] [place] [address] * IGA BLOOD (04/01/2012 5:30 PM CDT) IgA 77 21 - 282 mg/dL 04/01/2012 7:01 PM CDT [facility] Blood specimen (specimen) BLOOD SPECIMEN / Unknown 04/01/2012 5:30 PM CDT 04/01/2012 5:45 PM CDT Kavitha Woodruff MD LAB - CHEMISTRY O RDERABLES [facility] [address] [place] [address] * XR ABD OBSTR SERIES (03/27/2012 3:39 [...] AGE HAND AND WRIST (11/16/2011 5:53 PM COMPLAINT INVESTIGATIONS OFFICER) Anatomical Region Laterality Modality Upper Extremity, Wrist / Hand Ra diographic Imaging 11/17/2011 8:13 AM COMPLAINT INVESTIGATIONS OFFICER Narrative 11/17/2011 8:13 AM COMPLAINT INVESTIGATIONS OFFICER Bone age: [age] years 10 months Method: [...] T4 (PO REF LAB) (11/09/2011 4:18 PM COMPLAINT INVESTIGATIONS OFFICER) TSH 3.780 0.600 - 4.840 uIU/mL [facility] ACCOUNT BILL T4 Free 1.31 0.90 - 1.67 ng/dL [facility] ACCOUNT BILL BLOOD SPECIMEN / Unknown 11/09/2011 4:18 PM COMPLAINT INVESTIGATIONS OFFICER 11/09/2011 6:31 PM COMPLAINT INVESTIGATIONS OFFICER Narrative Resulting Agency Comment [facility] [address] [id number] Rani Alba MD LAB - CHEMISTRY YAMILETH HENDERSON [facility] Organization Address City/State/ZIP Co de Phone Number [facility] ACCOUNT BILL * HYDROXYPROGESTERONE 17- (11/09/2011 4:18 PM COMPLAINT INVESTIGATIONS OFFICER) 17-Hydroxyproge sterone LCMS 15 0 - 90 ng/dL [facility] ACCOUNT BILL Blood specimen (specimen) BLOOD SPECIMEN / Unknown 11/09/2011 4:18 PM COMPLAINT INVESTIGATIONS OFFICER 11/09/2011 6:31 PM COMPLAINT INVESTIGATIONS OFFICER Narrative Resulting Agency Comment [facility] [address] [id number] Rani Alba MD LAB - CHEMISTRY YAMILETH HENDERSON [facility] ACCOUNT BILL * ESTRADIOL (11/09/2011 4:18 PM COMPLAINT INVESTIGATIONS OFFICER) Estradiol <5.1 pg/mL [facility] ACCOUNT BILL Comment: Adult Female: Follicular phase 12.5 - 166.0 Ovulation phase 85.8 - 498.0 Luteal phase 43.8 - 211.0 Postmenopausal <6.0 - 54.7 1st trimester 215.0 - >4300.0 Girls (1-10 years) 6.0 - 27.0 Ariel ECLIA methodology Blood specimen (specimen) BLOOD SPECIMEN / Unknown 11/09/2011 4:18 PM COMPLAINT INVESTIGATIONS OFFICER 11/09/2011 6:31 PM COMPLAINT INVESTIGATIONS OFFICER Narrative Resulting Agency Comment [facility] [address] [id number] Rani Alba MD LAB - CHEMISTRY YAMILETH HENDERSON [facility] ACCOUNT BILL * FSH + LH PANEL (11/09/2011 4:18 PM COMPLAINT INVESTIGATIONS OFFICER) LH 0.5 mIU/mL [facility] ACCOUNT BILL Comment: [...] BLOOD SPECIMEN / Unknown 11/09/2011 4:18 PM COMPLAINT INVESTIGATIONS OFFICER 11/09/2011 6:31 PM COMPLAINT INVESTIGATIONS OFFICER Narrative Resulting Agency Comment [facility] [address] [facility] [id number] Rani Alba MD LAB - CHEMISTRY YAMILETH HENDERSON [facility] Organization Address City/State/ZIP Co de Phone Number [facility] ACCOUNT BILL * TESTOSTERONE TOTAL (11/09/2011 4:17 PM COMPLAINT INVESTIGATIONS OFFICER) Testosterone 3 ng/dL [facility] ACCOUNT BILL Comment: FEMALE DEYVI STAGE 1 <3 - 6 2 <3 - 10 3 <3 - 24 4 <3 - 27 5 5 - 38 Blood specimen (specimen) BLOOD SPECIMEN / Unknown 11/09/2011 4:17 PM COMPLAINT INVESTIGATIONS OFFICER 11/09/2011 6:31 PM COMPLAINT INVESTIGATIONS OFFICER Narrative Resulting Agency Comment [facility] [place] [address] [facility] [id number] Rani Alba MD LAB - CHEMISTRY YAMILETH HENDERSON [facility] ACCOUNT BILL * GROSS EXAM PATHOLOGY (12/14/2008 9:26 AM COMPLAINT INVESTIGATIONS OFFICER) Only the most recent of2 resultswithin the time period is included. Result CASE NUMBER [id number] [facility] PATH REPORT Comment: ORDERING PHYSICIAN [...] and interpreted by the attending (teaching) pathologist. Implementation Manager ANEUDY ONTIVEROS PATHOLOGIST Clotilde Chen M.D. ELECTRONICALLY PARAG CLOTILDE CHEN MISCELLANEOUS SAMPLES / Unknown 12/14/2008 9:26 AM COMPLAINT INVESTIGATIONS OFFICER 12/14/2008 10:08 AM COMPLAINT INVESTIGATIONS OFFICER Historical Provider LAB - PATHOLOGY/C YTOLOGY ORDERABLES [facility] PATH REPORT Care Teams Head Automatic Sawyer Relationship Specialty Start Date End Date Kelly Harrison [address] [place] [phone] PCP - General 11/07/24
--- OUTSIDE RECORDS SUMMARY | 2024-11-27 15:22 | XMS_ITS | Encounter Summary ---
Author Organization [facility] Address [address] [place] [address] Phone Care Team Providers Care Pbx Installer Name Role Phone Irlanda Del Real SALES SUPPORT CONSULTANT Primary Care Provider + Reason for Visit * Reason Onset Date Comments lab order 05/11/2023 Encounter Details Date Type Department Care Team (Late st Contact Info) Description 05/11/2023 Telephone [facility] Pediatric Rheumatology and Immunology [facility] 2nd [place] [address] [place] [address] Maria Del Carmen Chung lab order Social History Tobacco Use Types Packs/Day Years Used Date Smoking Tobacco: Never Comments No Sex and Gender Information Value Date Recorded Sex Assigned at Not on file Legal Sex Female 12:43 PM BOOK AGENT Gender Identity Female 05/01/2018 12:47 PM CDT Sexual Orientation Not on file documented as of this encounter Plan of Treatment Not on file documented as of this encounter Visit Diagnoses Not on filedocumented in this encounter Care Teams Pbx Installer Relationship Specialty Start Date End Date Irlanda Del Real NP Irena [facility] [place] [address] PCP - General Nurse Practitioner 05/10/22 documented as of this encounter
--- OUTSIDE RECORDS SUMMARY | 2024-11-27 15:22 | XMS_ITS | Encounter Summary ---
Author Organization [facility] Address [address] [place] [address] Phone Care Team Providers Care Clinical Nurse Educator Name Role Phone Irlanda Del Real TOURING PRODUCTION MANAGER Primary Care Provider + Encounter Details Date Type Department Care Team (Late st Contact Info) Description 05/15/2022 Telephone [facility] Pediatric Rheumatology and Immunology [facility] 2nd [place] [address] [place] [phone] Victoria Larsen Social History Tobacco Use Types Packs/Day Years Used Date Smoking Tobacco: Never Comments No Sex and Gender Information Value Date Recorded Sex Assigned at Not on file Legal Sex Female 12:43 PM OVERHEAD CLEANER MAINTAINER Gender Identity Female 05/01/2018 12:47 PM CDT Sexual Orientation Not on file documented as of this encounter Plan of Treatment Not on file documented as of this encounter Visit Diagnoses Not on filedocumented in this encounter Care Teams Clinical Nurse Educator Relationship Specialty Start Date End Date Irlanda Del Real, LUIS ANGEL [address] [facility] [place] [address] PCP - General Nurse Practitioner 05/10/22 documented as of this encounter
--- OUTSIDE RECORDS SUMMARY | 2024-11-27 15:22 | XMS_ITS | Clinical Summary ---
Author Organization [facility] Address [address] [place] [address] Care Team Providers Care Entry Level Electrical Engineer Name Role Phone Irlanda Del Real PATIENT EDUCATOR Primary Care Provider + Allergies Active Allergy [...] (05/02/2018): Added automatically from request for surgery [id number] Sinusitis 01/22/2017 09/19/2018 Surgical History Surgery Date Site/Laterality Comments MI TONSILLECTOMY PRIMARY/SECONDARY <AGE 11 2008 Medical History Medical History Date Comments Recurrent sinusitis Lingual tonsil hypertrophy Sleep apnea OAHI 3.1, lowest desat 95%, reports daytime somnolence, waking at night gasping Social History Tobacco Use Types Packs/Day Years Used Date Smoking Tobacco: Never Comments No Sex and Gender Information Value Date Recorded Sex Assigned at Not on file Legal Sex Female 12:43 PM READING ASSISTANT Gender Identity Female 05/01/2018 12:47 PM CDT [...] patient's age to complete this topic Insurance [facility] [place] [address] [place] [address] [facility] [place] MEDICAID [facility] [place] [address] [facility] MEDICAID Advance Directives For more information, please contact: [phone] * Full Code (Latest Code Status on File) Date Activated Date Inactivated Comments 10/02/2018 4:21 PM 10/03/2018 4:25 PM Care Teams Entry Level Electrical Engineer Relationship Specialty Start Date End Date Irlanda Del Real NP Irena [facility] [place] [address] PCP - General Nurse Practitioner 05/10/22
--- OUTSIDE RECORDS SUMMARY | 2024-11-27 15:22 | XMS_ITS | Encounter Summary ---
Author Organization [facility] Health Address [address] [facility] [address] Care Team Providers Care Inspector Watch Parts Name Role Phone Irlanda Del Real APRN-WINDLASSER Primary Care Provider Kelly Harrison Primary Care Provider [phone] Encounter Details Date Type Department Care Team (Late st Contact Info) Description 04/05/2023 Telephone [facility] - Pulmonology [address] [place] [address], [place] [phone] Lashell Boswell APNP-WINDLASSER [address] [place] [address] 2L DIV OF PULMONARY/[place] [address] Social History Tobacco Use Types Packs/Day Years [...] much sooner appt. Patient Call Back number: [phone] documented in this encounter Plan of Treatment Upcoming Encounters Date Type Department Care Team (Late st [facility] Info) Description 12/12/2024 8:40 AM STEEPLE JACK Office Visit [facility] - Sleep Services [address] [place] [phone] Lashell Boswell APNP-WINDLASSER [address] 2L DIV OF PULMONARY/[place] [address] 01/20/2025 11:20 AM CDT Office Visit [facility] - Sleep Services [address] [place] [phone] Lashell Boswell APNP-WINDLASSER [address] 2L DIV OF PULMONARY/[place] [address] documented as of this encounter Goals Goal Patient Goal Type Associated Problems Recent Progress Patient-Stated? Author Use safety retraint in car Lifestyle On track( 021 3:12 PM STEEPLE JACK) No Betsey Sneed RN documented as of this encounter Visit Diagnoses Not on filedocumented in this encounter Care Teams Inspector Watch Parts Relationship Specialty Start Date End Date Irlanda Del Rael APRN-BING [address] [place] [phone] PCP - General Nurse Practitioner Family 03/15/23 Kelly Harrison [address] [place] [phone] PCP - General 11/07/24 documented as of this encounter
--- OUTSIDE RECORDS SUMMARY | 2024-11-27 15:22 | XMS_ITS | Encounter Summary ---
Author Organization [facility] Health Address [address] [facility] [place] [address] Care Team Providers Care Chef Concierge Name Role Phone Kelly Harrison Primary Care Provider [phone] Reason for Visit * Reason Onset Date Comments General 11/07/2024 Encounter Details Date Type Department Care Team (Late st Contact Info) Description 11/07/2024 Telephone [facility] - Sleep Services [address] [place] [address] Lashell Boswell, APNP-UNIT NURSE [address] [facility] 2L DIV OF PULMONARY/[place] [address] General Social History Tobacco Use [...] and armodafinil treatment Patient Call Back number: [phone] NG MANAGER documented in this encounter Plan of Treatment Upcoming Encounters Date Type Department Care Team (Late st Contact Info) Description 12/12/2024 8:40 AM DINING MANAGER Office Visit [facility] - [facility] [place] [address] Lashell Boswell, APNP-UNIT NURSE [address] 2L DIV OF PULMONARY/[place] [address] 01/20/2025 11:20 AM CDT Office Visit [facility] - Sleep Services [address] [place] [phone] Lashell Boswell, APNP-UNIT NURSE [address] 2[address] DIV OF PULMONARY/[place] [address] documented as of this encounter Goals Goal Patient Goal Type Associated Problems Recent Progress Patient-Stated? Author Use safety retraint in car Lifestyle On track( 021 3:12 PM DINING MANAGER) No Betsey Sened RN documented as of this encounter Visit Diagnoses Not on filedocumented in this encounter Care Teams Chef Concierge Relationship Specialty Start Date End Date Kelly Harrison [address] [place] [phone] PCP - General 11/07/24 documented as of this encounter
--- OUTSIDE RECORDS SUMMARY | 2024-11-27 15:22 | XMS_ITS | Encounter Summary ---
Author Organization [facility] Address [address] [facility] [place] [address] Care Team Providers Care Draw Bench Operator Helper Name Role Phone Irlanda Del Real APRN-ASSISTANT SPEECH LANGUAGE PATHOLOGIST Primary Care Provider Kelly Harrison Primary Care Provider [phone] Encounter Details Date Type Department Care Team (Late st Contact Info) Description 03/15/2023 Telephone [facility] - Pulmonology [address] [facility], [place] [phone] Lashell Boswell APNP-ASSISTANT SPEECH LANGUAGE PATHOLOGIST [address] [place] [address] 2L DIV OF PULMONARY/[place] [address] Social History Tobacco Use Types Packs/Day Years [...] call momwith alternative. Patient Call Back number: [phone] documented in this encounter Plan of Treatment Upcoming Encounters Date Type Department Care Team (Late st Contact Info) Description 12/12/2024 8:40 AM FARM INSTRUCTOR Office Visit [facility] - Sleep Services [facility] [place] [address] Lashell Boswell APNP-ASSISTANT SPEECH LANGUAGE PATHOLOGIST [address] 2[address] DIV OF PULMONARY/[place] [address] 01/20/2025 11:20 AM CDT Office Visit [facility] - Sleep Services [address] [place] [phone] Lashell Boswell APNP-ASSISTANT SPEECH LANGUAGE PATHOLOGIST [address] 2[address] DIV OF PULMONARY/[place] [address] documented as of this encounter Goals Goal Patient Goal Type Associated Problems Recent Progress Patient-Stated? Author Use safety retraint in car Lifestyle On track( 021 3:12 PM FARM INSTRUCTOR) No Betsey Sneed, JORGE documented as of this encounter Visit Diagnoses Not on filedocumented in this encounter Care Teams Draw Bench Operator Helper Relationship Specialty Start Date End Date Irlanda Del Rael, APPLICATION OPERATIONS ENGINEER-ASSISTANT SPEECH LANGUAGE PATHOLOGIST [address] [place] [phone] PCP - General Nurse Practitioner Family 03/15/23 Kelly Harrison [address] [place] [phone] PCP - General 11/07/24 documented as of this encounter
--- OUTSIDE RECORDS SUMMARY | 2024-11-27 15:22 | XMS_ITS | Clinical Summary ---
Author Organization [facility] Address [address] [place] [address] Phone Care Team Providers Care Oxygen Therapy Teacher Name Role Phone Irlanda Del Real APRN, MODEL ENGINE MECHANIC Primary Care Pro vider Eleno Miller MD [...] age to complete this topic Insurance MEDICAID [place] Care Teams Oxygen Therapy Teacher Relationship Specialty Start Date End Date Irlanda Del Real APRN, MODEL ENGINE MECHANIC [address] [place] [address] PCP - General Certified Nurse Practitioner 03/22/23 Eleno Miller MD [address] [place] [id number] Consulting Physician Oncology 04/03/23
--- OUTSIDE RECORDS SUMMARY | 2024-11-27 15:22 | XMS_ITS | Clinical Summary ---
Author Organization [facility] Address [address] [place] [address] Care Team Providers Care Shear Helper Name Role Phone Kelly Harrison Primary Care Provider [phone] Source Comments [facility],non-owned Affiliates and Associated Physician Practices is amultiple site organization consisting of ambulatory clinics and hospital sitesin [place], [place], [place] and [place]. This disclosure is being madepursuant to the Care Everywhere program and may not contain all information available regarding this patient. Last updated 18.[facility] [employer] Allergies Active Allergy Reactions Criticality Noted Date [...] Active vitamin D, ergocalciferol, (Drisdol) 1.25 MG (48197 UT) capsule Take 1 (one) capsule by [...] 10/28/2020 Assessment & Plan (09/22/2021 4:54 PM LABORATORY CUREMAN): A&P - bladder and bowel dysfunction and [...] therapy Assessment & Plan (10/28/2020 4:22 PM LABORATORY CUREMAN): A&P - bladder dysfunction and pelvic floor [...] Telephone [facility] [address] [place] [phone] Lashell Boswell APNP-CNP General 09/16/2024 2:00 PM LABORATORY CUREMAN Video Visit [facility] [address] [place] [phone] Lashell Boswell APNP-NORMALIZER Central sleep apnea ; Insufficient treatment with nasal CPAP; Chronic fatigue; Vitamin D insufficiency; Inadequate sleep hygiene; Hypersomnia due to medical condition; CPAP use counseling; Overweight (BMI 25.0-29.9); Pelvic floor dysfunction 09/15/2024 Travel from Last 3 Months Immunizations Name Administration Dates Next Due [employer]uld[employer] primary monoval ent 12+ yr 0.3mL Purple [...] 72.6 kg (160 lb) 09/16/2024 2:01 PM LABORATORY CUREMAN Height 157.5 cm (5' 2 ) 09/16/2024 2:01 PM LABORATORY CUREMAN Body Mass Index 29.26 09/16/2024 2:01 PM LABORATORY CUREMAN Plan of Treatment Upcoming Encounters Date Type Department Care Team (Late st Contact Info) Description 12/12/2024 8:40 AM LABORATORY CUREMAN Office Visit [facility] [address] [place] [phone] Lashell Boswell APLUIS ANGEL-NORMALIZER [address] DIV OF PULMONARY/[place] [address] 01/20/2025 11:20 AM CDT Office Visit [facility] [address] [place] [phone] aLshell Boswell APNP-NORMALIZER [address] DIV OF PULMONARY/[place] [address] Health Maintenance Due Date Last Done Comments [...] car Lifestyle On track( 021 3:12 PM LABORATORY CUREMAN) No Betsey Sneed RN Procedures Procedure Name Priority Date/Time Associated Diagnosis Comments VITAMIN D 25-HYDROXY Routine 11/21/2024 2:17 PM LABORATORY CUREMAN Vitamin D deficiency CHLAMYDIA + GC AMPLIFIED PROBE STAT 05/27/2022 4:08 PM CDT HIV-1 HIV-2 ANTIBODY + HIV P24 AG PANEL STAT 05/27/2022 4:02 PM CDT from Last 3 Months or Most Recently Relevant to Health Maintenance Results * VITAMIN D 25-HYDROXY (11/21/2024 2:17 PM LABORATORY CUREMAN) Vitamin D, 25 Hydroxy 32.0 30.0 - 100.0 ng/mL [facility] INSURANCE BILL Comment: Vitamin D deficiency has been defined by the [place] of Medicine and an Endocrine Society practice guideline as a level of serum 25-OH vitamin D less than 20 ng/mL (1,2). The Endocrine Society went on to further define vitamin D insufficiency as a level between 21 and 29 ng/mL (2). 1. IOM ([place] of Medicine). 2010. Dietary reference intakes for calcium and D. [place]: The National Academies Press. 2. Kita MF, Paul [place], Raven APODACA, et al. Evaluation, treatment, and prevention of vitamin D deficiency: an Endocrine Society clinical practice guideline. JCEM. 2010; 96(7):1911-30. Blood BLOOD SPECIMEN / Unknown 11/21/2024 2:17 PM LABORATORY CUREMAN 11/21/2024 Narrative [facility] INSURANCE BILL - 11/22/2024 7:08 AM LABORATORY CUREMAN Performed at: - [address] [id number] Build Manager: Danyel Mcmillan PhD, Phone: [phone] Lashell A Dettenmeier APNP-NORMALIZER LAB - CH EMISTRY ORDERABLES [facility] INSURANCE BILL [address] [place] [address] * CHLAMYDIA + GC AMPLIFIED PROBE (STL) (05/27/2022 4:08 PM CDT) Chlamydia Amplified Probe Negative Negative 05/28/2022 6:05 AM CDT [facility] GC Amplified Probe Negative Negative 05/28/2022 6:05 AM CDT [facility] Microbiology URINE / Unknown Collection / Unknown 05/27/2022 4:08 PM CDT 05/27/2022 4:08 PM CDT Narrative [facility] - 05/28/2022 6:05 AM CDT Results based on detection/no detection of ribosomal RNA by amplified method. Tori Treadwell MD LAB - MICROBIOLOGY O RDERABLES Performing Organization Address City/[facility]/ZIP Co de Phone Number [facility] [address] [place] [address], [facility] [phone] * HIV-1 HIV-2 ANTIBODY + HIV P24 AG PANEL (05/27/2022 4:02 PM CDT) Pathologist [facility] HIV Antigen/Antibod y 1 & 2 Non-reacti ve Non-react anju 05/27/2022 4:55 PM CDT [facility] Comment:No Laboratory eviden ce of HIV infection. Blood BLOOD SPECIMEN / Unknown Venipuncture / Unknown 05/27/2022 4:02 PM CDT 05/27/2022 4:08 PM CDT Tori Treadwell MD LAB - CHEMISTRY ORDPatel HENDERSON [facility]ORATORY [facility] [address] [place] [address], [place] [phone] from Last 3 Months or Most Recently Relevant to Health Maintenance Care Teams Shear Helper Relationship Specialty Start Date End Date Kelly Harrison [address] [place] [phone] PCP - General 11/07/24
--- OUTSIDE RECORDS SUMMARY | 2024-11-27 15:22 | XMS_ITS | Referral Summary ---
Author Organization [facility] Address [address] [place] [address] Care Team Providers Care Chassis Engineer Name Role Phone Kelly Harrison Primary Care Provider [phone] Source Comments [facility],non-owned Affiliates and Associated Physician Practices is amultiple site organization consisting of ambulatory clinics and hospital sitesin [place], [place], [place] and [place]. This disclosure is being madepursuant to the Care Everywhere program and may not contain all information available regarding this patient. Last updated 18.[facility] Encounters Date Type Department Care Team Description 11/07/2024 Telephone [facility] [address] [place] [phone] Lashell Boswell APNP-CNP General 09/16/2024 2:00 PM SHREDDING FLOOR EQUIPMENT OPERATOR Video Visit [facility] [address] [place] [phone] Lashell Boswell APNP-CNP Central sleep apnea ; [...] Active vitamin D, ergocalciferol, (Drisdol) 1.25 MG (97580 UT) capsule Take 1 (one) capsule by [...] 10/28/2020 Assessment & Plan (09/22/2021 4:54 PM SHREDDING FLOOR EQUIPMENT OPERATOR): A&P - bladder and bowel dysfunction and [...] therapy Assessment & Plan (10/28/2020 4:22 PM SHREDDING FLOOR EQUIPMENT OPERATOR): A&P - bladder dysfunction and pelvic floor [...] 11/16/2011 Immunizations Name Administration Dates Next Due Otelic primary monoval ent 12+ yr 0.3mL Purple [...] 72.6 kg (160 lb) 09/16/2024 2:01 PM SHREDDING FLOOR EQUIPMENT OPERATOR Height 157.5 cm (5' 2 ) 09/16/2024 2:01 PM SHREDDING FLOOR EQUIPMENT OPERATOR Body Mass Index 29.26 09/16/2024 2:01 PM SHREDDING FLOOR EQUIPMENT OPERATOR Plan of Treatment Upcoming Encounters Date Type Department Care Team (Late st Contact Info) Description 12/12/2024 8:40 AM SHREDDING FLOOR EQUIPMENT OPERATOR Office Visit [facility] [address] [place] [phone] Lashell Boswell APNP-STOCK RANCH SUPERVISOR [address] DIV OF PULMONARY/[place] [address] 01/20/2025 11:20 AM CDT Office Visit [facility] [address] [place] [address] Lashell Boswell, HARLEEN-STOCK RANCH SUPERVISOR [address] DIV OF PULMONARY/[place] [address] Goals Goal Patient Goal Type Associated Problems Recent Progress Patient-Stated? Author Use safety retraint in car Lifestyle On track( 021 3:12 PM SHREDDING FLOOR EQUIPMENT OPERATOR) Betsey Suarez RN Procedures Procedure Name Priority Date/Time Associated Diagnosis Comments VITAMIN D 25-HYDROXY Routine 11/21/2024 2:17 PM SHREDDING FLOOR EQUIPMENT OPERATOR Vitamin D deficiency CHLAMYDIA + GC AMPLIFIED PROBE STAT 05/27/2022 4:08 PM CDT HIV-1 HIV-2 ANTIBODY + HIV P24 AG PANEL STAT 05/27/2022 4:02 PM CDT from Last 3 Months or Most Recently Relevant to Health Maintenance Results * VITAMIN D 25-HYDROXY (11/21/2024 2:17 PM SHREDDING FLOOR EQUIPMENT OPERATOR) Vitamin D, 25 Hydroxy 32.0 30.0 - 100.0 ng/mL [facility] INSURANCE BILL Comment: Vitamin D deficiency has been defined by the [place] of Medicine and an Endocrine Society practice guideline as a level of serum 25-OH vitamin D less than 20 ng/mL (1,2). The Endocrine Society went on to further define vitamin D insufficiency as a level between 21 and 29 ng/mL (2). 1. IOM ([place] of Medicine). 2010. Dietary reference intakes for calcium and D. [place]: The National Academies Press. 2. Kita MF, [place], Raven APODACA, et al. Evaluation, treatment, and prevention of vitamin D deficiency: an Endocrine Society clinical practice guideline. JCEM. 2010; 96(7):1911-30. Blood BLOOD SPECIMEN / Unknown 11/21/2024 2:17 PM SHREDDING FLOOR EQUIPMENT OPERATOR 11/21/2024 Narrative [facility] INSURANCE BILL - 11/22/2024 7:08 AM SHREDDING FLOOR EQUIPMENT OPERATOR [facility] [address] [place], [place] [id number] Booking Prizer: Danyel Mcmillan PhD, Phone: [phone] Lashell [facility] LAB - CH EMISTRY ORDERABLES [facility] INSURANCE BILL [address] [place] [address] * CHLAMYDIA + GC AMPLIFIED PROBE (STL) (05/27/2022 4:08 PM CDT) Pathologist [facility] Chlamydia Amplified Probe Negative Negative 05/28/2022 6:05 AM CDT [facility] GC Amplified Probe Negative Negative 05/28/2022 6:05 AM CDT [facility] Microbiology URINE / Unknown Collection / Unknown 05/27/2022 4:08 PM CDT 05/27/2022 4:08 PM CDT Narrative [facility] - 05/28/2022 6:05 AM CDT Results based on detection/no detection of ribosomal RNA by amplified method. Tori Treadwell MD LAB - MICROBIOLOGY O RDERABLES [facility] [address] [place], [place] [id number] [place] [address] * HIV-1 HIV-2 ANTIBODY + HIV P24 AG PANEL (05/27/2022 4:02 PM CDT) Pathologist [facility] HIV Antigen/Antibod y 1 & 2 Non-reacti ve Non-react anju 05/27/2022 4:55 PM CDT [facility] Comment:No Laboratory eviden ce of HIV infection. Blood BLOOD SPECIMEN / Unknown Venipuncture / Unknown 05/27/2022 4:02 PM CDT 05/27/2022 4:08 PM CDT Tori Treadwell MD LAB - CHEMISTRY [place] Organization Address City/State/ZIP Co de Phone Number [facility] [address] [place] [address], [facility] [phone] from Last 3 Months or Most Recently Relevant to Health Maintenance Care Teams Chassis Engineer Relationship Specialty Start Date End Date Kelly Harrison [address] [facility] [place] [address] PCP - General 11/07/24
--- OUTSIDE RECORDS SUMMARY | 2024-11-27 15:22 | XMS_ITS | Encounter Summary ---
Author Organization [facility] Address [address] [place] [address] Care Team Providers Care Insulation Board Calender Operator Name Role Phone Kavitha Barker MD Primary Care Provider [phone] Irlanda Del Real COMPUTER PROGRAMMING MANAGER-MAGENTO DEVELOPER Primary Care Provider Kelly Harrison Primary Care Provider [phone] Reason for Visit * Reason Onset Date Comments MEDICATION REFILL 03/07/2023 Encounter Details Date Type Department Care Team (Late st Contact Info) Description 03/07/2023 Refill [facility] [address] [place] [address] María Elena Overton, COMPUTER PROGRAMMING MANAGER-MAGENTO DEVELOPER [address] [place] [address] MEDICATION REFILL Social History Tobacco Use Types [...] st Contact Info) Description 12/12/2024 8:40 AM ACTIMIZE ARCHITECT Office Visit [facility] [place] [address] Lashell Boswell, APNP-MAGENTO DEVELOPER [address] DIV OF PULMONARY/[place] [address] 01/20/2025 11:20 AM CDT Office Visit [facility] [address] [place] [phone] Lashell Boswell, APNP-MAGENTO DEVELOPER [address] DIV OF PULMONARY/[place] [address] documented as of this encounter Goals Goal Patient Goal Type Associated Problems Recent Progress Patient-Stated? Author Use safety retraint in car Lifestyle On track( 021 3:12 PM ACTIMIZE ARCHITECT) No Betsey Sneed RN documented as of this encounter Visit Diagnoses Not on filedocumented in this encounter Care Teams Insulation Board Calender Operator Relationship Specialty Start Date End Date Kavitha Barker MD PCP - General 06/02/22 03/14/23 Irlanda Del Real APRN-MAGENTO DEVELOPER [address] [place] [phone] PCP - General Nurse Practitioner Family 03/15/23 Kelly Harrison [address] [place] [phone] PCP - General 11/07/24 documented as of this encounter
--- OUTSIDE RECORDS SUMMARY | 2024-11-27 15:22 | XMS_ITS | Encounter Summary ---
Author Organization [facility] Address [address] [facility] [place] [address] Care Team Providers Care Director Of Catering Sales Name Role Phone Kavitha Barker MD Primary Care Provider [phone] Irlanda Del Real APRN-DOUGH MOLDER Primary Care Provider Kelly Harrison Primary Care Provider [phone] Reason for Visit * Reason Onset Date Comments MEDICATION REFILL 03/07/2023 Encounter Details Date Type Department Care Team (Late st Contact Info) Description 03/07/2023 Refill [facility] Pediatrics - Urology [address] [place] [address] Lorna Haley BARTENDER SERVER-DOUGH MOLDER [address] [place] [address] MEDICATION REFILL Social History Tobacco Use Types [...] st Contact Info) Description 12/12/2024 8:40 AM REMOTE MEDICAL CODER Office Visit [facility] [address] [place] [address] Lashell Boswell, APNP-DOUGH MOLDER [address] DIV OF PULMONARY/[place] [address] 01/20/2025 11:20 AM CDT Office Visit [facility] Services [address] [place] [phone] Lashell Boswell, APNP-DOUGH MOLDER [address] DIV OF PULMONARY/[place] [address] documented as of this encounter Goals Goal Patient Goal Type Associated Problems Recent Progress Patient-Stated? Author Use safety retraint in car Lifestyle On track( 021 3:12 PM REMOTE MEDICAL CODER) No Betsey Sneed RN documented as of this encounter Visit Diagnoses Diagnosis Pelvic floor dysfunction in female documented in this encounter Care Teams Director Of Catering Sales Relationship Specialty Start Date End Date Kavitha Barker MD PCP - General 06/02/22 03/14/23 Irlanda Del Real APRN-DOUGH MOLDER [address] [place] [phone] PCP - General Nurse Practitioner Family 03/15/23 Kelly Harrison [address] [place] [phone] PCP - General 11/07/24 documented as of this encounter
--- OUTSIDE RECORDS SUMMARY | 2024-11-27 15:22 | XMS_ITS | Referral Summary ---
Author Organization [facility] Address [address] [place] [address] Care Team Providers Care Derrick Man Name Role Phone Irlanda Del Real FX ARTIST Primary Care Provider + Allergies Active Allergy [...] (05/02/2018): Added automatically from request for surgery [id number] Sinusitis 01/22/2017 09/19/2018 Social History Tobacco Use Types Packs/Day Years Used Date Smoking Tobacco: Never Comments No Sex and Gender Information Value Date Recorded Sex Assigned at Not on file Legal Sex Female 12:43 PM PSYCHOLOGY PROFESSOR Gender Identity Female 05/01/2018 12:47 PM CDT [...] of Treatment Not on file Insurance ID[facility] [place] [address] IDPA [facility] MEDICAID [facility] IDPA [facility] [place] [address] [facility] MEDICAID Advance Directives For more information, please contact: [phone] * Full Code (Latest Code Status on File) Date Activated Date Inactivated Comments 10/02/2018 4:21 PM 10/03/2018 4:25 PM Care Teams Derrick Man Relationship Specialty Start Date End Date Irlanda Del Real NP [address] [facility] [place] [place] [address] PCP - General Nurse Practitioner 05/10/22
--- OUTSIDE RECORDS SUMMARY | 2024-11-27 15:22 | XMS_ITS | Clinical Summary ---
Author Organization [facility] Address [address] Peck: Epic Prelude ADT LINDA KNOTT [address] Care Team Providers Care Butcher All Round Name Role Phone Unavailable Primary Care Provider [...] daily. 180 Capsule 1 10/03/2022 9:48 AM OPERATIONS PROJECT MANAGER 2 Active acyclovir (ZOVIRAX) 400 mg [...] until gone 21 Capsule 09/14/2022 12:17 PM OPERATIONS PROJECT MANAGER 2 Active HYDROcodone-ac etaminophen (NORCO) 5-325 mg tablet Take one or two tablets by mouth every 6 hours as needed for pain 20 Tablet 09/14/2022 12:17 PM OPERATIONS PROJECT MANAGER 2 Active pramipexole (Mirapex) 0.5 mg [...] days 13 Capsule 2 09/04/2023 5:20 PM OPERATIONS PROJECT MANAGER 3 Active armodafiniL (NUVIGIL) 150 mg tablet Take 1 (one) tablet by mouth once daily. Take one tablet daily upon waking up in the morning. 30 Tablet 5 02/11/2024 2:07 PM CDT 3 Active melatonin 5 mg Tablet Take 1 (one) tablet by mouth every evening 90 Tablet 3 09/28/2023 2:24 PM OPERATIONS PROJECT MANAGER 3 Active armodafiniL (NUVIGIL) 150 mg tablet Take 1 Tablet (150 mg) by mouth daily upon waking up in the morning. 30 Tablet 5 10/28/2024 9:25 AM OPERATIONS PROJECT MANAGER 4 Active armodafiniL (NUVIGIL) 150 mg tablet Take one tablet daily upon waking up in the morning. 30 Tablet 5 08/25/2024 1:27 PM OPERATIONS PROJECT MANAGER 4 Active levothyroxine 25 mcg tablet Take 1 Tablet (25 mcg) by mouth ONCE daily BEFORE A MEAL. 90 Tablet 1 06/17/2024 11:44 AM CDT 4 Active famotidine (PEPCID) 40 mg tablet Take 1 tablet by mouth daily as needed 30 Tablet 3 08/22/2024 10:23 AM OPERATIONS PROJECT MANAGER 4 Active omeprazole (PriLOSEC) 20 mg Capsule, Delayed Release(E.C.) Take 1 capsule by mouth twice daily before meal(s) 60 Capsule 3 08/22/2024 10:23 AM OPERATIONS PROJECT MANAGER 4 Active amoxicillin (AMOXIL) 875 mg tablet Take 1 tablet ORAL route every 12 hours for 10 days 20 Tablet 08/27/2024 11:07 AM OPERATIONS PROJECT MANAGER 4 Active azithromycin (ZITHROMAX) 250 mg tablet Take 2 tablets by mouth on day 1, then take 1 tablet by mouth daily for 4 days. Take with food. 6 Tablet 09/04/2024 10:48 AM OPERATIONS PROJECT MANAGER 4 Active predniSONE (DELTASONE) 20 mg tablet Take 1 Tablet (20 mg) by mouth 2 times daily in the morning and early evening. Take with food. 10 Tablet 09/04/2024 10:48 AM OPERATIONS PROJECT MANAGER 4 Active QUEtiapine (SeroqueL) 50 mg tablet Take 1 Tablet (50 mg) by mouth daily at bedtime. 30 Tablet 11/20/2024 2:01 PM OPERATIONS PROJECT MANAGER 5 Active nitrofurantoin (Macrobid) 100 mg capsule Take 1 Capsule (100 mg) by mouth every 12 hours for 7 days. 14 Capsule 11/25/2024 5:31 PM OPERATIONS PROJECT MANAGER 5 025 Active fluconazole (Diflucan) 150 mg tablet Take 1 Tablet (150 mg) by mouth now, repeat dose in 72 hours. 2 Tablet 08/27/2024 11:07 AM OPERATIONS PROJECT MANAGER 4 025 Discontinued nitrofurantoin (Macrobid) 100 mg capsule Take 1 Capsule (100 mg) by mouth every 12 hours for 7 days. 14 Capsule 08/27/2024 11:07 AM OPERATIONS PROJECT MANAGER 4 025 Discontinued Immunizations Immunization Administration [...] Sex Assigned at Female 08/21/2024 5:38 PM OPERATIONS PROJECT MANAGER Legal Sex Female 10:09 PM CDT Gender Identity Female 08/21/2024 5:38 PM OPERATIONS PROJECT MANAGER Sexual Orientation Not on file Plan [...] ID:Not on file Type:RX Commercial Address: [place] RX [employer] Medicaid RX [employer] (INTERNAL) [facility]
--- OUTSIDE RECORDS SUMMARY | 2024-11-27 15:22 | XMS_ITS | Encounter Summary ---
Author Organization [facility] Address [address] [facility] [place] [address] Care Team Providers Care Multiple Resaw Operator Name Role Phone Kavitha Barker MD Primary Care Provider [phone] Irlanda Del Real APRN-INSURANCE ACCOUNT MANAGER Primary Care Provider Kelly Harrison Primary Care Provider [phone] Reason for Visit * Reason Onset Date Comments MEDICATION REFILL 03/07/2023 Encounter Details Date Type Department Care Team (Late st Contact Info) Description 03/07/2023 Refill [facility] Pediatrics - Urology [address] [place] [address] Lorna Haley DEVELOPING MACHINE OPERATOR-INSURANCE ACCOUNT MANAGER [address] [place] [phone] MEDICATION REFILL Social History Tobacco Use Types [...] st Contact Info) Description 12/12/2024 8:40 AM BOOKING OFFICER Office Visit [facility] - Sleep Services [address] [place] [address] Lashell Boswell, APNP-INSURANCE ACCOUNT MANAGER [address] DIV OF PULMONARY/[place] [address] 01/20/2025 11:20 AM CDT Office Visit [facility] - Sleep Services [address] [place] [phone] Lashell Boswell, APNP-INSURANCE ACCOUNT MANAGER [address] DIV OF PULMONARY/[place] [address] documented as of this encounter Goals Goal Patient Goal Type Associated Problems Recent Progress Patient-Stated? Author Use safety retraint in car Lifestyle On track( 021 3:12 PM BOOKING OFFICER) No Betsey Sneed RN documented as of this encounter Visit Diagnoses Diagnosis Pelvic floor dysfunction in female documented in this encounter Care Teams Multiple Resaw Operator Relationship Specialty Start Date End Date Kavitha Barker MD PCP - General 06/02/22 03/14/23 Irlanda Del Real APRN-INSURANCE ACCOUNT MANAGER [address] [place] [phone] PCP - General Nurse Practitioner Family 03/15/23 Kelly Harrison [address] [place] [phone] PCP - General 11/07/24 documented as of this encounter
[2024-11-27 15:26] LABS: Troponin I < 0.012 ng/mL (0.000-0.034)
[2024-11-27 15:37] LABS: D Dimer < 0.27 ug/mL (<0.48)
--- NOTE | 2024-11-27 17:07 | PC.NURSE ---
Patient was found eating beef jerky and pretzels in the waiting room when called back to a room.
[2024-11-27 17:20] VITALS: BP 152/86; PULSE 93; RESP 13; O2SAT 100
--- NOTE | 2024-11-27 17:50 | PC.NURSE ---
patient refused IV and medications. Provider aware
[2024-11-27 18:13] LABS: Troponin I < 0.012 ng/mL (0.000-0.034)
== END 2024-11-27 18:38 | disposition home or self-care (01) ==
PROVIDERS: Emergency Medicine; Nurse Practitioner Family; Emergency Provider Emergency Medicine
DX: R00.2 Palpitations (principal); E61.1 Iron deficiency; G25.81 Restless legs syndrome; K21.9 Gastro-esophageal reflux disease without esophagitis; Z79.899 Other long term (current) drug therapy; R00.0 Tachycardia, unspecified; R94.31 Abnormal electrocardiogram [ECG] [EKG]
CPT/HCPCS: 36415; 71046; 80053; 83690; 84484; 85025; 85380; 85610; 85730; 93005; 96361; 96374; 99284

== ENCOUNTER 2024-12-19 11:22 | Emergency (ER) | payer OTHER, SELFPAY ==
[2024-12-19 11:40] VITALS: BP 110/70; PULSE 90; RESP 16; TEMP 36.8; O2SAT 100
[2024-12-19 12:10] LABS: EDCOVIDSCREEN Negative (Negative); EDINFLUASCREEN Positive (Negative); EDINFLUBSCREEN Negative (Negative); EDSTREPNEGPOS1 Negative (Negative)
--- NOTE | 2024-12-19 12:13 | ED.URI ---
HPI - URI/Sore Throat General Chief Complaint: Upper Respiratory Infection Stated Complaint: SORE THROAT/BODY ACHES Time Seen by Provider: 12/19/24 12:13 Source: patient and RN notes reviewed Mode of arrival: ambulatory Limitations: no limitations History of Present Illness HPI Narrative: 19 presented for complaint of sore throat body aches. Onset yesterday. Endorses mild cough and runny nose. Reports exposure to strep and flu. Denies sob, wheezing, n/v/d. MD elicited complaint: cough Related Data Home Medications ?Medication ?Instructions ?Recorded ?Confirmed ?Last Taken ?Type etonogestrel 68 mg subdermal 1 implant subdermal ONCE 08/05/20 09/04/24 Unknown History implant (Nexplanon) pramipexole 0.5 mg tablet 0.5 mg PO DAILY 08/05/20 09/04/24 Unknown History armodafinil See Rx Instructions .Route .COMPLEX 09/04/24 09/04/24 Unknown History Allergies Allergy/AdvReac Type Severity Reaction Status Date / Time amoxicillin Allergy Intermediate Nausea and Verified 12/19/24 11:39 Vomiting bupropion (From Wellbutrin) Allergy Intermediate Unknown Verified 12/19/24 11:39 Review of Systems Review of Systems: CONSTITUTIONAL: Endorses malaise, chills, sweats, fever EYES: Denies visual changes, redness, or discharge ENT: Reports rhinorrhea, congestion, sinus pain, otalgia, sore throat CARDIOVASCULAR: Denies chest pain, palpitations, edema RESPIRATORY: Reports cough, post nasal drainage. Denies dyspnea GASTROINTESTINAL: Denies abdominal pain, nausea, vomiting, diarrhea SKIN: Denies rash or itching MUSCULOSKELETAL: Endorses myalgia NEUROLOGIC: Denies headache PMFSH Past Medical History Medical History (Updated 12/19/24 @ 12:17 by María Elena Amaya APRN) Back pain Restless leg syndrome GERD (gastroesophageal reflux disease) Hypersomnia Anxiety and depression Iron deficiency Surgical History Surgical History (Updated 09/06/24 @ 06:12 by Betsey Leggett NP) History of tonsillectomy Social History Social History (Updated 09/06/24 @ 06:13 by Btesey Leggett NP) Smoking status: Never smoker Alcohol intake: unknown Substance use: unknown Gender identity (if verbalized by the patient): Female Exam Narrative: GENERAL: Ill-appearing, nontoxic no acute distress. EYES: PERRLA, conjunctivae clear ENT: Mucous membranes moist. TM pearly navarro with dull light reflex bilaterally; no tragal tenderness. Oropharynx erythematous without lesions or exudate, no drooling, no hoarseness, no trismus, uvula midline. No tripod positioning, muffled voice, soft palate or pharyngeal wall bulging NECK: Supple. No lymphadenopathy CHEST: Clear to auscultation, breath sounds equal. HEART: Regular rate and rhythm. No murmur heard. SKIN: Warm, dry, no rash. NEURO: Alert and oriented x3. PSYCH: Normal mood and affect Course Course Emergency Course: Patient is aware of diagnosis, understands and agrees to treatment plan. Anticipatory guidance given. Patient agrees to follow-up as directed and is aware of reasons to seek care at the emergency department. Portions of this record may have been created with voice recognition software Level of Care: Express Care Visit Vital Signs Vital signs: Vital Signs Temperature 98.2 F 12/19/24 11:40 Pulse Rate 90 12/19/24 11:40 Respiratory Rate 16 12/19/24 11:40 Blood Pressure 110/70 12/19/24 11:40 Pulse Oximetry 100 12/19/24 11:40 Temperature 98.2 F 12/19/24 11:40 Pulse Rate 90 12/19/24 11:40 Respiratory Rate 16 12/19/24 11:40 Blood Pressure 110/70 12/19/24 11:40 Pulse Oximetry 100 12/19/24 11:40 reviewed MDM - URI/Sore Throat MDM Narrative Medical decision making narrative: positive flu. MDM Differential Diagnosis Differential diagnosis: Likely upper respiratory infection, sinusitis and viral infection Lab Data Labs: Lab Results 12/19/24 Range/Units 12:05 POC Influenza A Ag Positive (Negative) POC Influenza B Ag Negative (Negative) POC SARS CoV-2 Ag Negative (Negative) POC Grp A Strep Screen Negative (Negative) Discharge Plan Discharge Clinical Impression: Influenza Patient Disposition: Home, Self-Care Condition: Stable Instructions: Antibiotic Form, Influenza (ED) Additional Instructions: Influenza positive You should avoid crowds until you are fever free for 24 hours without the use of fever reducing medications, or the symptoms are improved Rest. Drink plenty of fluids. Tylenol 1000mg every 8 hours as needed for pain/fever Flonase spray and Zyrtec (or Claritin/Elayne) for sinus pressure/congestion over the counter Cough syrup may cause drowsiness; avoid driving or take it at night time. Follow up with your primary care provider as needed Go to the ER for worsening symptoms or concerns Patient Language: Irish Prescriptions: New oseltamivir [Tamiflu] 75 mg capsule 75 mg PO Q12H 5 Days Qty: 10 0RF No Action pramipexole 0.5 mg Tablet 0.5 mg PO DAILY Nexplanon 68 mg Implant 1 implant SUBDERMAL ONCE armodafinil See Rx Instructions .ROUTE .COMPLEX Rx Instructions: see RX instructions Follow-up/Referrals: Hunter,Kelly Amanda, REFINING MACHINE OPERATOR [Primary Care Provider] -
== END 2024-12-19 12:30 | disposition home or self-care (01) ==
PROVIDERS: Emergency Provider Nurse Practitioner Family
DX: J10.1 Influenza due to other identified influenza virus with other respiratory manifestations (principal); Z20.822 Contact with and (suspected) exposure to COVID-19; K21.9 Gastro-esophageal reflux disease without esophagitis; G25.81 Restless legs syndrome
CPT/HCPCS: 87081; 87426; 87804; 87880; 99213; G0463

== ENCOUNTER 2024-12-25 14:03 | Emergency (ER) | payer OTHER, SELFPAY ==
[2024-12-25 14:11] VITALS: BP 118/82; PULSE 107; RESP 16; TEMP 36.6; O2SAT 100
--- NOTE | 2024-12-25 14:18 | ED_ITS ---
HPI - Eye Problem General Chief complaint: Eye Problems Stated complaint: EYE REDNESS Time Seen by Provider: 12/25/24 14:05 Source: patient Mode of arrival: ambulatory Limitations: no limitations History of Present Illness HPI Narrative: Patient is a 19-year-old female who presents with bilateral eye redness, discharge and irritation since yesterday. Patient had influenza last week. Denies any vision changes or significant pain. Related Data Home Medications ?Medication ?Instructions ?Recorded ?Confirmed ?Last Taken ?Type etonogestrel 68 mg subdermal 1 implant subdermal ONCE 08/05/20 12/25/24 Unknown History implant (Nexplanon) pramipexole 0.5 mg tablet 0.5 mg PO DAILY 08/05/20 09/04/24 Unknown History armodafinil See Rx Instructions .Route .COMPLEX 09/04/24 12/25/24 Unknown History Allergies Allergy/AdvReac Type Severity Reaction Status Date / Time amoxicillin Allergy Intermediate Nausea and Verified 12/25/24 14:10 Vomiting bupropion (From Wellbutrin) Allergy Intermediate Unknown Verified 12/25/24 14:10 Review of Systems Review of Systems: All systems reviewed & are unremarkable except as noted in HPI and below Constitutional: Constitutional: Denies body ache(s), Denies fever(s), Denies headache(s), Denies malaise and Denies weakness Eyes: Eyes: Denies blurry vision, Reports eye discharge, Reports irritation, Reports itchy eyes, Denies loss of vision and Denies eye pain ENT: Denies otalgia, Denies headache(s), Denies nasal discharge, Denies sinus pain and Denies sore throat Cardiovascular: Cardiovascular: Denies chest pain, Denies irregular heart rhythm and Denies dyspnea Respiratory: Respiratory: Denies dyspnea Gastrointestinal: Gastrointestinal: Denies abdominal pain, Denies diarrhea, Denies nausea and Denies vomiting Musculoskeletal: Musculoskeletal: Denies back pain, Denies myalgias and Denies arthralgias Integumentary/Breasts: Skin/Breast: Denies pruritus and Denies rash Neurologic: Denies headache(s), Denies loss of vision and Denies weakness Psychiatric: Psychiatric: Reports no additional psychiatric complaints Allergic/Immunologic: Allergic/Immunologic: Reports itchy eyes PMFSH Past Medical History Medical History Back pain Restless leg syndrome GERD (gastroesophageal reflux disease) Hypersomnia Anxiety and depression Iron deficiency Surgical History Surgical History History of tonsillectomy Social History Social History Smoking status: Never smoker Alcohol intake: unknown Substance use: unknown Gender identity (if verbalized by the patient): Female Comments At time of signature, agree with nursing past medical, surgical, social and family history. There is no relevant family history pertinent to the presenting complaint. Exam Const: General: cooperative, healthy appearing, comfortable, no acute distress and well nourished Nutritional Appearance: well nourished Orientation/consciousness: patient oriented x3 Limitations: no limitations HENMT: Head: normal to inspection, normocephalic and atraumatic Ears: external ears normal Face/Nose/Sinus: Normal external nose present, normal facial exam and face symmetric Face and sinus: normal facial exam and face symmetric Mouth: Yes lip normal Eyes: General: appearance normal, both eyes and all related structures Visual Garcia: normal visual garcia by confrontation Alignment and Position: alignment normal and position normal Periorbital: periorbital findings normal Eyelids: eyelids normal Conjunctivae: conjunctival abnormality bilateral conjunctival injection diffuse and discharge mucoid Sclera: scleral abnormality bilateral scleral injection medial Pupils: Equal, round and reactive pupils present EOM: EOMs intact bilaterally Direct Ophthalmoscopy: no photophobia Other: No hyphema, no foreign body under the lids. Neck: Neck: normal visual inspection, full ROM, no lymphadenopathy and no meningeal signs Chest: Chest palpation & inspection: normal inspection of the chest Resp: Effort & Inspection: normal respiratory effort and able to speak in complete sentences Auscultation: clear to auscultation bilaterally Cardio: Rate: tachycardic Rhythm: regular rhythm Heart sounds: S1 normal heart sound present and S2 normal heart sound present GI: Inspection: normal to inspection Skin: General skin exam: normal color and no rashes or lesions noted Neuro: General: patient oriented x3, moves all extremities and no meningeal signs Cranial nerves: Yes Equal, round and reactive pupils present Speech: normal speech Gait exam (Neuro): Normal gait present Extrem: General: normal to inspection, full ROM and no edema Psych: Appearance: grossly normal and well kempt Mental Status: mental status grossly normal Speech and movement: Normal speech and movement present Affect: normal affect Attitude: cooperative Thought process: Normal thought process present Course Course Emergency Course: Patient is aware of diagnosis, understands and agrees to treatment plan. Anticipatory guidance given. Patient agrees to follow-up as directed and is aware of reasons to seek care at the emergency department. Portions of this record may have been created with voice recognition software Level of Care: Express Care Visit Vital Signs Vital signs: Vital Signs Temperature 36.6 C 12/25/24 14:11 Pulse Rate 107 H 12/25/24 14:11 Respiratory Rate 16 12/25/24 14:11 Blood Pressure 118/82 12/25/24 14:11 Pulse Oximetry 100 12/25/24 14:11 Temperature 36.6 C 12/25/24 14:11 Pulse Rate 107 H 12/25/24 14:11 Respiratory Rate 16 12/25/24 14:11 Blood Pressure 118/82 12/25/24 14:11 Pulse Oximetry 100 12/25/24 14:11 Reviewed MDM - Eye Problem MDM Narrative Medical decision making narrative: Pt well hydrated appearing, in no respiratory distress, hemodynamically stable. Recommend supportive care. The patient is stable at time of discharge the clinical impression was discussed and the patient was given the opportunity to ask questions, which were addressed as completely as possible given the information available at present. Anticipatory guidance and return to care precautions were discussed and the importance of primary care follow-up was stressed and encouraged. The patient voiced understanding of the plan, indications to return, and the need for follow-up. Exam findings show no acute concerns or changes Patient is appropriate for outpatient treatment and follow-up. Differential Diagnosis Differential diagnosis: Likely corneal abrasion, conjunctivitis, periorbital cellulitis and corneal ulcer Medical Records Attestation: I reviewed the patient's medical records. Discharge Plan Discharge Clinical Impression: Bacterial conjunctivitis Patient Disposition: Home, Self-Care Condition: Stable Instructions: Conjunctivitis (ED) Additional Instructions: Do not touch or rub your eye. Use a warm or cool washcloth on your eye for comfort Use eyedrops as directed Practice good handwashing and hygiene to prevent spread of infection You may take Tylenol or ibuprofen for pain Follow-up with PCP or set off blocker if condition is not improving in 2-3days. Go to the emergency room if you have pain behind your eye, pressure behind her eye, difficulty seeing, or other severe symptoms Patient Language: Polish Prescriptions: New ofloxacin 0.3 % drops See Rx Instructions .ROUTE .COMPLEX Qty: 15 0RF Rx Instructions: put 1-2 drps into each eye every 2-4 h x 2 days, then 1-2 drps 4 times/day days 3-7 No Action pramipexole 0.5 mg Tablet 0.5 mg PO DAILY Nexplanon 68 mg Implant 1 implant SUBDERMAL ONCE armodafinil See Rx Instructions .ROUTE .COMPLEX Rx Instructions: see RX instructions Follow-up/Referrals: Hunter,Kelly Aamnda, VEHICLE GLASS TECHNICIAN [Primary Care Provider] - 3 Days Stand Alone Forms: Work/School Release IP Time of Disposition: 14:45
== END 2024-12-25 14:51 | disposition home or self-care (01) ==
PROVIDERS: Emergency Provider Nurse Practitioner Family
DX: H10.89 Other conjunctivitis (principal)
CPT/HCPCS: 99213; G0463

== ENCOUNTER 2025-06-22 12:51 | Emergency (ER) | payer OTHER, SELFPAY ==
[2025-06-22 13:00] VITALS: BP 102/74; PULSE 77; RESP 16; TEMP 36.4; O2SAT 100
--- NOTE | 2025-06-22 13:01 | ED_ITS ---
HPI - URI/Sore Throat General Chief Complaint: Upper Respiratory Infection Stated Complaint: URI symptoms Time Seen by Provider: 06/22/25 13:01 Source: patient, RN notes reviewed and old records reviewed Mode of arrival: ambulatory Limitations: no limitations History of Present Illness HPI Narrative: 20-year-old female presents to the [facility] with complaints of head congestion, ear fullness, body aches and a sore throat. Denies cough or fevers. Symptoms started on Sunday, 2 days ago. Denies cough, denies fevers. Has taken Tylenol Requesting a work note Related Data Home Medications ?Medication ?Instructions ?Recorded ?Confirmed ?Last Taken ?Type etonogestrel 68 mg subdermal 1 implant subdermal ONCE 08/05/20 06/22/25 Unknown History implant (Nexplanon) armodafinil See Rx Instructions .Route . COMPLEX 09/04/24 06/22/25 Unknown History Allergies Allergy/AdvReac Type Severity Reaction Status Date / Time amoxicillin Allergy Intermediate Nausea and Verified 06/22/25 12:59 Vomiting bupropion (From Wellbutrin) Allergy Intermediate Unknown Verified 06/22/25 12:59 Review of Systems Review of Systems: All systems reviewed & are unremarkable except as noted in HPI and below Constitutional: Constitutional: Reports no additional constitutional complaints ENT: Reports as per HPI, Reports otalgia and Reports sore throat Cardiovascular: Cardiovascular: Reports no additional cardiovascular complaints, Denies chest pain and Denies dyspnea Respiratory: Respiratory: Reports no additional respiratory complaints, Denies chest congestion, Denies cough and Denies dyspnea Musculoskeletal: Musculoskeletal: Reports no additional musculoskeletal complaints Integumentary/Breasts: Skin/Breast: Reports system reviewed and no additional complaints, except as docu PMFSH Past Medical History Medical History Back pain Restless leg syndrome GERD (gastroesophageal reflux disease) Hypersomnia Anxiety and depression Iron deficiency Surgical History Surgical History History of tonsillectomy Social History Social History Smoking status: Never smoker Alcohol intake: unknown Substance use: unknown Gender identity (if verbalized by the patient): Female Comments At the time of my signature, I reviewed and agree with the nursing past medical, surgical, social, and family history. There is no relevant family history pertinent to the patient complaint. Exam Const: General: cooperative, healthy appearing, comfortable, no acute distress, well developed, alert and well nourished Nutritional Appearance: well nourished Orientation/consciousness: patient oriented x3 Limitations: no limitations HENMT: Head: normal to inspection Ears: hearing grossly normal bilaterally, external ears normal, TM's normal bilaterally, EAC's normal, mastoids normal and periauricular adenopathy Face/Nose/Sinus: Normal external nose present and Normal nares present Mouth: Yes Normal oral and palatal mucosa present, Yes lip normal, Yes tongue normal and Yes moist mucous membranes Throat: posterior oropharynx normal, uvula midline and no uvular edema Eyes: General: appearance normal, both eyes and all related structures Alignment and Position: alignment normal Neck: Neck: normal visual inspection, full ROM, no lymphadenopathy and no meningeal signs Chest: Chest palpation & inspection: normal inspection of the chest Resp: Effort & Inspection: normal respiratory effort and able to speak in complete sentences Auscultation: clear to auscultation bilaterally, no crackles, no rales, no rhonchi and no wheezes Cardio: Rate: regular rate Skin: General skin exam: normal color and no rashes or lesions noted Neuro: General: patient oriented x3, gait normal, moves all extremities and no meningeal signs Cognition (Neuro): normal cognition Speech: normal speech Gait exam (Neuro): Normal gait present Extrem: General: normal to inspection, full ROM, capillary refill normal and normal gait Psych: Appearance: grossly normal and well kempt Mental Status: mental status grossly normal Speech and movement: Normal speech and movement present and Clear speech present Affect: normal affect Attitude: cooperative Course Course Level of Care: Express Care Visit Vital Signs Vital signs: Vital Signs Temperature 97.6 F 06/22/25 13:00 Pulse Rate 77 06/22/25 13:00 Respiratory Rate 16 06/22/25 13:00 Blood Pressure 102/74 06/22/25 13:00 Pulse Oximetry 100 06/22/25 13:00 Oxygen Delivery Room Air 06/22/25 13:00 Temperature 97.6 F 06/22/25 13:00 Pulse Rate 77 06/22/25 13:00 Respiratory Rate 16 06/22/25 13:00 Blood Pressure 102/74 06/22/25 13:00 Pulse Oximetry 100 06/22/25 13:00 Oxygen Delivery Room Air 06/22/25 13:00 Reviewed MDM - URI/Sore Throat MDM Narrative Medical decision making narrative: Patient sitting exam room. Patient is nontoxic, vitals stable. Patient presents with 2 day history of URI symptoms. Flu, COVID are negative. Patient appropriate for outpatient treatment with close follow-up Discharge instructions reviewed with patient, as well as provided in writing per nursing staff. The instructions also include specific and strict return/GO TO THE ER as well as f/u information. All questions have been answered, and the patient deny any further questions with discharge and discharge plan. Some parts of this dictation were generated by voice recognition software and may contain typographical and/or grammatical inaccuracies. Differential Diagnosis Differential diagnosis: Likely upper respiratory infection, otitis media, sinusitis, viral infection, bronchitis and influenza Lab Data Labs: Lab Results 06/22/25 Range/Units 13:04 POC Influenza A Ag Negative (Negative) POC Influenza B Ag Negative (Negative) POC SARS CoV-2 Ag Negative (Negative) Reviewed Critical Care Time Critical Care Time Critical Care Time: No Discharge Plan Discharge Clinical Impression: Viral infection Upper respiratory infection Qualifiers: URI type: unspecified viral URI Qualified Code(s): J06.9 - Acute upper respiratory infection, unspecified Patient Disposition: Home Condition: Stable Instructions: Pharyngitis (ED), Upper Respiratory Infection (DC), Viral Syndrome (ED) Additional Instructions: Your rapid COVID test were negative Your rapid flu test was negative Your symptoms are likely due to a viral illness, which is not treated with antibiotics. Typically viral infections last 7-10 days, can linger for couple of weeks. It is very important to treat your symptoms. Drink plenty of water, Gatorade, Pedialyte, ice pops or Jell-O. -Alternate Tylenol and Motrin per package directions for fever or pain. You can alternate every 4 hours -Antihistamine medication such as Zyrtec/Claritin/Elayne during the day can help improve symptoms. -doing daily nasal irrigations can help relieve pressure your sinuses. Things like a Neti pot -Use Flonase twice a day for 5 days then daily to help reduce the inflammation and dry up your sinuses. -You can also use Mucinex. Be sure to drink plenty of water with this medication at least 8 ounces with every dose and it is important to drink 8 to 10 glasses of water per day. Water is a natural decongestant -Eat and drink things that are easy to swallow, like tea or soup, or popsicles. -Oral rinses such as: Salt water gargles and/or may use topical anesthetic (eg. Chloraseptic spray) or lozenges to relieve dryness or throat pain). -Frequent hand washing or hand script artist is one of the best ways to prevent spread of infection. -Using a vaporizer or humidifier at night will also help thin secretions and help with coughing up phlegm. -Follow up with primary care provider in 7-10 days if condition is not improving - For new or worsening symptoms go directly to the nearest ER Patient Language: Maltese Prescriptions: No Action Nexplanon 68 mg Implant 1 implant SUBDERMAL ONCE armodafinil See Rx Instructions .ROUTE .COMPLEX Rx Instructions: see RX instructions Follow-up/Referrals: Hunter,Kelly Amanda, SKI PRODUCTION SUPERVISOR [Primary Care Provider, Unknown] - 1 Week Clinical Impression: Upper respiratory infection Stand Alone Forms: Work/School Release IP Time of Disposition: 13:24
[2025-06-22 13:28] LABS: EDCOVIDSCREEN Negative (Negative); EDINFLUASCREEN Negative (Negative); EDINFLUBSCREEN Negative (Negative)
== END 2025-06-22 13:29 | disposition home or self-care (01) ==
PROVIDERS: Emergency Provider Nurse Practitioner
DX: B34.9 Viral infection, unspecified (principal); J06.9 Acute upper respiratory infection, unspecified; Z20.822 Contact with and (suspected) exposure to COVID-19; G25.81 Restless legs syndrome; K21.9 Gastro-esophageal reflux disease without esophagitis
CPT/HCPCS: 87426; 87804; 99212; G0463

== ENCOUNTER 2025-07-06 13:39 | Emergency (ER) | payer OTHER, SELFPAY ==
[2025-07-06 13:47] VITALS: BP 108/77; PULSE 88; RESP 18; TEMP 36.7; O2SAT 100
--- NOTE | 2025-07-06 13:51 | ED.SKABFB ---
HPI - Skin/Abscess/Foreign Bdy General Chief complaint: Skin/Abscess/Foreign Body Stated complaint: Rashes all over, puffy eyes Time Seen by Provider: 07/06/25 13:51 Source: patient, RN notes reviewed and old records reviewed Mode of arrival: ambulatory Limitations: no limitations History of Present Illness HPI narrative: 20-year-old female presents to the [facility] with a red patchy rash it has been intermittent for 1 week. Denies any new creams ointments lotions detergents. No new foods. No treatment prior to arrival. Onset (ago): week(s) (1) Related Data Home Medications ?Medication ?Instructions ?Recorded ?Confirmed ?Last Taken ?Type etonogestrel 68 mg subdermal 1 implant subdermal ONCE 08/05/20 07/06/25 Unknown History implant (Nexplanon) armodafinil See Rx Instructions .Route .COMPLEX 09/04/24 07/06/25 Unknown History tirzepatide (weight loss) 2.5 2.5 mg subcut WEEKLY 07/06/25 07/06/25 Unknown History mg/0.5 mL subcutaneous pen injector (Zepbound) Allergies Allergy/AdvReac Type Severity Reaction Status Date / Time amoxicillin Allergy Intermediate Nausea and Verified 07/06/25 13:49 Vomiting bupropion (From Wellbutrin) Allergy Intermediate Unknown Verified 07/06/25 13:49 Review of Systems Review of Systems: All systems reviewed & are unremarkable except as noted in HPI and below Constitutional: Constitutional: Reports no additional constitutional complaints ENT: Reports system reviewed and no additional complaints, except as documented Cardiovascular: Cardiovascular: Reports no additional cardiovascular complaints, Denies chest pain and Denies dyspnea Respiratory: Respiratory: Reports no additional respiratory complaints, Denies chest congestion, Denies cough and Denies dyspnea Musculoskeletal: Musculoskeletal: Reports no additional musculoskeletal complaints Integumentary/Breasts: Skin/Breast: Reports as per HPI PMFSH Past Medical History Medical History Back pain Restless leg syndrome GERD (gastroesophageal reflux disease) Hypersomnia Anxiety and depression Iron deficiency Surgical History Surgical History History of tonsillectomy Social History Social History Smoking status: Never smoker Alcohol intake: unknown Substance use: unknown Gender identity (if verbalized by the patient): Female Comments At the time of my signature, I reviewed and agree with the nursing past medical, surgical, social, and family history. There is no relevant family history pertinent to the patient complaint. Exam Const: General: cooperative, healthy appearing, comfortable, no acute distress, well developed, alert and well nourished Nutritional Appearance: well nourished Orientation/consciousness: patient oriented x3 Limitations: no limitations HENMT: Head: normal to inspection Ears: hearing grossly normal bilaterally, external ears normal, TM's normal bilaterally, EAC's normal, mastoids normal and no periauricular adenopathy Mouth: Yes Normal oral and palatal mucosa present, Yes lip normal, Yes tongue normal and Yes moist mucous membranes Throat: posterior oropharynx normal, uvula midline and no uvular edema Eyes: General: appearance normal, both eyes and all related structures Alignment and Position: alignment normal Neck: Neck: normal visual inspection, full ROM, no lymphadenopathy and no meningeal signs Chest: Chest palpation & inspection: normal inspection of the chest Resp: Effort & Inspection: normal respiratory effort and able to speak in complete sentences Auscultation: clear to auscultation bilaterally, no crackles, no rales, no rhonchi and no wheezes Cardio: Rate: regular rate Skin: General skin exam: normal color and no rashes or lesions noted Rashes: rashes noted Other: Red blanchable rash Neuro: General: patient oriented x3, gait normal, moves all extremities and no meningeal signs Cognition (Neuro): normal cognition Speech: normal speech Gait exam (Neuro): Normal gait present Extrem: General: normal to inspection, full ROM, capillary refill normal and normal gait Psych: Appearance: grossly normal and well kempt Mental Status: mental status grossly normal Speech and movement: Normal speech and movement present and Clear speech present Affect: normal affect Attitude: cooperative Course Course Level of Care: Express Care Visit Vital Signs Vital signs: Vital Signs Temperature 98.1 F 07/06/25 13:47 Pulse Rate 88 07/06/25 13:47 Respiratory Rate 18 07/06/25 13:47 Blood Pressure 108/77 07/06/25 13:47 Pulse Oximetry 100 07/06/25 13:47 Oxygen Delivery Room Air 07/06/25 13:47 Temperature 98.1 F 07/06/25 13:47 Pulse Rate 88 07/06/25 13:47 Respiratory Rate 18 07/06/25 13:47 Blood Pressure 108/77 07/06/25 13:47 Pulse Oximetry 100 07/06/25 13:47 Oxygen Delivery Room Air 07/06/25 13:47 Reviewed MDM - Skin/Abscess/Foreign Bdy MDM Narrative Medical decision making narrative: Patient sitting in exam room. Patient is nontoxic, vitals stable. Patient presents with a rash that is been intermittent for 1 week. Patient appropriate for outpatient treatment with close follow-up Discharge instructions reviewed with patient, as well as provided in writing per nursing staff. The instructions also include specific and strict return/GO TO THE ER as well as f/u information. All questions have been answered, and the patient deny any further questions with discharge and discharge plan. Some parts of this dictation were generated by voice recognition software and may contain typographical and/or grammatical inaccuracies. Differential Diagnosis Differential diagnosis: Likely abscess of skin or subcutaneous tissue, viral exanthem, urticaria, herpes zoster, cellulitis, eczema, insect bites and contact dermatitis Critical Care Time Critical Care Time Critical Care Time: No Discharge Plan Discharge Clinical Impression: Urticaria Patient Disposition: Home Condition: Stable Instructions: Antibiotic Form, Urticaria (ED) Additional Instructions: The most important part of your care is follow up with Primary care provider. Take Benadryl 25-50 mg every 8 hours for itching Take Zyrtec every day Take Pepcid 20mg daily for 7 days Take the steroids starting today and next dose will be in the morning Avoid hot showers, Take cool showers. Hot showers will make rashes worse Apply cool compresses every 2-3 hours for 15 minutes Follow-up with your primary care provider as already scheduled Follow-up with your field sales representative as already scheduled Go to the ER for new or worsening symptoms such as shortness of breath. Patient Language: Japanese Prescriptions: New prednisone 20 mg tablet See Rx Instructions .Route .COMPLEX Qty: 9 0RF Rx Instructions: Take 40 mg daily for 3 days, 20 mg daily for 3 days No Action Nexplanon 68 mg Implant 1 implant SUBDERMAL ONCE armodafinil See Rx Instructions .ROUTE .COMPLEX Rx Instructions: see RX instructions Zepbound 2.5 mg/0.5 mL pen injector 2.5 mg subcut WEEKLY Rx Instructions: for 4 weeks Follow-up/Referrals: Hunter,Kelly Amanda, BOOKMOBILE CLERK [Primary Care Provider, Unknown] - 3 Days Clinical Impression: Urticaria Stand Alone Forms: Work/School Release IP Time of Disposition: 14:06
== END 2025-07-06 14:09 | disposition home or self-care (01) ==
PROVIDERS: Emergency Provider Nurse Practitioner
DX: L50.9 Urticaria, unspecified (principal); G25.81 Restless legs syndrome; K21.9 Gastro-esophageal reflux disease without esophagitis
CPT/HCPCS: 99213; G0463

== ENCOUNTER 2025-10-13 16:51 | Emergency (ER) | payer OTHER, SELFPAY ==
[2025-10-13 17:00] VITALS: BP 98/65; PULSE 73; RESP 16; TEMP 36.9; O2SAT 99
--- NOTE | 2025-10-13 17:15 | ED.NAVMDI ---
HPI - Nausea/Vomiting/Diarrhea General Chief complaint: Nausea/Vomiting/Diarrhea Stated complaint: Stomach Pain Time Seen by Provider: 10/13/25 17:00 Source: patient and RN notes reviewed Mode of arrival: ambulatory Limitations: no limitations History of Present Illness HPI Narrative: 20-year-old female patient presents Express Care complaining nausea, vomiting, diarrhea that started yesterday. Patient says symptoms have since improved since yesterday. Patient has had no episodes of nausea vomiting, diarrhea today. Patient reports some abdominal cramping, she says she is currently on her period though. Patient has been able to keep fluids and food down. Patient has any fevers,, abdominal pain, upper respiratory symptoms, or any other symptoms. Related Data Home Medications ?Medication ?Instructions ?Recorded ?Confirmed ?Last Taken ?Type etonogestrel 68 mg subdermal 1 implant subdermal ONCE 08/05/20 07/06/25 Unknown History implant (Nexplanon) armodafinil See Rx Instructions .Route .COMPLEX 09/04/24 07/06/25 Unknown History tirzepatide (weight loss) 2.5 2.5 mg subcut WEEKLY 07/06/25 07/06/25 Unknown History mg/0.5 mL subcutaneous pen injector (Zepbound) Allergies Allergy/AdvReac Type Severity Reaction Status Date / Time amoxicillin Allergy Intermediate Nausea and Verified 10/13/25 17:05 Vomiting bupropion (From Wellbutrin) Allergy Intermediate Unknown Verified 10/13/25 17:05 Review of Systems Review of Systems: CONSTITUTIONAL: Denies fever, chills, or sweats. EYES: Denies visual changes, redness, or discharge. ENT: Denies rhinorrhea, congestion, sore throat, or otalgia. CARDIOVASCULAR: Denies chest pain, palpitations, or edema. RESPIRATORY: Denies cough or dyspnea. GASTROINTESTINAL: Denies abdominal pain. Positive for nausea, vomiting, and diarrhea. GENITOURINARY: Denies dysuria or hematuria. SKIN: Denies rash or itching. MUSCULOSKELETAL: Denies back pain, joint pain, or myalgia. NEUROLOGIC: Denies headache, numbness, or weakness. PSYCHIATRIC: Denies anxiety or depression. All other systems reviewed are negative, except as documented in HPI. [facility] Past Medical History Medical History Back pain Restless leg syndrome GERD (gastroesophageal reflux disease) Hypersomnia Anxiety and depression Iron deficiency Surgical History Surgical History History of tonsillectomy Social History Social History Smoking status: Never smoker Alcohol intake: unknown Substance use: unknown Gender identity (if verbalized by the patient): Female Comments At the time of my signature, I reviewed and agree with the nursing past medical, surgical, social, and family history. There is no relevant family history pertinent to the patient complaint. Exam Narrative: GENERAL: This is a well-nourished, well-developed adult, in no apparent distress. They are non ill-appearing, nontoxic appearing. HEAD: normocephalic, atraumatic. EYES: Sclera clear/white. Conjunctiva normal. Vision is grossly intact. Extraocular movements intact EARS: External ears normal, Hearing grossly intact. NOSE: External nose normal THROAT: Mucous membranes moist, NECK: Neck supple, CARDIOVASCULAR: Regular rate and rhythm without murmurs, gallops, or rubs. RESPIRATORY: Clear to auscultation. Breath sounds equal bilaterally. No wheezes, rales, or rhonchi. GASTROINTESTINAL: Abdomen soft, non-tender, nondistended. Bowel sounds are active. No hepato-splenomegaly, or palpable masses. No guarding or rigidity. SKIN: warm, Dry, intact with no suspicious lesions or rash, good texture and turgor. NEURO: awake, alert, and oriented to person, place and time. There were no obvious focal neurologic abnormalities. EXTREMITIES: No joint tenderness, effusion, or edema noted. BACK: Nontender without deformity. Course Course Level of Care: Express Care Visit Vital Signs Vital signs: Vital Signs Temperature 98.4 F 10/13/25 17:00 Pulse Rate 73 10/13/25 17:00 Respiratory Rate 16 10/13/25 17:00 Blood Pressure 98/65 L 10/13/25 17:00 Pulse Oximetry 99 10/13/25 17:00 Temperature 98.4 F 10/13/25 17:00 Pulse Rate 73 10/13/25 17:00 Respiratory Rate 16 10/13/25 17:00 Blood Pressure 98/65 L 10/13/25 17:00 Pulse Oximetry 99 10/13/25 17:00 MDM MDM Narrative Medical decision making narrative: Nontender on palpation, no peritoneal findings on exam. Patient nontoxic appearing no apparent distress. Patient does not appear clinically dehydrated. Patient afebrile. Patient with acute fluids and food down. Patient said symptoms have significantly improved. Likely a viral gastroenteritis. Discussed supportive care. Discussed physical exam findings. Advised supportive measures and signs/symptoms to go to the ER. Pt is appropriate for outpt treatment and f/u. Differential Diagnosis Differential Diagnosis: Differential diagnostic considerations for nausea/vomiting/diarrhea include gastroenteritis, appendicitis, IBD, intestinal obstruction, clostridium difficile, food poisoning, peritonitis, IBS, dehydration, ischemic bowel, ACS, pancreatitis, drug induced nausea/vomiting. Critical Care Time Critical Care Time Critical Care Time: No Discharge Plan Discharge Clinical Impression: Gastroenteritis Patient Disposition: Home Condition: Stable Instructions: Antibiotic Form, Gastroenteritis (ED) Additional Instructions: It is likely have a viral gastroenteritis. This is normally a self-limiting condition or resolve within 24-72 hours. However sometimes symptoms may linger on up to 7 days. It is recommended not to take anything for the diarrhea and allow the diarrhea to run its course. If the diarrhea persist and you feeling better, you may take Pepto-Bismol as needed to help control the diarrhea. Recommend hydration with plenty of fluids electrolyte supplementation such as Pedialyte. Follow-up PCP in 3-5 days. If Your unable to keep anything down, you developed abdominal pain, fevers, uncontrollable diarrhea, concerns of dehydration, or any other concerns please go to the ER immediately. Patient Language: Bulgarian Prescriptions: No Action Nexplanon 68 mg Implant 1 implant SUBDERMAL ONCE armodafinil See Rx Instructions .ROUTE .COMPLEX Rx Instructions: see RX instructions Zepbound 2.5 mg/0.5 mL pen injector 2.5 mg subcut WEEKLY Rx Instructions: for 4 weeks Follow-up/Referrals: Hunter,Kelly Amanda, RELIABILITY ENGINEER [Primary Care Provider, Unknown] Stand Alone Forms: Work/School Release IP Time of Disposition: 17:16
== END 2025-10-13 17:19 | disposition home or self-care (01) ==
DX: K52.9 Noninfective gastroenteritis and colitis, unspecified (principal); G25.81 Restless legs syndrome; K21.9 Gastro-esophageal reflux disease without esophagitis
CPT/HCPCS: 99213; G0463